=== PATIENT | female | born 1945 | race Caucasian/White ===

== ENCOUNTER 2020-08-21 10:30 | Outpatient (REF) | payer MEDICARE, SELFPAY ==
[2020-08-21 11:29] LABS: Creatinine Urine 150.53 mg/dL; Microalbum/Creatinine Ratio Ur 7.3 ug/mg cr
== END 2020-08-21 10:31 | disposition home or self-care (01) ==
LOC: HO.LNP 10:30
PROVIDERS: Visit Provider Family Medicine
DX: I10 Essential (primary) hypertension (principal); E11.9 Type 2 diabetes mellitus without complications
CPT/HCPCS: 82043

== ENCOUNTER 2020-12-15 10:00 | Outpatient (REF) | payer MEDICARE, OTHER, SELFPAY | END 2020-12-15 10:01 | disposition home or self-care (01) | LOC: HO.WFDLDS 10:00 | PROVIDERS: Visit Provider Family Medicine | DX: Z11.1 Encounter for screening for respiratory tuberculosis (principal) | CPT/HCPCS: 36415; 86481 ==

== ENCOUNTER 2020-12-22 09:14 | Outpatient (REF) | payer MEDICARE, OTHER, SELFPAY ==
[2020-12-24 19:37] LABS: TS Negative Control Passed; TS Panel A 0; TS Panel B 0; TS Positive Control Passed; TSpotTB Negative (SeeBelow)
== END 2020-12-22 09:15 | disposition home or self-care (01) ==
LOC: HO.WFDLDS 09:14
PROVIDERS: Visit Provider Family Medicine
DX: Z11.1 Encounter for screening for respiratory tuberculosis (principal)
CPT/HCPCS: 36415; 86481

== ENCOUNTER 2021-06-11 08:41 | Outpatient (REF) | payer MEDICARE, OTHER, SELFPAY ==
--- NOTE | ~2021-06-11 | MM_ITS ---
EXAMINATION: MM SCREENING DIGITAL BREAST TOMOSYNTHESIS, BILATERAL CLINICAL INFORMATION: Screening. Asymptomatic. The lifetime risk of breast cancer based on the Tyrer-Cuzick Model is 5%. COMPARISON: Mammography: 07/30/2017, 05/27/2015 TECHNIQUE: Digital breast tomosynthesis is performed in both the craniocaudal and mediolateral oblique views along with computer-aided detection (CAD). Synthesized 2D images are generated from the tomosynthesis. Additional bilateral CC and additional bilateral MLO views are provided. FINDINGS: There are scattered areas of fibroglandular density (ACR BI-RADS breast composition Category b). There are no significant masses, abnormal calcifications, or other abnormalities. Parenchymal pattern is similar to prior studies. No developing density. There are some additional benign coarse calcifications retroareolar right breast. Biopsy clip marker again noted anterior upper outer right breast. MM/MM tomosynthesis screening BI IMPRESSION: No mammographic evidence of malignancy. ASSESSMENT: BI-RADS 2: Benign RECOMMENDATION: Routine annual mammography screening. This patient's information was entered into a reminder system with a target due date for their next mammogram.
== END 2021-06-11 08:42 | disposition home or self-care (01) ==
LOC: HO.MAMMO 08:41
PROVIDERS: Visit Provider Family Medicine
DX: Z12.31 Encounter for screening mammogram for malignant neoplasm of breast (principal)
CPT/HCPCS: 77063; 77067

== ENCOUNTER 2021-08-13 11:04 | Outpatient (REF) | payer MEDICARE, OTHER, SELFPAY ==
[2021-08-13 14:10] LABS: Appearance Urine CLOUDY; Color Urine ORANGE; Glucose Urine UA NEG (NEG); Leukocyte Esterase Urine TRACE (NEG); Nitrite Urine NEG (NEG); Specific Gravity - Urine 1.025 (1.005-1.025); Urine Blood NEG (NEG); Urine Ketones 5 MG/DL (NEG); Urine Protein TRACE MG/DL (NEG-TRACE)
[2021-08-13 14:27] LABS: Amorphous Sediment Urine 1+ /LPF; RBC Urine 0 /HPF (0)
[2021-08-13 14:30] LABS: Alanine Aminotransferase 17 U/L (0-31); Albumin Level 3.8 g/dL (3.5-5.0); Alkaline Phosphatase 118 U/L (39-117); Anion Gap 11 (12-20); Aspartate Amino Transferase 22 U/L (5-31); Bilirubin Total 2.9 mg/dL (0.0-1.0); Blood Urea Nitrogen 14 mg/dL (9-16); Calcium 9.3 mg/dL (8.4-10.2); Carbon Dioxide 27 mmol/L (22-29); Chloride 107 mmol/L (96-108); Cholesterol 118 mg/dL; Estimated Glomerular Filt Rate > 60; Glucose Fasting 209 mg/dL (60-99); HDL Cholesterol 35 mg/dL; LDL Cholesterol Calculated 63 mg/dl; Potassium 4.4 mmol/L (3.3-5.1); Sodium 141 mmol/L (135-145); Total Protein 6.5 g/dL (6.5-8.0); Triglycerides 102 mg/dL
[2021-08-13 14:31] LABS: Microalbum/Creatinine Ratio Ur 17.3 ug/mg cr
[2021-08-13 14:52] LABS: TSH reflex Free T4 1.57 uIU/mL (0.32-4.0)
== END 2021-08-13 11:05 | disposition home or self-care (01) ==
LOC: HO.WFDLDS 11:04
PROVIDERS: Visit Provider Family Medicine
DX: Z00.00 Encounter for general adult medical examination without abnormal findings (principal); I10 Essential (primary) hypertension
CPT/HCPCS: 36415; 80053; 80061; 81001; 81003; 82043; 84443

== ENCOUNTER 2021-10-30 09:26 | Outpatient (REF) | payer MEDICARE, OTHER, SELFPAY ==
[2021-11-02 09:37] LABS: TS Negative Control Passed; TS Panel A 0; TS Panel B 0; TS Positive Control Passed; TSpotTB Negative (Negative)
== END 2021-10-30 09:27 | disposition home or self-care (01) ==
LOC: HO.WFDLDS 09:26
PROVIDERS: Visit Provider Family Medicine
DX: Z11.1 Encounter for screening for respiratory tuberculosis (principal)
CPT/HCPCS: 36415; 86481

== ENCOUNTER 2021-11-03 11:26 | Outpatient (REF) | payer MEDICARE, OTHER, SELFPAY ==
[2021-11-03 13:35] LABS: Blood Urea Nitrogen 14 mg/dL (9-16); Estimated Glomerular Filt Rate > 60
== END 2021-11-03 11:27 | disposition home or self-care (01) ==
LOC: HO.WFDLDS 11:26
PROVIDERS: Visit Provider Otolaryngology
DX: Z01.812 Encounter for preprocedural laboratory examination (principal); H93.11 Tinnitus, right ear
CPT/HCPCS: 36415; 82565; 84520

== ENCOUNTER 2022-01-15 08:49 | Outpatient (REF) | payer MEDICARE, OTHER, SELFPAY ==
[2022-01-18 06:47] LABS: SARS-COV-2 IgG Spike, Semi-Qnt 20.45 index (<1.00)
== END 2022-01-15 08:50 | disposition home or self-care (01) ==
LOC: HO.WFDLDS 08:49
PROVIDERS: Visit Provider Family Medicine
DX: Z20.822 Contact with and (suspected) exposure to COVID-19 (principal); E11.9 Type 2 diabetes mellitus without complications
CPT/HCPCS: 36415; 86769

== ENCOUNTER 2022-07-01 09:04 | Outpatient (REF) | payer MEDICARE, OTHER, SELFPAY ==
[2022-07-01 11:54] LABS: Estimated Average Glucose 137 mg/dL; Hemoglobin A1c % 6.4 %
[2022-07-01 12:26] LABS: Appearance Urine Clear; Color Urine Dark Yellow; Glucose Urine UA Negative (Negative); Leukocyte Esterase Urine Small (1+) (Negative); Nitrite Urine Negative (Negative); PH 5.5 (5.0-9.0); UMIC TRIGGER UA YES; Urine Blood Negative (Negative); Urine Ketones Trace mg/dL (Negative); Urine Protein Negative (Neg-Trace)
[2022-07-01 12:32] LABS: Anion Gap 16 (12-20); Blood Urea Nitrogen 16 mg/dL (9-16); Calcium 9.3 mg/dL (8.4-10.2); Carbon Dioxide 23 mmol/L (22-29); Chloride 108 mmol/L (96-108); Cholesterol 128 mg/dL; Estimated Glomerular Filt Rate > 60; Glucose Random 168 mg/dL (60-115); HDL Cholesterol 39 mg/dL; LDL Cholesterol Calculated 73 mg/dl; Sodium 142 mmol/L (135-145); Triglycerides 80 mg/dL
[2022-07-01 12:33] LABS: Hematocrit 33.3 % (37.0-47.0); Hemoglobin 10.5 g/dl (12.0-16.0); Mean Corpuscular Volume 107.8 fL (80.0-98.0); Mean Platelet Volume 12.2 fL (9.4-12.3); Platelet Count 327 X10*3/uL (160-400); Red Blood Count 3.09 X10*6/uL (4.20-5.50); Red Cell Distribution Width 17.2 % (11.0-16.0)
[2022-07-01 12:38] LABS: WBC ABN SCTR FOR CBC 1
[2022-07-01 12:39] LABS: Mean Corpuscular HGB Conc 31.5 g/dl (31.0-35.0)
[2022-07-01 13:03] LABS: Erythrocyte Sedimentation Rate 21 MM/HR (0-20)
[2022-07-01 13:13] LABS: Bacteria Urine Trace (None Seen); Hyaline Casts Urine 0-2 /LPF (0-2); WBC Urine 0-5 /HPF (0-5)
[2022-07-01 13:40] LABS: Band Neutrophils Percent 0 % (3-5); Basophils Percent Manual 1 % (0-2); Eosinophils Percent Manual 3 % (0-4); Lymphocytes Percent Manual 23 % (20-40); Monocytes Percent Manual 7 % (2-11); Neutrophils Percent Manual 66 % (45-73); RBC Morphology NOTED
[2022-07-01 13:41] LABS: Large Platelet PRESENT; Macrocytosis 2+ (15-30) /OIF; Platelet Estimate NORMAL (NORMAL); Platelet Morphology Comment NOTED
[2022-07-01 13:42] LABS: Acanthocytes 2+ (3-5) /OIF; Burr Cells 2+ (3-5) /OIF; Ovalocytes 1+ (5-14) /OIF; Polychromasia 1+ (0-2) /OIF; Schistocytes 2+ (3-5) /OIF
[2022-07-01 13:43] LABS: Basophils Abs Manual 0.1 X10*3/uL (0.0-0.2); Eosinophils Absolute Manual 0.3 X10*3/uL (0.0-0.4); Lymphocytes Absolute Manual 2.5 X10*3/uL (1.2-4.9); Monocytes Absolute Manual 0.8 X10*3/uL (0.1-1.2); Neutrophils Absolute Manual 7.2 X10*3/uL (2.0-8.3); White Blood Count 10.9 X10*3/uL (4.8-10.8)
[2022-07-03 14:36] LABS: CRP High Sensitivity 1.3 mg/L
== END 2022-07-01 09:05 | disposition home or self-care (01) ==
LOC: HO.WFDLDS 09:04
PROVIDERS: Family Medicine; Visit Provider Nurse Practitioner Family
DX: Z00.00 Encounter for general adult medical examination without abnormal findings (principal); M79.10 Myalgia, unspecified site
CPT/HCPCS: 36415; 80048; 80061; 81001; 81003; 83036; 85007; 85025; 85027; 85652; 86141

== ENCOUNTER 2022-07-12 09:26 | Outpatient (REF) | payer MEDICARE, OTHER, SELFPAY ==
[2022-07-12 11:57] LABS: Appearance Urine Cloudy; Color Urine Dark Yellow; Glucose Urine UA Negative (Negative); Leukocyte Esterase Urine Small (1+) (Negative); Nitrite Urine Negative (Negative); Specific Gravity - Urine 1.015 (1.005-1.025); UMIC TRIGGER UA YES; Urine Blood Negative (Negative); Urine Ketones Negative (Negative); Urine Protein Trace mg/dL (Neg-Trace)
[2022-07-12 12:17] LABS: Hematocrit 34.1 % (37.0-47.0); Mean Corpuscular Hemoglobin 34.7 pg (27.0-33.0); Mean Corpuscular Volume 107.6 fL (80.0-98.0); Mean Platelet Volume 12.4 fL (9.4-12.3); Platelet Count 340 X10*3/uL (160-400); Red Blood Count 3.17 X10*6/uL (4.20-5.50); WBC ABN SCTR FOR CBC 1
[2022-07-12 12:18] LABS: Mean Corpuscular HGB Conc 32.3 g/dl (31.0-35.0)
[2022-07-12 12:25] LABS: Bacteria Urine None Seen (None Seen); Hyaline Casts Urine 0-2 /LPF (0-2); RBC Urine 0-2 /HPF (0-2); WBC Urine 0-5 /HPF (0-5)
[2022-07-12 12:29] LABS: TSH reflex Free T4 2.05 uIU/mL (0.32-4.0)
[2022-07-12 12:37] LABS: Atypical Lymphs Percent Manual 1 % (0-6); Band Neutrophils Percent 2 % (3-5); Basophils Percent Manual 5 % (0-2); Lymphocytes Percent Manual 27 % (20-40); Metamyelocytes Percent 1 %; Monocytes Percent Manual 4 % (2-11); Myelocytes Percent 2 %; Neutrophils Percent Manual 58 % (45-73); Nucleated Red Blood Cells 1 /100WBC (0-0)
[2022-07-12 12:41] LABS: Folate 17.2 ng/mL (> or = 4.0); Vitamin B12 723 pg/mL (200-900)
[2022-07-12 12:48] LABS: Acanthocytes 1+ (0-2) /OIF; Burr Cells 2+ (3-5) /OIF; Macrocytosis 1+ (5-14) /OIF; RBC Morphology NOTED; Spherocytes 2+ (3-5) /OIF
[2022-07-12 12:49] LABS: Howell Jolly Bodies PRESENT
[2022-07-12 12:52] LABS: Large Platelet PRESENT; Platelet Estimate NORMAL (NORMAL); Platelet Morphology Comment NOTED; Schistocytes 2+ (3-5) /OIF
[2022-07-12 12:58] LABS: Atypical Lymph Absolute Manual 0.1 x10*3/uL; Basophils Abs Manual 0.5 X10*3/uL (0.0-0.2); Lymphocytes Absolute Manual 2.5 X10*3/uL (1.2-4.9); Metamyelocytes Absolute 0.1 X10*3/uL; Monocytes Absolute Manual 0.4 X10*3/uL (0.1-1.2); Myelocytes Absolute 0.2 X10*/uL; Neutrophils Absolute Manual 5.6 X10*3/uL (2.0-8.3); White Blood Count 9.4 X10*3/uL (4.8-10.8)
== END 2022-07-12 09:27 | disposition home or self-care (01) ==
LOC: HO.WFDLDS 09:26
PROVIDERS: Visit Provider Family Medicine
DX: Z00.00 Encounter for general adult medical examination without abnormal findings (principal); E53.8 Deficiency of other specified B group vitamins
CPT/HCPCS: 36415; 81001; 82607; 82746; 84443; 85007; 85025; 85027

== ENCOUNTER 2022-09-15 10:45 | Outpatient (REF) | payer MEDICARE, SELFPAY ==
[2022-09-15 14:38] LABS: Appearance Urine Turbid; Color Urine Dark Yellow; Glucose Urine UA Negative (Negative); Leukocyte Esterase Urine Moderate (2+) (Negative); Nitrite Urine Negative (Negative); PH 5.5 (5.0-9.0); Specific Gravity - Urine 1.025 (1.005-1.025); UMIC TRIGGER UA YES; Urine Blood Negative (Negative); Urine Ketones Trace mg/dL (Negative); Urine Protein 30 (1+) mg/dL (Neg-Trace)
[2022-09-15 14:48] LABS: Bacteria Urine None Seen (None Seen); Hyaline Casts Urine 0-2 /LPF (0-2); RBC Urine 0-2 /HPF (0-2)
[2022-09-15 14:52] LABS: Alanine Aminotransferase 16 U/L (0-31); Albumin Level 3.9 g/dL (3.5-5.0); Alkaline Phosphatase 101 U/L (39-117); Anion Gap 11 (12-20); Aspartate Amino Transferase 23 U/L (5-31); Blood Urea Nitrogen 14 mg/dL (9-16); Calcium 9.4 mg/dL (8.4-10.2); Carbon Dioxide 28 mmol/L (22-29); Chloride 106 mmol/L (96-108); Estimated Glomerular Filt Rate > 60; Glucose Random 246 mg/dL (60-115); Potassium 4.5 mmol/L (3.3-5.1); Sodium 140 mmol/L (135-145); Total Protein 6.4 g/dL (6.5-8.0)
[2022-09-15 14:52] LABS: Hematocrit 32.8 % (37.0-47.0); Hemoglobin 11.1 g/dl (12.0-16.0); Mean Corpuscular HGB Conc 33.8 g/dl (31.0-35.0); Mean Corpuscular Volume 109.3 fL (80.0-98.0); Mean Platelet Volume 12.8 fL (9.4-12.3); Platelet Count 427 X10*3/uL (160-400); Red Cell Distribution Width 16.2 % (11.0-16.0); WBC ABN SCTR FOR CBC 1
[2022-09-15 15:07] LABS: TSH reflex Free T4 1.89 uIU/mL (0.32-4.0)
[2022-09-15 15:21] LABS: Folate 13.3 ng/mL (> or = 4.0); Vitamin B12 445 pg/mL (200-900)
[2022-09-15 15:31] LABS: Band Neutrophils Percent 2 % (3-5); Basophils Percent Manual 1 % (0-2); Lymphocytes Percent Manual 17 % (20-40); Monocytes Percent Manual 8 % (2-11); Neutrophils Percent Manual 72 % (45-73)
[2022-09-15 15:33] LABS: RBC Morphology NOTED
[2022-09-15 15:34] LABS: Burr Cells 1+ (0-2) /OIF; Macrocytosis 1+ (5-14) /OIF; Ovalocytes 1+ (5-14) /OIF; Schistocytes 1+ (0-2) /OIF; Spherocytes 1+ (0-2) /OIF
[2022-09-15 15:35] LABS: Large Platelet PRESENT; Platelet Estimate NORMAL (NORMAL); Platelet Morphology Comment NORMAL
[2022-09-15 15:38] LABS: Toxic Vacuolation PRESENT
[2022-09-15 16:30] LABS: Basophils Abs Manual 0.1 X10*3/uL (0.0-0.2); Lymphocytes Absolute Manual 1.6 X10*3/uL (1.2-4.9); Monocytes Absolute Manual 0.7 X10*3/uL (0.1-1.2); Neutrophils Absolute Manual 6.9 X10*3/uL (2.0-8.3); White Blood Count 9.3 X10*3/uL (4.8-10.8)
== END 2022-09-15 10:46 | disposition home or self-care (01) ==
LOC: HO.WFDLDS 10:45
PROVIDERS: Visit Provider Family Medicine
DX: Z00.00 Encounter for general adult medical examination without abnormal findings (principal); R20.0 Anesthesia of skin; E53.8 Deficiency of other specified B group vitamins
CPT/HCPCS: 36415; 80053; 81001; 82607; 82746; 84443; 85007; 85027

== ENCOUNTER 2022-10-12 09:45 | Outpatient (REF) | payer MEDICARE, SELFPAY ==
--- NOTE | ~2022-10-12 | CT_ITS ---
EXAMINATION: CT CHEST WITH CONTRAST CLINICAL INFORMATION: Pulmonary nodule. COMPARISON: None TECHNIQUE: Multidetector volumetric CT imaging of the chest was obtained after the administration of 50 mL of Omnipaque 350 intravenous contrast without immediate adverse reactions. Axial MIP volume rendering provided. Sagittal and coronal reformatted images were obtained. This CT examination was performed using dose optimization techniques as appropriate, variously including the following: *Automated exposure control *Adjustment of mA and/or kV according to patient size (this includes techniques or standardized protocols for targeted exams where dose is matched to indication/reason for exam; i.e. extremities or head) *Use of iterative reconstruction technique DLP: 114 mGy-cm FINDINGS: COVER MAKER: Well-inflated lungs LUNGS: There is centrilobular emphysema without acute pneumonic process. There are multiple pulmonary nodules. 6 mm ill-defined nodule left upper lobe axial image 31/6 3 m nodule pleural-based left lower lobe axial image 59/6 reticular nodular changes right upper lobe adjacent to major fissure axial image 68/6, 3 mm nodule left lower lobe superior segment image 74/6, 1.8 cm nodule in lingula axial image 92/6 2 mm calcified nodule right middle lobe axial image 91/6 4 0 nodule right lower lobe subpleural-based axial image 101/6. MEDIASTINUM: The thyroid lobes are symmetric and normal. The central trachea and the bronchi widely patent. Heart size and the great vessels are normal caliber. There are small shotty precarinal 8 mm lymph nodes. Small subcarinal lymph nodes is visualized as well. Central trachea and bronchi appears widely patent. Moderate coronary artery calcifications are present. PLEURA: There is no pleural effusion. No pleural mass or thickening. AXILLA: No lymphadenopathy. UPPER ABDOMEN: Visualized liver, spleen, pancreas and bilateral adrenal glands unremarkable. There are surgical jewel left upper quadrant likely from previous intervention. The gallbladder has been surgically removed. OSSEOUS STRUCTURES: Degenerative disc changes with ventral spondylosis mid dorsal spine. No aggressive lytic or sclerotic process seen. CT/CT chest w IV con IMPRESSION: 1. Centrilobular emphysema with multiple pulmonary nodules. The largest nodule measures 1.8 cm in the lingula. 2. Small to moderate size lymph nodes seen in the mediastinum and bilateral hilar regions question metastatic 3. Moderate coronary artery calcifications. 4. Cholecystectomy changes. Fleischner guidelines were followed.
[2022-10-12] MEDS: iohexoL 350 MG/ML 100 ML INFUS..BTL IV (10:42)
== END 2022-10-12 09:46 | disposition home or self-care (01) ==
LOC: HO.CT 09:45
PROVIDERS: PCP Family Medicine; Visit Provider Family Medicine
DX: R91.1 Solitary pulmonary nodule (principal); R93.89 Abnormal findings on diagnostic imaging of other specified body structures
CPT/HCPCS: 71260; Q9967

== ENCOUNTER → 2022-11-12 09:12 | Outpatient (BNV) | payer MEDICARE, SELFPAY | PROVIDERS: PCP Family Medicine; Visit Provider Internal Medicine Medical Oncology | DX: C34.90 Malignant neoplasm of unspecified part of unspecified bronchus or lung (principal); D64.9 Anemia, unspecified | CPT/HCPCS: 99204; 99213; 99214; 99443 ==

== ENCOUNTER → 2022-11-26 10:19 | Outpatient (BNVA) | payer MEDICARE, SELFPAY | PROVIDERS: PCP Family Medicine; Visit Provider Surgery | DX: R91.1 Solitary pulmonary nodule (principal); F17.210 Nicotine dependence, cigarettes, uncomplicated | CPT/HCPCS: 99202 ==

== ENCOUNTER 2022-11-30 09:37 | Outpatient (REF) | payer MEDICARE, SELFPAY ==
--- NOTE | 2022-11-30 | PFT_ITS ---
INDICATION: Pulmonary nodule. SPIROMETRY: FEV1 to FVC of 68% with an FEV1 of 1.47 L, which is 81% predicted and FVC of 2.17 L, which is 88% predicted. No significant response to bronchodilator is noted. Maximum voluntary ventilation is 84% of predicted. LUNG VOLUMES: Total lung capacity 98% of predicted with a residual volume of 99% predicted. DIFFUSION CAPACITY: DLCO 45% of predicted. COMPARISONS: None. INTERPRETATION: This is an obstructive ventilatory defect consistent with mild COPD. No significant response to bronchodilators noted. No maximum voluntary ventilation. Lung volumes are within normal limits. The patient does, however, has a severe diffusion impairment likely secondary to her COPD and/or other parenchymal lung condition should be considered. Clinical correlation warranted. MD SARAH Mayen/MODMack / [id number]
== END 2022-11-30 09:38 | disposition home or self-care (01) ==
LOC: HO.RESP 09:37
PROVIDERS: PCP Family Medicine; Visit Provider Internal Medicine Medical Oncology
DX: R91.1 Solitary pulmonary nodule (principal)
CPT/HCPCS: 94060; 94727; 94729

== ENCOUNTER 2022-12-07 11:49 | Outpatient (REF) | payer MEDICARE, SELFPAY | END 2022-12-07 11:50 | disposition home or self-care (01) | LOC: HO.PET 11:49 | PROVIDERS: PCP Family Medicine; Visit Provider Internal Medicine Medical Oncology | DX: Z13.89 Encounter for screening for other disorder (principal) ==

== ENCOUNTER 2022-12-14 10:56 | Outpatient (REF) | payer MEDICARE, SELFPAY ==
--- NOTE | ~2022-12-14 | PE_ITS ---
EXAMINATION: Fluorine-18 FDG PET/CT Scan CLINICAL INDICATION: Initial treatment management. Lung nodule PROCEDURE: 71 minutes following the intravenous administration of 18.4 mCi of fluorine 18 FDG, images from the base of the skull to the mid thighs were obtained using a combined PET/CT scanner with CT scan based attenuation correction. No oral contrast was administered. No intravenous contrast was administered. Transverse, coronal, sagittal, and volume reconstruction projections were obtained. The patient's blood glucose as determined by a finger stick, was 154 mg/dl immediately prior to injection. Total CT exam dose-length product 497.11 mGy-cm * These CT images were obtained using dose optimization techniques as appropriate, variously including the following: Automated exposure control * Adjustment of mA and/or kV according to patient size (this includes techniques or standardized protocols for targeted exams where dose is matched to indication/reason for exam; i.e. extremities or head) * Use of iterative reconstruction technique COMPARISON: No previous PET/CT scan is available for comparison. CT scan of the chest dated 10/12/[address] scan of the abdomen and pelvis dated 12/08/2018 are available for comparison. FINDINGS: (Slice numbers described in this report are numbered superiorly to inferiorly with slice #1 in the head) NECK AND VISUALIZED HEAD: No foci of abnormal FDG activity are noted. The distribution of FDG activity is physiological. There is no cervical lymphadenopathy. THORAX: There is weak FDG activity associated with a solid nodule in the lingula that measures 2.1 x 1.4 cm in largest transverse dimensions and approximately 2.7 cm cephalocaudad, SUVmax 2.1, slice 85/267. Multiple additional small subcentimeter nodules are visualized, all much too small to be characterized on the FDG PET images. These include: A 0.7 cm posterior right upper lobe pulmonary nodule, slice 155/698; a 0.3 cm posterior pleural-based left upper lobe nodule slice 190/698; a calcified 0.3 cm in the right middle lobe near the minor interlobar fissure, slice 226/698; in the posterior subpleural right lower lobe 0.5 cm nodule, slice 246/698. There is also a groundglass opacity abutting the posterolateral pleura of the right upper lobe centered around slice 204/698 and abutting the lateral aspect of the right major interlobar fissure, with no associated abnormal FDG activity and corresponding to reticular nodular changes at this site on the diagnostic 10/12/2022 CT scan. All of these nodules appear unchanged from the diagnostic CT scan of the chest dated 10/12/2022. There is no pleural or pericardial fluid or pneumothorax. There is no mediastinal, supraclavicular, or axillary lymphadenopathy. ABDOMEN AND PELVIS: There are no foci of abnormal FDG activity in the abdomen or pelvis. Mild diffuse FDG activity throughout the gastrointestinal tract is present. There is diverticulosis without evidence of diverticulitis. The hollow viscera are otherwise unremarkable. The liver is unremarkable. The gallbladder and spleen have been resected and there are metallic surgical clips in the gallbladder bed and at multiple sites in the left upper quadrant. The kidneys are unremarkable. A subcentimeter hypodensity present in the lower pole the right kidney on the 12/08/[address] scan is not apparent on these nondiagnostic CT images. The kidneys are otherwise unremarkable. The adrenal glands are unremarkable. The tail and portions of the body of the pancreas have been resected and multiple metallic surgical clips are present in this region. There is no associated abnormal FDG activity in this region. There is a fluid density left adnexal cyst that measures 6.1 x 4.4 cm in largest transverse dimensions and 6.2 cm cephalocaudad. This is markedly FDG photopenic. This was not present on the 12/08/2018 CT scan of the abdomen and pelvis. There is a 2.4 x 2.1 cm hyperdense lesion in the right adnexa, and this shows no abnormal FDG activity and does not appear significantly changed from 12/08/2018. There the pelvic organs are otherwise unremarkable. Is no retroperitoneal, mesenteric, pelvic or inguinal lymphadenopathy. MUSCULOSKELETAL: There are no foci of abnormal FDG activity in the abdomen or pelvis. A mild thoracolumbar scoliosis is present with lumbar convexity to the left. There are degenerative changes in the spine and anterior wedging of the T12 vertebral body associated with adjacent degenerative disc disease and degenerative osteophytes is noted but there is no abnormal FDG activity at this site. VASCULAR: Diffuse vascular calcifications including dense coronary calcifications are noted. There are also diffuse dense calcifications of the aortic valve. PET/PET CT fusion skull to thigh IMPRESSION: 1. A solid nodule in the lingula shows only weak FDG activity, suggesting a benign etiology. However because approximately 10% of pulmonary malignancies demonstrate no abnormal FDG activity, if biopsy of this nodule is not obtained, followup with diagnostic chest CT scan in 6 months is recommended. 2. Several additional small subcentimeter pulmonary nodules are present, unchanged from 10/12/2022 and all too small to be characterized on the FDG PET images. Follow-up of these with diagnostic CT imaging also an approximately 6 months is recommended. 3. A 6.1 cm left adnexal cyst is present. This shows fluid density and is markedly FDG photopenic and probably benign. However, further characterization of this with pelvic ultrasonography is recommended. This was not present on the 12/08/2018 CT scan. 4. A hyperdense 2.4 cm right adnexal lesion shows no abnormal FDG activity and is not significantly changed from 12/08/2018. This is likely benign but could also be further characterized with pelvic ultrasound. 5. No additional abnormalities suspicious for metastatic or other malignant lesions are noted. 6. Postsurgical changes in the abdomen are noted. 7. Diffuse vascular calcifications including coronary are noted. There are also prominent calcifications of the aortic valve.
== END 2022-12-14 10:57 | disposition home or self-care (01) ==
LOC: HO.PET 10:56
PROVIDERS: PCP Family Medicine; Visit Provider Internal Medicine Medical Oncology
DX: Z13.89 Encounter for screening for other disorder (principal)

== ENCOUNTER 2022-12-17 12:14 | Outpatient (REF) | payer MEDICARE, SELFPAY ==
--- NOTE | ~2022-12-17 | US_ITS ---
EXAMINATION: US PELVIS CLINICAL INFORMATION: Follow up adnexal cysts seen on PET/CT. History of non-small cell lung cancer. COMPARISON: Outside PET/CT December [address] of the abdomen and pelvis November 2018. TECHNIQUE: Ultrasound of the pelvis is performed using both transabdominal and transvaginal transducers along with Doppler. Transvaginal imaging is performed due to inadequate visualization transabdominally. FINDINGS: The uterus is anteverted and measures 5.5 x 2.7 x 2.5 cm in dimension. No focal uterine lesion. Endometrial thickness is normal measuring 0.2 m. There are nabothian cysts in the cervix. The right ovary measures 3.1 x 2.3 x 1.9 cm. Minimally complex cyst in the right ovary measuring 2.4 x 1.9 x 2 cm. This has a slightly thickened wall and single septation. This likely corresponds to the high-attenuation right ovarian lesion seen on PET/CT scan and prior CT from 2016 and 2018. This is unchanged in size when compared to oldest exams going back to 2017. The left ovary is enlarged and measures 6.3 x 3.9 x 5.3 cm. There is a 6.2 x 4.1 x 4.9 cm minimally complex left ovarian cyst with some internal echoes. This is new or increased in size from previous exams from 2017 and 2019. There is no fluid in the pelvis. US/US pelvic and transvaginal IMPRESSION: Bilateral adnexal cysts. Minimally complex right ovarian cyst similar in size to previous CT scans from 2017 and 2019. Minimally complex 5 x 6 cm left adnexal cyst new or increased in size from previous exams. INTERNET MANAGER consultation recommended.
== END 2022-12-17 12:15 | disposition home or self-care (01) ==
LOC: HO.US 12:14
PROVIDERS: PCP Family Medicine; Visit Provider Internal Medicine Medical Oncology
DX: N94.9 Unspecified condition associated with female genital organs and menstrual cycle (principal); R91.1 Solitary pulmonary nodule; I25.10 Atherosclerotic heart disease of native coronary artery without angina pectoris; F17.210 Nicotine dependence, cigarettes, uncomplicated
CPT/HCPCS: 76830; 76856; 99212

== ENCOUNTER 2023-02-11 12:30 | Outpatient (REF) | payer MEDICARE, SELFPAY ==
--- NOTE | ~2023-02-11 | XR_ITS ---
EXAMINATION: XR CHEST CLINICAL INFORMATION: Solitary pulmonary nodule. Chest tube removed. COMPARISON: Previous chest x-ray from earlier the same day TECHNIQUE: 2 views of the chest were obtained. FINDINGS: The left chest tube is been removed. There may be a trace left apical pneumothorax measuring maximum of 4 mm at the left lung apex. This is exam earlier today. Postsurgical changes changes with surgical staple lines and bilobed density in the left upper lobe appear unchanged. The lungs are otherwise clear. No pleural effusion. Stable cardiac and mediastinal contours. Surgical clips below the left hemidiaphragm. Degenerative changes of the spine. XR/XR chest 2V IMPRESSION: Question trace left apical pneumothorax. This is similar to earlier exam. Stable postsurgical changes and bilobed density in the left upper lobe.
--- NOTE | ~2023-02-11 | XR_ITS ---
EXAMINATION: XR CHEST CLINICAL INFORMATION: Solitary pulmonary nodule COMPARISON: Previous chest CT September 2022 and PET/CT December 2022 TECHNIQUE: 2 views of the chest were obtained. FINDINGS: There are are new postsurgical changes to the left upper lobe with surgical staple lines. There is a bilobed nodule or mass in the left upper lobe appearing 2.5 x 7 cm in longitudinal and transverse dimension. Homogeneous this represents pulmonary nodule versus post operative change is uncertain. The lungs are otherwise clear. There is a left apical chest tube. There may be a trace left apical pneumothorax. This measures 5 mm at the left lung apex. No pleural effusion. The lungs are otherwise clear. The cardiac and mediastinal contours are stable. Surgical clips below the left mid diaphragm. Degenerative changes of the thoracic spine. XR/XR chest 2V IMPRESSION: New postsurgical changes to the left upper lobe. Bilobed density in the left upper lobe as described above. Left chest tube. Trace left apical pneumothorax.
== END 2023-02-11 12:31 | disposition home or self-care (01) ==
LOC: HO.XRAY 12:30
PROVIDERS: PCP Family Medicine; Visit Provider Surgery
DX: Z48.03 Encounter for change or removal of drains (principal); R91.1 Solitary pulmonary nodule; C34.12 Malignant neoplasm of upper lobe, left bronchus or lung
CPT/HCPCS: 71046

== ENCOUNTER → 2023-02-18 13:10 | Outpatient (BNVA) | payer MEDICARE, SELFPAY | PROVIDERS: PCP Family Medicine; Visit Provider Surgery | DX: C34.12 Malignant neoplasm of upper lobe, left bronchus or lung (principal) ==

== ENCOUNTER 2023-04-01 13:52 | Outpatient (AMB) | payer MEDICARE, SELFPAY ==
[2023-04-01 13:56] VITALS: BP 118/74; PULSE 76; RESP 13; TEMP 36.8; O2SAT 97; BMI 28.4
--- NOTE | 2023-04-01 13:56 | MHC.PC.OV ---
Vital Signs 04/01/23 13:56 Height 5 ft 2 in Weight 155 lb 2 oz BMI 28.4 BP 118/74 Blood Pressure Location Lt brachial Position Sitting Respiration 13 Pulse 76 Pulse Source Pulse Oximeter Temp 98.3 F Temp Source Temporal Artery Scan Pulse Oximetry (%) 97 Oxygen Delivery Method Room Air Intake Visit Reasons: head cold, congestion Intake Note: Patient states that she took 2 at home covid tests that came up negative. Patient states that the symptoms started yesterday and symptoms felt like a cold. Patient states she feel a little better today but still has congestion. 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 Accompanied by: Self / Same As Patient Allergies lorazepam [LORAZEPAM] Allergy (Unknown, Verified 04/01/23 14:05) WENT CRAZY Medication List - Last Reconciled 04/01/23 by Kenji Mcnally MD atorvastatin 80 mg PO DAILY azithromycin (Zithromax Z-Thomas) take 500 mg today (day 1), then 250 mg for 4 days (days 2-5) PO 5 days blood sugar diagnostic As directed blood-glucose meter As directed carvedilol 25 mg PO BID clopidogrel 75 mg PO DAILY diazepam 1 mg (1/2 x 2 mg) PO BEDTIME PRN 10 days fluticasone propionate 50 mcg/actuation (Flonase Allergy Relief) 1 spray intranasal Q12H 30 days insulin aspart U-100 (Novolog FlexPen U-100 Insulin aspart) 3 units subcut DAILY insulin detemir U-100 20 units subcut BEDTIME insulin lispro 100 units subcut DAILY isosorbide mononitrate ER 30 mg PO DAILY lancets (OneTouch Delica Plus Lancet) As directed lisinopril 20 mg PO DAILY mecobalamin (vitamin B12) 1,000 mcg sublingual DAILY 90 days pen needle, diabetic As directed verapamil ER 120 mg PO DAILY Tobacco use date assessed: 03/11/23 Fall risk assessment: No Falls in past year Last assessed Fall Risk: 04/01/23 Dental Screening Dental Screen Date: 04/01/23 Did you have a dental visit in the last 12 months?: No Did you have a dental problem in the last 6 months where you did not have access to dental care?: No Was dental information given to patient?: Patient has dentist HPI head cold, congestion HPI Details 78 y/o female presents with complaints of head cold and congestion. She reports she tested negative for covid. She states she thinks it is a sinus infection. [facility] Medical History Anemia Anxiety CAD (coronary artery disease) Diabetes type 2, controlled Dyslipidemia Essential hypertension Nicotine dependence, cigarettes, uncomplicated PAD (peripheral artery disease) Tubular adenoma of colon Surgical History History of angioplasty History of appendectomy History of carpal tunnel surgery of right wrist History of cholecystectomy History of colonoscopy History of heart artery stent History of lung surgery History of partial pancreatectomy History of splenectomy History of tonsillectomy History of varicose vein stripping Family History Daughter Lung cancer Father Bone cancer Mother Colon cancer Social History Household Members: None Housing: Condominium Alcohol intake: never Patient Tobacco Use Status: Former Tobacco user Years Smoked: 50 e-Cigarette/Vaping Use: Never Used Second Hand Smoke Exposure: No service: No Current occupational status: retired Current occupational exposures/hazards: No Cognitive needs: No Hearing needs: No Vision needs: No Questionnaire Thrive Questionnaire Date Thrive assessed: 08/31/22 SAMMY-7 AMB Questionnaire SAMMY-7 Date SAMMY - 7 assessed: 08/31/22 Source: Developed by Drs. Ari Serrano, Ban Erazo, Lee Lehman and colleagues, with an educational sonia from [employer]. Review of Systems Const Denies chills, Denies fatigue, Denies fever(s), Denies headache(s) and Denies weakness ENT Denies dizziness and Denies headache(s) Card Denies dyspnea Resp Denies cough, Denies dyspnea, Denies wheezing and Denies other (shortness of breath) Musc Denies numbness and Denies tingling Neuro Denies dizziness, Denies headache(s), Denies numbness, Denies tingling and Denies weakness Psych Denies anxiety and Denies depression Endo Denies fatigue Aller/Immun Denies wheezing Physical exam (Primary Care) Vital Signs: Last Vital Signs Temp 98.3 F 04/01/23 13:56 Pulse 76 04/01/23 13:56 Resp 13 04/01/23 13:56 BP 118/74 04/01/23 13:56 Pulse Ox 97 04/01/23 13:56 Oxygen Delivery Method Room Air 04/01/23 13:56 BMI result Body Mass Index 28.4 Tobacco/Smoking Status: Tobacco use Status Tobacco use date assessed 03/11/23 04/01/23 14:09 Patient Tobacco Use Status Former Tobacco user 04/01/23 14:09 e-Cigarette/Vaping Use Never Used 04/01/23 14:09 Thrive Assessment: Date of Thrive Assessment Date Thrive assessed 08/31/22 04/01/23 14:09 Const General: well developed; No acute distress Nutritional Appearance: well nourished Orientation/consciousness: patient oriented x3 HENMT Head: Yes normocephalic and Yes atraumatic Eyes General: appearance normal, both eyes and all related structures Pupils: Equal, round and reactive pupils present EOM: EOMs intact bilaterally Resp Other: Upper airway secretions and some coarse breath sounds Effort & Inspection: normal respiratory effort Neuro General: patient oriented x3 and gait normal Cranial nerves: Yes Equal, round and reactive pupils present Psych Affect: normal affect Assessment and Plan Assessment & Plan (1) Sinusitis: Code(s): J32.9 - Chronic sinusitis, unspecified Plan: Early bacterial sinus infection is suspected. Lung auscultation consistent with bronchitis Will start her on a Z-Thomas and give her a nasal steroid. She can also use nasal saline throughout her day but not within 30 minutes of the nasal steroid. Advised air conditioning She will call or return to the office if not improving or if worsens Medications: New azithromycin (Zithromax Z-Thomas) take 500 mg today (day 1), then 250 mg for 4 days (days 2-5) PO 6 tabs 0RF 5 days fluticasone propionate 50 mcg/actuation (Flonase Allergy Relief) administer into each nostril 1 spray intranasal Q12H 16 grams 2RF 30 days Coding Level of Care Code Est Pt Level 3 (84896) Diagnoses Sinusitis J32.9
== END 2023-04-01 15:05 | disposition home or self-care (01) ==
PROVIDERS: PCP Family Medicine; Visit Provider Family Medicine
DX: J32.9 Chronic sinusitis, unspecified (principal)
CPT/HCPCS: 99213

== ENCOUNTER 2023-04-19 16:38 | Outpatient (REF) | payer MEDICARE, SELFPAY ==
--- NOTE | ~2023-04-19 | MR_ITS ---
EXAMINATION: MRI PELVIS WITH AND WITHOUT CONTRAST CLINICAL INFORMATION: Reason for Exam Bilateral adnexal masses COMPARISON: PET/CT 12/14/2022 and pelvic ultrasound 12/17/2022 TECHNIQUE: Multiple routine MRI sequences through the pelvis were obtained before and after the uneventful administration of 7 mL of Gadavist gadolinium-based IV contrast. FINDINGS: UTERUS: Anteverted uterus is normal in size. Endometrium is uniform and measures 0.1 cm in thickness. Junctional zone is normal in signal and thickness. Few tiny intramural uterine myomas measuring up to 8 mm in the anterior body of uterus. There is some T1 intrinsically hyperintense signal within the endometrial canal, recommend correlation with symptoms of postmenopausal bleeding. CERVIX: Nabothian cysts in the cervix. VAGINA: Unremarkable. OVARIES: The right ovary is markable for a 2 cm intrinsically T1 hyperintense lesion with a T2 hypointense shading sign suggestive of an endometrioma.. The left ovary is remarkable for a 7.2 cm unilocular ovarian cyst demonstrating greater than 10% increase in diameter previously 6.1 cm on prior PET/CT. KIDNEYS AND VISUALIZED UPPER ABDOMEN: Two normally positioned kidneys are seen. No hydronephrosis. Gallbladder is not identified and may be surgically absent. Colonic diverticulosis without evidence of diverticulitis. BLADDER: Unremarkable. PELVIC FREE FLUID: No free fluid or ascites. LYMPH NODES: No pathologically enlarged lymph nodes. OSSEOUS STRUCTURES: Levoconvex curvature of the lumbar spine. MR/MR pelvis wo/w con IMPRESSION: * The left ovary is remarkable for a 7.2 cm unilocular ovarian cyst demonstrating greater than 10% increase in diameter, a probable enlarging low-grade cystic neoplasm. Recommend gynecologic consult with follow-up imaging if clinically warranted. * The right ovary is markable for a 2 cm intrinsically T1 hyperintense lesion with a T2 hypointense shading sign suggestive of an endometrioma, for which annual follow-up ultrasound is recommended. * There is some T1 intrinsically hyperintense signal within the endometrial canal, recommend correlation with symptoms of postmenopausal bleeding. Endometrium is otherwise uniformly thin measuring 0.1 cm in thickness.
== END 2023-04-19 16:39 | disposition home or self-care (01) ==
LOC: HO.MRI 16:38
PROVIDERS: PCP Family Medicine; Visit Provider Internal Medicine Medical Oncology
DX: N94.89 Other specified conditions associated with female genital organs and menstrual cycle (principal)
CPT/HCPCS: 72197; A9585

== ENCOUNTER 2023-06-13 08:23 | Outpatient (AMB) | payer MEDICARE, SELFPAY ==
--- NOTE | 2023-06-13 08:28 | MHC.PC.OV ---
Vital Signs 06/13/23 08:30 Height 5 ft 2 in Weight 153 lb 8 oz BMI 28.1 BP 126/66 Blood Pressure Location Lt brachial Position Sitting Respiration 14 Pulse 71 Pulse Source Pulse Oximeter Temp 98.7 F Temp Source Oral Pulse Oximetry (%) 96 Oxygen Delivery Method Room Air Intake Visit Reasons: f/u diabetes and chronic conditions Intake Note: Patient is here for a follow up appointment regarding diabetic care and chronic conditions. Patient has a concern for a growing ovary and would like to discuss options. Patient has a concern for stents in my leg. Gauger Chief Required: No Accompanied by: Self / Same As Patient Allergies lorazepam [LORAZEPAM] Allergy (Unknown, Verified 06/13/23 08:38) WENT CRAY Medication List - Last Reconciled 06/13/23 by Kenji Mcnally MD amoxicillin 500 mg PO Q12H 10 days atorvastatin 80 mg PO DAILY azithromycin (Zithromax Z-Thomas) take 500 mg today (day 1), then 250 mg for 4 days (days 2-5) PO 5 days blood sugar diagnostic As directed blood-glucose meter As directed carvedilol 25 mg PO BID clopidogrel 75 mg PO DAILY diazepam 1 mg (1/2 x 2 mg) PO BEDTIME PRN 10 days fluticasone propionate 50 mcg/actuation (Flonase Allergy Relief) 1 spray intranasal Q12H 30 days insulin aspart U-100 (Novolog FlexPen U-100 Insulin aspart) 3 units subcut DAILY insulin detemir U-100 20 units subcut BEDTIME insulin lispro 100 units subcut DAILY isosorbide mononitrate ER 30 mg PO DAILY lancets (OneTouch Delica Plus Lancet) As directed lisinopril 20 mg PO DAILY mecobalamin (vitamin B12) 1,000 mcg sublingual DAILY 90 days pen needle, diabetic As directed verapamil ER 120 mg PO DAILY Tobacco use date assessed: 03/11/23 Fall risk assessment: No Falls in past year Last assessed Fall Risk: 06/13/23 Dental Screening Dental Screen Date: 06/13/23 Did you have a dental visit in the last 12 months?: No Did you have a dental problem in the last 6 months where you did not have access to dental care?: No Was dental information given to patient?: Patient declined HPI f/u diabetes and chronic conditions HPI Details 78 y/o female presents to f/u diabetes and chronic conditions. Recent s/p lobectomy secondary to primary cancer of L upper lobe of lung. Blood pressure today 126/66. She is on carvedilol 25mg b.i.d. and lisinopril 20mg daily. A1c today 06/13/23 is 6.7%. Pt reports frequent anginal symptoms with exertion. [facility] Medical History Anemia Anxiety CAD (coronary artery disease) Diabetes type 2, controlled Dyslipidemia Essential hypertension Nicotine dependence, cigarettes, uncomplicated PAD (peripheral artery disease) Tubular adenoma of colon Surgical History History of angioplasty History of appendectomy History of carpal tunnel surgery of right wrist History of cholecystectomy History of colonoscopy History of heart artery stent History of lung surgery History of partial pancreatectomy History of splenectomy History of tonsillectomy History of varicose vein stripping Family History Daughter Lung cancer Father Bone cancer Mother Colon cancer Social History Household Members: None Housing: Condominium Alcohol intake: never Patient Tobacco Use Status: Former Tobacco user Years Smoked: 50 e-Cigarette/Vaping Use: Never Used Second Hand Smoke Exposure: No service: No Current occupational status: retired Current occupational exposures/hazards: No Cognitive needs: No Hearing needs: No Vision needs: No Questionnaire Thrive Questionnaire Date Thrive assessed: 08/31/22 SAMMY-7 AMB Questionnaire SAMMY-7 Date SAMMY - 7 assessed: 08/31/22 Source: Developed by Drs. Ari Serrano, Ban Erazo, Lee Lehman and colleagues, with an educational sonia from [employer]. Review of Systems Const Denies chills, Denies fatigue, Denies fever(s), Denies headache(s) and Denies weakness ENT Denies dizziness and Denies headache(s) Card Denies chest pain, Denies lightheadedness, Denies dyspnea and Denies other (Palpitations) Resp Denies cough, Denies dyspnea, Denies wheezing and Denies other ( shortness of breath) Musc Denies numbness and Denies tingling Neuro Denies dizziness, Denies headache(s), Denies numbness, Denies tingling, Denies paresthesias and Denies weakness Psych Denies anxiety and Denies depression Endo Denies fatigue Aller/Immun Denies wheezing Physical exam (Primary Care) Vital Signs: Last Vital Signs Temp 98.7 F 06/13/23 08:30 Pulse 71 06/13/23 08:30 Resp 14 06/13/23 08:30 BP 126/66 06/13/23 08:30 Pulse Ox 96 06/13/23 08:30 Oxygen Delivery Method Room Air 06/13/23 08:30 BMI result Body Mass Index 28.1 Tobacco/Smoking Status: Tobacco use Status Tobacco use date assessed 03/11/23 06/13/23 08:34 Patient Tobacco Use Status Former Tobacco user 06/13/23 08:34 e-Cigarette/Vaping Use Never Used 06/13/23 08:34 Thrive Assessment: Date of Thrive Assessment Date Thrive assessed 08/31/22 06/13/23 08:34 Const General: no acute distress and well developed Nutritional Appearance: well nourished Orientation/consciousness: patient oriented x3 [facility] Head: Yes normocephalic and Yes atraumatic Eyes General: appearance normal, both eyes and all related structures Pupils: Equal, round and reactive pupils present EOM: EOMs intact bilaterally Resp Effort & Inspection: normal respiratory effort Auscultation: clear to auscultation bilaterally Cardio Rate: regular rate Rhythm: regular rhythm Heart sounds: S1 normal heart sound present, S2 normal heart sound present, no gallops, no murmurs and no rubs Neuro General: patient oriented x3 and gait normal Cranial nerves: Yes Equal, round and reactive pupils present Psych Affect: normal affect Results AMB Hemoglobin A1c AMB Hemoglobin A1c 6.7 % Last Edit by Malena Humphries on 06/13/23 08:59 Assessment and Plan Assessment & Plan (1) S/P lobectomy of lung: Code(s): Z90.2 - Acquired absence of lung [part of] Plan: S/P?left?upper?lobe?wedge?resection?secondary?to?primary?lung?cancer (2) Diabetes type 2, controlled: Comment: (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) Code(s): E11.9 - Type 2 diabetes mellitus without complications Plan: A1c?6.7%.??Good?control.??Goal?is?less?than?7.0% Continue?current?regimen (3) Essential hypertension: Code(s): I10 - Essential (primary) hypertension Plan: Blood?pressure?is?controlled.??Goal?is?less?than?130/80?for?patient?with?coronary Artery?disease Continue?current?medication?regimen (4) CAD (coronary artery disease): Comment: (Hx MIs, Stents: SOUMYA to distal RCA, OM1, prox LAD) Code(s): I25.10 - Atherosclerotic heart disease of [place] coronary artery without angina pectoris Plan: Frequent?anginal?symptoms?with?exertion.??Symptoms?currently?of?a?with?rest.??Using?nitroglycerin?frequently. Asking?the?office?to?see?if?she?can?get?a?sooner?appointment?with?her?information clerk brokerage?at?[facility].??She?has?an?appointment?in?a?month. Advised?that?if?symptoms?do?not?nany?within?a?few?minutes?of?discontinuing?activity,?she?should?go?to?the?emergency?department. (5) Immunization counseling: Code(s): Z71.85 - Encounter for immunization safety counseling Plan: Patient?with?history?of?COPD,?emphysema?and?lung?cancer?with?left?upper?lobe?wedge?resection Advised?she?have?most?current?COVID?shot?and?get?RSV?vaccine?as?well.??She?is?already?gotten?her?flu?shot?this?year. (6) Adnexal mass: Code(s): N94.89 - Other specified conditions associated with female genital organs and menstrual cycle Plan: Cystic?mass Under?for?surveillance?with?Hematology-Oncology Follow-up?with??as?recommended Coding Level of Care Code Est Pt Level 4 (49548) Diagnoses S/P lobectomy of lung Z90.2 Diabetes type 2, controlled E11.9 Essential hypertension I10 CAD (coronary artery disease) I25.10 Immunization counseling Z71.85 Adnexal mass N94.89
[2023-06-13 08:30] VITALS: BP 126/66; PULSE 71; RESP 14; TEMP 37.1; O2SAT 96; BMI 28.1
== END 2023-06-13 09:26 | disposition home or self-care (01) ==
PROVIDERS: PCP Family Medicine; Visit Provider Family Medicine
DX: Z90.2 Acquired absence of lung [part of] (principal); E11.9 Type 2 diabetes mellitus without complications; I10 Essential (primary) hypertension; I25.10 Atherosclerotic heart disease of native coronary artery without angina pectoris; Z71.85 Encounter for immunization safety counseling; N94.89 Other specified conditions associated with female genital organs and menstrual cycle
CPT/HCPCS: 83036; 99214

== ENCOUNTER 2023-07-20 08:30 | Outpatient (AMB) | payer MEDICARE, SELFPAY ==
[2023-07-20 08:51] VITALS: BP 120/74; PULSE 67; O2SAT 99; BMI 26.6
--- NOTE | 2023-07-20 08:51 | A.OFFPC_ITS ---
Vital Signs 07/20/23 08:51 Height 5 ft 2 in Weight 145 lb 8 oz BMI 26.6 BP 120/74 Blood Pressure Location Lt brachial Position Sitting Pulse 67 Pulse Source Pulse Oximeter Pulse Oximetry (%) 99 Oxygen Delivery Method Room Air Intake Visit Reasons: f/u chronic conditions Intake Note: Patient is here to follow up on chronic condtions. Allergies lorazepam [LORAZEPAM] Allergy (Unknown, Verified 07/20/23 08:52) WENT CRAZY Medication List - Last Reconciled 07/20/23 by Kenji Mcnally MD amlodipine 2.5 mg PO DAILY 90 days amlodipine 2.5 mg PO DAILY amoxicillin 500 mg PO Q12H 10 days atorvastatin 80 mg PO DAILY azithromycin (Zithromax Z-Thomas) take 500 mg today (day 1), then 250 mg for 4 days (days 2-5) PO 5 days blood sugar diagnostic As directed blood-glucose meter As directed carvedilol 25 mg PO BID clopidogrel 75 mg PO DAILY diazepam 1 mg (1/2 x 2 mg) PO BEDTIME PRN 10 days ezetimibe 10 mg PO DAILY fluticasone propionate 50 mcg/actuation (Flonase Allergy Relief) 1 spray intranasal Q12H 30 days insulin aspart U-100 (Novolog FlexPen U-100 Insulin aspart) 3 units subcut DAILY insulin detemir U-100 20 units subcut BEDTIME insulin lispro 100 units subcut DAILY isosorbide mononitrate ER 30 mg PO DAILY lancets (OneTouch Delica Plus Lancet) As directed lisinopril 20 mg PO DAILY mecobalamin (vitamin B12) 1,000 mcg sublingual DAILY 90 days pen needle, diabetic As directed Tobacco use date assessed: 07/20/23 HPI f/u chronic conditions HPI Details 78 y/o female presents to f/u chronic co nditions. Pt had been having frequent anginal symptoms with exertion. Had seen Cardiology 07/13/23. They had added zetia 10 and started cardiac rehab. Continued DAPT as long as she can given diffuse vascular disease. Blood pressure today 120/74. She is on carvedilol 25mg b.i.d., amlodipine 2.5mg, lisinopril 20mg and verapamil 120mg daily. She continues to f/u with pulmonary for lung cancer - s/p lobectomy of lung. She reports zetia had been causing her discomfort. [facility], [facility] Medical History Anemia Anxiety CAD (coronary artery disease) Diabetes type 2, controlled Dyslipidemia Essential hypertension Nicotine dependence, cigarettes, uncomplicated PAD (peripheral artery disease) Tubular adenoma of colon Surgical History History of angioplasty History of appendectomy History of carpal tunnel surgery of right wrist History of cholecystectomy History of colonoscopy History of heart artery stent History of lung surgery History of partial pancreatectomy History of splenectomy History of tonsillectomy History of varicose vein stripping Family History Daughter Lung cancer Father Bone cancer Mother Colon cancer Social History Household Members: None Housing: Condominium Alcohol intake: never Patient Tobacco Use Status: Former Tobacco user Years Smoked: 50 e-Cigarette/Vaping Use: Never Used Second Hand Smoke Exposure: No service: No Current occupational status: retired Current occupational exposures/hazards: No Cognitive needs: No Hearing needs: No Vision needs: No Questionnaire PHQ-9 Over the last 2 weeks, how often have you been bothered by any of the following problems? 1. Little interest or pleasure in doing things: not at all 2. Feeling down, depressed, or hopeless: not at all 3. Trouble falling or staying asleep, or sleeping too much: not at all 4. Feeling tired or having little energy: not at all 5. Poor appetite or overeating: not at all 6. Feeling bad about yourself - or that you are a failure or have let yourself or your family down: not at all 7. Trouble concentrating on things, such as reading the newspaper or watching television: not at all 8. Moving or speaking so slowly that other people could have noticed. Or the opposite - being so fidgety or restless that you have been moving around a lot more than usual: not at all 9. Thoughts that you would be better off or of hurting yourself in some way: not at all Total score: 0 Source: Developed by Drs. Ari Serrano, Ban Erazo, Lee Lehman and colleagues, with an educational sonia from [employer]. Thrive Questionnaire Date Thrive assessed: 08/31/22 SAMMY-7 AMB Questionnaire SAMMY-7 Date SAMMY - 7 assessed: 07/20/23 Feeling nervous, anxious, or on edge: 0 = Not at all Not being able to stop or control worryin = Not at all Worrying too much about different things: 0 = Not at all Trouble relaxin = Not at all Being so restless that it is hard to sit still: 0 = Not at all Becoming easily annoyed or irritable: 0 = Not at all Feeling afraid as if something awful might happen: 0 = Not at all Total SAMMY-7 score (0-4 normal; 5-9 mild; 10-14 moderate; 15-21 severe): 0 Source: Developed by Drs. Ari Serrano, Ban Erazo, Lee Lehman and colleagues, with an educational sonia from [employer]. Review of Systems Const Denies chills, Denies fatigue, Denies fever(s), Denies headache(s) and Denies weakness ENT Denies dizziness and Denies headache(s) Card Denies chest pain, Denies lightheadedness, Denies dyspnea and Denies other (Palpitations) Resp Denies cough, Denies dyspnea, Denies wheezing and Denies other ( shortness of breath) Musc Denies numbness and Denies tingling Neuro Denies dizziness, Denies headache(s), Denies numbness, Denies tingling, Denies paresthesias and Denies weakness Psych Denies anxiety and Denies depression Endo Denies fatigue Aller/Immun Denies wheezing Physical exam (Primary Care) Vital Signs: Last Vital Signs Pulse 67 07/20/23 08:51 BP 120/74 07/20/23 08:51 Pulse Ox 99 07/20/23 08:51 Oxygen Delivery Method Room Air 07/20/23 08:51 BMI result Body Mass Index 26.6 Tobacco/Smoking Status: Tobacco use Status Tobacco use date assessed 07/20/23 07/20/23 08:54 Patient Tobacco Use Status Former Tobacco user 07/20/23 08:54 e-Cigarette/Vaping Use Never Used 07/20/23 08:54 PHQ-9: PHQ-9 Score PHQ-9: Total score 0 07/20/23 09:11 Thrive Assessment: Date of Thrive Assessment Date Thrive assessed 08/31/22 07/20/23 08:54 Const General: no acute distress and well developed Nutritional Appearance: well nourished Orientation/consciousness: patient oriented x3 [facility] Head: Yes normocephalic and Yes atraumatic Eyes General: appearance normal, both eyes and all related structures Pupils: Equal, round and reactive pupils present EOM: EOMs intact bilaterally Resp Effort & Inspection: normal respiratory effort Auscultation: clear to auscultation bilaterally Cardio Rate: regular rate Rhythm: regular rhythm Heart sounds: S1 normal heart sound present, S2 normal heart sound present, no gallops, no murmurs and no rubs Neuro General: patient oriented x3 and gait normal Cranial nerves: Yes Equal, round and reactive pupils present Psych Affect: normal affect Assessment and Plan Assessment & Plan (1) CAD (coronary artery disease): Comment: (Hx MIs, Stents: SOUMYA to distal RCA, OM1, prox LAD) Code(s): I25.10 - Atherosclerotic heart disease of [place] coronary artery without angina pectoris Plan: Recent?PCI?and?RCA?90%?blocked. Still?having?symptoms.??Medications?adjuste d?and?verapamil?has?been?discontinued.??Amlodipine?started. She?is?on?dual?antiplatelet?therapy?with?clopidogrel?and?aspirin Continues?atorvastatin?80?mg?daily?and?Zetia?was?added. Follow-up?with?Cardiology?as?recommended (2) Essential hypertension: Code(s): I10 - Essential (primary) hypertension Plan: Blood?pressure?is?controlled.??Goal?is?less?than?130/80 Continue?current?medications (3) S/P lobectomy of lung: Code(s): Z90.2 - Acquired absence of lung [part of] Plan: Effusion?seen?in?hospital?during?admission?for?anginal?symptoms?and?PCI Recent?lung?cancer?and?left?upper?lobectomy Fluid?negative?for?malignancy. Has?follow-up?with? in?December (4) Adnexal mass: Code(s): N94.89 - Other specified conditions associated with female genital organs and menstrual cycle Plan: Has?follow-up?with? 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 Has?a?daughter?who?is?a?good?family?support. She?declines?therapy Will?refilled?diazepam.??We?discussed ?that?if?she?continues?to?have?issues?with?high?anxiety,?she?should?let?me?know? and?we?will?discuss?a?better?medication?regimen.??Patient?understands. Will?ask?the?nurse?navigator?to?look?in?to?any?r esources?to?help?her?with?her?financial?obligations. Orders: Referrals Nurse Navigator Referral F41.9 - Anxiety disorder, unspecified Medications: New amlodipine 2.5 mg PO DAILY 90 tabs 2RF 90 days Refilled diazepam 1 mg (1/2 x 2 mg) PO BEDTIME PRN 5 tabs 0RF anxiety 10 days Coding Level of Care Code Est Pt Level 4 (11620) Diagnoses CAD (coronary artery disease) I25.10 Essential hypertension I10 S/P lobectomy of lung Z90.2 Adnexal mass N94.89 Diabetes type 2, controlled E11.9 Anxiety F41.9
== END 2023-07-20 09:40 | disposition home or self-care (01) ==
PROVIDERS: PCP Family Medicine; Visit Provider Family Medicine
DX: I25.10 Atherosclerotic heart disease of native coronary artery without angina pectoris (principal); I10 Essential (primary) hypertension; E11.9 Type 2 diabetes mellitus without complications; Z90.2 Acquired absence of lung [part of]; N94.89 Other specified conditions associated with female genital organs and menstrual cycle; F41.9 Anxiety disorder, unspecified
CPT/HCPCS: 99214

== ENCOUNTER 2023-08-11 09:45 | Outpatient (AMB) | payer MEDICARE, SELFPAY ==
--- NOTE | 2023-08-11 09:53 | MHC.PC.OV ---
Vital Signs 08/11/23 09:55 Height 5 ft 2 in Weight 142 lb BMI 26.0 BP 122/70 Blood Pressure Location Lt brachial Pulse 81 Pulse Source Pulse Oximeter Pulse Oximetry (%) 100 Oxygen Delivery Method Room Air Intake Visit Reasons: [facility] discharge Intake Note: Patient is here for follow up after [facility] discharge. Allergies lorazepam [LORAZEPAM] Allergy (Unknown, Verified 08/11/23 10:10) WENT CRAZY Tobacco use date assessed: 07/20/23 HPI [facility] discharge HPI Details 78 y/o female presents to f/u [facility] ED visit 08/02/23 for pleural effusion, CHF. Acute hypoxic respiratory failure likely due to bilateral pleural effusions. Cytology negative. Had been put on IV lasix 20mg b.i.d., thoracentesis with fluid analysis. She reports she is still on Lasix 20 mg b.i.d. She denies any symptoms today. She denies any LE swelling. [facility] Medical History Anemia Anxiety CAD (coronary artery disease) Diabetes type 2, controlled Dyslipidemia Essential hypertension Nicotine dependence, cigarettes, uncomplicated PAD (peripheral artery disease) Tubular adenoma of colon Surgical History History of angioplasty History of appendectomy History of carpal tunnel surgery of right wrist History of cholecystectomy History of colonoscopy History of heart artery stent History of lung surgery History of partial pancreatectomy History of splenectomy History of tonsillectomy History of varicose vein stripping Family History Daughter Lung cancer Father Bone cancer Mother Colon cancer Social History Household Members: None Housing: Condominium Alcohol intake: never Patient Tobacco Use Status: Former Tobacco user Years Smoked: 50 e-Cigarette/Vaping Use: Never Used Second Hand Smoke Exposure: No service: No Current occupational status: retired Current occupational exposures/hazards: No Cognitive needs: No Hearing needs: No Vision needs: No Questionnaire Thrive Questionnaire Date Thrive assessed: 08/31/22 SAMMY-7 AMB Questionnaire SAMMY-7 Date SAMMY - 7 assessed: 07/20/23 Source: Developed by Drs. Ari Serrano, Ban Erazo, Lee Lehman and colleagues, with an educational sonia from [employer]. Review of Systems Const Denies chills, Denies fatigue, Denies fever(s), Denies headache(s) and Denies weakness ENT Denies dizziness and Denies headache(s) Card Denies chest pain, Denies lightheadedness, Denies dyspnea and Denies other (Palpitations) Resp Denies cough, Denies dyspnea, Denies wheezing and Denies other ( shortness of breath) Musc Denies numbness and Denies tingling Neuro Denies dizziness, Denies headache(s), Denies numbness, Denies tingling, Denies paresthesias and Denies weakness Psych Denies anxiety and Denies depression Endo Denies fatigue Aller/Immun Denies wheezing Physical exam (Primary Care) Vital Signs: Last Vital Signs Pulse 81 08/11/23 09:55 BP 122/70 08/11/23 09:55 Pulse Ox 100 08/11/23 09:55 Oxygen Delivery Method Room Air 08/11/23 09:55 BMI result Body Mass Index 26.0 Tobacco/Smoking Status: Tobacco use Status Tobacco use date assessed 07/20/23 08/11/23 09:57 Patient Tobacco Use Status Former Tobacco user 08/11/23 09:57 e-Cigarette/Vaping Use Never Used 08/11/23 09:57 Thrive Assessment: Date of Thrive Assessment Date Thrive assessed 08/31/22 08/11/23 09:57 Const General: no acute distress and well developed Nutritional Appearance: well nourished Orientation/consciousness: [facility] Head: Yes normocephalic and Yes atraumatic Eyes General: appearance normal, both eyes and all related structures Pupils: Equal, round and reactive pupils present EOM: EOMs intact bilaterally Resp Effort & Inspection: normal respiratory effort Auscultation: clear to auscultation bilaterally Cardio Rate: regular rate Rhythm: regular rhythm Heart sounds: S1 normal heart sound present, S2 normal heart sound present, no gallops, Murmur heart sound present and no rubs Neuro General: patient oriented x3 and gait normal Cranial nerves: Yes Equal, round and reactive pupils present Psych Affect: normal affect Assessment and Plan Assessment & Plan (1) Shortness of breath: Code(s): R06.02 - Shortness of breath Plan: Recent?shortness?of?breath?secondary?to?congestive?heart?failure?as?well?as?pleural?effusion. Patient?was?diuresed She?also?had?an?ultrasound-guided?thoracentesis?which?to?out?750?mL. Today: (2) Pleural effusion: Code(s): J90 - Pleural effusion, not elsewhere classified Plan: As?above?s/p?thoracentesis She?has?a?history?of?effusions?and?also?history?of?lung?cancer?and?lobectomy Cytology Neg. (3) CHF (congestive heart failure): Code(s): I50.9 - Heart failure, unspecified Plan: Stable Cont Lasix Check BNP and CMP Continue?Lasix. Continue?compression?stockings?and?elevate?legs. Let?me?know?if?any?increased?shortness?of?breath?rapid?weight?gain?or?lower?extremity?edema. (4) Anxiety: Code(s): F41.9 - Anxiety disorder, unspecified Plan: Ongoing?anxiety?and?grief?secondary?to?the?loss?of?her??and?multiple?medical?conditions. We?discussed?therapy?and?pharmacotherapy?but?patient?declines?these?at?present. She?can?let?me?know?if?she?changes?her?mind. Orders: Orders Comprehensive Met. Panel Today I50.9 - Heart failure, unspecified B Type Natriuretic Peptide Today I50.9 - Heart failure, unspecified Medications: New compr.stocking,knee,long,large 20-30?mmHg,?As directed, 90 days 12 ea 2RF I50.9 - Heart failure, unspecified, I73.9 - Peripheral vascular disease, unspecified, R60.0 - Localized edema Coding Level of Care Code Est Pt Level 4 (51553) Diagnoses Shortness of breath R06.02 Pleural effusion J90 CHF (congestive heart failure) I50.9 Anxiety F41.9
[2023-08-11 09:55] VITALS: BP 122/70; PULSE 81; O2SAT 100; BMI 26.0
== END 2023-08-11 10:58 | disposition home or self-care (01) ==
PROVIDERS: PCP Family Medicine; Visit Provider Family Medicine
DX: R06.02 Shortness of breath (principal); J90 Pleural effusion, not elsewhere classified; I50.9 Heart failure, unspecified; F41.9 Anxiety disorder, unspecified
CPT/HCPCS: 99214

== ENCOUNTER 2023-08-11 10:58 | Outpatient (REF) | payer MEDICARE, SELFPAY ==
[2023-08-11 14:48] LABS: Alanine Aminotransferase 12 U/L (0-31); Albumin Level 3.8 g/dL (3.5-5.0); Alkaline Phosphatase 116 U/L (39-117); Anion Gap 14 (12-20); Aspartate Amino Transferase 37 U/L (5-31); Bilirubin Total 3.6 mg/dL (0.0-1.0); Blood Urea Nitrogen 16 mg/dL (9-16); Calcium 9.5 mg/dL (8.4-10.2); Carbon Dioxide 26 mmol/L (22-29); Chloride 103 mmol/L (96-108); Estimated Glomerular Filt Rate > 60; Glucose Random 136 mg/dL (60-115); Potassium 4.5 mmol/L (3.3-5.1); Sodium 138 mmol/L (135-145); Total Protein 7.3 g/dL (6.5-8.0)
[2023-08-11 15:24] LABS: B Type Natriuretic Peptide 135 pg/mL (<100)
== END 2023-08-11 10:59 | disposition home or self-care (01) ==
LOC: HO.WFDLDS 10:58
PROVIDERS: Visit Provider Family Medicine
DX: I50.9 Heart failure, unspecified (principal)
CPT/HCPCS: 36415; 80053; 83880

== ENCOUNTER 2023-08-16 09:36 | Outpatient (AMB) | payer MEDICARE, SELFPAY ==
--- NOTE | 2023-08-16 09:34 | MHC.PC.OV ---
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 Labs were drawn 08/11/23. Reviewed labs with pt. Mildly elevated AST of 37. BNP 135 pg/mL. [facility] Medical History Anemia Anxiety CAD (coronary artery disease) Diabetes type 2, controlled Dyslipidemia Essential hypertension Nicotine dependence, cigarettes, uncomplicated PAD (peripheral artery disease) Tubular adenoma of colon Surgical History History of angioplasty History of appendectomy History of carpal tunnel surgery of right wrist History of cholecystectomy History of colonoscopy History of heart artery stent History of lung surgery History of partial pancreatectomy History of splenectomy History of tonsillectomy History of varicose vein stripping Family History Daughter Lung cancer Father Bone cancer Mother Colon cancer Social History Household Members: None Housing: Condominium Alcohol intake: never Patient Tobacco Use Status: Former Tobacco user Years Smoked: 50 e-Cigarette/Vaping Use: Never Used Second Hand Smoke Exposure: No service: No Current occupational status: retired Current occupational exposures/hazards: No Cognitive needs: No Hearing needs: No Vision needs: No Questionnaire Thrive Questionnaire Date Thrive assessed: 08/31/22 SAMMY-7 AMB Questionnaire SAMMY-7 Date SAMMY - 7 assessed: 07/20/23 Source: Developed by Drs. Ari Serrano, Ban Erazo, Lee Lehman and colleagues, with an educational sonia from [employer]. Review of Systems Const Denies chills, Denies fatigue, Denies fever(s), Denies headache(s) and Denies weakness ENT Denies dizziness and Denies headache(s) Card Denies dyspnea Resp Denies cough, Denies dyspnea, Denies wheezing and Denies other (shortness of breath) Musc Denies numbness and Denies tingling Neuro Denies dizziness, Denies headache(s), Denies numbness, Denies tingling and Denies weakness Psych Denies anxiety and Denies depression Endo Denies fatigue Aller/Immun Denies wheezing Physical exam (Primary Care) Tobacco/Smoking Status: Tobacco use Status Tobacco use date assessed 07/20/23 08/16/23 09:37 Patient Tobacco Use Status Former Tobacco user 08/16/23 09:37 e-Cigarette/Vaping Use Never Used 08/16/23 09:37 Thrive Assessment: Date of Thrive Assessment Date Thrive assessed 08/31/22 08/16/23 09:37 Telehealth Telehealth Location of provider rendering services: practice address Location of patient: address on file Patient Identification confirmed using: Name, : Yes Telehealth method: voice only Patient verbally consented to treatment: Yes Patient verbally consented to billing insurance company: Yes Patient informed of any privacy concerns related to visit: Yes Minutes spent on Phone/Video with Pt.: 5 Assessment and Plan Assessment & Plan (1) CHF (congestive heart failure): Code(s): I50.9 - Heart failure, unspecified Plan: She?had?had?no?edema?or?congestion?at?recent?visit?last?week BNP?was?135 Currently?stable (2) Shortness of breath: Code(s): R06.02 - Shortness of breath Plan: Was?breathing?easy?at?last?visit Has?upcoming?appointment?with? (3) Elevated AST (SGOT): Code(s): R74.01 - Elevation of levels of liver transaminase levels Plan: Mild?AST?elevation. Hydrate?well?and?avoid?using?high?doses?of?Tylenol Does?not?drink We?can?follow-up?on?this?visit?subsequent?to?her?next?which?is?this?month. Coding Level of Care Code Tele Est Pt Level 2 (33812) Diagnoses CHF (congestive heart failure) I50.9 Shortness of breath R06.02 Elevated AST (SGOT) R74.01
== END 2023-08-16 11:41 | disposition home or self-care (01) ==
PROVIDERS: PCP Family Medicine; Visit Provider Family Medicine
DX: I50.9 Heart failure, unspecified (principal); R06.02 Shortness of breath; R74.01 Elevation of levels of liver transaminase levels
CPT/HCPCS: 99441

== ENCOUNTER 2023-09-02 08:27 | Outpatient (AMB) | payer MEDICARE, SELFPAY ==
[2023-09-02 09:53] VITALS: BP 116/58; PULSE 76; RESP 13; O2SAT 94; BMI 26.0
--- NOTE | 2023-09-02 09:53 | MHC.PC.OV ---
Vital Signs 09/02/23 09:53 Height 5 ft 2 in Weight 142 lb 2 oz BMI 26.0 BP 116/58 L Blood Pressure Location Lt brachial Position Sitting Respiration 13 Pulse 76 Pulse Source Pulse Oximeter Pulse Oximetry (%) 94 Oxygen Delivery Method Room Air Intake Visit Reasons: f/u shortness of breath/CHF Intake Note: Patient is here to follow up with CHF and shortness of breath. Patient reports she is feeling well and has no concerns at this time. 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 Had followed up with [facility] Thoracic surgery 08/18/23. They had planned to refer her to a new cardiology office preferably at [place]. They mention she needs a CT scan of chest in about 6 months along with a f/u at [facility]. [facility] Medical History Anemia Anxiety CAD (coronary artery disease) Diabetes type 2, controlled Dyslipidemia Essential hypertension Nicotine dependence, cigarettes, uncomplicated PAD (peripheral artery disease) Tubular adenoma of colon Surgical History History of angioplasty History of appendectomy History of carpal tunnel surgery of right wrist History of cholecystectomy History of colonoscopy History of heart artery stent History of lung surgery History of partial pancreatectomy History of splenectomy History of tonsillectomy History of varicose vein stripping Family History Daughter Lung cancer Father Bone cancer Mother Colon cancer Social History Household Members: None Housing: Condominium Alcohol intake: never Patient Tobacco Use Status: Former Tobacco user Years Smoked: 50 e-Cigarette/Vaping Use: Never Used Second Hand Smoke Exposure: No service: No Current occupational status: retired Current occupational exposures/hazards: No Cognitive needs: No Hearing needs: No Vision needs: No Questionnaire Thrive Questionnaire Date Thrive assessed: 08/31/22 SAMMY-7 AMB Questionnaire SAMMY-7 Date SAMMY - 7 assessed: 07/20/23 Source: Developed by Drs. Ari Serrano, Ban Erazo, Lee Lehman and colleagues, with an educational sonia from [employer]. Review of Systems Const Denies chills, Denies fatigue, Denies fever(s), Denies headache(s) and Denies weakness ENT Denies dizziness and Denies headache(s) Card Denies chest pain, Denies lightheadedness, Denies dyspnea and Denies other (Palpitations) Resp Denies cough, Denies dyspnea, Denies wheezing and Denies other ( shortness of breath) Musc Denies numbness and Denies tingling Neuro Denies dizziness, Denies headache(s), Denies numbness, Denies tingling, Denies paresthesias and Denies weakness Psych Denies anxiety and Denies depression Endo Denies fatigue Aller/Immun Denies wheezing Physical exam (Primary Care) Vital Signs: Last Vital Signs Pulse 76 09/02/23 09:53 Resp 13 09/02/23 09:53 BP 116/58 L 09/02/23 09:53 Pulse Ox 94 09/02/23 09:53 Oxygen Delivery Method Room Air 09/02/23 09:53 BMI result Body Mass Index 26.0 Tobacco/Smoking Status: Tobacco use Status Tobacco use date assessed 07/20/23 09/02/23 10:03 Patient Tobacco Use Status Former Tobacco user 09/02/23 10:03 e-Cigarette/Vaping Use Never Used 09/02/23 10:03 Thrive Assessment: Date of Thrive Assessment Date Thrive assessed 08/31/22 09/02/23 10:03 Const General: no acute distress and well developed Nutritional Appearance: well nourished Orientation/consciousness: [facility] Head: Yes normocephalic and Yes atraumatic Eyes General: appearance normal, both eyes and all related structures Pupils: Equal, round and reactive pupils present EOM: EOMs intact bilaterally Resp Effort & Inspection: normal respiratory effort Auscultation: clear to auscultation bilaterally Cardio Rate: regular rate Rhythm: regular rhythm Heart sounds: S1 normal heart sound present, S2 normal heart sound present, no gallops, no murmurs and no rubs Neuro General: patient oriented x3 and gait normal Cranial nerves: Yes Equal, round and reactive pupils present Psych Affect: normal affect Assessment and Plan Assessment & Plan (1) Primary cancer of left upper lobe of lung: Code(s): C34.12 - Malignant neoplasm of upper lobe, left bronchus or lung Plan: Recently?saw?surgeon Cytology?of?her?effusion?was?negative Stable (2) Shortness of breath: Code(s): R06.02 - Shortness of breath Plan: Improve Continue?Lasix (3) CHF (congestive heart failure): Code(s): I50.9 - Heart failure, unspecified Plan: Lungs?are?clear?and?she?has?no?shortness?of?breath No?lower?extremity?edema Stable Continue?Lasix Watch?for?S/S?of?CHF?including?shortness?of?breath/orthopnea,?lower?extremity?edema?or?rapid?weight?gain Call?or?return?to?office?if?you?notice?the Referred?to?cardiology (4) Pleural effusion: Code(s): J90 - Pleural effusion, not elsewhere classified Plan: Resolved Continue?diuretic Orders: Referrals Cardiology Referral I50.9 - Heart failure, unspecified Coding Level of Care Code Est Pt Level 4 (32740) Diagnoses Primary cancer of left upper lobe of lung C34.12 Shortness of breath R06.02 CHF (congestive heart failure) I50.9 Pleural effusion J90
== END 2023-09-02 10:56 | disposition home or self-care (01) ==
PROVIDERS: PCP Family Medicine; Visit Provider Family Medicine
DX: C34.12 Malignant neoplasm of upper lobe, left bronchus or lung (principal); R06.02 Shortness of breath; I50.9 Heart failure, unspecified; J90 Pleural effusion, not elsewhere classified
CPT/HCPCS: 99214

== ENCOUNTER 2023-09-21 10:03 | Outpatient (AMB) | payer MEDICARE, SELFPAY ==
--- NOTE | 2023-09-21 10:10 | MHC.OFFVIS ---
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 She was following Dr. Pimentel at [facility]. In June she got admitted with jaw pain and unstable angina and underwent right coronary artery PCI. She previously had PCI of distal right coronary artery as well as mid LAD. Circumflex artery is known to be BODY LINE FINISHER as documented below. In July 2023 she started noticing lower extremity edema and shortness of breath. Her breathing worsened after that and she had an outpatient chest x-ray performed which raise concern for congestive heart failure. She got admitted at [facility] after that and was discharged after diuresis and started on Lasix 20 mg twice a day. She is saying her breathing has improved since then. She is saying she does not know what happened and why her breathing got worse. She does not know whether she has any cardiomyopathy or any other issues were picked up during her admission at [facility]. She is complaining of cold hands and is asking whether anything can be done about that. She is saying that the hand changed color when she is in cold weather. I have explained to her that this could be related to Raynaud's. Cardiac catheterization from June 2023 reviewed. She had a mid RCA 90% stenosis which was treated with drug-eluting stent with 4 mm x 30 mm flaquita for anterior post dilated to 4.5 cm. She had patent distal RCA stents at that time. Mid left circumflex BODY LINE FINISHER with [id number] collaterals. Yhee-kn-jidvqlim diffuse ISR of OM1 stent. Mid LAD stent had mild diffuse ISR and 50% stenosis distal to the previous stent. LVEDP was 10-15 mm Hg. [facility] Medical History Anemia Anxiety CAD (coronary artery disease) Diabetes type 2, controlled Dyslipidemia Essential hypertension Nicotine dependence, cigarettes, uncomplicated PAD (peripheral artery disease) Tubular adenoma of colon Surgical History History of angioplasty History of appendectomy History of carpal tunnel surgery of right wrist History of cholecystectomy History of colonoscopy History of heart artery stent History of lung surgery History of partial pancreatectomy History of splenectomy History of tonsillectomy History of varicose vein stripping Family History Daughter Lung cancer Father Bone cancer Mother Colon cancer Social History Household Members: None [facility]: [facility] Alcohol intake: never Patient Tobacco Use Status: Former Tobacco user Years Smoked: 50 e-Cigarette/Vaping Use: Never Used Second Hand Smoke Exposure: No service: No Current occupational status: retired Current occupational exposures/hazards: No Cognitive needs: No Hearing needs: No Vision needs: No Review of Systems Const Reports chills, Reports fatigue, Reports fever(s), Reports frequent falls, Reports weakness, Reports weight gain and Reports weight loss ENT Reports dizziness Card Reports chest pain, Reports leg edema, Reports lightheadedness, Reports palpitations, Reports dyspnea, Reports dyspnea on exertion and Reports orthopnea Resp Reports cough, Reports dyspnea and Reports dyspnea on exertion GI Reports bloating and Reports change in bowel habits Musc Reports muscle weakness, Reports numbness and Reports tingling Neuro Reports dizziness, Reports frequent falls, Reports numbness, Reports tingling and Reports weakness Endo Reports fatigue and Reports palpitations Physical Exam Vital Signs: Last Vital Signs Pulse 64 09/21/23 10:11 BP 116/58 L 09/21/23 10:11 BMI result Body Mass Index 25.8 GENERAL APPEARANCE: in no acute distress, pleasant. NECK: no carotid bruit, no jugular venous distention. SKIN: no suspicious lesions, warm and dry. HEART: no murmurs, regular rate and rhythm. LUNGS: clear to auscultation bilaterally. ABDOMEN: soft, nontender. EXTREMITIES: no edema. PERIPHERAL PULSES: equal. NEUROLOGIC: No gross deficits, AAO X 3 Office Procedures EKG Details: Sinus rhythm 64 beats per minute, normal axis, normal EKG, QTC 435 milliseconds. [id number], Complete Assessment & Plan Assessment & Plan (1) CAD (coronary artery disease): Comment: (Hx MIs, Stents: SOUMYA to distal RCA, OM1, prox LAD) Code(s): I25.10 - Atherosclerotic heart disease of [place] coronary artery without angina pectoris (2) Essential hypertension: Code(s): I10 - Essential (primary) hypertension (3) CHF (congestive heart failure): Code(s): I50.9 - Heart failure, unspecified Plan [age] year female with known history of coronary disease with previous PCI, history of lung cancer status post resection by Dr. Guevara at [facility], hypertension, diabetes and hyperlipidemia who is presenting for 1st office visit. She was in [facility] in July 2023 with shortness of breath and lower extremity edema and was diagnosed with congestive heart failure. She was started on diuretics and since then has been doing well. Clinically she is euvolemic currently. Her anginal discomfort is jaw pain which she continues to get off and on. She is saying that she can go up and down stairs at times without any problem but sometimes she wakes up at night and while walking she notices jaw discomfort. She had jaw discomfort in June which led to diagnostic cardiac catheterization and she had RCA PCI performed at that time. She should be on aspirin and Plavix for at least 1 year. After 1 year Plavix becomes optional. We will get records from [facility] and [facility]. Thank you for allowing me to participate in the care of your patient. Please feel free to contact me if you have any questions. Coding Level of Care Code New Pt Level 4 (52636) Diagnoses CAD (coronary artery disease) I25.10 Essential hypertension I10 CHF (congestive heart failure) I50.9 CPT Codes EKG - CPT: 33769-[id number], Complete ([id number])
[2023-09-21 10:11] VITALS: BP 116/58; PULSE 64; BMI 25.8
== END 2023-09-21 10:57 | disposition home or self-care (01) ==
PROVIDERS: PCP Family Medicine; Visit Provider Internal Medicine Cardiovascular Disease
DX: I25.10 Atherosclerotic heart disease of native coronary artery without angina pectoris (principal); I10 Essential (primary) hypertension; I50.9 Heart failure, unspecified
CPT/HCPCS: 93010; 99204

== ENCOUNTER → 2023-09-21 10:03 | Outpatient (BNVA) | payer MEDICARE, SELFPAY | PROVIDERS: PCP Family Medicine; Visit Provider Internal Medicine Cardiovascular Disease | DX: I11.0 Hypertensive heart disease with heart failure (principal); I50.9 Heart failure, unspecified; I25.10 Atherosclerotic heart disease of native coronary artery without angina pectoris | CPT/HCPCS: 93005; 99202 ==

== ENCOUNTER 2023-10-12 10:26 | Outpatient (AMB) | payer MEDICARE, SELFPAY ==
[2023-10-12 10:42] VITALS: BP 110/68; PULSE 62; O2SAT 99; BMI 25.8
--- NOTE | 2023-10-12 10:42 | A.OFFPC_ITS ---
Vital Signs 10/12/23 10:42 Height 5 ft 2 in Weight 141 lb 2 oz BMI 25.8 BP 110/68 Blood Pressure Location Lt brachial Position Sitting Pulse 62 Pulse Source Pulse Oximeter Pulse Oximetry (%) 99 Oxygen Delivery Method Room Air Intake Visit Reasons: [facility] Intake Note: Patient is here for follow up on [facility] for shortness of breath. Allergies lorazepam [LORAZEPAM] Allergy (Unknown, Verified 10/12/23 10:47) WENT CRAZY Tobacco use date assessed: 10/12/23 Fall risk assessment: No Falls in past year Last assessed Fall Risk: 10/12/23 Dental Screening Dental Screen Date: 10/12/23 Did you have a dental visit in the last 12 months?: Yes Did you have a dental problem in the last 6 months where you did not have access to dental care?: No Was dental information given to patient?: Patient has dentist HPI [facility] /SOB HPI Details 78 y/o female [facility] for shortness of breath. Pt reports breathing today is improved. Pt denies any LE swelling. She denies any changes to her weight. She continues to take Lasix twice a day. [facility] Medical History Dyslipidemia PAD (peripheral artery disease) Nicotine dependence, cigarettes, uncomplicated Tubular adenoma of colon Anemia Anxiety CAD (coronary artery disease) Essential hypertension Diabetes type 2, controlled Surgical History History of lung surgery History of varicose vein stripping History of angioplasty History of heart artery stent History of carpal tunnel surgery of right wrist History of colonoscopy History of splenectomy History of partial pancreatectomy History of cholecystectomy History of appendectomy History of tonsillectomy Family History Daughter Lung cancer Father Bone cancer Mother Colon cancer Social History Household Members: None Housing: Condominium Alcohol intake: never Patient Tobacco Use Status: Former Tobacco user Years Smoked: 50 e-Cigarette/Vaping Use: Never Used Second Hand Smoke Exposure: No service: No Current occupational status: retired Current occupational exposures/hazards: No Cognitive needs: No Hearing needs: No Vision needs: No Questionnaire Thrive Questionnaire Date Thrive assessed: 08/31/22 SAMMY-7 AMB Questionnaire SAMMY-7 Date SAMMY - 7 assessed: 07/20/23 Source: Developed by Drs. Ari Serrano, Ban Erazo, Lee Lehman and colleagues, with an educational sonia from [employer]. Review of Systems Const Denies chills, Denies fatigue, Denies fever(s), Denies headache(s) and Denies weakness ENT Denies dizziness and Denies headache(s) Card Denies chest pain, Denies lightheadedness, Denies dyspnea and Denies other (Palpitations) Resp Denies cough, Denies dyspnea, Denies wheezing and Denies other ( shortness of breath) Musc Denies numbness and Denies tingling Neuro Denies dizziness, Denies headache(s), Denies numbness, Denies tingling, Denies paresthesias and Denies weakness Psych Denies anxiety and Denies depression Endo Denies fatigue Aller/Immun Denies wheezing Physical exam (Primary Care) Vital Signs: Last Vital Signs Pulse 62 10/12/23 10:42 BP 110/68 10/12/23 10:42 Pulse Ox 99 10/12/23 10:42 Oxygen Delivery Method Room Air 10/12/23 10:42 BMI result Body Mass Index 25.8 Tobacco/Smoking Status: Tobacco use Status Tobacco use date assessed 10/12/23 10/12/23 10:48 Patient Tobacco Use Status Former Tobacco user 10/12/23 10:46 e-Cigarette/Vaping Use Never Used 10/12/23 10:46 Thrive Assessment: Date of Thrive Assessment Date Thrive assessed 08/31/22 10/12/23 10:46 Const General: no acute distress and well developed Nutritional Appearance: well nourished Orientation/consciousness: patient oriented x3 HENMT Head: Yes normocephalic and Yes atraumatic Eyes General: appearance normal, both eyes and all related structures Pupils: Equal, round and reactive pupils present EOM: EOMs intact bilaterally Resp Effort & Inspection: normal respiratory effort Auscultation: clear to auscultation bilaterally Cardio Rate: regular rate Rhythm: regular rhythm Heart sounds: S1 normal heart sound present, S2 normal heart sound present, no gallops, no murmurs and no rubs Neuro General: patient oriented x3 and gait normal Cranial nerves: Yes Equal, round and reactive pupils present Psych Affect: normal affect Assessment and Plan Assessment & Plan (1) Shortness of breath: Code(s): R06.02 - Shortness of breath Plan: Patient?had?had?ED?visit?due?to?shortness?of?breath.??Workup?was?reassuring. No?evidence?of?ACS,?worsened?CHF?or?PE. Patient?presents?today?and?is?breathing?easily?with?clear?lung?sounds. Will?check lab?work?including?BNP No?changes?to?her?medication?regimen?today?but?I?will?call?her?if?her?lab?work?r equires?action She?has?upcoming?appointments?with?Cardiology?and?also?with?me (2) CHF (congestive heart failure): Code(s): I50.9 - Heart failure, unspecified Plan: Appears?stable Continue?current?medication?regimen?including?furosemide Follow-up?with?Cardiology?as?recommend Orders: Orders B Type Natriuretic Peptide Today I50.9 - Heart failure, unspecified D Dimer High Sensitivity Today R06.02 - Shortness of breath Comprehensive Met. Panel Today R06.02 - Shortness of breath Coding Level of Care Code Est Pt Level 3 (44435) Diagnoses Shortness of breath R06.02 CHF (congestive heart failure) I50.9
== END 2023-10-12 12:24 | disposition home or self-care (01) ==
PROVIDERS: PCP Family Medicine; Visit Provider Family Medicine
DX: R06.02 Shortness of breath (principal); I50.9 Heart failure, unspecified
CPT/HCPCS: 99213

== ENCOUNTER 2023-10-12 12:15 | Outpatient (REF) | payer MEDICARE, SELFPAY ==
[2023-10-12 14:43] LABS: D Dimer High Sensitivity < 150 NG/ML
[2023-10-12 14:48] LABS: B Type Natriuretic Peptide 173 pg/mL (<100)
[2023-10-12 14:54] LABS: Alanine Aminotransferase 13 U/L (0-31); Albumin Level 3.8 g/dL (3.5-5.0); Alkaline Phosphatase 123 U/L (39-117); Anion Gap 10 (12-20); Aspartate Amino Transferase 31 U/L (5-31); Bilirubin Total 3.2 mg/dL (0.0-1.0); Blood Urea Nitrogen 14 mg/dL (9-16); Calcium 9.1 mg/dL (8.4-10.2); Carbon Dioxide 26 mmol/L (22-29); Chloride 104 mmol/L (96-108); Estimated Glomerular Filt Rate > 60; Glucose Random 235 mg/dL (60-115); Potassium 4.3 mmol/L (3.3-5.1); Sodium 136 mmol/L (135-145); Total Protein 6.8 g/dL (6.5-8.0)
== END 2023-10-12 12:16 | disposition home or self-care (01) ==
LOC: HO.WFDLDS 12:15
PROVIDERS: Visit Provider Family Medicine
DX: I11.0 Hypertensive heart disease with heart failure (principal); I50.9 Heart failure, unspecified; R06.02 Shortness of breath
CPT/HCPCS: 36415; 80053; 83880; 85379

== ENCOUNTER 2023-10-19 13:10 | Outpatient (AMB) | payer MEDICARE, SELFPAY ==
[2023-10-19 13:36] VITALS: BP 90/62; PULSE 64; BMI 25.8
--- NOTE | 2023-10-19 13:36 | A.OFFVIS_ITS ---
Intake Vital Signs 10/19/23 13:36 Height 5 ft 2 in Weight 141 lb 1.533 oz BMI 25.8 BP 90/62 Blood Pressure Location Lt brachial Position Sitting Pulse 64 Pulse Source Pulse Oximeter Intake [place]asons[place] [facility] [place] Miller Apprentice Required: No Allergies lorazepam [LORAZEPAM] Allergy (Unknown, Verified 10/19/23 13:39) WENT CRAZY Medication List - Last Reconciled 10/19/23 by Suellen Alberts NP aspirin (Adult Aspirin Regimen) 81 mg PO DAILY atorvastatin 80 mg PO DAILY blood sugar diagnostic As directed blood-glucose meter As directed carvedilol 25 mg PO BID clopidogrel 75 mg PO DAILY compr.stocking,knee,long,large 20-30?mmHg,?As directed, 90 days ezetimibe 10 mg PO DAILY fluticasone propionate 50 mcg/actuation (Flonase Allergy Relief) 1 spray intranasal Q12H 30 days furosemide 20 mg PO BID 30 days insulin aspart U-100 (Novolog FlexPen U-100 Insulin aspart) 3 units subcut DAILY insulin detemir U-100 20 units subcut BEDTIME insulin lispro 100 units subcut DAILY isosorbide mononitrate ER 30 mg PO DAILY lancets (OneTouch Delica Plus Lancet) As directed lisinopril 20 mg PO DAILY mecobalamin (vitamin B12) 1,000 mcg sublingual DAILY 90 days pen needle, diabetic As directed ranolazine ER 500 mg PO BID 90 days HPI HPI Comments History of Present Illness Details 78-year-old female presents today for a follow-up after being sent to the emergency department from the ED to evaluate SOB. She states it is just a far walk and they were concerns for the shortness of breath. She denies chest pain, dizziness, or palpitations. Blood pressures on the lower side today which she says is normal. She montiors her weight at home and says it has been stable at 140 lbs. COUNTS INCLUDE 234 BEDS AT THE [facility] Medical History Dyslipidemia PAD (peripheral artery disease) Nicotine dependence, cigarettes, uncomplicated Tubular adenoma of colon Anemia Anxiety CAD (coronary artery disease) Essential hypertension Diabetes type 2, controlled Surgical History History of lung surgery History of varicose vein stripping History of angioplasty History of heart artery stent History of carpal tunnel surgery of right wrist History of colonoscopy History of splenectomy History of partial pancreatectomy History of cholecystectomy History of appendectomy History of tonsillectomy Family History Daughter Lung cancer Father Bone cancer Mother Colon cancer Social History Household Members: None Housing: Condominium Alcohol intake: never Patient Tobacco Use Status: Former Tobacco user Years Smoked: 50 e-Cigarette/Vaping Use: Never Used Second Hand Smoke Exposure: No service: No Current occupational status: retired Current occupational exposures/hazards: No Cognitive needs: No Hearing needs: No Vision needs: No Review of Systems Const Denies chills, Denies fatigue, Denies fever(s), Denies frequent falls, Denies weakness, Denies weight gain and Denies weight loss ENT Denies dizziness Card Denies chest pain, Denies chest pain at rest, Denies chest pain with activity, Denies rapid heart rate, Denies pedal edema, Denies edema, Denies leg edema, Denies lightheadedness, Denies palpitations, Denies dyspnea, Denies dyspnea on exertion and Denies orthopnea Resp Denies cough, Denies dyspnea and Denies dyspnea on exertion GI Denies hematochezia and Denies change in stool character Musc Denies abnormal gait, Reports limited range of motion, Reports muscle cramps, Denies muscle weakness, Denies numbness, Denies radiating pain into limb, Denies stiffness and Denies tingling Neuro Denies abnormal gait, Denies dizziness, Denies frequent falls, Denies numbness, Denies tingling and Denies weakness Endo Denies fatigue and Denies palpitations Physical Exam Vital Signs: Last Vital Signs Pulse 64 10/19/23 13:36 BP 90/62 10/19/23 13:36 BMI result Body Mass Index 25.8 Const General: healthy appearing and no acute distress Orientation/consciousness: patient oriented x3 HEENT Head: Yes normal to inspection Eyes General: appearance normal, both eyes and all related structures Neck Neck: Yes normal visual inspection Chest Chest palpation & inspection: normal inspection of the chest Resp Effort & Inspection: normal respiratory effort Auscultation: clear to auscultation bilaterally Cardio Jugular venous distension: no JVD Palpation: normal PMI Rate: regular rate Rhythm: regular rhythm Heart sounds: S1 normal heart sound present, S2 normal heart sound present, no click, no gallops, no murmurs and no rubs GI Inspection: Yes normal to inspection Palpation (GI): Soft to palpation Skin General skin exam: no rashes or lesions noted Neuro General: patient oriented x3 Extrem General: Yes normal to inspection Psych Appearance: grossly normal Assessment & Plan Assessment & Plan (1) CHF (congestive heart failure): Code(s): I50.9 - Heart failure, unspecified (2) Essential hypertension: Code(s): I10 - Essential (primary) hypertension Plan She does not appear to be fluid overloaded today. Last echo I can see from her prior video tape duplicator was in 2018 - will repeat to assess heart function. Monitor weight at home daily. Call her tuesday to check on how her blood pressures have been since she is on the lower side today. Continue to avoid salt. W= Orders: Orders B Type Natriuretic Peptide 10/19/23 I50.9 - Heart failure, unspecified Basic Metabolic Panel 10/19/23 I50.9 - Heart failure, unspecified CA echo transthoracic complete 10/19/23 I50.9 - Heart failure, unspecified Coding Level of Care Code Est Pt Level 3 (39752) Diagnoses CHF (congestive heart failure) I50.9 Essential hypertension I10
== END 2023-10-19 14:36 | disposition home or self-care (01) ==
PROVIDERS: PCP Family Medicine; Visit Provider Nurse Practitioner
DX: I50.9 Heart failure, unspecified (principal); I10 Essential (primary) hypertension
CPT/HCPCS: 99213

== ENCOUNTER 2023-10-19 13:10 | Outpatient (REF) | payer MEDICARE, SELFPAY ==
[2023-10-19 16:03] LABS: Anion Gap 16 (12-20); Blood Urea Nitrogen 26 mg/dL (9-16); Calcium 9.2 mg/dL (8.4-10.2); Carbon Dioxide 24 mmol/L (22-29); Chloride 103 mmol/L (96-108); Estimated Glomerular Filt Rate 53; Glucose Random 207 mg/dL (60-115); Potassium 4.4 mmol/L (3.3-5.1); Sodium 139 mmol/L (135-145)
[2023-10-19 16:07] LABS: B Type Natriuretic Peptide 162 pg/mL (<100)
== END 2023-10-19 13:11 | disposition home or self-care (01) ==
LOC: HO.LAB 13:10
PROVIDERS: PCP Family Medicine; Visit Provider Nurse Practitioner
DX: Z09 Encounter for follow-up examination after completed treatment for conditions other than malignant neoplasm (principal); I11.0 Hypertensive heart disease with heart failure; I50.9 Heart failure, unspecified; I25.10 Atherosclerotic heart disease of native coronary artery without angina pectoris; Z95.5 Presence of coronary angioplasty implant and graft
CPT/HCPCS: 36415; 80048; 83880; 99212

== ENCOUNTER 2023-11-07 08:14 | Outpatient (REF) | payer MEDICARE, SELFPAY ==
--- NOTE | ~2023-11-07 | US_ITS ---
EXAMINATION: US PELVIS CLINICAL INFORMATION: Intra-abdominal and pelvic swelling. COMPARISON: Ultrasound pelvis 12/17/2022. TECHNIQUE: Ultrasound of the pelvis is performed using both transabdominal and transvaginal transducers along with Doppler. Transvaginal imaging is performed due to inadequate visualization transabdominally. FINDINGS: Uterus: The uterus is anteverted and measures 6.0 x 2.5 x 4.0 cm The double wall endometrial thickness is 3.0 mm. There is trace fluid within the endometrial canal. The uterus is smooth in contour and has normal myometrial echogenicity. There is a hypoechoic lesion in the body of uterus measuring 0.7 x 1.0 x 0.7 cm suggestive of fibroid. Adnexa: Both ovaries are visualized. There is normal color flow to the adnexa. There is no ovarian torsion. There is no pelvic ascites or fluid collection. Right ovary measures 1.8 x 2.3 x 2.1 cm and volume 4.5 mL. There is anechoic cyst with internal echoes measuring 1.6 x 1.9 x 1.5 cm. Left ovary measures 7.9 x 6.0 x 6.7 cm and volume 137.0 mL. There is anechoic cyst with internal echoes measuring 7.2 x 4.7 x 6.4 cm. The left ovarian cyst has slightly increased in size previously it measured 6.3 x 3.9 x 5.3 cm on ultrasound pelvis 12/17/2022. US/US pelvic and transvaginal IMPRESSION: 1. Small uterine fibroid. Not seen previously. 2. Bilateral ovarian cysts with internal echoes. The left ovarian cyst has slightly increased in size. 3. There is no free fluid in the cul-de-sac.
--- NOTE | ~2023-11-07 | US_ITS ---
EXAMINATION: US ABDOMEN COMPLETE CLINICAL INFORMATION: Pelvic mass. COMPARISON: CT abdomen and pelvis 12/08/2018. TECHNIQUE: Real-time imaging of the abdominal viscera. FINDINGS: PANCREAS: History of distal pancreatectomy. The remaining pancreatic head is unremarkable in sonographic appearance. ABDOMINAL AORTA: The proximal, mid, and distal segments are normal in caliber. INFERIOR VENA CAVA: Visualized portions are normal. LIVER: The liver is normal in size. The liver contour is normal. Parenchymal echogenicity is normal. No focal hepatic lesion. There is no intrahepatic biliary duct dilatation seen. GALLBLADDER: Surgically absent. COMMON BILE DUCT: Normal in caliber measuring 0.6 cm in diameter. RIGHT KIDNEY: Normal. No hydronephrosis. No renal calculi or focal parenchymal lesions. The kidney measures 11.4 cm in maximum dimension. LEFT KIDNEY: Normal. No hydronephrosis. No renal calculi or focal parenchymal lesions. The kidney measures 9.6 cm in maximum dimension. SPLEEN: Surgically absent. FREE FLUID: None. US/US abdomen complete IMPRESSION: Status post distal pancreatectomy, splenectomy, cholecystectomy. Otherwise unremarkable abdominal ultrasound.
== END 2023-11-07 08:15 | disposition home or self-care (01) ==
LOC: HO.US 08:14
PROVIDERS: PCP Family Medicine; Visit Provider Obstetrics & Gynecology Gynecologic Oncology
DX: R19.00 Intra-abdominal and pelvic swelling, mass and lump, unspecified site (principal); Z90.410 Acquired total absence of pancreas; Z90.81 Acquired absence of spleen; Z90.49 Acquired absence of other specified parts of digestive tract
CPT/HCPCS: 76700; 76830; 76856

== ENCOUNTER 2023-11-16 08:23 | Outpatient (AMB) | payer MEDICARE, SELFPAY ==
--- NOTE | 2023-09-02 16:52 | MHC.PC.OV ---
Intake Visit Reasons: f/u chronic conditions Intake Note: Updating patient's medication list to include her Lasix. Patient reports she takes 20mg BID- in the am and at 3pm. Allergies lorazepam [LORAZEPAM] Allergy (Unknown, Verified 09/02/23 10:03) WENT CRAZY Tobacco use date assessed: 07/20/23 REPLACED BY [facility] Medical History Anemia Anxiety CAD (coronary artery disease) Diabetes type 2, controlled Dyslipidemia Essential hypertension Nicotine dependence, cigarettes, uncomplicated PAD (peripheral artery disease) Tubular adenoma of colon Surgical History History of angioplasty History of appendectomy History of carpal tunnel surgery of right wrist History of cholecystectomy History of colonoscopy History of heart artery stent History of lung surgery History of partial pancreatectomy History of splenectomy History of tonsillectomy History of varicose vein stripping Family History Daughter Lung cancer Father Bone cancer Mother Colon cancer Social History Household Members: None Housing: Condominium Alcohol intake: never Patient Tobacco Use Status: Former Tobacco user Years Smoked: 50 e-Cigarette/Vaping Use: Never Used Second Hand Smoke Exposure: No service: No Current occupational status: retired Current occupational exposures/hazards: No Cognitive needs: No Hearing needs: No Vision needs: No Questionnaire Thrive Questionnaire Date Thrive assessed: 08/31/22 SAMMY-7 AMB Questionnaire SAMMY-7 Date SAMMY - 7 assessed: 07/20/23 Source: Developed by Drs. Ari Serrano, Ban Erazo, Lee Lehman and colleagues, with an educational sonia from [employer]. Physical exam (Primary Care) Tobacco/Smoking Status: Tobacco use Status Tobacco use date assessed 07/20/23 07/20/23 08:54 Patient Tobacco Use Status Former Tobacco user 07/20/23 08:54 e-Cigarette/Vaping Use Never Used 07/20/23 08:54 Thrive Assessment: Date of Thrive Assessment Date Thrive assessed 08/31/22 07/20/23 08:54 Coding
[2023-11-16 08:53] VITALS: BP 102/60; PULSE 70; RESP 13; TEMP 36.3; O2SAT 99; BMI 25.1
--- NOTE | 2023-11-16 08:53 | A.OFFPC_ITS ---
Vital Signs 11/16/23 08:53 Height 5 ft 2 in Weight 137 lb BMI 25.1 BP 102/60 Blood Pressure Location Rt brachial Position Sitting Respiration 13 Pulse 70 Pulse Source Pulse Oximeter Temp 97.3 F Temp Source Temporal Artery Scan Pulse Oximetry (%) 99 Oxygen Delivery Method Room Air Intake Visit Reasons: f/u chronic conditions Bill Adjuster Required: No Accompanied by: Self / Same As Patient Allergies lorazepam [LORAZEPAM] Allergy (Unknown, Verified 11/16/23 08:58) WENT CRAZY Tobacco use date assessed: 10/12/23 Fall risk assessment: No Falls in past year Last assessed Fall Risk: 11/16/23 Dental Screening Dental Screen Date: 11/16/23 Did you have a dental visit in the last 12 months?: Yes Did you have a dental problem in the last 6 months where you did not have access to dental care?: No Was dental information given to patient?: Patient has dentist HPI f/u chronic conditions HPI Details 78 y/o female presents to f/u chronic co nditions. Most recent labs drawn 10/19/23. Reviewed labs with pt. BNP level 162 pg/mL. A1c today 11/16/23 is 8.4. She notes she has recorded blood sugars of up to 300s. Pt reports palpitations and tachycardia up to 115p which she checks at home. She also reports jaw pain. [facility] Medical History Tachycardia Dyslipidemia PAD (peripheral artery disease) Nicotine dependence, cigarettes, uncomplicated Tubular adenoma of colon Anemia Anxiety CAD (coronary artery disease) Essential hypertension Diabetes type 2, controlled Surgical History History of lung surgery History of varicose vein stripping History of angioplasty History of heart artery stent History of carpal tunnel surgery of right wrist History of colonoscopy History of splenectomy History of partial pancreatectomy History of cholecystectomy History of appendectomy History of tonsillectomy Family History Daughter Lung cancer Father Bone cancer Mother Colon cancer Social History Household Members: None Housing: Condominium Alcohol intake: never Patient Tobacco Use Status: Former Tobacco user Years Smoked: 50 e-Cigarette/Vaping Use: Never Used Second Hand Smoke Exposure: No service: No Current occupational status: retired Current occupational exposures/hazards: No Cognitive needs: No Hearing needs: No Vision needs: No Questionnaire Thrive Questionnaire Date Thrive assessed: 08/31/22 SAMMY-7 AMB Questionnaire SAMMY-7 Date SAMMY - 7 assessed: 07/20/23 Source: Developed by Drs. Ari Serrano, Ban Erazo, Lee Lehman and colleagues, with an educational sonia from [employer]. Review of Systems Const Denies chills, Denies fatigue, Denies fever(s), Denies headache(s) and Denies weakness ENT Denies dizziness and Denies headache(s) Card Denies chest pain, Denies lightheadedness, Denies dyspnea and Denies other (Palpitations) Resp Denies cough, Denies dyspnea, Denies wheezing and Denies other ( shortness of breath) Musc Denies numbness and Denies tingling Neuro Denies dizziness, Denies headache(s), Denies numbness, Denies tingling, Denies paresthesias and Denies weakness Psych Denies anxiety and Denies depression Endo Denies fatigue Aller/Immun Denies wheezing Physical exam (Primary Care) Vital Signs: Last Vital Signs Temp 97.3 F 11/16/23 08:53 Pulse 70 11/16/23 08:53 Resp 13 11/16/23 08:53 BP 102/60 11/16/23 08:53 Pulse Ox 99 11/16/23 08:53 Oxygen Delivery Method Room Air 11/16/23 08:53 BMI result Body Mass Index 25.1 Tobacco/Smoking Status: Tobacco use Status Tobacco use date assessed 10/12/23 11/16/23 09:01 Patient Tobacco Use Status Former Tobacco user 11/16/23 09:01 e-Cigarette/Vaping Use Never Used 11/16/23 09:01 Thrive Assessment: Date of Thrive Assessment Date Thrive assessed 08/31/22 11/16/23 09:01 Const General: no acute distress and well developed Nutritional Appearance: well nourished Orientation/consciousness: patient oriented x3 HENMT Head: Yes normocephalic and Yes atraumatic Eyes General: appearance normal, both eyes and all related structures Pupils: Equal, round and reactive pupils present EOM: EOMs intact bilaterally Resp Effort & Inspection: normal respiratory effort Auscultation: clear to auscultation bilaterally Cardio Rate: regular rate Rhythm: regular rhythm Heart sounds: S1 normal heart sound present, S2 normal heart sound present, no gallops, no murmurs and no rubs Neuro General: patient oriented x3 and gait normal Cranial nerves: Yes Equal, round and reactive pupils present Psych Affect: normal affect Results AMB Hemoglobin A1c AMB Hemoglobin A1c 8.4 % Last Edit by Nathalia Hook MA on 11/16/23 09:41 Assessment and Plan Assessment & Plan (1) Diabetes type 2, controlled: Comment: (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 She?is?on?Levemir?22?units?q.h.s. She?takes?this?pro?for?mealtimes?and?usually?between?7?and?12?units?before?eac h?meal. She?notes?that?blood?sugars?are?fluctuating?significantly Continue?Levemir?22?units?at?night?but?will?add?6?units?q.a.m.?and?this?can?be?a djusted. Continue?lispro?sliding?scale Follow-up?in?a?month She?should?follow-up?with?endocrinology?at?[facility]?as?recommended (2) Essential hypertension: Code(s): I10 - Essential (primary) hypertension Plan: Blood?pressure?is?fairly?well?controlled?though?a?little?low?still.??Goal?is?les s?than?130/90. Recently?had?carvedilol?decreased. Continue?current?medication?regimen. Follow-up?with?Cardiology?as?recommended (3) CAD (coronary artery disease): Comment: (Hx MIs, Stents: SOUMYA to distal RCA, OM1, prox LAD) Code(s): I25.10 - Atherosclerotic heart disease of [place] coronary artery without angina pectoris Plan: EKG?today: ?No?sinus?rhythm,?normal?axis,?normal?intervals,?no?hypertrophy,?no?ST-T-wave?ch anges (4) Palpitations: Code(s): R00.2 - Palpitations Plan: Increased?palpitations EKG?as?above Has?Holter?monitor?ordered?and?awaiting?test Advised?her?that?if ?palpitations?are?severe?or?she?is?having?chest?or?jaw?pain?lasting?more?than?a? few?minutes?with?resting,?she?should?be?checked?out?at?an?ED Follow-up?with?Cardiology?as?recommended (5) CHF (congestive heart failure): Code(s): I50.9 - Heart failure, unspecified Plan: Lungs?are?clear,?no?increased?weight,?no?orthopnea?or?or?shortness?of?breath BNP?is?stable?and?not?significantly?elevated Continue?diuretics?and?follow-up?with?Cardiology?as?recommended Has?upcoming?echocardiogram Orders: Orders AMB Hemoglobin A1c Today E11.9 - Type 2 diabetes mellitus without complications Medications: Changed From insulin detemir U-100 20 units subcut BEDTIME To insulin detemir U-100 6?units?a.m.?and?22?units?p.m. subcutaneously bedtime; 30 days 15 mL 3RF Coding Level of Care Code Est Pt Level 4 (86851) Diagnoses Diabetes type 2, controlled E11.9 Essential hypertension I10 CAD (coronary artery disease) I25.10 Palpitations R00.2 CHF (congestive heart failure) I50.9
== END 2023-11-16 10:08 | disposition home or self-care (01) ==
PROVIDERS: PCP Family Medicine; Visit Provider Family Medicine
DX: E11.9 Type 2 diabetes mellitus without complications (principal); I11.0 Hypertensive heart disease with heart failure; I50.9 Heart failure, unspecified; I25.10 Atherosclerotic heart disease of native coronary artery without angina pectoris; R00.2 Palpitations
CPT/HCPCS: 83036; 99214

== ENCOUNTER → 2023-11-18 09:40 | Outpatient (REF) | payer MEDICARE, SELFPAY ==
--- NOTE | 2023-11-18 09:42 | HM_ITS ---
Conclusion: 1. Patient was monitored for total period of 6 days and 21 hours 2. Baseline was normal sinus rhythm with average heart of 82 beats per minute 3. Occasional PACs noted with 41 short episodes of SVT, longest lasting 16 beats and the fastest at 136 beats per minute 4. No significant pauses 5. No patient reported events MTDD
--- NOTE | 2023-11-18 09:42 | CA_ITS ---
Transthoracic Echocardiogram Patient (Last, First, Middle): Bhupendra Morgan, Gender: Female Date of : 1945 Age: 78 Procedure Date: 11/18/2023 Procedure Type: Transthoracic Echocardiogram Location: OP Height: 157.48 cm Weight: 62.14 kg BSA: 1.63 m2 Heart Rate: 68 bpm BP: 104 / 60 mmHg Ultrasound Specialist: SB Referring MD: Suellen Alberts NP Symptoms: I50.9 - Heart failure, unspecified Study Quality: Adequate ECG Rhythm: Sinus Conclusions: - Normal left ventricular size and systolic function. The visually estimated ejection fraction is between 60-65%. There is no evidence of regional wall motion abnormalities. Abnormal diastolic function is noted. Spectral Doppler is indicative of a pseudonormal filling pattern. Elevated filling pressures. There is mild septal asymmetric hypertrophy. - Normal right ventricular cavity size and systolic function. - The right atrium is mildly dilated. - The left atrium is mildly dilated. - There is mild dilatation of the ascending aorta measuring 4.10 cm. Findings Left Ventricle Normal left ventricular size and systolic function. The visually estimated ejection fraction is between 60-65%. There is no evidence of regional wall motion abnormalities. Abnormal diastolic function is noted. Spectral Doppler is indicative of a pseudonormal filling pattern. Elevated filling pressures. There is mild septal asymmetric hypertrophy. Right Ventricle Normal right ventricular cavity size and systolic function. Atria The left atrium is mildly dilated. The right atrium is mildly dilated. Aortic Valve Normal aortic valve structure and function. There is no aortic valve stenosis. There is no aortic valve regurgitation. Mitral Valve The mitral valve appears normal. There is mild mitral annular calcification. There is trace mitral valve regurgitation. There is no mitral valve stenosis. Pulmonic Valve Normal pulmonic valve structure and function. There is trace pulmonic valve regurgitation. Tricuspid Valve Normal tricuspid valve structure and function. There is trace tricuspid valve regurgitation. Normal right atrial pressure. Mild pulmonary hypertension is present. Great Vessels There is mild dilatation of the ascending aorta measuring 4.10 cm. Venous The inferior vena cava is normal in size and collapses greater than 50% with inspiration. Pericardium/Pleural There is no evidence of pericardial effusion. Measurements 2D Linear Measurements IVSd: 1.23 0.6-0.9/0.6-1.0 cm LVIDd: 4.29 3.9-5.3/4.2-5.9 cm LVIDd Index: 2.63 2.4-3.2/2.2-3.1 cm/m2 LVIDs: 2.69 2.0-3.6 cm LVPWd: 0.82 0.7-1.1 cm LA Diam: 5.00 2.7-3.8/3.0-4.0 cm LAIDs Index: 3.07 1.5-2.3 cm/m2 LV Mass: 183.42 67-162/88-224 g LV Mass Index: 112.53 43-95/49-115 g/m2 LVOT Diam: 2.10 3.0+(-)1.3 cm 2D Systolic Function EF 4C: 70.60 >55% EF 2C: 75.90 >55% EF BiP: 73.10 >55% Mitral Valve MV Pk E: 1.13 MV PK A: 0.90 MV Decel Time: 132.00 E/A: 1.30 E'Lateral: 7.04 E'Medial: 3.68 E/E' Med: 30.70 E/E' Lat: 16.10 PHT: 39.00 MVA PHT: 5.64 Decel [place]: 8.58 Aortic Valve AoV Pk Otto: 1.48 AoV Pk Grad: 9.00 ASAEL: 2.60 LVOT LVOT Pk Otto: 1.13 LVOT Mn Otto: 0.75 LVOT VTI: 0.26 LVOT Pk Grad: 5.00 LVOT Mn Grad: 3.00 LVOT Diam: 2.10 LVOT Area: 3.46 Diastolic Function MV Pk E: 1.13 MV Pk A: 0.90 E/A: 1.30 E'Medial: 3.68 E/E' Med: 30.70 E' Laterial: 7.04 E/E' Lat: 16.10 Right Ventricle TAPSE (mm): 23.60 TVS' Otto: 15.10 Tricuspid Valve TR Pk Otto: 3.04 TR Pk Grad: 37.00 RA Press: 3.00 RVSP: 40.00 Great Vessels Aorta Sinus of Valsalva: 3.20 2.0-3.5 cm Ao Asc: 4.10 2.1-3.4 cm Pulmonary Veins Pulm Vein S/D 0.60 Pulmonary Valve PV Pk Otto: 1.15 Peak PV Grad: 5.00 Updated in Other Vendor System with Status of Final Calixto Holman MD electronically signed on 11/21/2023 4:50:23 PM with status of Final
== END ==
LOC: HO.CARD 09:40
PROVIDERS: PCP Family Medicine; Visit Provider Nurse Practitioner
DX: R00.0 Tachycardia, unspecified (principal); I50.9 Heart failure, unspecified
CPT/HCPCS: 93242; 93306

== ENCOUNTER → 2023-11-18 09:42 | Outpatient (BNV) | payer MEDICARE, SELFPAY | PROVIDERS: PCP Family Medicine; Visit Provider Internal Medicine Cardiovascular Disease | DX: I49.1 Atrial premature depolarization (principal); I47.10 Supraventricular tachycardia, unspecified | CPT/HCPCS: 93244; 93306 ==

== ENCOUNTER 2023-12-14 15:07 | Outpatient (REF) | payer MEDICARE, SELFPAY ==
[2023-12-14 17:40] LABS: INTERNATIONAL NORM RATIO 1.1 (0.9-1.1); Prothrombin Time 13.2 SEC (11.1-13.3)
[2023-12-14 17:58] LABS: Hematocrit 32.5 % (37.0-47.0); Hemoglobin 10.5 g/dl (12.0-16.0); Mean Corpuscular HGB Conc 32.3 g/dl (31.0-35.0); Mean Corpuscular Hemoglobin 36.8 pg (27.0-33.0); Mean Platelet Volume 12.2 fL (9.4-12.3); NRBC Pct Auto 0.4 /100WBC (0.0-0.2); Platelet Count 375 X10*3/uL (160-400); Red Blood Count 2.85 X10*6/uL (4.20-5.50)
[2023-12-14 18:05] LABS: Anion Gap 15 (12-20); Blood Urea Nitrogen 24 mg/dL (9-16); Calcium 9.7 mg/dL (8.4-10.2); Carbon Dioxide 26 mmol/L (22-29); Chloride 106 mmol/L (96-108); Estimated Glomerular Filt Rate 53; Glucose Random 191 mg/dL (60-115); Potassium 4.1 mmol/L (3.3-5.1); Sodium 143 mmol/L (135-145)
[2023-12-14 18:11] LABS: B Type Natriuretic Peptide 149 pg/mL (<100)
[2023-12-14 18:20] LABS: WBC ABN SCTR FOR CBC 1
[2023-12-14 18:22] LABS: White Blood Count 13.4 X10*3/uL (4.8-10.8)
== END 2023-12-14 15:08 | disposition home or self-care (01) ==
LOC: HO.LAB 15:07
PROVIDERS: PCP Family Medicine; Visit Provider Internal Medicine Cardiovascular Disease
DX: I25.118 Atherosclerotic heart disease of native coronary artery with other forms of angina pectoris (principal); R68.84 Jaw pain; R00.2 Palpitations; I10 Essential (primary) hypertension; Z79.4 Long term (current) use of insulin; Z79.899 Other long term (current) drug therapy
CPT/HCPCS: 36415; 80048; 83880; 85027; 85610; 93005; 99212

== ENCOUNTER 2023-12-14 15:07 | Outpatient (AMB) | payer MEDICARE, SELFPAY ==
[2023-12-14 15:09] VITALS: BP 110/42; PULSE 84; BMI 25.2
--- NOTE | 2023-12-14 15:09 | A.OFFVIS_ITS ---
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 Accompanied by: Other Relationship Allergies lorazepam [LORAZEPAM] Allergy (Unknown, Verified 11/16/23 08:58) WENT CRAZY Medication List - Last Reconciled 12/14/23 by Calixto Holman MD amiodarone 400 mg PO BID 10 days amiodarone 200 mg PO DAILY aspirin (Adult Aspirin Regimen) 81 mg PO DAILY atorvastatin 80 mg PO DAILY blood sugar diagnostic As directed blood-glucose meter As directed carvedilol 6.25 mg PO BID 30 days clopidogrel 75 mg PO DAILY compr.stocking,knee,long,large 20-30?mmHg,?As directed, 90 days ezetimibe 10 mg PO DAILY fluticasone propionate 50 mcg/actuation (Flonase Allergy Relief) 1 spray intranasal Q12H 30 days furosemide 20 mg PO BID 30 days insulin aspart U-100 (Novolog FlexPen U-100 Insulin aspart) 3 units subcut DAILY insulin detemir U-100 6?units?a.m.?and?22?units?p.m. subcutaneously bedtime; 30 days insulin lispro 100 units subcut DAILY isosorbide mononitrate ER 30 mg PO DAILY lancets (OneTouch Delica Plus Lancet) As directed lisinopril 20 mg PO DAILY mecobalamin (vitamin B12) 1,000 mcg sublingual DAILY 90 days pen needle, diabetic As directed ranolazine ER 500 mg PO BID 90 days HPI HPI Comments History of Present Illness Details Pleasant 78 year female who is here for 1st office visit. She was following Dr. Pimentel at [facility]. In June she got admitted with jaw pain and unstable angina and underwent right coronary artery PCI. She previously had PCI of distal right coronary artery as well as mid LAD. 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 In July 2023 she started noticing lower extremity edema and shortness of breath. Her breathing worsened after that and she had an outpatient chest x-ray performed which raise concern for congestive heart failure. She got admitted at [facility] after that and was discharged after diuresis and started on Lasix 20 mg twice a day. She is saying her breathing has improved since then. She is saying she does not know what happened and why her breathing got worse. She does not know whether she has any cardiomyopathy or any other issues were picked up during her admission at [facility]. She is complaining of cold hands and is asking whether anything can be done about that. She is saying that the hand changed color when she is in cold weather. I have explained to her that this could be related to Raynaud's. Cardiac catheterization from June 2023 reviewed. She had a mid RCA 90% stenosis which was treated with drug-eluting stent with 4 mm x 30 mm flaquita for anterior post dilated to 4.5 cm. She had patent distal RCA stents at that time. Mid left circumflex DISTRICT OPERATIONS MANAGER with [id number] collaterals. [id number] diffuse ISR of OM1 stent. Mid LAD stent had mild diffuse ISR and 50% stenosis distal to the previous stent. LVEDP was 10-15 mm Hg. 12/14/23: She returns for follow-up. She had palpitations as well as jaw pain with exertion. She underwent Holter monitor which showed multiple runs of supraventricular tachycardia. She is saying that the jaw discomfort happens after exercise and when she goes uphill. Jaw discomfort is not always associated with palpitations and happens with activity regardless. She also has some dyspnea with activity. Clinically she is not in heart failure right now. She was complaining of palpitations and amiodarone was added yesterday by our nurse practitioner and she was advised to cut down on carvedilol because her blood pressure is low. [facility] Medical History Tachycardia Dyslipidemia PAD (peripheral artery disease) Nicotine dependence, cigarettes, uncomplicated Tubular adenoma of colon Anemia Anxiety CAD (coronary artery disease) Essential hypertension Diabetes type 2, controlled Surgical History History of lung surgery History of varicose vein stripping History of angioplasty History of heart artery stent History of carpal tunnel surgery of right wrist History of colonoscopy History of splenectomy History of partial pancreatectomy History of cholecystectomy History of appendectomy History of tonsillectomy Family History Daughter Lung cancer Father Bone cancer Mother Colon cancer Social History Household Members: None Housing: Condominium Alcohol intake: never Patient Tobacco Use Status: Former Tobacco user Years Smoked: 50 e-Cigarette/Vaping Use: Never Used Second Hand Smoke Exposure: No service: No Current occupational status: retired Current occupational exposures/hazards: No Cognitive needs: No Hearing needs: No Vision needs: No Review of Systems Const Denies chills, Denies fatigue, Denies fever(s), Denies frequent falls, Denies weakness, Denies weight gain and Denies weight loss ENT Denies dizziness Card Denies chest pain, Denies leg edema, Denies lightheadedness, Denies palpitations, Denies dyspnea and Denies dyspnea on exertion Resp Denies cough, Denies dyspnea and Denies dyspnea on exertion GI Denies hematochezia Musc Denies abnormal gait, Denies muscle weakness, Denies numbness, Denies radiating pain into limb and Denies tingling Neuro Denies abnormal gait, Denies dizziness, Denies frequent falls, Denies numbness, Denies tingling and Denies weakness Endo Denies fatigue and Denies palpitations Physical Exam Vital Signs: Last Vital Signs Pulse 84 12/14/23 15:09 BP 110/42 L 12/14/23 15:09 BMI result Body Mass Index 25.2 GENERAL APPEARANCE: in no acute distress, pleasant. NECK: no carotid bruit, no jugular venous distention. SKIN: no suspicious lesions, warm and dry. HEART: no murmurs, regular rate and rhythm. LUNGS: clear to auscultation bilaterally. ABDOMEN: soft, nontender. EXTREMITIES: no edema. PERIPHERAL PULSES: equal. NEUROLOGIC: No gross deficits, AAO X 3 Office Procedures EKG Details: Sinus rhythm 84 beats per minute, normal axis, nonspecific ST-T changes, QTC 451 milliseconds. [id number], Complete Assessment & Plan Assessment & Plan (1) Palpitations: Code(s): R00.2 - Palpitations (2) Exertional angina: Code(s): I20.8 - Other forms of angina pectoris (3) Essential hypertension: Code(s): I10 - Essential (primary) hypertension Plan 78-year-old female with known history of coronary disease with RCA PCI in June 2023. She had 60-70% lad stenosis at that time. She has been experiencing jaw discomfort which is exertional and this was her anginal equivalent. We also noticed SVT on her Holter monitor and we thought that maybe palpitations and jaw discomfort are happening due to SVT but she has isolated jaw discomfort with activity without any palpitations. In any case amiodarone 40 mg load should be continued. Stop the Ranexa as able be interaction with amiodarone and it appears it is not working for an any way. Decreasing carvedilol to 6.25 mg twice a day because her blood pressure is low. After discussion we are going to arrange a diagnostic cardiac catheterization for her. Will do this next week. Thank you for allowing me to participate in the care of your patient. Please feel free to contact me if you have any questions. Orders: Orders Cardiac Cath LT Diagnostic Today I25.10 - Atherosclerotic heart disease of [place] coronary artery without angina pectoris Basic Metabolic Panel Today I25.10 - Atherosclerotic heart disease of [place] coronary artery without angina pectoris Prothrombin Time INR Today I25.10 - Atherosclerotic heart disease of [place] coronary artery without angina pectoris Complete Blood Count no Diff Today I25.10 - Atherosclerotic heart disease of [place] coronary artery without angina pectoris B Type Natriuretic Peptide Today I25.10 - Atherosclerotic heart disease of [place] coronary artery without angina pectoris Medications: Discontinued ranolazine ER Discontinued Reason: None 500 mg PO BID 90 days 180 tabs 3RF Coding Level of Care Code Est Pt Level 5 (00405) Diagnoses Palpitations R00.2 Exertional angina I20.8 Essential hypertension I10 CPT Codes EKG - CPT: 46619-[id number], Complete ([id number])
== END 2023-12-14 15:48 | disposition home or self-care (01) ==
PROVIDERS: PCP Family Medicine; Visit Provider Internal Medicine Cardiovascular Disease
DX: R00.2 Palpitations (principal); I20.89 Other forms of angina pectoris; I10 Essential (primary) hypertension; Z95.5 Presence of coronary angioplasty implant and graft
CPT/HCPCS: 93010; 99215

== ENCOUNTER 2023-12-16 09:46 | Outpatient (REF) | payer MEDICARE, SELFPAY ==
[2023-12-16 11:36] LABS: Appearance Urine Clear; Color Urine Dark Yellow; Glucose Urine UA Negative (Negative); Leukocyte Esterase Urine Moderate (2+) (Negative); Nitrite Urine Negative (Negative); PH 5.5 (5.0-9.0); Specific Gravity - Urine 1.015 (1.005-1.025); UMIC TRIGGER UA YES; Urine Blood Negative (Negative); Urine Ketones Negative (Negative); Urine Protein Negative (Neg-Trace)
[2023-12-16 12:02] LABS: Bacteria Urine Trace (None Seen); Hyaline Casts Urine 0-2 /LPF (0-2); RBC Urine 0-2 /HPF (0-2); WBC Urine 0-5 /HPF (0-5)
== END 2023-12-16 09:47 | disposition home or self-care (01) ==
LOC: HO.LNP 09:46
PROVIDERS: Visit Provider Nurse Practitioner Family
DX: D72.829 Elevated white blood cell count, unspecified (principal)
CPT/HCPCS: 81001

== ENCOUNTER → 2023-12-22 23:59 | Outpatient (BNV) | payer MEDICARE, SELFPAY | PROVIDERS: PCP Family Medicine; Visit Provider Internal Medicine Cardiovascular Disease | DX: I20.89 Other forms of angina pectoris (principal) | CPT/HCPCS: 93458; 99152 ==

== ENCOUNTER 2023-12-26 10:23 | Outpatient (AMB) | payer MEDICARE, SELFPAY ==
[2023-12-26 10:32] VITALS: BP 112/74; PULSE 64; TEMP 36.7; O2SAT 96; BMI 26.0
--- NOTE | 2023-12-26 10:32 | MHC.PC.OV ---
Vital Signs 12/26/23 10:32 Height 5 ft 2 in Weight 142 lb BMI 26.0 BP 112/74 Blood Pressure Location Lt brachial Position Sitting Pulse 64 Pulse Source Pulse Oximeter Temp 98.0 F Temp Source Oral Pulse Oximetry (%) 96 Oxygen Delivery Method Room Air Oxygen Flow Rate 98.0 Intake Visit Reasons: Sinus infection Intake Note: Patient is here with concern of sinus infection, with left facial pressure, and trouble breathing. Allergies lorazepam [LORAZEPAM] Allergy (Unknown, Verified 12/26/23 10:37) WENT CRAZY Tobacco use date assessed: 12/26/23 Fall risk assessment: No Falls in past year Last assessed Fall Risk: 12/26/23 Dental Screening Dental Screen Date: 11/16/23 HPI Sinus infection HPI Details 78 y/o female presents today to f/u diabetes and complaints of a sinus infection. Had increased her levemir - b.i.d. 6 units in a.m. and continued 22 units p.m. Also has a lispro sliding scale. Pt reports nasal congestion, pressure and pain. [facility] Medical History Tachycardia Dyslipidemia PAD (peripheral artery disease) Nicotine dependence, cigarettes, uncomplicated Tubular adenoma of colon Anemia Anxiety CAD (coronary artery disease) Essential hypertension Diabetes type 2, controlled Surgical History History of lung surgery History of varicose vein stripping History of angioplasty History of heart artery stent History of carpal tunnel surgery of right wrist History of colonoscopy History of splenectomy History of partial pancreatectomy History of cholecystectomy History of appendectomy History of tonsillectomy Family History Daughter Lung cancer Father Bone cancer Mother Colon cancer Social History Household Members: None Housing: Condominium Alcohol intake: never Patient Tobacco Use Status: Former Tobacco user Years Smoked: 50 e-Cigarette/Vaping Use: Never Used Second Hand Smoke Exposure: No service: No Current occupational status: retired Current occupational exposures/hazards: No Cognitive needs: No Hearing needs: No Vision needs: No Questionnaire Thrive Questionnaire Date Thrive assessed: 08/31/22 SAMMY-7 AMB Questionnaire SAMMY-7 Date SAMMY - 7 assessed: 07/20/23 Source: Developed by Drs. Ari Serrano, Ban Erazo, Lee Lehman and colleagues, with an educational sonia from [employer]. Review of Systems Const Denies chills, Denies fatigue, Denies fever(s), Denies headache(s) and Denies weakness ENT Denies dizziness, Denies headache(s) and Reports nasal congestion Card Denies dyspnea Resp Denies cough, Denies dyspnea, Denies wheezing and Denies other (shortness of breath) Musc Denies numbness and Denies tingling Neuro Denies dizziness, Denies headache(s), Denies numbness, Denies tingling and Denies weakness Psych Denies anxiety and Denies depression Endo Denies fatigue Aller/Immun Denies wheezing Physical exam (Primary Care) Vital Signs: Last Vital Signs Temp 98.0 F 12/26/23 10:32 Pulse 64 12/26/23 10:32 BP 112/74 12/26/23 10:32 Pulse Ox 96 12/26/23 10:32 Oxygen Delivery Method Room Air 12/26/23 10:32 Oxygen Flow Rate 98.0 12/26/23 10:32 BMI result Body Mass Index 26.0 Tobacco/Smoking Status: Tobacco use Status Tobacco use date assessed 12/26/23 12/26/23 10:38 Patient Tobacco Use Status Former Tobacco user 12/26/23 10:38 e-Cigarette/Vaping Use Never Used 12/26/23 10:38 Thrive Assessment: Date of Thrive Assessment Date Thrive assessed 08/31/22 12/26/23 10:38 Const General: well developed; No acute distress Nutritional Appearance: well nourished Orientation/consciousness: patient [facility]: Yes normocephalic and Yes atraumatic Eyes General: appearance normal, both eyes and all related structures Pupils: Equal, round and reactive pupils present EOM: EOMs intact bilaterally Resp Other: Upper airway secretions Effort & Inspection: normal respiratory effort Auscultation: clear to auscultation bilaterally Cardio Rate: regular rate Rhythm: regular rhythm Heart sounds: S1 normal heart sound present, S2 normal heart sound present, no gallops, no murmurs and no rubs Neuro General: patient oriented x3 and gait normal Cranial nerves: Yes Equal, round and reactive pupils present Psych Affect: normal affect Assessment and Plan Assessment & Plan (1) Sinusitis: Code(s): J32.9 - Chronic sinusitis, unspecified Plan: Sinusitis?with?left?sinus?infection?and?purulent?material?in?left?nasal?vault Will?give?her?a?script?for?Augmentin Warm?compresses?on?face Should?improve. 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 Continued 22?units?at?night. Overall?increase?of?6?units?of?Levemir?per?day (3) Essential hypertension: Code(s): I10 - Essential (primary) hypertension Plan: Blood?pressure?is?controlled Continue?current?medication?regimen (4) CAD (coronary artery disease): Comment: (Hx MIs, Stents: SOUMYA to distal RCA, OM1, prox LAD) Code(s): I25.10 - Atherosclerotic heart disease of [place] coronary artery without angina pectoris Orders: Orders SARS-CoV2/FLU/RSV Today Z20.822 - Contact with and (suspected) exposure to COVID-19 Medications: New amoxicillin-pot clavulanate 500-125 mg (Augmentin) 1 tab PO Q12H 10 days 20 tabs 0RF Patient Instructions: Cardiac?catheterization?scheduled?for?01/04 Follow-up?with?Cardiology?as?recommended Coding Level of Care Code Est Pt Level 3 (82066) Diagnoses Sinusitis J32.9 Diabetes type 2, controlled E11.9 Essential hypertension I10 CAD (coronary artery disease) I25.10
== END 2023-12-26 11:20 | disposition home or self-care (01) ==
PROVIDERS: PCP Family Medicine; Visit Provider Family Medicine
DX: J32.9 Chronic sinusitis, unspecified (principal); E11.9 Type 2 diabetes mellitus without complications; I10 Essential (primary) hypertension; I25.10 Atherosclerotic heart disease of native coronary artery without angina pectoris
CPT/HCPCS: 99213

== ENCOUNTER 2023-12-26 10:57 | Outpatient (REF) | payer MEDICARE, SELFPAY ==
[2023-12-26 15:27] LABS: Influenza A PCR NEGATIVE (Negative); Influenza B PCR NEGATIVE (Negative); Resp Syncy Virus RNA Qual PCR NEGATIVE (Negative); SARS COV2 PCR INHOUSE NEGATIVE (Negative)
== END 2023-12-26 10:58 | disposition home or self-care (01) ==
LOC: HO.LAB 10:57
PROVIDERS: Visit Provider Family Medicine
DX: Z20.822 Contact with and (suspected) exposure to COVID-19 (principal)
CPT/HCPCS: 0241U

== ENCOUNTER 2024-01-02 14:06 | Emergency (ER) | payer MEDICARE, SELFPAY ==
--- NOTE | ~2024-01-02 | XR_ITS ---
EXAMINATION: XR CHEST CLINICAL INFORMATION: Shortness of breath. COMPARISON: 02/11/2023 TECHNIQUE: 2 views of the chest were obtained. FINDINGS: Low lung volumes. Patchy multifocal airspace disease. Postsurgical changes with surgical staple lines in the left upper lung. Small left pleural effusion. Cardiac silhouette is unchanged. Multiple surgical clips project over the left upper quadrant. XR/XR chest 2V IMPRESSION: New patchy multifocal airspace disease with small left pleural effusion. Consider infection versus disease progression.
--- NOTE | 2024-01-02 14:10 | ECG_ITS ---
Test Reason : SOB Blood Pressure : / mmHG Vent. Rate : 076 BPM Atrial Rate : 076 BPM P-R Int : 150 ms QRS Dur : 082 ms QT Int : 406 ms P-R-T Axes : 034 -28 084 degrees QTc Int : 456 ms Normal sinus rhythm Nonspecific ST and T wave abnormality Abnormal ECG When compared with ECG of 10-JUN-2018 14:08, T wave inversion no longer evident in Inferior leads T wave inversion now evident in Lateral leads Referred By: Linesy Whittington Electronically Signed By:LOAN FRASER MD
[2024-01-02 14:39] VITALS: BP 105/40; PULSE 85; RESP 20; TEMP 36.6; O2SAT 94; BMI 26.7
--- NOTE | 2024-01-02 14:41 | ED.SOB ---
HPI - SOB/Dyspnea General Chief Complaint: Arrhythmia/Palpitations Stated Complaint: sob, heart palpitations Time Seen by Provider: 01/02/24 15:09 Source: patient Mode of arrival: ambulatory History of Present Illness HPI Narrative: 78-year-old female with history of coronary artery disease status post multiple PCI, recent cardiac catheterization on December 21 that revealed stable known vessel disease,HFpEF > 70% per echocardiogram 2022, SVT on amiodarone, prior tobacco abuse, emphysema, primary lung cancer now status post left lobectomy, persisting pleural effusion, diabetes, hypertension, hyperlipidemia, peripheral arterial disease presents with ongoing shortness of breath for weeks. Patient complains of ongoing dyspnea with exertion, with a productive cough. At times, she can feel her heart racing. Patient has been seen by both her siebel solution architect and ground control approach technician within the past few weeks. She had a recent CT scan of the chest on December 27, she has yet to receive the results. Within this timeframe, the patient has been treated for sinusitis, she is currently on amoxicillin. Patient denies chest pain, fever, change in the quality of her cough. Related Data Home Medications ?Medication ?Instructions ?Recorded ?Confirmed atorvastatin 80 mg tablet 80 mg PO DAILY 08/21/20 12/14/23 blood sugar diagnostic #10 ea 08/21/20 07/20/23 blood-glucose meter #1 ea 08/21/20 07/20/23 insulin lispro 100 unit/mL 100 unit subcut DAILY 08/21/20 12/14/23 subcutaneous pen lisinopril 20 mg tablet 20 mg PO DAILY 08/21/20 12/14/23 pen needle, diabetic 31 gauge x #50 ea 08/21/20 07/20/2311/25 insulin aspart U-100 100 unit/mL 3 unit subcut DAILY 11/19/22 12/14/23 (3 mL) subcutaneous pen (Novolog FlexPen U-100 Insulin aspart) lancets 30 gauge (Gregoria Mcmullen #100 ea 11/19/22 07/20/23 Plus Lancet) Previous Rx's ?Medication ?Instructions ?Recorded mecobalamin (vitamin B12) 1,000 1,000 mcg sublingual DAILY 90 days 07/02/22 mcg disintegrating #90 tabs tablet,sublingual fluticasone propionate 50 1 spray intranasal Q12H 30 days 04/01/23 mcg/actuation nasal #16 grams spray,suspension (Flonase Allergy Relief) compr.stocking,knee,long,large #12 ea 08/11/23 aspirin 81 mg tablet,delayed 81 mg PO DAILY #90 tabs 09/21/23 release (Adult Aspirin Regimen) ezetimibe 10 mg tablet 10 mg PO DAILY #90 tabs 09/26/23 insulin detemir U-100 100 unit/mL See Rx Instructions subcut BEDTIME 11/16/23 (3 mL) subcutaneous pen 30 days #15 mL furosemide 20 mg tablet 20 mg PO BID 30 days #60 tabs 11/22/23 amiodarone 200 mg tablet 200 mg PO DAILY #30 tabs 12/13/23 carvedilol 6.25 mg tablet 6.25 mg PO BID 30 days #60 tabs 12/13/23 clopidogrel 75 mg tablet 75 mg PO DAILY #90 tabs 12/13/23 amoxicillin 500 mg-potassium 1 tab PO Q12H 10 days #20 tabs 12/26/23 clavulanate 125 mg tablet (Augmentin) isosorbide mononitrate 30 mg 30 mg PO DAILY #90 tabs 12/27/23 tablet,extended release 24 hr doxycycline hyclate 100 mg capsule 100 mg PO BID #14 caps 01/02/24 Allergies Allergy/AdvReac Type Severity Reaction Status Date / Time lorazepam [LORAZEPAM] Allergy Unknown WENT Verified 01/02/24 14:46 MARK Review of Systems Review of Systems: Yes all other systems are reviewed and are negative PMFSH Past Medical History Medical History Tachycardia Dyslipidemia PAD (peripheral artery disease) Nicotine dependence, cigarettes, uncomplicated Tubular adenoma of colon Anemia Anxiety CAD (coronary artery disease) Essential hypertension Diabetes type 2, controlled Surgical History History of lung surgery History of varicose vein stripping History of angioplasty History of heart artery stent History of carpal tunnel surgery of right wrist History of colonoscopy History of splenectomy History of partial pancreatectomy History of cholecystectomy History of appendectomy History of tonsillectomy Family History Family History Daughter Lung cancer Father Bone cancer Mother Colon cancer Social History Social History Household Members: None Housing: Condominium Alcohol intake: never Patient Tobacco Use Status: Former Tobacco user Years Smoked: 50 e-Cigarette/Vaping Use: Never Used Second Hand Smoke Exposure: No Advance Directives: Yes Advance Directives on File: Yes Advance Directives Date on File: 01/18/23 Do you have a plan to hurt others: No Plan service: No Current occupational status: retired Current occupational exposures/hazards: No Cognitive needs: No Hearing needs: No Vision needs: No Physical Exam Vital Signs: Vital Signs: Last Vital Signs Temp 98.2 F 01/02/24 17:39 Pulse 85 01/02/24 17:39 Resp 18 01/02/24 17:39 BP 108/57 L 01/02/24 17:39 Pulse Ox 96 01/02/24 17:39 O2 Del Method Room Air 01/02/24 17:39 BMI result Body Mass Index 26.7 Const: Other: Alert, well in appearance Orientation/consciousness: patient oriented x3 Eyes: Pupils: Equal, round and reactive pupils present Resp: Other: Nonlabored respirations, speaking in complete sentences, no wheezing, no crackles, patient is somewhat diminished right posterior base Cardio: Other: Normal peripheral perfusion, no peripheral edema Skin: General skin exam: no rashes or lesions noted Neuro: General: patient oriented x3, gait normal, no focal motor deficits and CN's II-XI intact bilaterally Cranial nerves: Yes Equal, round and reactive pupils present Extrem: Other: Strength 5/5 bilateral lower and upper extremities Course Course Course Narrative: This is a rapid medical exam. Defer additional HPI, ROS, PE to primary provider. 78-year-old female with history of coronary artery disease with stents, congestive heart failure, lung cancer, diabetic, high blood pressure presents the ER with 2 weeks of shortness a breath and heart palpitations. Will obtain labs, EKG, chest x-ray, viral testing VSS Medications Administered Discontinued Medications Generic Name Dose Route Start Last Admin Trade Name Freq PRN Reason Stop Dose Admin Doxycycline Monohydrate 100 mg 01/02/24 17:05 01/02/24 17:35 Doxycycline Monohydrate 100 Mg Capsule PO 01/02/24 17:06 100 mg ONCE ONE Administration Medical Decision Making Medical Decision Making MDM Narrative: 78-year-old female with history of coronary artery disease status post multiple PCI, recent cardiac catheterization on December 21 that revealed stable known vessel disease,HFpEF > 70% per echocardiogram 2022, SVT on amiodarone, prior tobacco abuse, emphysema, primary lung cancer now status post left lobectomy, persisting pleural effusion, diabetes, hypertension, hyperlipidemia, peripheral arterial disease presents with ongoing shortness of breath for weeks. Patient complains of ongoing dyspnea with exertion, with a productive cough. At times, she can feel her heart racing. Patient has been seen by both her siebel solution architect and ground control approach technician within the past few weeks. She had a recent CT scan of the chest on December 27, she has yet to receive the results. Within this timeframe, the patient has been treated for sinusitis, she is currently on amoxicillin. Patient denies chest pain, fever, change in the quality of her cough. Problem: Coronary artery disease, diabetes, emphysema, lung cancer, heart failure History: Per patient I have considered the following differential diagnoses: COPD exacerbation, pneumonia, heart failure exacerbation, ACS, PE Plan: Patient has had ongoing symptoms for several weeks, she has been seen and had extensive assessment by her siebel solution architect and ground control approach technician. Considered new heart failure exacerbation, however I performed bedside limited echo and thoracic scan, her contractility is grossly normal, she has respiratory variant of the IVC, I see occasional B-lines. To note she is not overly hypertensive, she has not hypoxic and she is not volume overloaded on exam. Screening labs including cardiac enzymes and BNP, EKG and chest x-ray on process. Thought about COPD exacerbation, however I do not hear any wheezing. Patient could have a pneumonia, she does have a productive cough and seems somewhat diminished on my exam at the right base, I will review the chest x-ray. Thought about PE, however I was able to view the CT scan of her chest, she does not have a PE, she has a known small effusion, no additional acute process was found. Thought about ACS, however the patient has had ongoing symptoms for weeks, and she had a recent cardiac catheterization that revealed no change in her known vessel disease. I have independently reviewed the following tests: Labs: No cyanosis, not anemic, trop negative, BNP not elevated, her electrolytes are baseline no new change EKG: Normal sinus rhythm, rate of 76, no ischemic changes no ectopy, QT 456 Chest x-ray:[facility] Ordering Physician: Linsey Lala NP Date of Service: 01/02/24 Procedure(s): XR chest 2V Accession Number(s): [id number] cc: Kenji Mcnally MD; Linsey Lala NP~ EXAMINATION: XR CHEST CLINICAL INFORMATION: Shortness of breath. COMPARISON: 02/11/2023 TECHNIQUE: 2 views of the chest were obtained. FINDINGS: Low lung volumes. Patchy multifocal airspace disease. Postsurgical changes with surgical staple lines in the left upper lung. Small left pleural effusion. Cardiac silhouette is unchanged. Multiple surgical clips project over the left upper quadrant. XR/XR chest 2V IMPRESSION: New patchy multifocal airspace disease with small left pleural effusion. Consider infection versus disease progression. Patient has a persistent pleural effusion, it has been noted on several studies since September of this year. Per the chest x-ray today, infection can not be excluded, she does have a productive cough, she is currently on amoxicillin, she requires broader coverage for atypicals, we will cover with doxycycline. It is ideal she has a follow-up with her ground control approach technician this week, and sees her siebel solution architect next week. Patient is in agreement with the plan, she does not want to be admitted to the hospital, clinically there is no emergent cause for her to be admitted. Differential Diagnosis COPD exacerbation, pneumonia, heart failure exacerbation, ACS, PE Lab Data 01/02/24 15:55 01/02/24 15:55 Labs: Lab Results 01/02/24 01/02/24 Range/Units 15:05 15:55 WBC 16.4 H (4.8-10.8) X10*3/uL RBC 2.55 L (4.20-5.50) X10*6/uL Hgb 9.6 L (12.0-16.0) g/dl Hct 30.0 L (37.0-47.0) % MCV 117.6 H (80.0-98.0) fL MCH 37.6 H (27.0-33.0) pg MCHC 32.0 (31.0-35.0) g/dl RDW 16.5 H (11.0-16.0) % Plt Count 335 (160-400) X10*3/uL MPV 12.1 (9.4-12.3) fL Immature Gran % (Auto) Cancelled Neut % (Auto) Cancelled Lymph % (Auto) Cancelled Hettinger % (Auto) Cancelled Eos % (Auto) Cancelled Baso % (Auto) Cancelled Lymph # (Auto) Cancelled [place] # (Auto) Cancelled Eos # (Auto) Cancelled Baso # (Auto) Cancelled Abs Immat Gran (auto) Cancelled Absolute Neuts (auto) Cancelled Absolute Nucleated RBC 0.050 H (0.0-0.012) X10*3/uL Nucleated RBC % (auto) 0.3 H (0.0-0.2) /100WBC Neutrophils % (Manual) 73 (45-73) % Lymphocytes % (Manual) 17 L (20-40) % Atypical Lymphs % (Man) 1 (0-6) % Monocytes % (Manual) 5 (2-11) % Eosinophils % (Manual) 3 (0-4) % Basophils % (Manual) 1 (0-2) % Abs Neuts (Manual) Not Reportable Lymphocytes # (Manual) 2.8 (1.2-4.9) X10*3/uL Atyp Lymphs # (Manual) 0.2 x10*3/uL Monocytes # (Manual) 0.8 (0.1-1.2) X10*3/uL Eosinophils # (Manual) 0.5 H (0.0-0.4) X10*3/uL Basophils # (Manual) 0.2 (0.0-0.2) X10*3/uL Platelet Estimate NORMAL (NORMAL) Plt Morphology Comment NORMAL RBC Morphology NOTED Macrocytosis 1+ (5-14) /OIF Tear Drop Cells 1+ (0-2) /OIF Ovalocytes 1+ (5-14) /OIF Schistocytes 1+ (0-2) /OIF PT 14.3 H (11.1-13.3) SEC INR 1.2 H (0.9-1.1) Sodium 141 (135-145) mmol/L Potassium 4.7 (3.3-5.1) mmol/L Chloride 109 H (96-108) mmol/L Carbon Dioxide 21 L (22-29) mmol/L Anion Gap 16 (12-20) BUN 22 H (9-16) mg/dL Creatinine 0.95 (0.5-1.4) mg/dL Estim Creat Clear Calc 42.5 Estimated GFR 57 Random Glucose 147 H (60-115) mg/dL Calcium 9.2 (8.4-10.2) mg/dL Magnesium 2.7 H (1.6-2.6) mg/dL Total Bilirubin 2.7 H (0.0-1.0) mg/dL Direct Bilirubin 0.7 H (0.0-0.5) mg/dL AST 33 H (5-31) U/L ALT 14 (0-31) U/L Alkaline Phosphatase 148 H (39-117) U/L Troponin I High Sens < 2.7 (<3.5-17.0) ng/L B-Natriuretic Peptide 216 H (<100) pg/mL Total Protein 7.2 (6.5-8.0) g/dL Albumin 4.1 (3.5-5.0) g/dL Influenza Type A (PCR) NEGATIVE (Negative) Influenza Type B (PCR) NEGATIVE (Negative) RSV RNA Qual (PCR) NEGATIVE (Negative) SARS-CoV-2 RNA (RT-PCR) NEGATIVE (Negative) Procedures Procedure Narrative Procedure Narrative: Limited echo Grossly normal contractility, IVC with Respiratory variant, no pericardial effusion noted Limited thoracic ultrasound Occasional B line noted, otherwise normal exam Discharge Plan Discharge Clinical Impression: Pleural effusion Pneumonia Qualifiers: Pneumonia type: due to unspecified organism Laterality: left Lung location: unspecified part of lung Qualified Code(s): J18.9 - Pneumonia, unspecified organism Patient Disposition: Home, Self-Care Additional Instructions: Your found to have a small fluid collection in the left lobe of the lung, this could be an early pneumonia. The remainder of your lab studies were at your baseline. See home care instructions. You need to follow-up with your specialists as directed. Keep taking your prescribed amoxicillin, I have also added on doxycycline, take this as directed. You had your 1st dose here in the emergency department, you do not require any additional medication overnight. Prescriptions: New doxycycline hyclate 100 mg capsule 100 mg PO BID Qty: 14 0RF No Action mecobalamin (vitamin B12) 1,000 mcg tablet,disintegrating 1,000 mcg sublingual DAILY 90 Days Qty: 90 2RF Rx Instructions: place tablet under tongue and allow to dissolve for at least30 secs before swallowing aspirin [Adult Aspirin Regimen] 81 mg tablet,delayed release (DR/EC) 81 mg PO DAILY Qty: 90 0RF ezetimibe 10 mg tablet 10 mg PO DAILY Qty: 90 3RF furosemide 20 mg tablet 20 mg PO BID 30 Days Qty: 60 5RF carvedilol 6.25 mg tablet 6.25 mg PO BID 30 Days Qty: 60 2RF Rx Instructions: NEW DOSE must administer with a meal/food amiodarone 200 mg tablet 200 mg PO DAILY Qty: 30 2RF clopidogrel 75 mg tablet 75 mg PO DAILY Qty: 90 3RF isosorbide mononitrate 30 mg tablet extended release 24 hr 30 mg PO DAILY Qty: 90 3RF insulin lispro 100 unit/mL insulin pen 100 unit subcut DAILY atorvastatin 80 mg tablet 80 mg PO DAILY lisinopril 20 mg tablet 20 mg PO DAILY (DME) Accu-Chek Renita Plus test strp Strip See Rx Instructions Not Applicable .MEDSUPPLY Qty: 10 Rx Instructions: As directed (DME) pen needle, diabetic 31 gauge x 3/16 needle See Rx Instructions subcut QID Qty: 50 Rx Instructions: As directed (DME) blood-glucose meter Misc See Rx Instructions .ROUTE .MEDSUPPLY Qty: 1 Rx Instructions: As directed insulin aspart U-100 [Novolog FlexPen U-100 Insulin] 100 unit/mL (3 mL) insulin pen 3 unit subcut DAILY (DME) lancets [OneTouch Delica Plus Lancet] 30 gauge misc See Rx Instructions .ROUTE .MEDSUPPLY Qty: 100 Rx Instructions: As directed fluticasone propionate [Flonase Allergy Relief] 50 mcg/actuation spray,suspension 1 spray intranasal Q12H 30 Days Qty: 16 2RF Rx Instructions: administer into each nostril insulin detemir U-100 100 unit/mL (3 mL) insulin pen See Rx Instructions subcut BEDTIME 30 Days Qty: 15 3RF Rx Instructions: 6?units?a.m.?and?22?units?p.m. subcutaneously bedtime; amoxicillin-pot clavulanate [Augmentin] 500-125 mg tablet 1 tab PO Q12H 10 Days Qty: 20 0RF (DME) compr.stocking,knee,long,large Misc See Rx Instructions .Route Qty: 12 2RF Rx Instructions: 20-30?mmHg,?As directed, 90 days Interventions: ED Discharge Assessment Last Done: 01/02/24 17:39 Print Language: Portuguese
[2024-01-02 16:03] LABS: Hemoglobin 9.6 g/dl (12.0-16.0); Mean Corpuscular Hemoglobin 37.6 pg (27.0-33.0); Mean Platelet Volume 12.1 fL (9.4-12.3); NRBC Pct Auto 0.3 /100WBC (0.0-0.2); Platelet Count 335 X10*3/uL (160-400); Red Blood Count 2.55 X10*6/uL (4.20-5.50); Red Cell Distribution Width 16.5 % (11.0-16.0)
[2024-01-02 16:07] LABS: Mean Corpuscular Volume 117.6 fL (80.0-98.0); WBC ABN SCTR FOR CBC 1
[2024-01-02 16:07] LABS: Troponin-I High Sensitivity < 2.7 ng/L (<3.5-17.0)
[2024-01-02 16:12] LABS: INTERNATIONAL NORM RATIO 1.2 (0.9-1.1); Prothrombin Time 14.3 SEC (11.1-13.3)
[2024-01-02 16:26] LABS: Atypical Lymphs Percent Manual 1 % (0-6); Basophils Percent Manual 1 % (0-2); Eosinophils Percent Manual 3 % (0-4); Lymphocytes Percent Manual 17 % (20-40); Monocytes Percent Manual 5 % (2-11); Neutrophils Percent Manual 73 % (45-73)
[2024-01-02 16:31] LABS: Alanine Aminotransferase 14 U/L (0-31); Albumin Level 4.1 g/dL (3.5-5.0); Alkaline Phosphatase 148 U/L (39-117); Anion Gap 16 (12-20); Aspartate Amino Transferase 33 U/L (5-31); Bilirubin Direct 0.7 mg/dL (0.0-0.5); Bilirubin Total 2.7 mg/dL (0.0-1.0); Blood Urea Nitrogen 22 mg/dL (9-16); Calcium 9.2 mg/dL (8.4-10.2); Carbon Dioxide 21 mmol/L (22-29); Chloride 109 mmol/L (96-108); Creatinine Clr Calc Pharmacy 42.5; Estimated Glomerular Filt Rate 57; Glucose Random 147 mg/dL (60-115); Magnesium 2.7 mg/dL (1.6-2.6); Potassium 4.7 mmol/L (3.3-5.1); Sodium 141 mmol/L (135-145); Total Protein 7.2 g/dL (6.5-8.0)
[2024-01-02 16:32] LABS: B Type Natriuretic Peptide 216 pg/mL (<100)
[2024-01-02 16:34] LABS: Ovalocytes 1+ (5-14) /OIF; Tear Drop Cells 1+ (0-2) /OIF
[2024-01-02 16:36] LABS: Schistocytes 1+ (0-2) /OIF
[2024-01-02 16:37] LABS: Macrocytosis 1+ (5-14) /OIF; Platelet Estimate NORMAL (NORMAL); Platelet Morphology Comment NORMAL
[2024-01-02 16:38] LABS: Influenza A PCR NEGATIVE (Negative); Influenza B PCR NEGATIVE (Negative); Resp Syncy Virus RNA Qual PCR NEGATIVE (Negative); SARS COV2 PCR INHOUSE NEGATIVE (Negative)
[2024-01-02 16:38] LABS: Atypical Lymph Absolute Manual 0.2 x10*3/uL; Basophils Abs Manual 0.2 X10*3/uL (0.0-0.2); Eosinophils Absolute Manual 0.5 X10*3/uL (0.0-0.4); Lymphocytes Absolute Manual 2.8 X10*3/uL (1.2-4.9); Monocytes Absolute Manual 0.8 X10*3/uL (0.1-1.2); RBC Morphology NOTED; White Blood Count 16.4 X10*3/uL (4.8-10.8)
[2024-01-02] MEDS: Doxycycline Monohydrate 100 MG CAPSULE PO (17:35)
[2024-01-02 17:39] VITALS: BP 108/57; PULSE 85; RESP 18; TEMP 36.8; O2SAT 96
== END 2024-01-02 18:05 | disposition home or self-care (01) ==
PROVIDERS: Nurse Practitioner Family; Emergency Provider Emergency Medicine; PCP Family Medicine
DX: J18.9 Pneumonia, unspecified organism (principal); J90 Pleural effusion, not elsewhere classified; J32.9 Chronic sinusitis, unspecified; J43.9 Emphysema, unspecified; I25.10 Atherosclerotic heart disease of native coronary artery without angina pectoris; I11.0 Hypertensive heart disease with heart failure; I50.30 Unspecified diastolic (congestive) heart failure; I47.10 Supraventricular tachycardia, unspecified; E11.9 Type 2 diabetes mellitus without complications; Z85.118 Personal history of other malignant neoplasm of bronchus and lung; Z79.899 Other long term (current) drug therapy; Z95.5 Presence of coronary angioplasty implant and graft; Z90.2 Acquired absence of lung [part of]
CPT/HCPCS: 0241U; 71046; 80048; 80076; 83735; 83880; 84484; 85007; 85027; 85610; 93005; 99283

== ENCOUNTER → 2024-01-02 14:10 | Outpatient (BNV) | payer MEDICARE, SELFPAY | PROVIDERS: Emergency Provider Emergency Medicine; PCP Family Medicine; Visit Provider Internal Medicine Cardiovascular Disease | DX: R94.31 Abnormal electrocardiogram [ECG] [EKG] (principal) | CPT/HCPCS: 93010 ==

== ENCOUNTER 2024-01-16 14:23 | Outpatient (AMB) | payer MEDICARE, SELFPAY ==
--- NOTE | 2024-01-16 14:24 | A.OFFPC_ITS ---
Vital Signs 01/16/24 14:27 Height 4 ft 11.5 in Weight 145 lb 8 oz BMI 28.9 BP 100/55 L Blood Pressure Location Lt brachial Position Sitting Pulse 72 Pulse Source Pulse Oximeter Pulse Oximetry (%) 97 Oxygen Delivery Method Room Air Intake Visit Reasons: Shortness of breath Intake Note: Patient is here with sortness of breath, still, and left jaw pain. Allergies lorazepam [LORAZEPAM] Allergy (Unknown, Verified 01/16/24 14:36) WENT CRAZY Tobacco use date assessed: 01/16/24 Fall risk assessment: No Falls in past year Last assessed Fall Risk: 01/16/24 Dental Screening Dental Screen Date: 11/16/23 HPI Shortness of breath HPI Details 78 y/o female presents to f/u shortness of breath. Had went to the emergency department for dyspnea 01/02/24. Was found to have a small fluid collection on L lobe of lung - possible early pneumonia. Recommended she keep taking amoxicillin and they had also added doxycycline. Pt has ongoing complaints of L jaw pain. She reports ongoing shortness of breath and states she feels unwell in general. She notes last appt. with pulmonology Dr. Thao was about a year ago. Blood pressure today 100/55. HPI Comments History of Present Illness Details Documentation assistance for Kenji Mcnally MD, was provided by Adis Degroot, [employer] Machine Operator Helper on 01/16/2024 3:18 PM OMAR. I, Dr. Mcnally, have read, observed, and verified documentation. [facility] Medical History Tachycardia Dyslipidemia PAD (peripheral artery disease) Nicotine dependence, cigarettes, uncomplicated Tubular adenoma of colon Anemia Anxiety CAD (coronary artery disease) Essential hypertension Diabetes type 2, controlled Surgical History History of lung surgery History of varicose vein stripping History of angioplasty History of heart artery stent History of carpal tunnel surgery of right wrist History of colonoscopy History of splenectomy History of partial pancreatectomy History of cholecystectomy History of appendectomy History of tonsillectomy Family History Daughter Lung cancer Father Bone cancer Mother Colon cancer Social History Household Members: None Housing: Condominium Alcohol intake: never Patient Tobacco Use Status: Former Tobacco user Years Smoked: 50 e-Cigarette/Vaping Use: Never Used Second Hand Smoke Exposure: No Advance Directives Date on File: 01/18/23 service: No Current occupational status: retired Current occupational exposures/hazards: No Cognitive needs: No Hearing needs: No Vision needs: No Questionnaire Thrive Questionnaire Date Thrive assessed: 08/31/22 SAMMY-7 AMB Questionnaire SAMMY-7 Date SAMMY - 7 assessed: 07/20/23 Source: Developed by Drs. Ari Serrano, Ban Erazo, Lee Lehman and colleagues, with an educational sonia from [employer]. Review of Systems Const Denies chills, Denies fatigue, Denies fever(s), Denies headache(s) and Denies weakness ENT Denies dizziness and Denies headache(s) Card Denies dyspnea Resp Denies cough, Denies dyspnea, Denies wheezing and Denies other (shortness of breath) Musc Denies numbness and Denies tingling Neuro Denies dizziness, Denies headache(s), Denies numbness, Denies tingling and Denies weakness Psych Denies anxiety and Denies depression Endo Denies fatigue Aller/Immun Denies wheezing Physical exam (Primary Care) Vital Signs: Last Vital Signs Pulse 72 01/16/24 14:27 BP 100/55 L 01/16/24 14:27 Pulse Ox 97 01/16/24 14:27 Oxygen Delivery Method Room Air 01/16/24 14:27 BMI result Body Mass Index 28.9 Tobacco/Smoking Status: Tobacco use Status Tobacco use date assessed 01/16/24 01/16/24 14:36 Patient Tobacco Use Status Former Tobacco user 01/16/24 14:26 e-Cigarette/Vaping Use Never Used 01/16/24 14:26 Thrive Assessment: Date of Thrive Assessment Date Thrive assessed 08/31/22 01/16/24 14:26 Const General: well developed; No acute distress Nutritional Appearance: well nourished Orientation/consciousness: patient oriented x3 HENMT Head: Yes normocephalic and Yes atraumatic Eyes General: appearance normal, both eyes and all related structures Pupils: Equal, round and reactive pupils present EOM: EOMs intact bilaterally Resp Other: Increased mucuous secretions Effort & Inspection: normal respiratory effort Cardio Rate: regular rate Rhythm: regular rhythm Heart sounds: S1 normal heart sound present, S2 normal heart sound present, no gallops, no murmurs and no rubs Neuro General: patient oriented x3 and gait normal Cranial nerves: Yes Equal, round and reactive pupils present Psych Affect: normal affect Assessment and Plan Assessment & Plan (1) Shortness of breath: Code(s): R06.02 - Shortness of breath Plan: Ongoing ?shortness?of?breath?and?jaw?pain?in?patient?with?coronary?artery?disease, as?well?as history?of?lung?CA?and?lobectomy?with?effusion.??Also?likely?recent?pneumonia. Rechecking?chest?x-ray Giving?her?a?continued?course?of?antibiotic She?is?on?furosemide?and?will?continue?this. She?has?seen?Cardiology?and?recent?cardiac?catheterization?did?not?show?any?new? anatomic?deficits. She?has?another?appointment?with?cardiology?next?week Has?not?seen?pulmonology?in?quite?some?time?though?she?has?seen?her?cardiothorac ic?surgeon,? Will?refer?her?back?to?pulmonology?as?well. (2) Pleural effusion: Code(s): J90 - Pleural effusion, not elsewhere classified Plan: As?above,?she?is?on?furosemide Continue?the Follow-up?with?Cardiology?and?I?am?referring?her?to?pulmonology.??Follow-up?with ??as?well (3) Jaw pain: Code(s): R68.84 - Jaw pain Plan: As?above (4) Essential hypertension: Code(s): I10 - Essential (primary) hypertension Plan: Blood?pressure?is?again?a?little?low.??Decreasing?lisinopril?from?20?mg?daily?to ?10?mg?daily Will?follow-up?in?2?weeks Orders: Orders XR chest 2V Today R06.02 - Shortness of breath B Type Natriuretic Peptide Today I50.9 - Heart failure, unspecified Complete Blood Count Auto Diff Today R06.02 - Shortness of breath, Z00.00 - Encounter for general adult medical examination without abnormal findings Comprehensive [place]. Panel Fast Today R06.02 - Shortness of breath, Z00.00 - Encounter for general adult medical examination without abnormal findings Referrals Pulmonology Referral C34.12 - Malignant neoplasm of upper lobe, left bronchus or lung, R06.02 - Shortness of breath, Z90.2 - Acquired absence of lung [part of] Medications: New azithromycin (Zithromax Z-Thomas) take 500 mg today (day 1), then 250 mg for 4 days (days 2-5) PO 5 days 6 tabs 0RF Changed From lisinopril 20 mg PO DAILY To lisinopril 10 mg PO DAILY 90 days 90 tabs 2RF Coding Level of Care Code Est Pt Level 3 (42829) Diagnoses Shortness of breath R06.02 Pleural effusion J90 Jaw pain R68.84 Essential hypertension I10
[2024-01-16 14:27] VITALS: BP 100/55; PULSE 72; O2SAT 97; BMI 28.9
== END 2024-01-16 15:28 | disposition home or self-care (01) ==
PROVIDERS: PCP Family Medicine; Visit Provider Family Medicine
DX: R06.02 Shortness of breath (principal); J90 Pleural effusion, not elsewhere classified; R68.84 Jaw pain; I10 Essential (primary) hypertension
CPT/HCPCS: 99213

== ENCOUNTER 2024-01-17 09:41 | Outpatient (REF) | payer MEDICARE, SELFPAY ==
[2024-01-17 11:52] LABS: MANUAL DIFF FLAG NO
[2024-01-17 12:04] LABS: Basophils Absolute Auto 0.2 X10*3/uL (0.0-0.2); Basophils Percent Auto 1.5 % (0-2); Eosinophils Absolute Auto 0.3 X10*3/uL (0.0-0.4); Eosinophils Percent Auto 3.4 % (0-4); Hematocrit 28.4 % (37.0-47.0); Hemoglobin 10.1 g/dl (12.0-16.0); Imm Gran Abs Auto 0.04 X10*3/uL (0.00-0.03); Imm Gran Pct Auto 0.4 % (0.0-0.4); Lymphocytes Absolute Auto 1.2 X10*3/uL (1.2-4.9); Lymphocytes Percent Auto 12.4 % (20-40); Mean Corpuscular HGB Conc 35.6 g/dl (31.0-35.0); Mean Corpuscular Hemoglobin 42.6 pg (27.0-33.0); Mean Platelet Volume 12.3 fL (9.4-12.3); Monocytes Absolute Auto 0.8 X10*3/uL (0.1-1.2); Monocytes Percent Auto 8.3 % (2-11); Neutrophils Absolute Auto 7.2 x10*3/uL (2.0-8.3); Platelet Count 321 X10*3/uL (160-400); Red Blood Count 2.37 X10*6/uL (4.20-5.50); Red Cell Distribution Width 15.9 % (11.0-16.0); White Blood Count 9.8 X10*3/uL (4.8-10.8)
[2024-01-17 12:22] LABS: Mean Corpuscular Volume 119.8 fL (80.0-98.0)
[2024-01-17 12:31] LABS: B Type Natriuretic Peptide 217 pg/mL (<100)
[2024-01-17 12:47] LABS: Alanine Aminotransferase 17 U/L (0-31); Albumin Level 3.8 g/dL (3.5-5.0); Alkaline Phosphatase 138 U/L (39-117); Anion Gap 15 (12-20); Aspartate Amino Transferase 19 U/L (5-31); Bilirubin Total 2.9 mg/dL (0.0-1.0); Blood Urea Nitrogen 19 mg/dL (9-16); Calcium 9.5 mg/dL (8.4-10.2); Carbon Dioxide 24 mmol/L (22-29); Chloride 105 mmol/L (96-108); Estimated Glomerular Filt Rate 58; Glucose Fasting 161 mg/dL (60-99); Potassium 3.7 mmol/L (3.3-5.1); Sodium 140 mmol/L (135-145); Total Protein 6.8 g/dL (6.5-8.0)
== END 2024-01-17 09:42 | disposition home or self-care (01) ==
LOC: HO.WFDLDS 09:41
PROVIDERS: Visit Provider Family Medicine
DX: Z00.00 Encounter for general adult medical examination without abnormal findings (principal); I50.9 Heart failure, unspecified; R06.02 Shortness of breath
CPT/HCPCS: 36415; 80053; 83880; 85025

== ENCOUNTER 2024-01-19 15:55 | Outpatient (AMB) | payer MEDICARE, SELFPAY ==
--- NOTE | 2024-01-19 15:44 | A.OFFPC_ITS ---
Intake Visit Reasons: F/U labs Intake Note: Patient is scheduled to follow up on her labs today. Allergies lorazepam [LORAZEPAM] Allergy (Unknown, Verified 01/19/24 15:51) WENT CRAZY Medication List - Last Reconciled 01/19/24 by Kenji Mcnally MD amiodarone 200 mg PO DAILY amoxicillin-pot clavulanate 500-125 mg (Augmentin) 1 tab PO Q12H 10 days aspirin (Adult Aspirin Regimen) 81 mg PO DAILY atorvastatin 80 mg PO DAILY azithromycin (Zithromax Z-Thomas) take 500 mg today (day 1), then 250 mg for 4 days (days 2-5) PO 5 days blood sugar diagnostic As directed blood-glucose meter As directed carvedilol 6.25 mg PO BID 30 days clopidogrel 75 mg PO DAILY compr.stocking,knee,long,large 20-30?mmHg,?As directed, 90 days doxycycline hyclate 100 mg PO BID ezetimibe 10 mg PO DAILY fluticasone propionate 50 mcg/actuation (Flonase Allergy Relief) 1 spray intranasal Q12H 30 days furosemide 20 mg PO BID 30 days insulin aspart U-100 (Novolog FlexPen U-100 Insulin aspart) 3 units subcut DAILY insulin detemir U-100 6?units?a.m.?and?22?units?p.m. subcutaneously bedtime; 30 days insulin lispro 100 units subcut DAILY isosorbide mononitrate ER 30 mg PO DAILY lancets (OneTouch Delica Plus Lancet) As directed lisinopril 10 mg PO DAILY 90 days mecobalamin (vitamin B12) 1,000 mcg sublingual DAILY 90 days pen needle, diabetic As directed Tobacco use date assessed: 01/16/24 Dental Screening Dental Screen Date: 11/16/23 HPI F/U labs HPI Details Telemedicine?encounter?to?follow-up?on?lab?work. Patient?has?a?macrocytic?anemia Smear?showed: Red cell agglutination is present; admixed echinocytes, acanthocytes and red cell fragments are also seen. 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 Also?has?mildly?elevated?bilirubin. BNP is?elevated?above?her?baseline?though?only?modestly. Had?ordered?a?chest?x- ray?but?she?has?not?gotten?this?done?yet. She?is?on?furosemide?20?mg?b.i.d. She?still?getting?chest?and?jaw?pain. Has?been?seen?by?Cardiology?regarding?this.??She?has?an?upcoming?appointment?nex t?Tuesday. [facility] Medical History Tachycardia Dyslipidemia PAD (peripheral artery disease) Nicotine dependence, cigarettes, uncomplicated Tubular adenoma of colon Anemia Anxiety CAD (coronary artery disease) Essential hypertension Diabetes type 2, controlled Surgical History History of lung surgery History of varicose vein stripping History of angioplasty History of heart artery stent History of carpal tunnel surgery of right wrist History of colonoscopy History of splenectomy History of partial pancreatectomy History of cholecystectomy History of appendectomy History of tonsillectomy Family History Daughter Lung cancer Father Bone cancer Mother Colon cancer Social History Household Members: None Housing: Condominium Alcohol intake: never Patient Tobacco Use Status: Former Tobacco user Years Smoked: 50 e-Cigarette/Vaping Use: Never Used Second Hand Smoke Exposure: No Advance Directives Date on File: 01/18/23 service: No Current occupational status: retired Current occupational exposures/hazards: No Cognitive needs: No Hearing needs: No Vision needs: No Questionnaire Thrive Questionnaire Date Thrive assessed: 08/31/22 SAMMY-7 AMB Questionnaire SAMMY-7 Date SAMMY - 7 assessed: 07/20/23 Source: Developed by Drs. Ari Serrano, Ban Erazo, Lee Lehman and colleagues, with an educational sonia from [employer]. Review of Systems Const Denies chills, Denies fatigue, Denies fever(s), Denies headache(s) and Denies weakness ENT Denies dizziness and Denies headache(s) Card Details: Chest/jaw?pain Reports chest pain, Denies lightheadedness, Denies dyspnea and Denies other (Palpitations) Resp Denies cough, Denies dyspnea, Denies wheezing and Denies other ( shortness of breath) Musc Denies numbness and Denies tingling Neuro Denies dizziness, Denies headache(s), Denies numbness, Denies tingling, Denies paresthesias and Denies weakness Psych Denies anxiety and Denies depression Endo Denies fatigue Dov/Lymph Details: Lower?extremity?edema?on?left?foot?and?ankle Aller/Immun Denies wheezing Physical exam (Primary Care) Tobacco/Smoking Status: Tobacco use Status Tobacco use date assessed 01/16/24 01/19/24 15:48 Patient Tobacco Use Status Former Tobacco user 01/19/24 15:48 e-Cigarette/Vaping Use Never Used 01/19/24 15:48 Thrive Assessment: Date of Thrive Assessment Date Thrive assessed 08/31/22 01/19/24 15:48 Telehealth Telehealth Telehealth Platform: Telephone Location of provider rendering services: practice address Location of patient: address on file Patient Identification confirmed using: Name, : Yes Telehealth method: voice only Patient verbally consented to treatment: Yes Patient verbally consented to billing insurance company: Yes Patient informed of any privacy concerns related to visit: Yes Minutes spent on Phone/Video with Pt.: 12 Assessment and Plan Assessment & Plan (1) Abnormal blood smear: Code(s): R79.9 - Abnormal finding of blood chemistry, unspecified Plan: Smear?suggests?cold?agglutinin?disease Referred?to?Hematology-Oncology (2) Anemia: Code(s): D64.9 - Anemia, unspecified Plan: Mild?macrocytic?anemia?which?is?fairly?stable. Smear?suggests?cold?agglutinin?disease.??Mildly?elevated?bilirubin. As?above,?referred?to?Hematology-Oncology Keep?limbs?warm Rechecking?CBC. Will?also?check?B12?level?and?thyroid (3) Jaw pain: Code(s): R68.84 - Jaw pain Plan: Ongoing?jaw?pain.??She?has?had?workup?by?Cardiology?and?has?upcoming?appointment ?next?Tuesday Follow-up?with?Cardiology?as?recommended (4) CHF (congestive heart failure): Code(s): I50.9 - Heart failure, unspecified Plan: BNP?is?a?little?higher She?is?on?furosemide?20?mg?b.i.d. Had?ordered?chest?x-ray?but?she?has?not?gotten?this?done?yet?and?will?do?so. Continue?Lasix Follow-up?with?Cardiology Orders: Orders Complete Blood Count Auto Diff Today D64.9 - Anemia, unspecified, Z00.00 - Encounter for general adult medical examination without abnormal findings Free T4 (Free Thyroxine) Today D64.9 - Anemia, unspecified, E03.9 - Hypothyroidism, unspecified Triiodothyronine T3 Total Today D64.9 - Anemia, unspecified, E03.9 - Hypothyroidism, unspecified Thyroid Stimulating Hormone Today D64.9 - Anemia, unspecified, E03.9 - Hypothyroidism, unspecified B Type Natriuretic Peptide Today D64.9 - Anemia, unspecified, I50.9 - Heart failure, unspecified Vitamin B12 and Folate Today D64.9 - Anemia, unspecified, E53.8 - Deficiency of other specified B group vitamins Referrals Hematology & Oncology Referral D64.9 - Anemia, unspecified, R79.9 - Abnormal finding of blood chemistry, unspecified Coding Level of Care Code Tele Est Pt Level 2 (51941) Diagnoses Abnormal blood smear R79.9 Anemia D64.9 Jaw pain R68.84 CHF (congestive heart failure) I50.9
== END 2024-01-20 08:30 | disposition home or self-care (01) ==
LOC: HO.HMGFM 15:55
PROVIDERS: PCP Family Medicine; Visit Provider Family Medicine
DX: R79.9 Abnormal finding of blood chemistry, unspecified (principal); D64.9 Anemia, unspecified; R68.84 Jaw pain; I50.9 Heart failure, unspecified
CPT/HCPCS: 99442

== ENCOUNTER 2024-01-20 09:33 | Outpatient (REF) | payer MEDICARE, SELFPAY ==
--- NOTE | ~2024-01-20 | XR_ITS ---
EXAMINATION: XR CHEST CLINICAL INFORMATION: Shortness of breath. COMPARISON: Chest radiograph 01/02/2024. TECHNIQUE: 2 views of the chest were obtained. FINDINGS: Again noted postsurgical changes in the left lung with surgical sutures. Stable cardiomegaly. Similar diffuse interstitial coarsening with faint bilateral hazy opacities. Unchanged small left pleural effusion. No pneumothorax. Thoracic spondylosis. No acute osseous findings. Redemonstration of multiple surgical clips in the upper abdomen. XR/XR chest 2V IMPRESSION: 1. No significant change when compared to 01/02/2024. 2. Similar diffuse interstitial coarsening, faint bilateral hazy opacities, small left-sided pleural effusion and post surgical changes in the left lung.
[2024-01-20 10:01] LABS: MANUAL DIFF FLAG NO
[2024-01-20 10:43] LABS: Basophils Absolute Auto 0.1 X10*3/uL (0.0-0.2); Basophils Percent Auto 1.5 % (0-2); Eosinophils Absolute Auto 0.2 X10*3/uL (0.0-0.4); Eosinophils Percent Auto 2.6 % (0-4); Imm Gran Abs Auto 0.03 X10*3/uL (0.00-0.03); Imm Gran Pct Auto 0.4 % (0.0-0.4); Lymphocytes Percent Auto 12.7 % (20-40); Mean Corpuscular HGB Conc 35.7 g/dl (31.0-35.0); Mean Corpuscular Hemoglobin 42.6 pg (27.0-33.0); Monocytes Absolute Auto 0.5 X10*3/uL (0.1-1.2); Monocytes Percent Auto 6.7 % (2-11); Neutrophils Absolute Auto 6.1 x10*3/uL (2.0-8.3); Neutrophils Percent Auto 76.1 % (45-73); Platelet Count 335 X10*3/uL (160-400); Red Blood Count 2.35 X10*6/uL (4.20-5.50)
[2024-01-20 10:47] LABS: Mean Corpuscular Volume 119.1 fL (80.0-98.0)
[2024-01-20 11:20] LABS: B Type Natriuretic Peptide 274 pg/mL (<100)
[2024-01-20 11:35] LABS: Free T4 (Free Thyroxine) 1.14 ng/dL (0.71-1.85); Thyroid Stimulating Hormone 2.37 uIU/mL (0.32-4.0)
[2024-01-20 11:49] LABS: Folate 12.8 ng/mL (> or = 4.0); Vitamin B12 1257 pg/mL (200-900)
[2024-01-21 16:38] LABS: Triiodothyronine T3 Total 66 ng/dL (76-181)
== END 2024-01-20 09:34 | disposition home or self-care (01) ==
LOC: HO.LAB 09:33
PROVIDERS: PCP Family Medicine; Visit Provider Family Medicine
DX: Z00.00 Encounter for general adult medical examination without abnormal findings (principal); E03.9 Hypothyroidism, unspecified; D64.9 Anemia, unspecified; I50.9 Heart failure, unspecified; E53.8 Deficiency of other specified B group vitamins; R06.02 Shortness of breath
CPT/HCPCS: 36415; 71046; 82607; 82746; 83880; 84439; 84443; 84480; 85025

== ENCOUNTER 2024-01-25 13:12 | Outpatient (AMB) | payer MEDICARE, SELFPAY ==
[2024-01-25 13:29] VITALS: BP 110/58; PULSE 78; O2SAT 96; BMI 28.9
--- NOTE | 2024-01-25 13:29 | MHC.OFFVIS ---
Vital Signs 01/25/24 13:29 Height 4 ft 11 in Weight 143 lb 4.807 oz BMI 28.9 BP 110/58 L Blood Pressure Location Lt brachial Position Sitting Pulse 78 Pulse Source Pulse Oximeter Pulse Oximetry (%) 96 Oxygen Delivery Method Room Air Intake Visit Reasons: 2 wk f/up cath KM rs HPI Comments Details: 79-year-old female presents today for a follow-up after cardiac cathetization. She reports she is still getting short of breath, jaw pain intermittently, cough, and feels very tired. She denies chest pain, dizziness, fever, chills, or tenderness at right femoral artery access site. Blood pressures has improved. SVT has improved since the start of amiodarone.. She monitors her weight at home and says it has been stable at 140 lbs. She is going to be seeing pulmonary 01/31/2024. She does not eat with salt. [facility] Medical History (Updated 01/26/24 @ 08:31 by Suellen Alberts NP) SVT (supraventricular tachycardia) Tachycardia Dyslipidemia PAD (peripheral artery disease) Nicotine dependence, cigarettes, uncomplicated Tubular adenoma of colon Anemia Anxiety CAD (coronary artery disease) Essential hypertension Diabetes type 2, controlled Surgical History (Updated 01/26/24 @ 08:41 by Suellen Alberts NP) S/P cardiac catheterization History of lung surgery History of varicose vein stripping History of angioplasty History of heart artery stent History of carpal tunnel surgery of right wrist History of colonoscopy History of splenectomy History of partial pancreatectomy History of cholecystectomy History of appendectomy History of tonsillectomy Family History Daughter Lung cancer Father Bone cancer Mother Colon cancer Social History Household Members: None Housing: Condominium Alcohol intake: never Patient Tobacco Use Status: Former Tobacco user Years Smoked: 50 e-Cigarette/Vaping Use: Never Used Second Hand Smoke Exposure: No Advance Directives Date on File: 01/18/23 service: No Current occupational status: retired Current occupational exposures/hazards: No Cognitive needs: No Hearing needs: No Vision needs: No Review of Systems Const Denies weakness ENT Denies dizziness Card Denies chest pain, Denies chest pain with activity, Denies syncope, Denies rapid heart rate, Denies pedal edema, Denies edema, Denies leg edema, Denies lightheadedness, Denies palpitations, Denies dyspnea, Denies dyspnea on exertion and Denies orthopnea Resp Denies cough, Denies dyspnea and Denies dyspnea on exertion GI Denies hematochezia and Denies change in stool character Musc Denies abnormal gait, Denies muscle cramps, Denies muscle weakness, Denies numbness, Denies radiating pain into limb and Denies tingling Neuro Denies abnormal gait, Denies dizziness, Denies syncope, Denies numbness, Denies tingling and Denies weakness Endo Denies palpitations Physical Exam Vital Signs: Last Vital Signs Pulse 78 01/25/24 13:29 BP 110/58 L 01/25/24 13:29 Pulse Ox 96 01/25/24 13:29 Oxygen Delivery Method Room Air 01/25/24 13:29 BMI result Body Mass Index 28.9 Assessment & Plan Assessment & Plan (1) SVT (supraventricular tachycardia): Code(s): I47.10 - Supraventricular tachycardia, unspecified Category: Medical (2) S/P cardiac catheterization: Comment: 12/22/[address] Holman Cardiac Arteries and Lesion Findings LMCA: Normal. LAD: Patent LAD stent. 40% mid LAD stenosis. Similar to before. LCx: Patent stent in the circumflex with mild ISR. OM2 has proximal 50 to 60% stenosis. Small diameter vessel. RCA: Patent proximal and distal right coronary artery stents.There is a previous stent on Dist RCA Distal subsection. There is a previous stent on Mid RCA Proximal subsection. Code(s): Z98.890 - Other specified postprocedural states Category: Surgical (3) Shortness of breath: Code(s): R06.02 - Shortness of breath Category: Medical (4) CAD (coronary artery disease): Comment: (Hx MIs, Stents: SOUMYA to distal RCA, OM1, prox LAD) Code(s): I25.10 - Atherosclerotic heart disease of tribal coronary artery without angina pectoris Category: Medical Plan S/P cardiac catherization which showed patent stents and no significant progression of CAD to explain symptoms. Continue aspirin 81mg and clopidogrel 75mg.BNP was elevated on 01/20/2024 will have her increase lasix for 2 days and repeat labs. SVT with amiodarone therapy. Noticeably decrease in episode. She is seeing pulmonary for further evaluation for her shortness of breath. Orders: Orders Basic Metabolic Panel 1 Week R06.02 - Shortness of breath B Type Natriuretic Peptide 1 Week R06.02 - Shortness of breath Coding Level of Care Code Est Pt Level 4 (88902) Diagnoses SVT (supraventricular tachycardia) I47.10 S/P cardiac catheterization Z98.890 Shortness of breath R06.02 CAD (coronary artery disease) I25.10
== END 2024-01-25 14:21 | disposition home or self-care (01) ==
PROVIDERS: PCP Family Medicine; Visit Provider Nurse Practitioner
DX: I47.10 Supraventricular tachycardia, unspecified (principal); Z98.890 Other specified postprocedural states; R06.02 Shortness of breath; I25.10 Atherosclerotic heart disease of native coronary artery without angina pectoris
CPT/HCPCS: 99214

== ENCOUNTER → 2024-01-25 13:12 | Outpatient (BNVA) | payer MEDICARE, SELFPAY | PROVIDERS: PCP Family Medicine; Visit Provider Nurse Practitioner | DX: I25.10 Atherosclerotic heart disease of native coronary artery without angina pectoris (principal); I47.10 Supraventricular tachycardia, unspecified; R06.02 Shortness of breath; Z98.890 Other specified postprocedural states | CPT/HCPCS: 99212 ==

== ENCOUNTER 2024-01-31 09:12 | Outpatient (AMB) | payer MEDICARE, SELFPAY ==
--- NOTE | 2024-01-31 09:15 | A.OFFPC_ITS ---
Vital Signs 01/31/24 09:17 Height 4 ft 11 in Weight 144 lb 6 oz BMI 29.2 BP 130/62 Blood Pressure Location Lt brachial Position Sitting Pulse 81 Pulse Source Pulse Oximeter Pulse Oximetry (%) 100 Oxygen Delivery Method Room Air Intake Visit Reasons: f/u labs Intake Note: Patient is here to follow up on labs, and she states she is not feeling any better, and she feels as if she can't breathe, feels as if she's filling up with fluid. Allergies No Known Allergies Allergy (Verified 01/31/24 09:19) Tobacco use date assessed: 01/31/24 Fall risk assessment: No Falls in past year Last assessed Fall Risk: 01/31/24 Dental Screening Dental Screen Date: 11/16/23 HPI f/u labs HPI Details 79 y/o female presents to f/u labs. Labs were drawn 01/20/24. Reviewed labs with pt. Ongoing moderate anemia. Pt reports ongoing issues with breathing. [facility] Medical History (Updated 01/26/24 @ 08:31 by Suellen Alberts NP) SVT (supraventricular tachycardia) Tachycardia Dyslipidemia PAD (peripheral artery disease) Nicotine dependence, cigarettes, uncomplicated Tubular adenoma of colon Anemia Anxiety CAD (coronary artery disease) Essential hypertension Diabetes type 2, controlled Surgical History (Updated 01/26/24 @ 08:41 by Suellen Alberts NP) S/P cardiac catheterization History of lung surgery History of varicose vein stripping History of angioplasty History of heart artery stent History of carpal tunnel surgery of right wrist History of colonoscopy History of splenectomy History of partial pancreatectomy History of cholecystectomy History of appendectomy History of tonsillectomy Family History Daughter Lung cancer Father Bone cancer Mother Colon cancer Social History Household Members: None Housing: Condominium Alcohol intake: never Patient Tobacco Use Status: Former Tobacco user Years Smoked: 50 e-Cigarette/Vaping Use: Never Used Second Hand Smoke Exposure: No Advance Directives Date on File: 01/18/23 service: No Current occupational status: retired Current occupational exposures/hazards: No Cognitive needs: No Hearing needs: No Vision needs: No Questionnaire Thrive Questionnaire Date Thrive assessed: 08/31/22 SAMMY-7 AMB Questionnaire SAMMY-7 Date SAMMY - 7 assessed: 07/20/23 Source: Developed by Drs. Ari Serrano, Ban Erazo, Lee Lehman and colleagues, with an educational sonia from [employer]. Review of Systems Const Denies chills, Denies fatigue, Denies fever(s), Denies headache(s) and Denies weakness ENT Denies dizziness and Denies headache(s) Card Denies dyspnea Resp Denies cough, Denies dyspnea, Denies wheezing and Denies other (shortness of breath) Musc Denies numbness and Denies tingling Neuro Denies dizziness, Denies headache(s), Denies numbness, Denies tingling and Denies weakness Psych Denies anxiety and Denies depression Endo Denies fatigue Aller/Immun Denies wheezing Physical exam (Primary Care) Vital Signs: Last Vital Signs Pulse 81 01/31/24 09:17 BP 130/62 01/31/24 09:17 Pulse Ox 100 01/31/24 09:17 Oxygen Delivery Method Room Air 01/31/24 09:17 BMI result Body Mass Index 29.2 Tobacco/Smoking Status: Tobacco use Status Tobacco use date assessed 01/31/24 01/31/24 09:24 Patient Tobacco Use Status Former Tobacco user 01/31/24 09:17 e-Cigarette/Vaping Use Never Used 01/31/24 09:17 Thrive Assessment: Date of Thrive Assessment Date Thrive assessed 08/31/22 01/31/24 09:17 Const General: well developed; No acute distress Nutritional Appearance: well nourished Orientation/consciousness: patient oriented x3 [facility] Head: Yes normocephalic and Yes atraumatic Eyes General: appearance normal, both eyes and all related structures Pupils: Equal, round and reactive pupils present EOM: EOMs intact bilaterally Resp Other: Significant crackles, wheezing and groans on L lung Effort & Inspection: normal respiratory effort Neuro General: patient oriented x3 and gait normal Cranial nerves: Yes Equal, round and reactive pupils present Psych Affect: normal affect Assessment and Plan Assessment & Plan (1) Shortness of breath: Code(s): R06.02 - Shortness of breath Plan: 79-year-old?female?with?a?history?of?smoking?an d?lung?cancer?who?has?had?worsening?shortness?of?breath. Chest?x-rays?are?showing?patchy?exudates?and?opacities Exam?significant?for?crackles?wheezing?and?groans?in?a?left?lung Pneumonia?verses?neoplasm?and?significant?concern?for?return?of?her?lung?cancer Patient?says?she?saw??[facility]?recently?and?had?a?biopsy?but?at?this?point?I?do ?not?have?that?information-requesting?notes?and?pathology?report. Her?BNP?is?not?significantly?higher?than?her?baseline She?is?on?furosemide Will?give?her?a?script?for?cephalexin?times?10?days She?has?an?appointment?with?pulmonology?today. She?has?an?appointment?with?Hematology-Oncology?on?the?28th Close?follow-up: Will?follow-up?in?about?10?days. (2) Anemia: Code(s): D64.9 - Anemia, unspecified Plan: Persistent?anemia?with?increased?bilirubin?and?cold?agglutinins She?has?an?appointment?with?Hematology-Oncology?next?week?to?follow-up?lung?can cer?as?well?as?anemia Medications: New cephalexin 500 mg PO Q12H 10 days 20 caps 0RF Refilled compr.stocking,knee,long,large 20-30?mmHg,?As directed, 90 days 12 ea 2RF I50.9 - Heart failure, unspecified, I73.9 - Peripheral vascular disease, unspecified, R60.0 - Localized edema Coding Level of Care Code Est Pt Level 3 (63621) Diagnoses Shortness of breath R06.02 Anemia D64.9
[2024-01-31 09:17] VITALS: BP 130/62; PULSE 81; O2SAT 100; BMI 29.2
== END 2024-01-31 10:09 | disposition home or self-care (01) ==
PROVIDERS: PCP Family Medicine; Visit Provider Family Medicine
DX: R06.02 Shortness of breath (principal); D64.9 Anemia, unspecified
CPT/HCPCS: 99214

== ENCOUNTER 2024-01-31 10:13 | Outpatient (AMB) | payer MEDICARE, SELFPAY ==
[2024-01-31 10:18] VITALS: BP 102/56; PULSE 69; O2SAT 91; BMI 29.1
--- NOTE | 2024-01-31 10:18 | MHC.OFFVIS ---
Vital Signs 01/31/24 10:18 Height 4 ft 11 in Weight 144 lb 4 oz BMI 29.1 BP 102/56 L Blood Pressure Location Lt brachial Position Sitting Pulse 69 Pulse Source Pulse Oximeter Pulse Oximetry (%) 91 L Oxygen Delivery Method Room Air Intake Visit Reasons: Shortness of breath/Pleural Effusion Allergies No Known Allergies Allergy (Verified 01/31/24 10:21) HPI HPI Shortness of breath/Pleural Effusion: Details: Bhupendra is a pleasant 79 year old female, former smoker with 50 pack year history, with underlying COPD, h/o NSCLC s/p ANTWAN wedge resection 01/2023, multiple coronary stents, HFpEF > 70% per echocardiogram 2022, SVT on amiodarone, persisting pleural effusion, diabetes, hypertension, hyperlipidemia and peripheral arterial disease. She was referred by PCP for pulmonary evaluation for worsening dyspnea since December. She was evaluated by PCP on 12/25 treated for sinusitis with augmentin then had worsening respiratory symptoms. She then went to [facility] on [place] diagnosed with pneumonia and treated with doxycyline. Since she reports minimal improvement in symptoms and saw PCP this morning who started patient on keflex x 10 days. She continues to report significant dyspnea on exertion, fatigue, chest congestion and nonproductive cough. She denies fevers or chills. She is also being closely followed for moderate anemia , 01/20/24 RBC 2.35, H&H 07/09. She has an upcoming appt with hematology next week. She also had a biopsy with Dr Willis last week for increasing medistinal lymphnodes and is awaiting pathology, concern for return of lung CA. She reports daughter,never smoker, with lung cancer. She denies any occupational exposures. [facility] Medical History (Updated 01/31/24 @ 13:08 by Erum Marie NP) SVT (supraventricular tachycardia) Tachycardia Dyslipidemia PAD (peripheral artery disease) Nicotine dependence, cigarettes, uncomplicated Tubular adenoma of colon Anemia Anxiety CAD (coronary artery disease) Essential hypertension Diabetes type 2, controlled Surgical History (Updated 01/26/24 @ 08:41 by Suellen Alberts NP) S/P cardiac catheterization History of lung surgery History of varicose vein stripping History of angioplasty History of heart artery stent History of carpal tunnel surgery of right wrist History of colonoscopy History of splenectomy History of partial pancreatectomy History of cholecystectomy History of appendectomy History of tonsillectomy Family History Daughter Lung cancer Father Bone cancer Mother Colon cancer Social History Household Members: None Housing: Condominium Alcohol intake: never Patient Tobacco Use Status: Former Tobacco user Years Smoked: 50 e-Cigarette/Vaping Use: Never Used Second Hand Smoke Exposure: No Advance Directives Date on File: 01/18/23 service: No Current occupational status: retired Current occupational exposures/hazards: No Cognitive needs: No Hearing needs: No Vision needs: No Review of Systems Const Denies chills, Denies excessive sweating, Denies fever(s), Denies headache(s) and Denies night sweats Eyes Denies dry eyes, Denies irritation and Denies itchy eyes ENT Reports Normal hearing present, Denies headache(s), Denies nasal congestion, Denies nasal discharge, Denies post nasal drip and Denies sore throat Card Denies chest pain, Denies chest pain at rest, Denies chest pain with activity, Denies claudication, Reports dyspnea on exertion and Denies paroxysmal nocturnal dyspnea Resp Reports chest congestion, Reports cough (difficulty expectorating), Denies hemoptysis, Denies excessive phlegm production, Denies pain on inspiration, Denies pain with cough, Reports dyspnea on exertion and Denies stridor Musc Denies myalgias Neuro Reports Normal hearing present and Denies headache(s) Endo Denies excessive sweating Dov/Lymph Denies lymphadenopathy Aller/Immun Denies itchy eyes and Denies seasonal rhinorrhea Physical Exam Vital Signs: Last Vital Signs Pulse 69 01/31/24 10:18 BP 102/56 L 01/31/24 10:18 Pulse Ox 91 L 01/31/24 10:18 Oxygen Delivery Method Room Air 01/31/24 10:18 BMI result Body Mass Index 29.1 Const General: cooperative, healthy appearing, comfortable, no acute distress, well developed and alert Orientation/consciousness: patient oriented x3 Limitations: no limitations HEENT Head: Yes normal to inspection, Yes normocephalic and Yes atraumatic Ears: hearing grossly normal bilaterally and external ears normal Eyes General: appearance normal, both eyes and all related structures Eyelids: Yes eyelids normal Sclerae: sclerae normal EOM: EOMs intact bilaterally Neck Neck: Yes normal visual inspection and Yes no lymphadenopathy Lymphatic: no lymphadenopathy noted Chest Chest palpation & inspection: normal inspection of the chest Resp Effort & Inspection: normal respiratory effort, able to speak in complete sentences, no audible wheezes, Actively coughing Quality: actively coughing (nonproductive), no stridor, not tachypneic, no tripod positioning and no use of accessory muscles Auscultation: crackles (cleared after forceful coughing), wheezes and diminished lung sounds Cardio Jugular venous distension: no JVD Rate: regular rate Skin Other: warm, dry General skin exam: no rashes or lesions noted Neuro General: patient oriented x3 Cranial nerves: Yes Normal hearing present Cognition (Neuro): normal cognition Gait exam (Neuro): Normal gait present Extrem General: Yes normal to inspection, Yes capillary refill normal, Yes no clubbing, cyanosis or edema and Yes no pedal edema Psych Appearance: grossly normal and well kempt Speech and movement: Normal speech and movement present and Clear speech present Affect: normal affect Attitude: cooperative Thought process: Normal thought process present Thought content: Normal thought content present Insight: Good insight present (Psych) Judgement: Good judgement present (Psych) Results Reviewed Results Reviewed: [address] [address] Cardiology Report Signed Patient: Bhupendra Morgan MR#: [id number] : 1945 Acct:[id number] Age/Sex: 78 / F ADM Date: 11/18/23 Loc: [facility] Attending Dr: Suellen Alberts [employer] Ordering Physician: Suellen Alberts NP Date of Service: 11/18/23 Procedure(s): CA echo transthoracic complete Accession Number(s): cc: Suellen Alberts NP~ Transthoracic Echocardiogram Patient (Last, First, Middle): Bhupendra Morgan, Gender: Female Date of : 1945 Age: 78 Procedure Date: 11/18/2023 Procedure Type: Transthoracic Echocardiogram Location: OP Height: 157.48 cm Weight: 62.14 kg BSA: 1.63 m2 Heart Rate: 68 bpm BP: 104 / 60 mmHg Manager Of Project Management: SB Referring MD: Suellen Alberts NP Symptoms: I50.9 - Heart failure, unspecified Study Quality: Adequate ECG Rhythm: Sinus Conclusions: - Normal left ventricular size and systolic function. The visually estimated ejection fraction is between 60-65%. There is no evidence of regional wall motion abnormalities. Abnormal diastolic function is noted. Spectral Doppler is indicative of a pseudonormal filling pattern. Elevated filling pressures. There is mild septal asymmetric hypertrophy. - Normal right ventricular cavity size and systolic function. - The right atrium is mildly dilated. - The left atrium is mildly dilated. - There is mild dilatation of the ascending aorta measuring 4.10 cm. Findings Left Ventricle Normal left ventricular size and systolic function. The visually estimated ejection fraction is between 60-65%. There is no evidence of regional wall motion abnormalities. Abnormal diastolic function is noted. Spectral Doppler is indicative of a pseudonormal filling pattern. Elevated filling pressures. There is mild septal asymmetric hypertrophy. Right Ventricle Normal right ventricular cavity size and systolic function. Atria The left atrium is mildly dilated. The right atrium is mildly dilated. Aortic Valve Normal aortic valve structure and function. There is no aortic valve stenosis. There is no aortic valve regurgitation. Mitral Valve The mitral valve appears normal. There is mild mitral annular calcification. There is trace mitral valve regurgitation. There is no mitral valve stenosis. Pulmonic Valve Normal pulmonic valve structure and function. There is trace pulmonic valve regurgitation. Tricuspid Valve Normal tricuspid valve structure and function. There is trace tricuspid valve regurgitation. Normal right atrial pressure. Mild pulmonary hypertension is present. Great Vessels There is mild dilatation of the ascending aorta measuring 4.10 cm. Venous The inferior vena cava is normal in size and collapses greater than 50% with inspiration. Pericardium/Pleural There is no evidence of pericardial effusion. Measurements 2D Linear Measurements IVSd: 1.23 0.6-0.9/0.6-1.0 cm LVIDd: 4.29 3.9-5.3/4.2-5.9 cm LVIDd Index: 2.63 2.4-3.2/2.2-3.1 cm/m2 LVIDs: 2.69 2.0-3.6 cm LVPWd: 0.82 0.7-1.1 cm LA Diam: 5.00 2.7-3.8/3.0-4.0 cm LAIDs Index: 3.07 1.5-2.3 cm/m2 LV Mass: 183.42 67-162/88-224 g LV Mass Index: 112.53 43-95/49-115 g/m2 LVOT Diam: 2.10 3.0+(-)1.3 cm 2D Systolic Function EF 4C: 70.60 >55% EF 2C: 75.90 >55% EF BiP: 73.10 >55% Mitral Valve MV Pk E: 1.13 MV PK A: 0.90 MV Decel Time: 132.00 E/A: 1.30 E'Lateral: 7.04 E'Medial: 3.68 E/E' Med: 30.70 E/E' Lat: 16.10 PHT: 39.00 MVA PHT: 5.64 Decel Edmunds: 8.58 Aortic Valve AoV Pk Otto: 1.48 AoV Pk Grad: 9.00 ASAEL: 2.60 LVOT LVOT Pk Otto: 1.13 LVOT Mn Otto: 0.75 LVOT VTI: 0.26 LVOT Pk Grad: 5.00 LVOT Mn Grad: 3.00 LVOT Diam: 2.10 LVOT Area: 3.46 Diastolic Function MV Pk E: 1.13 MV Pk A: 0.90 E/A: 1.30 E'Medial: 3.68 E/E' Med: 30.70 E' Laterial: 7.04 E/E' Lat: 16.10 Right Ventricle TAPSE (mm): 23.60 TVS' Otto: 15.10 Tricuspid Valve TR Pk Otto: 3.04 TR Pk Grad: 37.00 RA Press: 3.00 RVSP: 40.00 Great Vessels Aorta Sinus of Valsalva: 3.20 2.0-3.5 cm Ao Asc: 4.10 2.1-3.4 cm Pulmonary Veins Pulm Vein S/D 0.60 Pulmonary Valve PV Pk Otto: 1.15 Peak PV Grad: 5.00 Updated in Other Vendor System with Status of Final Calixto Holman MD electronically signed on 11/21/2023 4:50:23 PM with status of Final Dictated By: Calixto Holman MD Signed By: <Electronically signed by Calixto Holman MD in OV> PFT : 11/2022 This is an obstructive ventilatory defect consistent with mild COPD. No significant response to bronchodilators noted. No maximum voluntary ventilation. Lung volumes are within normal limits. The patient does, however, has a severe diffusion impairment likely secondary to her COPD and/or other parenchymal lung condition should be considered. Clinical correlation warranted. Assessment & Plan Assessment & Plan (1) COPD (chronic obstructive pulmonary disease): Code(s): J44.9 - Chronic obstructive pulmonary disease, unspecified Category: Medical (2) Personal history of tobacco use: Code(s): Z87.891 - Personal history of nicotine dependence Category: Social Hx (3) Primary cancer of left upper lobe of lung: Comment: s/p left upper lobe resection 02/01 Code(s): C34.12 - Malignant neoplasm of upper lobe, left bronchus or lung Category: Medical (4) SVT (supraventricular tachycardia): Code(s): I47.10 - Supraventricular tachycardia, unspecified Category: Medical Plan Bhupendra's symptoms are likely multifactorial with pulmonary, cardiac and anemia contribution. Prior PFT revealed moderate COPD, will trial Incruse. She is currently being treated for bronchitic symptoms from PCP, rx sent this morning for persistent chest congestion, nonproductive cough and dyspnea. She is also being followed for anemia, with follow up scheduled with hematology next week. She has a follow scheduled with Dr. Willis next week to review pathology results from recent lung biopsy, concerning for return of lung cancer. Attempted 6MWT but patient had to stop after 300 yards due to fatigue/weakness. HR maintained in the 70s and O2 lowest 90% on room air. No need for supplemental oxygen at this time. Patient also follows with cardiology, echo revealed diastolic dysfunction and RVSP 40, however right heart cath revealed normal pressures. Will have close follow up with patient to review response to inhaler as well as thoracic and hematology input. All questions were answered and patient is in agreement of plan. Medications: New umeclidinium 62.5 mcg/actuation (Incruse Ellipta) 1 inh inhalation DAILY 30 ea 6RF Coding Level of Care Code New Pt Level 5 (12309) Diagnoses COPD (chronic obstructive pulmonary disease) J44.9 Personal history of tobacco use Z87.891 Primary cancer of left upper lobe of lung C34.12 SVT (supraventricular tachycardia) I47.10
== END 2024-01-31 11:20 | disposition home or self-care (01) ==
PROVIDERS: PCP Family Medicine; Referring Provider Family Medicine; Visit Provider Nurse Practitioner Family
DX: J44.9 Chronic obstructive pulmonary disease, unspecified (principal); Z87.891 Personal history of nicotine dependence; C34.12 Malignant neoplasm of upper lobe, left bronchus or lung; I47.10 Supraventricular tachycardia, unspecified
CPT/HCPCS: 99204

== ENCOUNTER → 2024-01-31 10:13 | Outpatient (BNVA) | payer MEDICARE, SELFPAY | PROVIDERS: PCP Family Medicine; Referring Provider Family Medicine; Visit Provider Nurse Practitioner Family | DX: J44.9 Chronic obstructive pulmonary disease, unspecified (principal); C34.12 Malignant neoplasm of upper lobe, left bronchus or lung; I47.10 Supraventricular tachycardia, unspecified; Z87.891 Personal history of nicotine dependence | CPT/HCPCS: 36415; 80053; 81001; 83880; 84439; 84443; 84480; 85025; 99202 ==

== ENCOUNTER 2024-01-31 11:24 | Outpatient (REF) | payer MEDICARE, SELFPAY ==
[2024-01-31 14:22] LABS: MANUAL DIFF FLAG NO
[2024-01-31 14:43] LABS: Basophils Absolute Auto 0.1 X10*3/uL (0.0-0.2); Basophils Percent Auto 1.1 % (0-2); Eosinophils Absolute Auto 0.3 X10*3/uL (0.0-0.4); Eosinophils Percent Auto 2.5 % (0-4); Hematocrit 30.3 % (37.0-47.0); Hemoglobin 10.1 g/dl (12.0-16.0); Imm Gran Abs Auto 0.08 X10*3/uL (0.00-0.03); Imm Gran Pct Auto 0.7 % (0.0-0.4); Lymphocytes Absolute Auto 1.8 X10*3/uL (1.2-4.9); Lymphocytes Percent Auto 15.6 % (20-40); Mean Corpuscular HGB Conc 33.3 g/dl (31.0-35.0); Mean Corpuscular Hemoglobin 39.3 pg (27.0-33.0); Mean Platelet Volume 12.5 fL (9.4-12.3); Monocytes Percent Auto 9.1 % (2-11); NRBC Pct Auto 0.3 /100WBC (0.0-0.2); Neutrophils Absolute Auto 8.1 x10*3/uL (2.0-8.3); Platelet Count 303 X10*3/uL (160-400); Red Blood Count 2.57 X10*6/uL (4.20-5.50); Red Cell Distribution Width 15.4 % (11.0-16.0); White Blood Count 11.4 X10*3/uL (4.8-10.8)
[2024-01-31 14:44] LABS: Mean Corpuscular Volume 117.9 fL (80.0-98.0)
[2024-01-31 14:50] LABS: Appearance Urine Clear; Color Urine Yellow; Glucose Urine UA Negative (Negative); Leukocyte Esterase Urine Moderate (2+) (Negative); Nitrite Urine Negative (Negative); PH 6.5 (5.0-9.0); UMIC TRIGGER UA YES; Urine Blood Negative (Negative); Urine Ketones Negative (Negative); Urine Protein Negative (Neg-Trace)
[2024-01-31 14:58] LABS: Bacteria Urine Trace (None Seen); Hyaline Casts Urine 0-2 /LPF (0-2); RBC Urine 0-2 /HPF (0-2); Squamous Epithelial Cell Urine 0-2 /HPF (0-2); WBC Urine 21-50 /HPF (0-5)
[2024-01-31 15:05] LABS: B Type Natriuretic Peptide 238 pg/mL (<100)
[2024-01-31 15:31] LABS: Alanine Aminotransferase 14 U/L (0-31); Albumin Level 3.7 g/dL (3.5-5.0); Alkaline Phosphatase 134 U/L (39-117); Anion Gap 16 (12-20); Aspartate Amino Transferase 21 U/L (5-31); Bilirubin Total 3.1 mg/dL (0.0-1.0); Blood Urea Nitrogen 20 mg/dL (9-16); Calcium 9.2 mg/dL (8.4-10.2); Carbon Dioxide 23 mmol/L (22-29); Chloride 107 mmol/L (96-108); Estimated Glomerular Filt Rate > 60; Glucose Fasting 93 mg/dL (60-99); Glucose Random 94 mg/dL (60-115); Potassium 3.9 mmol/L (3.3-5.1); Sodium 142 mmol/L (135-145); Total Protein 6.4 g/dL (6.5-8.0)
[2024-01-31 15:34] LABS: Free T4 (Free Thyroxine) 1.19 ng/dL (0.71-1.85); Thyroid Stimulating Hormone 1.48 uIU/mL (0.32-4.0)
[2024-02-01 07:39] LABS: Triiodothyronine T3 Total 56 ng/dL (76-181)
== END 2024-01-31 11:25 | disposition home or self-care (01) ==
LOC: HO.WFDLDS 11:24
PROVIDERS: Internal Medicine Medical Oncology; Nurse Practitioner Family; Visit Provider Family Medicine
DX: Z13.89 Encounter for screening for other disorder (principal)
CPT/HCPCS: 36415; 80053; 81001; 83880; 84439; 84443; 84480; 85025

== ENCOUNTER → 2024-02-03 15:34 | Outpatient (AMB) | payer MEDICARE, SELFPAY ==
--- NOTE | 2024-02-03 15:30 | A.OFFPC_ITS ---
Intake Visit Reasons: Test Results Intake Note: Patient is scheduled to have labs reviewed today. Allergies No Known Allergies Allergy (Verified 02/03/24 15:32) Tobacco use date assessed: 02/03/24 Dental Screening Dental Screen Date: 11/16/23 HPI Test Results HPI Details 79 y/o female presents to f/u shortness of breath via telemedicine. Had seen pulmonology 01/31/24. Trialing Incruse and they plan to have a close f/u with pt to review response to inhaler. She reports ongoing shortness of breath. Abnormal thyroid blood test and pt reports she has not had a medication for her thyroid before. [facility] Medical History SVT (supraventricular tachycardia) Tachycardia Dyslipidemia PAD (peripheral artery disease) Nicotine dependence, cigarettes, uncomplicated Tubular adenoma of colon Anemia Anxiety CAD (coronary artery disease) Essential hypertension Diabetes type 2, controlled Surgical History S/P cardiac catheterization History of lung surgery History of varicose vein stripping History of angioplasty History of heart artery stent History of carpal tunnel surgery of right wrist History of colonoscopy History of splenectomy History of partial pancreatectomy History of cholecystectomy History of appendectomy History of tonsillectomy Family History Daughter Lung cancer Father Bone cancer Mother Colon cancer Social History Household Members: None Housing: Condominium Alcohol intake: never Patient Tobacco Use Status: Former Tobacco user Years Smoked: 50 e-Cigarette/Vaping Use: Never Used Second Hand Smoke Exposure: No Advance Directives Date on File: 01/18/23 service: No Current occupational status: retired Current occupational exposures/hazards: No Cognitive needs: No Hearing needs: No Vision needs: No Questionnaire Thrive Questionnaire Date Thrive assessed: 08/31/22 SAMMY-7 AMB Questionnaire SAMMY-7 Date SAMMY - 7 assessed: 07/20/23 Source: Developed by Drs. Ari Serrano, Ban Erazo, Lee Lehman and colleagues, with an educational sonia from [employer]. Review of Systems Const Denies chills, Reports fatigue, Denies fever(s), Denies headache(s) and Denies weakness ENT Denies dizziness and Denies headache(s) Card Denies dyspnea Resp Denies cough, Denies dyspnea, Denies wheezing and Denies other (shortness of breath) Musc Denies numbness and Denies tingling Neuro Denies dizziness, Denies headache(s), Denies numbness, Denies tingling and Denies weakness Psych Denies anxiety and Denies depression Endo Reports fatigue Aller/Immun Denies wheezing Physical exam (Primary Care) Tobacco/Smoking Status: Tobacco use Status Tobacco use date assessed 02/03/24 02/03/24 15:33 Patient Tobacco Use Status Former Tobacco user 02/03/24 15:33 e-Cigarette/Vaping Use Never Used 02/03/24 15:33 Thrive Assessment: Date of Thrive Assessment Date Thrive assessed 08/31/22 02/03/24 15:33 Telehealth Telehealth Telehealth Platform: Telephone Location of provider rendering services: practice address Location of patient: address on file Patient Identification confirmed using: Name, : Yes Telehealth method: voice only Patient verbally consented to treatment: Yes Patient verbally consented to billing insurance company: Yes Patient informed of any privacy concerns related to visit: Yes Minutes spent on Phone/Video with Pt.: 8 Assessment and Plan Assessment & Plan (1) COPD (chronic obstructive pulmonary disease): Code(s): J44.9 - Chronic obstructive pulmonary disease, unspecified Plan: Ongoing?COPD. Recently?started?new?meclizine?with?pulmonology Patient?says?she?is?slowly?getting?better?but?still?has?some?difficulty?with?katie ling?her?lungs?and?gets?fatigued?with?walking?more?than?short?distance Patient?has?an?appointment?with?me?Ami??and?we?can?follow- up?to?see?how?she?has?doing?with?the?new?medication I?have?requested?Dr. Willis's m ost?recent?note?and?we?can?review?this?if?I?have?it (2) Abnormal thyroid blood test: Code(s): R79.89 - Other specified abnormal findings of blood chemistry Plan: Fatigue?and?abnormal?thyroid?hormone?results. Will?give?her?a?small?dose?of?levothyroxine She?can?follow-up?with?me?on?this?in? about?8?weeks.??She?will?get?her?labs?redrawn?a?few?days?prior?to?that?visit (3) Fatigue: Code(s): R53.83 - Other fatigue Plan: Likely?multifactorial Has?appointment?with?Hematology-Oncology?for?mild?stable?anemia Has?COPD?and?pulmonology?is?working?on?this Abnormal?thyroid?hormone?levels?may?represent?a symptomatic?hypothyroidism?and?starting?thyroid?hormone?medication?today. Also?concern?for?return?of?lung?cancer.??Requesting??Ismael's note?and?we?can?follow-up?on?this?also. Orders: Orders Free T4 (Free Thyroxine) Today E03.9 - Hypothyroidism, unspecified Triiodothyronine T3 Total Today E03.9 - Hypothyroidism, unspecified Thyroid Stimulating Hormone Today E03.9 - Hypothyroidism, unspecified Comprehensive Met. Panel Today R79.89 - Other specified abnormal findings of blood chemistry Medications: New levothyroxine 25 mcg PO DAILY 30 days 30 tabs 3RF Discontinued umeclidinium 62.5 mcg/actuation (Incruse Ellipta) Discontinued Reason: Insurance Denied 1 inh inhalation DAILY 30 ea 6RF Coding Level of Care Code Tele Est Pt Level 2 (77526) Diagnoses COPD (chronic obstructive pulmonary disease) J44.9 Abnormal thyroid blood test R79.89 Fatigue R53.83
== END ==
LOC: HO.HMGFM 15:34
PROVIDERS: PCP Family Medicine; Visit Provider Family Medicine
DX: J44.9 Chronic obstructive pulmonary disease, unspecified (principal); R79.89 Other specified abnormal findings of blood chemistry; R53.83 Other fatigue
CPT/HCPCS: 99441

== ENCOUNTER 2024-02-10 09:33 | Outpatient (AMB) | payer MEDICARE, SELFPAY ==
--- NOTE | 2024-02-10 09:22 | A.OFFPC_ITS ---
Intake Visit Reasons: Biopsy results Intake Note: Patient is calling to go over biopsy results today. Allergies No Known Allergies Allergy (Verified 02/10/24 09:24) Tobacco use date assessed: 02/10/24 Fall risk assessment: No Falls in past year Last assessed Fall Risk: 02/10/24 Dental Screening Dental Screen Date: 11/16/23 HPI Biopsy results HPI Details Recent?PET?scan?showed?FDG?uptake?in?mediastinal?and?subcarin al?nodes?as?well?as?at suture?line?of?her?lingulectomy. Biopsy?pathology?positive?for?adenocarcinoma?of?lung. Metastatic?lung?CA?to?thoracic?lymph?nodes Patient?saw?Hematology-Oncology?yesterday?a nd?advising?chemotherapy?and?radiation. [facility] Medical History SVT (supraventricular tachycardia) Tachycardia Dyslipidemia PAD (peripheral artery disease) Nicotine dependence, cigarettes, uncomplicated Tubular adenoma of colon Anemia Anxiety CAD (coronary artery disease) Essential hypertension Diabetes type 2, controlled Surgical History S/P cardiac catheterization History of lung surgery History of varicose vein stripping History of angioplasty History of heart artery stent History of carpal tunnel surgery of right wrist History of colonoscopy History of splenectomy History of partial pancreatectomy History of cholecystectomy History of appendectomy History of tonsillectomy Family History Daughter Lung cancer Father Bone cancer Mother Colon cancer Social History Household Members: None Housing: Condominium Alcohol intake: never Patient Tobacco Use Status: Former Tobacco user Years Smoked: 50 e-Cigarette/Vaping Use: Never Used Second Hand Smoke Exposure: No Advance Directives Date on File: 01/18/23 service: No Current occupational status: retired Current occupational exposures/hazards: No Cognitive needs: No Hearing needs: No Vision needs: No Questionnaire Thrive Questionnaire Date Thrive assessed: 08/31/22 SAMMY-7 AMB Questionnaire SAMMY-7 Date SAMMY - 7 assessed: 07/20/23 Source: Developed by Drs. Ari L. ZachBan sykes, Lee Lehmna and colleagues, with an educational sonia from [employer]. Review of Systems Const Denies chills, Denies fatigue, Denies fever(s), Denies headache(s) and Denies weakness ENT Denies dizziness and Denies headache(s) Card Denies dyspnea Resp Denies cough, Denies dyspnea, Denies wheezing and Denies other (shortness of breath) Musc Denies numbness and Denies tingling Neuro Denies dizziness, Denies headache(s), Denies numbness, Denies tingling and Denies weakness Psych Denies anxiety and Denies depression Endo Denies fatigue Aller/Immun Denies wheezing Physical exam (Primary Care) Tobacco/Smoking Status: Tobacco use Status Tobacco use date assessed 02/10/24 02/10/24 09:25 Patient Tobacco Use Status Former Tobacco user 02/10/24 09:25 e-Cigarette/Vaping Use Never Used 02/10/24 09:25 Thrive Assessment: Date of Thrive Assessment Date Thrive assessed 08/31/22 02/10/24 09:25 Telehealth Telehealth Minutes spent on Phone/Video with Pt.: 10 Assessment and Plan Assessment & Plan (1) 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 Biopsy?pathology?positive?for?adenocarcinoma?of?lung. Metastatic?lung?CA?to?thoracic?lymph?nodes Patient?saw?Hematology- Oncology?yesterday?and?advising?chemotherapy?and?radiation. 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
== END 2024-02-10 17:16 | disposition home or self-care (01) ==
LOC: HO.HMGFM 09:33
PROVIDERS: PCP Family Medicine; Visit Provider Family Medicine
DX: C34.90 Malignant neoplasm of unspecified part of unspecified bronchus or lung (principal); C77.1 Secondary and unspecified malignant neoplasm of intrathoracic lymph nodes
CPT/HCPCS: 99441

== ENCOUNTER 2024-02-15 09:26 | Outpatient (AMB) | payer MEDICARE, SELFPAY ==
[2024-02-15 09:53] VITALS: BP 98/58; PULSE 95; O2SAT 96; BMI 29.4
--- NOTE | 2024-02-15 09:53 | MHC.PC.OV ---
Vital Signs 02/15/24 09:53 Height 5 ft 2 in Weight 161 lb BMI 29.4 BP 98/58 L Blood Pressure Location Lt brachial Position Sitting Pulse 95 Pulse Source Pulse Oximeter Pulse Oximetry (%) 96 Oxygen Delivery Method Room Air Intake Visit Reasons: f/u shortness of breath/abnormal lung sounds Allergies No Known Allergies Allergy (Verified 02/10/24 09:24) Tobacco use date assessed: 02/10/24 Dental Screening Dental Screen Date: 11/16/23 HPI f/u shortness of breath/abnormal lung sounds HPI Details 79 y/o female presents to f/u shortness of breath/abnormal lung sounds. Scheduled to undergo chemotherapy/radiation therapy. She reports increased shortness of breath. She reports worsened anxiety/possible depression. [facility] Medical History SVT (supraventricular tachycardia) Tachycardia Dyslipidemia PAD (peripheral artery disease) Nicotine dependence, cigarettes, uncomplicated Tubular adenoma of colon Anemia Anxiety CAD (coronary artery disease) Essential hypertension Diabetes type 2, controlled Surgical History S/P cardiac catheterization History of lung surgery History of varicose vein stripping History of angioplasty History of heart artery stent History of carpal tunnel surgery of right wrist History of colonoscopy History of splenectomy History of partial pancreatectomy History of cholecystectomy History of appendectomy History of tonsillectomy Family History Daughter Lung cancer Father Bone cancer Mother Colon cancer Social History Household Members: None Housing: Condominium Alcohol intake: never Patient Tobacco Use Status: Former Tobacco user Years Smoked: 50 e-Cigarette/Vaping Use: Never Used Second Hand Smoke Exposure: No Advance Directives Date on File: 01/18/23 service: No Current occupational status: retired Current occupational exposures/hazards: No Cognitive needs: No Hearing needs: No Vision needs: No Questionnaire Thrive Questionnaire Date Thrive assessed: 08/31/22 SAMMY-7 AMB Questionnaire SAMMY-7 Date SAMMY - 7 assessed: 07/20/23 Source: Developed by Drs. Ari Serrano, Ban Erazo, Lee Lehman and colleagues, with an educational sonia from [employer]. Review of Systems Const Denies chills, Denies fatigue, Denies fever(s), Denies headache(s) and Denies weakness ENT Denies dizziness and Denies headache(s) Card Denies chest pain, Denies lightheadedness, Denies dyspnea and Denies other (Palpitations) Resp Denies cough, Denies dyspnea, Denies wheezing and Denies other ( shortness of breath) Musc Denies numbness and Denies tingling Neuro Denies dizziness, Denies headache(s), Denies numbness, Denies tingling, Denies paresthesias and Denies weakness Psych Reports anxiety and Reports depression Endo Denies fatigue Aller/Immun Denies wheezing Physical exam (Primary Care) Vital Signs: Last Vital Signs Pulse 95 02/15/24 09:53 BP 98/58 L 02/15/24 09:53 Pulse Ox 96 02/15/24 09:53 Oxygen Delivery Method Room Air 02/15/24 09:53 BMI result Body Mass Index 29.4 Tobacco/Smoking Status: Tobacco use Status Tobacco use date assessed 02/10/24 02/15/24 09:56 Patient Tobacco Use Status Former Tobacco user 02/15/24 09:56 e-Cigarette/Vaping Use Never Used 02/15/24 09:56 Thrive Assessment: Date of Thrive Assessment Date Thrive assessed 08/31/22 02/15/24 09:56 Const General: no acute distress and well developed Nutritional Appearance: well nourished Orientation/consciousness: patient oriented x3 HENMT Head: Yes normocephalic and Yes atraumatic Eyes General: appearance normal, both eyes and all related structures Pupils: Equal, round and reactive pupils present EOM: EOMs intact bilaterally Resp Effort & Inspection: normal respiratory effort Auscultation: clear to auscultation bilaterally Cardio Rate: regular rate Rhythm: regular rhythm Heart sounds: S1 normal heart sound present, S2 normal heart sound present, no gallops, no murmurs and no rubs Neuro General: patient oriented x3 and gait normal Cranial nerves: Yes Equal, round and reactive pupils present Psych Affect: normal affect Assessment and Plan Assessment & Plan (1) 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 Follow-up?with?Hematology-Oncology?and?Radiation?oncologist?as?recommended Increased?shortness?of?breath?and?I?am?filling?out?a?handicap?placard?for?patient (2) Anxiety: Code(s): F41.9 - Anxiety disorder, unspecified Plan: Worsened?anxiety?and?possible?depression. Will?trial?citalopram. Will?check?an?EKG?at?next?office?visit?on?February? (3) Essential hypertension: Code(s): I10 - Essential (primary) hypertension Plan: Blood?pressures?have?been?running?a?little?low. Will?decrease?lisinopril?from?10?mg?daily?to?5?mg?daily She?has?an?appointment?for?diabetes?follow-up?on?? 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
== END 2024-02-15 16:16 | disposition home or self-care (01) ==
LOC: HO.HMGFM 09:26
PROVIDERS: PCP Family Medicine; Visit Provider Family Medicine
DX: C34.90 Malignant neoplasm of unspecified part of unspecified bronchus or lung (principal); C77.1 Secondary and unspecified malignant neoplasm of intrathoracic lymph nodes; F41.9 Anxiety disorder, unspecified; I10 Essential (primary) hypertension
CPT/HCPCS: 99214

== ENCOUNTER 2024-02-28 09:29 | Outpatient (AMB) | payer MEDICARE, SELFPAY ==
--- NOTE | 2024-02-28 09:39 | MHC.PC.OV ---
Vital Signs 02/28/24 09:43 Height 5 ft 2 in Weight 140 lb BMI 25.6 BP 100/52 L Blood Pressure Location Lt brachial Position Sitting Pulse 55 Pulse Source Pulse Oximeter Pulse Oximetry (%) 93 Oxygen Delivery Method Room Air Intake Visit Reasons: f/u diabetes, chronic conditions Intake Note: Patient is here to follow up on diabetes today. Allergies No Known Allergies Allergy (Verified 02/28/24 09:45) Medication List - Last Reconciled 02/28/24 by Kenji Mcnally MD amiodarone 200 mg PO DAILY aspirin (Adult Aspirin Regimen) 81 mg PO DAILY atorvastatin 80 mg PO DAILY blood sugar diagnostic As directed blood-glucose meter As directed carvedilol 6.25 mg PO BID 30 days cephalexin 500 mg PO Q12H 10 days citalopram 10 mg PO DAILY 90 days clopidogrel 75 mg PO DAILY compr.stocking,knee,long,large 20-30?mmHg,?As directed, 90 days ezetimibe 10 mg PO DAILY fluticasone propionate 50 mcg/actuation (Flonase Allergy Relief) 1 spray intranasal Q12H 30 days folic acid 1 mg PO DAILY furosemide 20 mg PO BID 30 days insulin aspart U-100 (Novolog FlexPen U-100 Insulin aspart) 3 units subcut DAILY insulin detemir U-100 6?units?a.m.?and?22?units?p.m. subcutaneously bedtime; 30 days insulin lispro 100 units subcut DAILY isosorbide mononitrate ER 30 mg PO DAILY lancets (OneTouch Delica Plus Lancet) As directed levothyroxine 25 mcg PO DAILY 30 days lisinopril 5 mg (1/2 x 10 mg) PO DAILY 90 days mecobalamin (vitamin B12) 1,000 mcg sublingual DAILY 90 days pen needle, diabetic As directed tiotropium bromide 1.25 mcg/actuation (Spiriva Respimat) 2 puffs inhalation DAILY Tobacco use date assessed: 02/28/24 Fall risk assessment: No Falls in past year Dental Screening Dental Screen Date: 11/16/23 HPI f/u diabetes, chronic conditions HPI Details 79 y/o female presents to f/u diabetes, chronic conditions. Recently seen Heme-Onc for f/u adnexal mass. She will be seeing radiation oncology tomorrow. Blood pressure today 100/52, 55p. A1c today 02/28/24 is 6.6%. Pt reports some dysuria. Had started her on a low dose of citalopram and pt states she has not taken this yet. [facility] Medical History SVT (supraventricular tachycardia) Tachycardia Dyslipidemia PAD (peripheral artery disease) Nicotine dependence, cigarettes, uncomplicated Tubular adenoma of colon Anemia Anxiety CAD (coronary artery disease) Essential hypertension Diabetes type 2, controlled Surgical History S/P cardiac catheterization History of lung surgery History of varicose vein stripping History of angioplasty History of heart artery stent History of carpal tunnel surgery of right wrist History of colonoscopy History of splenectomy History of partial pancreatectomy History of cholecystectomy History of appendectomy History of tonsillectomy Family History Daughter Lung cancer Father Bone cancer Mother Colon cancer Social History Household Members: None Housing: Condominium Alcohol intake: never Patient Tobacco Use Status: Former Tobacco user Years Smoked: 50 e-Cigarette/Vaping Use: Never Used Second Hand Smoke Exposure: No Advance Directives Date on File: 01/18/23 service: No Current occupational status: retired Current occupational exposures/hazards: No Cognitive needs: No Hearing needs: No Vision needs: No Questionnaire Thrive Questionnaire Date Thrive assessed: 08/31/22 SAMMY-7 AMB Questionnaire SAMMY-7 Date SAMMY - 7 assessed: 07/20/23 Source: Developed by Drs. Ari Serrano, Ban Erazo, Lee Lehman and colleagues, with an educational sonia from [employer]. Review of Systems Const Denies chills, Denies fatigue, Denies fever(s), Denies headache(s) and Denies weakness ENT Denies dizziness and Denies headache(s) Card Denies chest pain, Denies lightheadedness, Denies dyspnea and Denies other (Palpitations) Resp Denies cough, Denies dyspnea, Denies wheezing and Denies other ( shortness of breath) Musc Denies numbness and Denies tingling Neuro Denies dizziness, Denies headache(s), Denies numbness, Denies tingling, Denies paresthesias and Denies weakness Psych Denies anxiety and Denies depression Endo Denies fatigue Aller/Immun Denies wheezing Physical exam (Primary Care) Vital Signs: Last Vital Signs Pulse 55 02/28/24 09:43 BP 100/52 L 02/28/24 09:43 Pulse Ox 93 02/28/24 09:43 Oxygen Delivery Method Room Air 02/28/24 09:43 BMI result Body Mass Index 25.6 Tobacco/Smoking Status: Tobacco use Status Tobacco use date assessed 02/28/24 02/28/24 09:51 Patient Tobacco Use Status Former Tobacco user 02/28/24 09:40 e-Cigarette/Vaping Use Never Used 02/28/24 09:40 Thrive Assessment: Date of Thrive Assessment Date Thrive assessed 08/31/22 02/28/24 09:40 Const General: no acute distress and well developed Nutritional Appearance: well nourished Orientation/consciousness: patient oriented x3 HENMT Head: Yes normocephalic and Yes atraumatic Eyes General: appearance normal, both eyes and all related structures Pupils: Equal, round and reactive pupils present EOM: EOMs intact bilaterally Resp Effort & Inspection: normal respiratory effort Auscultation: clear to auscultation bilaterally Cardio Rate: regular rate Rhythm: regular rhythm Heart sounds: S1 normal heart sound present, S2 normal heart sound present, no gallops, no murmurs and no rubs Neuro General: patient oriented x3 and gait normal Cranial nerves: Yes Equal, round and reactive pupils present Psych Affect: normal affect Assessment and Plan Assessment & Plan (1) 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 Plan?is?for?radiation? 5 days a week for a total of 64-68 Gy and?then?3?cycles?of?chemotherapy?after?radiation?therapy. Follow-up?with?Hematology-Oncology?as?recommended?and?patient?will?see?radiation?therapy?tomorrow (2) Essential hypertension: Code(s): I10 - Essential (primary) hypertension Plan: Blood?pressure?had?been?low?with?systolic?blood?pressures?in?the?90s Decreased?her?lisinopril?to?5?mg?daily?and?systolic?blood?pressures?in?the?low?100s;?improve She?will?let?me?know?if?it?is?getting?low?again?and?we?would?adjust?further (3) Anxiety: Code(s): F41.9 - Anxiety disorder, unspecified Plan: Had?prescribed?citalopram?but?patient?has?not?started?this?yet She?will?begin?this?and?we?will?follow-up?in?a?month Also?on?amiodarone which?could?affect?cardiac?intervals?so?will?check?an?EKG (4) Dysuria: Code(s): R30.0 - Dysuria Plan: Will?give?her?a?script?for?Bactrim?DS?x3?days Sending?urine?for?culture?and?sensitivities Orders: Orders Complete Blood Count Auto Diff Today R53.83 - Other fatigue, Z00.00 - Encounter for general adult medical examination without abnormal findings Basic Metabolic Panel Today R53.83 - Other fatigue, Z00.00 - Encounter for general adult medical examination without abnormal findings TSH reflex Free T4 Today R53.83 - Other fatigue, Z00.00 - Encounter for general adult medical examination without abnormal findings AMB Hemoglobin A1c Today Z13.9 - Encounter for screening, unspecified UA and rflx microscopic Today R30.0 - Dysuria, Z00.00 - Encounter for general adult medical examination without abnormal findings Urine Culture Today R30.0 - Dysuria Medications: New sulfamethoxazole-trimethoprim 800-160 mg (Bactrim DS) 1 tab PO Q12H 3 days 6 tabs 0RF R30.0 - Dysuria Discontinued cephalexin Discontinued Reason: Patient Completed Course 500 mg PO Q12H 10 days 20 caps 0RF Coding Level of Care Code Est Pt Level 4 (97213) Diagnoses 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
[2024-02-28 09:43] VITALS: BP 100/52; PULSE 55; O2SAT 93; BMI 25.6
== END 2024-02-28 10:56 | disposition home or self-care (01) ==
PROVIDERS: PCP Family Medicine; Visit Provider Family Medicine
DX: C34.90 Malignant neoplasm of unspecified part of unspecified bronchus or lung (principal); C77.1 Secondary and unspecified malignant neoplasm of intrathoracic lymph nodes; E11.9 Type 2 diabetes mellitus without complications; I10 Essential (primary) hypertension; F41.9 Anxiety disorder, unspecified; R30.0 Dysuria
CPT/HCPCS: 83036; 99214

== ENCOUNTER 2024-02-28 10:40 | Outpatient (REF) | payer MEDICARE, SELFPAY ==
[2024-02-28 14:31] LABS: MANUAL DIFF FLAG NO
[2024-02-28 14:34] LABS: Appearance Urine Clear; Color Urine Dark Yellow; Glucose Urine UA Negative (Negative); Leukocyte Esterase Urine Moderate (2+) (Negative); Nitrite Urine Negative (Negative); PH 5.5 (5.0-9.0); UMIC TRIGGER UA YES; Urine Blood Negative (Negative); Urine Ketones Negative (Negative); Urine Protein Negative (Neg-Trace)
[2024-02-28 14:40] LABS: Basophils Absolute Auto 0.1 X10*3/uL (0.0-0.2); Eosinophils Absolute Auto 0.3 X10*3/uL (0.0-0.4); Eosinophils Percent Auto 2.3 % (0-4); Hematocrit 28.2 % (37.0-47.0); Hemoglobin 10.4 g/dl (12.0-16.0); Imm Gran Abs Auto 0.06 X10*3/uL (0.00-0.03); Imm Gran Pct Auto 0.5 % (0.0-0.4); Lymphocytes Absolute Auto 1.6 X10*3/uL (1.2-4.9); Lymphocytes Percent Auto 13.5 % (20-40); Mean Corpuscular HGB Conc 36.9 g/dl (31.0-35.0); Mean Corpuscular Hemoglobin 42.6 pg (27.0-33.0); Mean Platelet Volume 11.7 fL (9.4-12.3); Monocytes Absolute Auto 1.4 X10*3/uL (0.1-1.2); Monocytes Percent Auto 11.3 % (2-11); Neutrophils Absolute Auto 8.5 x10*3/uL (2.0-8.3); Neutrophils Percent Auto 71.4 % (45-73); Platelet Count 319 X10*3/uL (160-400); Red Blood Count 2.44 X10*6/uL (4.20-5.50); Red Cell Distribution Width 14.5 % (11.0-16.0); White Blood Count 11.9 X10*3/uL (4.8-10.8)
[2024-02-28 14:43] LABS: B Type Natriuretic Peptide 159 pg/mL (<100)
[2024-02-28 14:47] LABS: Mean Corpuscular Volume 115.6 fL (80.0-98.0)
[2024-02-28 14:48] LABS: Bacteria Urine 2+ (None Seen); Hyaline Casts Urine 0-2 /LPF (0-2); RBC Urine 0-2 /HPF (0-2); Squamous Epithelial Cell Urine 0-2 /HPF (0-2); WBC Urine 21-50 /HPF (0-5)
[2024-02-28 15:06] LABS: Alanine Aminotransferase 11 U/L (0-31); Albumin Level 3.6 g/dL (3.5-5.0); Alkaline Phosphatase 144 U/L (39-117); Anion Gap 10 (12-20); Aspartate Amino Transferase 18 U/L (5-31); Bilirubin Total 2.2 mg/dL (0.0-1.0); Blood Urea Nitrogen 20 mg/dL (9-16); Calcium 9.1 mg/dL (8.4-10.2); Carbon Dioxide 28 mmol/L (22-29); Chloride 108 mmol/L (96-108); Estimated Glomerular Filt Rate > 60; Glucose Random 72 mg/dL (60-115); Potassium 3.8 mmol/L (3.3-5.1); Sodium 142 mmol/L (135-145); Total Protein 6.5 g/dL (6.5-8.0)
[2024-02-28 15:08] LABS: Thyroid Stimulating Hormone 1.53 uIU/mL (0.32-4.0)
[2024-02-28 15:17] LABS: Free T4 (Free Thyroxine) 1.18 ng/dL (0.71-1.85); TSH reflex Free T4 1.54 uIU/mL (0.32-4.0)
[2024-02-29 04:35] LABS: HBS Num1 0.86 mIU/mL (0-7.99); HBc Num1 0.07 S/CO (0.00-0.79); HBsAGNum1 0.25 S/CO (0.00-0.99); Hepatitis B Core Antibody Nonreactive (Nonreactive); Hepatitis B Surface Antigen Negative (Negative); ~Hepatitis B Surface Antibody NONREACTIVE (Nonreactive)
[2024-02-29 08:18] LABS: Triiodothyronine T3 Total 51 ng/dL (76-181)
== END 2024-02-28 10:41 | disposition home or self-care (01) ==
LOC: HO.WFDLDS 10:40
PROVIDERS: Internal Medicine Medical Oncology; Nurse Practitioner; Nurse Practitioner Family; Visit Provider Family Medicine
DX: Z00.00 Encounter for general adult medical examination without abnormal findings (principal); C34.90 Malignant neoplasm of unspecified part of unspecified bronchus or lung; C77.1 Secondary and unspecified malignant neoplasm of intrathoracic lymph nodes; R06.02 Shortness of breath; E03.9 Hypothyroidism, unspecified; R53.83 Other fatigue; R30.0 Dysuria; R79.89 Other specified abnormal findings of blood chemistry
CPT/HCPCS: 36415; 80053; 81001; 83880; 84439; 84443; 84480; 85025; 86704; 86706; 87086; 87088; 87186; 87340

== ENCOUNTER 2024-03-05 09:35 | Outpatient (REF) | payer MEDICARE, SELFPAY ==
--- NOTE | ~2024-03-05 | XR_ITS ---
EXAMINATION: XR CHEST CLINICAL INFORMATION: Cough and sputum pneumonia COMPARISON: Chest radiograph from 01/20/2024 TECHNIQUE: 2 views of the chest were obtained. FINDINGS: Redemonstrated diffuse interstitial lung markings. Blunting of left costophrenic recess may reflect small pleural effusion versus scarring. Surgical material in the left mid and upper lung field. No pneumothorax. Trachea is midline. Cardiac mediastinal silhouette is stable. Aorta demonstrates atherosclerotic calcifications. Dextrocurvature of the midthoracic spine with multilevel degenerative changes. Soft tissues are unremarkable. Multiple surgical clips in the left upper abdomen. XR/XR chest 2V IMPRESSION: 1. Redemonstrated diffuse interstitial lung markings. 2. Blunting of left costophrenic recess may reflect small pleural effusion versus scarring. 3. Surgical material in the left mid and upper lung field.
[2024-03-05 11:34] LABS: B Type Natriuretic Peptide 147 pg/mL (<100)
[2024-03-05 11:46] LABS: Anion Gap 15 (12-20); Blood Urea Nitrogen 16 mg/dL (9-16); Calcium 8.8 mg/dL (8.4-10.2); Carbon Dioxide 26 mmol/L (22-29); Chloride 102 mmol/L (96-108); Estimated Glomerular Filt Rate 52; Glucose Random 163 mg/dL (60-115); Sodium 139 mmol/L (135-145)
[2024-03-05 11:58] LABS: HBS Num1 0.53 mIU/mL (0-7.99); HBc Num1 0.09 S/CO (0.00-0.79); HBsAGNum1 0.25 S/CO (0.00-0.99); HIV AB/AG Nonreactive (Nonreactive); HIV Num 1 0.05 S/CO (0.00-0.99); Hepatitis B Core Antibody Nonreactive (Nonreactive); Hepatitis B Surface Antigen Negative (Negative); ~HepC Num1 0.07 S/CO (0.00-0.79); ~Hepatitis B Surface Antibody NONREACTIVE (Nonreactive)
[2024-03-05 12:13] LABS: Hepatitis C Ab Exposure Source NonReactive (Nonreactive)
== END 2024-03-05 09:36 | disposition home or self-care (01) ==
LOC: HO.XRAY 09:35
PROVIDERS: Nurse Practitioner; PCP Family Medicine; Visit Provider Internal Medicine Medical Oncology
DX: D64.9 Anemia, unspecified (principal); I50.9 Heart failure, unspecified; J18.9 Pneumonia, unspecified organism; R06.02 Shortness of breath
CPT/HCPCS: 36415; 71046; 80048; 83880; 86803

== ENCOUNTER 2024-03-15 12:08 | Inpatient (IN) | payer MEDICARE, SELFPAY ==
[2024-03-15] VITALS (8 sets, daily range): BP systolic 103–126; BP diastolic 42–54; PULSE 72–87; RESP 16–24; TEMP 36.8–37.1; O2SAT 85–97; BMI 28.4; BMI 28.2
--- NOTE | ~2024-03-15 | CT_ITS ---
EXAMINATION: CT ANGIOGRAM OF THE CHEST WITH AND WITHOUT CONTRAST (CT PULMONARY ANGIOGRAM FOR PE) CLINICAL INFORMATION: Reason for Exam hypoxia, cancer positive ddimer COMPARISON: None available. TECHNIQUE: Prior to contrast administration, noncontrast localization images were obtained. Subsequently, multidetector volumetric imaging was performed from the thoracic inlet to below the diaphragms following the administration of 65 mL Omnipaque 350 intravenous contrast. No contrast reaction reported Sagittal, coronal, and MIP oblique sagittal reformatted images were obtained on the CT workstation, uploaded to PACS, and reviewed. This CT examination was performed using dose optimization techniques as appropriate, variously including the following: *Automated exposure control *Adjustment of mA and/or kV according to patient size (this includes techniques or standardized protocols for targeted exams where dose is matched to indication/reason for exam; i.e. extremities or head) *Use of iterative reconstruction technique Total exam dose-length product 242 mGy-cm FINDINGS: QUALITY OF STUDY/CONTRAST BOLUS: Satisfactory. PULMONARY ARTERIES: There is prominence of the main pulmonary artery with the pulmonary trunk measured 4.4 cm. There is no evidence of pulmonary embolism. THORACIC AORTA: There is no aneurysmal dilatation but ectasia. Ascending aorta measured 4.1 cm. LUNG: There is complete consolidation of the left upper lobe encasing pulmonary arteries and pulmonary veins with air bubbles in the center of the consolidation. The left lower lobe revealed peribronchial thickening and there are increased septal thickening. There is left lower lobe mass most likely round atelectasis adjacent to the moderate sized pleural effusion. On the right there is moderate size pleural effusion, there is nodularity adjacent to the pleural effusion at the right lung base measured 0.8 cm another nodule seen in the right lower lobe, measured 0.8 cm. Team at the appearance micronodules are age since there is subpleural right upper lobe. PLEURA: As reported there is moderate pleural effusion bilaterally MEDIASTINUM: The mass in the left upper lobe is inseparable from the mediastinum and encasing pulmonary arteries and pulmonary veins. There is right hilar lymphadenopathy there is mediastinal lymphadenopathy with pretracheal and precarinal conglomerate measured 3.4 x 3.2 cm. No evidence of septal bowing or right heart strain. CORONARY ARTERY CALCIFICATION: None visualized on this study. CHEST WALL/AXILLA: No axillary or internal mammary lymphadenopathy. OSSEOUS STRUCTURES: There are multilevel degenerative changes in in thoracic spine. No obvious lytic or blastic lesions seen. UPPER ABDOMEN: No blood is surgically absent. No reflux of contrast into the hepatic veins to suggest elevated right heart pressures. CT/CT angio chest PE protocol IMPRESSION: 1. No evidence of pulmonary embolism. Most likely pulmonary artery hypertension 2. Left upper lobe consolidation with air bubbles in the center of the consolidation. 3. Bilateral pleural effusion and right lung nodules. 4. Mediastinal and right hilar lymphadenopathy. VTE: negative.
--- NOTE | ~2024-03-15 | XR_ITS ---
EXAMINATION: XR CHEST CLINICAL INFORMATION: Pneumonia COMPARISON: CT scan from 03/15/2024 TECHNIQUE: Frontal view of the chest was obtained. FINDINGS: There is no significant interval change in appearance of ill-defined opacity in the left upper lobe associated with mild mediastinal shift and there is patchy airspace disease in the right lower lobe there postsurgical changes in the left upper lobe with surgical cysts sutures. There is blunting of right costophrenic angle and left costophrenic angle due to small pleural effusion. XR/XR chest 1V IMPRESSION: No interval change
--- NOTE | ~2024-03-15 | XR_ITS ---
EXAMINATION: XR CHEST CLINICAL INFORMATION: Shortness of breath and leg swelling COMPARISON: 03/05/2024. TECHNIQUE: Frontal view of the chest was obtained. FINDINGS: There is new consolidation of the left upper lobe and pleural effusion of the left lung with blunting of costophrenic angle. Increased interstitial markings through the right lung. XR/XR chest 1V IMPRESSION: Pneumonia in the left lung and pleural effusion
--- NOTE | ~2024-03-15 | XR_ITS ---
EXAMINATION: XR LUMBOSACRAL SPINE CLINICAL INFORMATION: Low back pain COMPARISON: Selected images of the CT scan obtained as a part of PET/CT examination of 12/14/2022. TECHNIQUE: Three views of the lumbosacral spine. FINDINGS: Diffuse osteopenia. There are 5 lumbar-type nonrib-bearing vertebrae. There is mild reverse S-shaped scoliosis of the lumbar spine, stable finding. Vertebral body heights are maintained. Stable mild grade 1 anterolisthesis of L4 over L5. Moderate to severe narrowing of the L5-S1 disc space is noted with vacuum disc phenomenon. There is moderate to severe narrowing of the intervertebral disc space at T12-L1 is a stable finding. Moderate to severe facet arthropathy is noted in the lower lumbar spine. Diffuse aortic calcifications. Multiple surgical clips in the bilateral upper abdomen. Moderate degenerative changes are also noted in the visualized lower thoracic spine. Moderate to large stool burden in the visualized colon. Contrast opacified urinary bladder is noted. Patient did receive intravenous contrast for the CT angiography of the chest performed earlier on the same day. Sclerosis along the bilateral sacroiliac joints is a stable finding. Somewhat curvilinear hyperdensity noted along the right-sided pelvic inlet is nonspecific and could be artifactual related to summation of the overlying soft tissue or may represent portion of the opacified urinary bladder. XR/XR lumbar spine 2-3V IMPRESSION: Diffuse osteopenia. No evidence of acute compression fracture or suspicious osseous lesion. Lumbar spondylosis. Spondylosis in the visualized lower thoracic spine. Somewhat unusual finding along the right pelvic inlet as described above. Recommend short-term interval follow-up pelvic x-ray within 2-3 days following clearing of the excreted contrast in the urinary bladder.
--- NOTE | ~2024-03-15 | CT_ITS ---
EXAMINATION: CT CHEST WITHOUT CONTRAST CLINICAL INFORMATION: Hypoxia COMPARISON: CTA chest 03/15/2024 and chest x-ray 03/21/2024. TECHNIQUE: Multidetector volumetric CT imaging of the chest was done. Axial MIP volume rendering provided. Sagittal and coronal reformatted images were obtained. This CT examination was performed using dose optimization techniques as appropriate, variously including the following: *Automated exposure control *Adjustment of mA and/or kV according to patient size (this includes techniques or standardized protocols for targeted exams where dose is matched to indication/reason for exam; i.e. extremities or head) *Use of iterative reconstruction technique DLP: 230 mGy-cm FINDINGS: LUNGS: Progressive consolidation of the left upper lobe. The previously seen small areas of aerated lung are now completely consolidated. No aerated tissue is visible in the left upper lobe. The left upper lobe bronchus is occluded at its first bifurcation after the left main bronchus bifurcation. There is worsening consolidation around the left hilum and superior segment of the left lobe with narrowing of the adjacent airways. Increasing small right pleural effusion and stable small left pleural effusion. Advanced emphysema. Chronic scarring or bronchiolitis in the posterior aspect of the right upper lobe. MEDIASTINUM: The ascending aorta is aneurysmal measuring 4.3 cm. Mediastinal and hilar adenopathy is not well assessed without intravenous contrast but appear stable compared to recent prior. CORONARY ARTERY CALCIFICATION: Present. AXILLA: No adenopathy. UPPER ABDOMEN: Left adrenal nodularity appears similar. OSSEOUS STRUCTURES: No suspicious osseous lesions. CT/CT chest wo IV con IMPRESSION: Progressive, now complete, consolidation of the left upper lobe with no remaining aerated left upper lung tissue visible. This is mildly worsened compared to 03/15/2024. Rapidly progressing malignancy versus superimposed infection cannot be differentiated on this imaging test. Progressive multifocal consolidation around the left hilum and in the left lung with narrowing of the involved airways. This is significantly worsened when compared to 03/15/2024. Rapidly progressing malignancy versus superimposed infection cannot be differentiated on this imaging test. Stable small left pleural effusion. Increasing small right pleural effusion.
--- NOTE | 2024-03-15 12:14 | ECG_ITS ---
Test Reason : SOB Blood Pressure : / mmHG Vent. Rate : 075 BPM Atrial Rate : 075 BPM P-R Int : 138 ms QRS Dur : 092 ms QT Int : 444 ms P-R-T Axes : 107 -40 -17 degrees QTc Int : 495 ms Artifact in tracing Normal sinus rhythm Left axis deviation Nonspecific ST and T wave abnormality Abnormal ECG When compared with ECG of 02-JAN-2024 14:31, T wave inversion now evident in Inferior leads Referred By: Chinedu Cagle Electronically Signed By:KERVIN CHAPARRO
--- NOTE | 2024-03-15 12:15 | ED_ITS ---
HPI - General Adult General Chief complaint: Dyspnea Stated complaint: SOB, back pain Time Seen by Provider: 03/15/24 12:22 Source: patient Mode of arrival: ambulatory Limitations: no limitations History of Present Illness ED Provider: Dr. Hickey HPI narrative: Patient notice increased leg swelling and increased shortness of breath over the past few days. She denies fever, she has a known history of lung cancer but is not on chemotherapy yet. She is followed by Dr. Berger Onset (ago): day(s) Severity: moderate Related Data Home Medications ?Medication ?Instructions ?Recorded ?Confirmed atorvastatin 80 mg tablet 80 mg PO DAILY 08/21/20 02/28/24 blood sugar diagnostic #10 ea 08/21/20 02/28/24 blood-glucose meter #1 ea 08/21/20 02/28/24 insulin lispro 100 unit/mL 100 unit subcut DAILY 08/21/20 02/28/24 subcutaneous pen pen needle, diabetic 31 gauge x #50 ea 08/21/20 02/28/2411/25 insulin aspart U-100 100 unit/mL 3 unit subcut DAILY 11/19/22 02/28/24 (3 mL) subcutaneous pen (Novolog FlexPen U-100 Insulin aspart) lancets 30 gauge (OneTouch Delica #100 ea 11/19/22 02/28/24 Plus Lancet) Previous Rx's ?Medication ?Instructions ?Recorded mecobalamin (vitamin B12) 1,000 1,000 mcg sublingual DAILY 90 days 07/02/22 mcg disintegrating #90 tabs tablet,sublingual fluticasone propionate 50 1 spray intranasal Q12H 30 days 04/01/23 mcg/actuation nasal #16 grams spray,suspension (Flonase Allergy Relief) aspirin 81 mg tablet,delayed 81 mg PO DAILY #90 tabs 09/21/23 release (Adult Aspirin Regimen) ezetimibe 10 mg tablet 10 mg PO DAILY #90 tabs 09/26/23 insulin detemir U-100 100 unit/mL See Rx Instructions subcut BEDTIME 11/16/23 (3 mL) subcutaneous pen 30 days #15 mL clopidogrel 75 mg tablet 75 mg PO DAILY #90 tabs 12/13/23 isosorbide mononitrate 30 mg 30 mg PO DAILY #90 tabs 12/27/23 tablet,extended release 24 hr compr.stocking,knee,long,large #12 ea 01/31/24 tiotropium bromide 1.25 2 puff inhalation DAILY #4 grams 02/01/24 mcg/actuation mist for inhalation (Spiriva Respimat) levothyroxine 25 mcg tablet 25 mcg PO DAILY 30 days #30 tabs 02/03/24 citalopram 10 mg tablet 10 mg PO DAILY 90 days #90 tabs 02/15/24 lisinopril 10 mg tablet 5 mg (1/2 x 10 mg) PO DAILY 90 02/15/24 days #45 tabs folic acid 1 mg tablet 1 mg PO DAILY #90 tabs 02/21/24 sulfamethoxazole 800 1 tab PO Q12H 3 days #6 tabs 02/28/24 mg-trimethoprim 160 mg tablet (Bactrim DS) amiodarone 200 mg tablet 200 mg PO DAILY #30 tabs 03/08/24 carvedilol 6.25 mg tablet 6.25 mg PO BID 30 days #60 tabs 03/08/24 furosemide 20 mg tablet 20 mg PO BID 30 days #60 tabs 03/08/24 hydrocodone-homatropine 5 mg-1.5 5 ml PO Q6H #250 mL 03/08/24 mg/5 mL (5 mL) oral syrup (Hycodan) ondansetron 8 mg disintegrating 8 mg PO Q8H #50 tabs 03/08/24 tablet tramadol 50 mg tablet 50 mg PO Q8H PRN Breakthrough 03/08/24 Pain, Moderate #50 tabs codeine 7.5 mg-guaifenesin 225 5 ml PO Q6H PRN Cough #200 mL 03/09/24 mg/5 mL oral liquid dextromethorphan-guaifenesin 5 10 ml PO Q4-8H PRN Congestion #300 03/09/24 mg-100 mg/5 mL oral liquid mL (Robitussin Cough-Chest Congestion DM) codeine 10 mg-guaifenesin 100 mg/5 10 ml PO Q4-6H PRN Cough #300 mL 03/13/24 mL oral liquid (Guaifenesin AC) Allergies Allergy/AdvReac Type Severity Reaction Status Date / Time No Known Allergies Allergy Verified 03/15/24 12:17 Review of Systems 2 Review of Systems: Yes all other systems are reviewed and are negative Neurologic: Denies Sensory deficit (Neuro) [facility] Past Medical History Medical History SVT (supraventricular tachycardia) Tachycardia Dyslipidemia PAD (peripheral artery disease) Nicotine dependence, cigarettes, uncomplicated Tubular adenoma of colon Anemia Anxiety CAD (coronary artery disease) Essential hypertension Diabetes type 2, controlled Surgical History S/P cardiac catheterization History of lung surgery History of varicose vein stripping History of angioplasty History of heart artery stent History of carpal tunnel surgery of right wrist History of colonoscopy History of splenectomy History of partial pancreatectomy History of cholecystectomy History of appendectomy History of tonsillectomy Family History Family History Daughter Lung cancer Father Bone cancer Mother Colon cancer Social History Social History Household Members: None [facility] Are you a primary career manager to a significant other at home: No Alcohol intake: never Patient Tobacco Use Status: Former Tobacco user Tobacco use type: Cigarette Years Smoked: 50 Smoked in Last 30 Days: No e-Cigarette/Vaping Use: Never Used Second Hand Smoke Exposure: No Use of substances other than those prescribed or required for medical reasons: No Advance Directives: Yes Advance Directives on File: Yes Advance Directives Date on File: 01/18/23 service: No Current occupational status: retired Current occupational exposures/hazards: No Cognitive needs: No Hearing needs: No Vision needs: No Physical Exam ED Vital Signs: Vital Signs - 24 hr 03/15/24 12:11 03/15/24 12:43 03/15/24 15:28 Temperature 98.7 F 98.3 F Pulse Rate 87 72 75 Respiratory Rate 24 H 18 20 Blood Pressure 126/50 L 115/54 L Pulse Oximetry 85 L 95 Oxygen Delivery Method Room Air Room Air Oxygen Flow Rate 2 BMI result Body Mass Index 28.4 Const Other: Patient very short of breath Nutritional Appearance: average body habitus Orientation/consciousness: oriented to person and patient oriented x3 Limitations: no limitations HENMT Head: Yes normal to inspection Ears: external ears normal General nose exam: Normal external nose present Mouth: Normal oral and palatal mucosa present and oropharynx normal Throat: Yes posterior oropharynx normal Eyes General: appearance normal, both eyes and all related structures Neck Neck: Yes normal visual inspection Chest Chest palpation & inspection: normal inspection of the chest Resp Other: slight wheeze but essentially clear Cardio Jugular venous distension: no JVD Rate: regular rate Rhythm: regular rhythm Heart sounds: S1 normal heart sound present and S2 normal heart sound present GI Inspection: Yes normal to inspection Palpation (GI): Soft to palpation, nontender and No hepatosplenomegaly present Auscultation: normal bowel sounds General: Yes no CVA tenderness Back/Spine/Pelvis Back: no CVA tenderness Skin General skin exam: no rashes or lesions noted Neuro General: oriented to person and patient oriented x3 Cranial nerves: Yes CN's II-XII intact bilaterally Motor exam (neuro): 5/5 motor strength present throughout Sensory Exam: No Sensory deficit (Neuro) Extrem Other: 2+ edema bilaterally Psych Appearance: grossly normal Course Course Course Narrative: RME: done by DAVID Cagle: 79-year-old female presents to ED for low back pain, shortness of breath and bilateral lower extremity swelling pitting edema. Patient has history of CHF. O2 saturation room air 85%. Lower extremity positive for swelling pitting edema. Lungs negative for crackles or rales. Patient placed on 2 L oxygen brought to room 14 EKG labs x-ray ordered. Reevaluation(s) Reevaluation #1: patient with severe hypoxia and xray and CT which shows left upper lobe infiltrate and pleural effusion waiting on CTA reading to make sure there is no PE Time: 16:13 Reevaluation #2: I spent 40 minutes of critical care, with interventions, assessments, speaking to patient, consultants, and family. Time: 16:13 Medications Administered Generic Name Dose Route Start Last Admin Trade Name Freq PRN Reason Stop Dose Admin Azithromycin 500 mg/ Sodium 250 mls @ 125 mls/hr 03/15/24 15:00 03/15/24 15:39 Chloride IV 03/15/24 16:59 125 mls/hr ONCE ONE Administration Discontinued Medications Generic Name Dose Route Start Last Admin Trade Name Freq PRN Reason Stop Dose Admin Albuterol/Ipratropium 3 ml 03/15/24 12:29 03/15/24 12:42 Albuterol/Iprat 2.5/0.5mg 3 Ml Ampul.Neb INHALE 03/15/24 12:30 3 ml ONCE ONE Administration Ceftriaxone Sodium 1 gm/ 50 mls @ 100 mls/hr 03/15/24 15:00 03/15/24 15:58 Sodium Chloride IV 03/15/24 15:29 100 mls/hr ONCE ONE Administration Medical Decision Making Differential Diagnosis Differential Diagnoses: The differential diagnosis associated with the presentation includes (Pneumonia, RSV, Covid, Infleunza, PE, CHF) Admission/Observation Consideration of admission/observation: Escalation of care including admission/observation considered (upon arrival patient considered for admission) Consult Healthcare Provider Management of the patient was discussed with: Hospitalist Lab Data 03/15/24 13:14 03/15/24 13:14 Labs: Lab Results 03/15/24 03/15/24 Range/Units 13:14 15:12 WBC 11.5 H (4.8-10.8) X10*3/uL RBC 2.71 L (4.20-5.50) X10*6/uL Hgb 10.1 L (12.0-16.0) g/dl Hct 29.6 L (37.0-47.0) % MCV 109.2 H (80.0-98.0) fL MCH 37.3 H (27.0-33.0) pg MCHC 34.1 (31.0-35.0) g/dl RDW 15.2 (11.0-16.0) % Plt Count 372 (160-400) X10*3/uL MPV 11.4 (9.4-12.3) fL Immature Gran % (Auto) 0.5 H (0.0-0.4) % Neut % (Auto) 79.6 H (45-73) % Lymph % (Auto) 9.1 L (20-40) % [place] % (Auto) 9.1 (2-11) % Eos % (Auto) 0.7 (0-4) % Baso % (Auto) 1.0 (0-2) % Lymph # (Auto) 1.0 L (1.2-4.9) X10*3/uL [place] # (Auto) 1.0 (0.1-1.2) X10*3/uL Eos # (Auto) 0.1 (0.0-0.4) X10*3/uL Baso # (Auto) 0.1 (0.0-0.2) X10*3/uL Abs Immat Gran (auto) 0.06 H (0.00-0.03) X10*3/uL Absolute Neuts (auto) 9.1 H (2.0-8.3) x10*3/uL Absolute Nucleated RBC 0.000 (0.0-0.012) X10*3/uL Nucleated RBC % (auto) 0.0 (0.0-0.2) /100WBC PT 14.6 H (11.1-13.3) SEC INR 1.2 H (0.9-1.1) APTT 26.8 (26.0-36.8) SEC D-Dimer High Sensitivty 256 NG/ML Sodium 137 (135-145) mmol/L Potassium 3.8 (3.3-5.1) mmol/L Chloride 101 (96-108) mmol/L Carbon Dioxide 25 (22-29) mmol/L Anion Gap 15 (12-20) BUN 18 H (9-16) mg/dL Creatinine 0.86 (0.5-1.4) mg/dL Estim Creat Clear Calc 45.6 Estimated GFR > 60 Random Glucose 139 H (60-115) mg/dL Calcium 8.9 (8.4-10.2) mg/dL Total Bilirubin 2.1 H (0.0-1.0) mg/dL AST 19 (5-31) U/L ALT 12 (0-31) U/L Alkaline Phosphatase 141 H (39-117) U/L Troponin I High Sens 3.9 (<3.5-17.0) ng/L B-Natriuretic Peptide 386 H (<100) pg/mL Total Protein 6.3 L (6.5-8.0) g/dL Albumin 3.4 L (3.5-5.0) g/dL Influenza Type A (PCR) NEGATIVE (Negative) Influenza Type B (PCR) NEGATIVE (Negative) RSV RNA Qual (PCR) NEGATIVE (Negative) SARS-CoV-2 RNA (RT-PCR) NEGATIVE (Negative) Independent Interpretation I performed an independent interpretation of an: EKG (sinus 75, no st or twave changes), Plain X-Ray (left upper lobe infiltrate, pleural effusion) and CT Scan (ANTWAN infiltrate and effusion) Independent Historian Clinical information obtained from an independent historian. History obtained from or confirmed by: Friend External Record Review External record reviewed: Outpatient record, Prior outpatient labs and Prior outpatient radiology Chronic Conditions Patient?s care impacted by: Cancer Discharge Plan Discharge Clinical Impression: Pneumonia, Pleural effusion Patient Disposition: Admitted As Inpatient Print Language: Guamanian
[2024-03-15] MEDS: Albuterol/Iprat 2.5/0.5MG 3 ML AMPUL.NEB INHALE ×2 (12:42→20:40)
[2024-03-15 13:19] LABS: MANUAL DIFF FLAG NO
[2024-03-15 13:27] LABS: INTERNATIONAL NORM RATIO 1.2 (0.9-1.1); Prothrombin Time 14.6 SEC (11.1-13.3)
[2024-03-15 13:28] LABS: D Dimer High Sensitivity 256 NG/ML
[2024-03-15 13:29] LABS: Partial Thromboplastin Time 26.8 SEC (26.0-36.8)
[2024-03-15 13:41] LABS: Basophils Absolute Auto 0.1 X10*3/uL (0.0-0.2); Eosinophils Absolute Auto 0.1 X10*3/uL (0.0-0.4); Eosinophils Percent Auto 0.7 % (0-4); Hematocrit 29.6 % (37.0-47.0); Hemoglobin 10.1 g/dl (12.0-16.0); Imm Gran Abs Auto 0.06 X10*3/uL (0.00-0.03); Imm Gran Pct Auto 0.5 % (0.0-0.4); Lymphocytes Percent Auto 9.1 % (20-40); Mean Corpuscular HGB Conc 34.1 g/dl (31.0-35.0); Mean Corpuscular Hemoglobin 37.3 pg (27.0-33.0); Mean Corpuscular Volume 109.2 fL (80.0-98.0); Mean Platelet Volume 11.4 fL (9.4-12.3); Monocytes Percent Auto 9.1 % (2-11); Neutrophils Absolute Auto 9.1 x10*3/uL (2.0-8.3); Neutrophils Percent Auto 79.6 % (45-73); Platelet Count 372 X10*3/uL (160-400); Red Blood Count 2.71 X10*6/uL (4.20-5.50); Red Cell Distribution Width 15.2 % (11.0-16.0); White Blood Count 11.5 X10*3/uL (4.8-10.8)
[2024-03-15 13:45] LABS: B Type Natriuretic Peptide 386 pg/mL (<100)
[2024-03-15 13:46] LABS: Troponin-I High Sensitivity 3.9 ng/L (<3.5-17.0)
[2024-03-15 14:01] LABS: Alanine Aminotransferase 12 U/L (0-31); Albumin Level 3.4 g/dL (3.5-5.0); Alkaline Phosphatase 141 U/L (39-117); Anion Gap 15 (12-20); Aspartate Amino Transferase 19 U/L (5-31); Bilirubin Total 2.1 mg/dL (0.0-1.0); Blood Urea Nitrogen 18 mg/dL (9-16); Calcium 8.9 mg/dL (8.4-10.2); Carbon Dioxide 25 mmol/L (22-29); Chloride 101 mmol/L (96-108); Creatinine Clr Calc Pharmacy 45.6; Estimated Glomerular Filt Rate > 60; Glucose Random 139 mg/dL (60-115); Potassium 3.8 mmol/L (3.3-5.1); Sodium 137 mmol/L (135-145); Total Protein 6.3 g/dL (6.5-8.0)
--- NOTE | 2024-03-15 15:32 | MHC.EDTECH ---
THIS PCT ASSUMED CARE OF PATIENT AT 1500 ,PATIENT WAS ASSISTED TO BEDSIDE COMMODE ,VOID AND WAS ASSISTED BACK TO BED ,PATIENT IS A&O ,PATIEN T FRIEND AT BEDSIDE .CALL [facility]INA WITHIN PATIENT REACH .
[2024-03-15] MEDS: Azithromycin 500 MG in 0.9 % Sodium Chloride 250 ML 125 MG IV (15:39)
[2024-03-15 15:57] LABS: Influenza A PCR NEGATIVE (Negative); Influenza B PCR NEGATIVE (Negative); Resp Syncy Virus RNA Qual PCR NEGATIVE (Negative); SARS COV2 PCR INHOUSE NEGATIVE (Negative)
[2024-03-15] MEDS: cefTRIAXone sodium 1 GM in 0.9 % Sodium Chloride 50 ML IV (15:58)
--- NOTE | 2024-03-15 16:32 | P.HPHOSP_ITS ---
History of Present Illness Date of Service: 03/15/24 Attending physician on admission: Miles Burton Chief Complaint: SOB Pt is a 79-year-old female with a PMH significant for metastatic?[id number] left lung cancer s/p resection and segmentectomy who follows with Dr. Berger, CAD s/p stenting, SVT, HFpEF, insulin-dependent type 2 diabetes, HTN, HLD, and hypothyroidism who presents to the ED with?shortness of breath and EVERETT x1 week and lower leg edema x3 days. Has been experiencing cough mostly productive of clear sputum. No fever or chills. Denies chest pain or pressure. No palpitations. Patient also has been experiencing lower back pain x1 week, which is a new symptom for her. No history of recent falls or known trauma to the area. Patient [place]01/[address] [facility] [place] with 750 cc drained. PET scan on 02/06/2024 revealed activity in supraclavicular and multiple mediastinal lymph nodes suspicious for recurrent/residual neoplasm with metastatic disease. In the ED pt was tachypneic up to 24 hypoxic as low as 85% on RA and was soft BP as low as 115/54. Labs were significant for leukocytosis of 11.5, stable macrocytic anemia 10.1/29.6 with MCV 109.2, bilirubin 2.1, alk-phos 141, and BNP 386. Mildly elevated D-dimer of 256. No significant electrolyte abnormalities. Tested negative for flu, RSV, and COVID. CXR showed pneumonia in left lung and pleural effusion. CTA of chest found no evidence of pulmonary embolism, but showed likely pulmonary artery hypertension. Did show left upper lobe consolidation with air bubbles in the center of the consolidation, and bilateral pleural effusion and right lung nodules. Also showed mediastinal and right hilar lymphadenopathy. EKG demonstrated normal sinus rhythm showing pulmonary disease pattern without evidence of significant ST elevations or depressions. Pt was treated with DuoNebs, azithromycin, and ceftriaxone. Pt will be admitted to the hospital for treatment and further evaluation of acute hypoxic respiratory failure in the setting of left upper lobe pneumonia. Review of Systems 2 Review of Systems: SOB, EVERETT Cough productive of clear sputum Bilateral lower leg edema, especially in feet Lower back pain Denies chest pain/pressure, palpitations No fever, chills, nausea, vomiting, abdominal pain PMFSH Medical History SVT (supraventricular tachycardia) Tachycardia Dyslipidemia PAD (peripheral artery disease) Nicotine dependence, cigarettes, uncomplicated Tubular adenoma of colon Anemia Anxiety CAD (coronary artery disease) Essential hypertension Diabetes type 2, controlled Family History Daughter Lung cancer Father Bone cancer Mother Colon cancer Surgical History S/P cardiac catheterization History of lung surgery History of varicose vein stripping History of angioplasty History of heart artery stent History of carpal tunnel surgery of right wrist History of colonoscopy History of splenectomy History of partial pancreatectomy History of cholecystectomy History of appendectomy History of tonsillectomy Social History Household Members: None [facility] Are you a primary hospice care consultant to a significant other at home: No Alcohol intake: never Patient Tobacco Use Status: Former Tobacco user Tobacco use type: Cigarette Years Smoked: 50 Smoked in Last 30 Days: No e-Cigarette/Vaping Use: Never Used Second Hand Smoke Exposure: No Use of substances other than those prescribed or required for medical reasons: No Advance Directives: Yes Advance Directives on File: Yes Advance Directives Date on File: 01/18/23 service: No Current occupational status: retired Current occupational exposures/hazards: No Cognitive needs: No Hearing needs: No Vision needs: No Meds Allergies Allergy/AdvReac Type Severity Reaction Status Date / Time No Known Allergies Allergy Verified 03/15/24 12:17 Active Medications: Current Medications Azithromycin 500 mg/ Sodium (Chloride) 250 mls @ 125 mls/hr IV ONCE ONE Stop: 03/15/24 16:59 Last Admin: 03/15/24 15:39 Dose: 125 mls/hr Home Medications ?Medication ?Instructions ?Recorded ?Confirmed ?Last Taken ?Type atorvastatin 80 mg tablet 80 mg PO BEDTIME 08/21/20 03/15/24 03/14/24 History blood sugar diagnostic #10 ea 08/21/20 02/28/24 Unknown History blood-glucose meter #1 ea 08/21/20 02/28/24 Unknown History pen needle, diabetic 31 gauge x #50 ea 08/21/20 02/28/24 Unknown History 11/25 insulin aspart U-100 100 unit/mL 0 sliding scale dose subcut QIDACHS 11/19/22 03/15/24 03/15/24 History (3 mL) subcutaneous pen (Novolog FlexPen U-100 Insulin aspart) lancets 30 gauge (MaríaTouch Dhavalica #100 ea 11/19/22 02/28/24 Unknown History Plus Lancet) ezetimibe 10 mg tablet 10 mg PO BEDTIME 03/15/24 03/15/24 03/14/24 History fluticasone propionate 50 1 spray intranasal Q12H PRN 03/15/24 03/15/24 03/15/24 History mcg/actuation nasal Congestion spray,suspension (Flonase Allergy Relief) furosemide 20 mg tablet 20 mg PO BID@0900,1700 03/15/24 03/15/24 03/15/24 History insulin detemir U-100 100 unit/mL 16 unit subcut BEDTIME 03/15/24 03/15/24 03/15/24 History (3 mL) subcutaneous pen lisinopril 20 mg tablet 10 mg PO DAILY 03/15/24 03/15/24 03/15/24 History ondansetron 8 mg disintegrating 8 mg PO Q8H PRN Nausea And Vomiting 03/15/24 03/15/24 03/15/24 History tablet Physical Exam 2 Vital Signs and Narrative: Vital Signs: Last Vital Signs Temp 98.3 F 03/15/24 15:28 Pulse 75 03/15/24 15:28 Resp 20 03/15/24 15:28 BP 115/54 L 03/15/24 15:28 Pulse Ox 95 03/15/24 15:28 O2 Del Method Room Air 03/15/24 15:28 O2 Flow Rate 2 03/15/24 15:28 BMI result Body Mass Index 28.4 Constitutional: Alert, in no acute distress. Mental Status: Oriented to person, place and time. Eyes: Pupils are equal, round, and reactive to light. Ear, Nose, and Throat: Oropharynx clear, mucous membranes moist. Ears and nose without deformities. Trachea midline. Respiratory: Diffuse expiratory wheezing bilaterally. Cardiovascular: S1, S2 regular. No murmurs, rubs, or gallops. Gastrointestinal: Abdomen soft, non-tender, non-distended. Normal bowel sounds. Back: Lumbar spinous process and paraspinal muscle tenderness. Neurologic: Cranial nerves II-XII are grossly intact bilaterally. No focal neurological deficits. Moves all extremities spontaneously. Skin: Warm, dry. Extremities: 2+ bilateral pitting edema in lower legs, especially in ankles and feet. Psychiatric: Normal mood and affect. Results Labs 03/15/24 13:14 03/15/24 13:14 Labs: Laboratory Results - last 24 hr 03/15/24 03/15/24 13:14 15:12 MCV 109.2 H MCH 37.3 H MCHC 34.1 RDW 15.2 Plt Count 372 MPV 11.4 Immature Gran % (Auto) 0.5 H Neut % (Auto) 79.6 H Lymph % (Auto) 9.1 L [place] % (Auto) 9.1 Eos % (Auto) 0.7 Baso % (Auto) 1.0 Lymph # (Auto) 1.0 L [place] # (Auto) 1.0 Eos # (Auto) 0.1 Baso # (Auto) 0.1 Abs Immat Gran (auto) 0.06 H Absolute Neuts (auto) 9.1 H Absolute Nucleated RBC 0.000 Nucleated RBC % (auto) 0.0 PT 14.6 H INR 1.2 H APTT 26.8 D-Dimer High Sensitivty 256 Anion Gap 15 Estim Creat Clear Calc 45.6 Estimated GFR > 60 Random Glucose 139 H Calcium 8.9 Total Bilirubin 2.1 H AST 19 ALT 12 Alkaline Phosphatase 141 H Troponin I High Sens 3.9 B-Natriuretic Peptide 386 H Total Protein 6.3 L Albumin 3.4 L Influenza Type A (PCR) NEGATIVE Influenza Type B (PCR) NEGATIVE RSV RNA Qual (PCR) NEGATIVE SARS-CoV-2 RNA (RT-PCR) NEGATIVE Imaging Radiologist's Impressions: Impressions Chest X-Ray 03/15/24 13:45 IMPRESSION: Pneumonia in the left lung and pleural effusion Chest CTA 03/15/24 14:54 IMPRESSION: 1. No evidence of pulmonary embolism. Most likely pulmonary artery hypertension 2. Left upper lobe consolidation with air bubbles in the center of the consolidation. 3. Bilateral pleural effusion and right lung nodules. 4. Mediastinal and right hilar lymphadenopathy. VTE: negative. Assessment and Plan (1) Pleural effusion: Status: Acute (2) Pneumonia: Status: Acute (3) Hypoxia: Status: Acute Plan Pt is a 79-year-old female with a PMH significant for metastatic?[id number] left lung cancer s/p resection and segmentectomy who follows with Dr. Berger, [place] s/p stenting, SVT, HFpEF, insulin-dependent type 2 diabetes, HTN, HLD, and hypothyroidism who presents to the ED with?shortness of breath and EVERETT x1 week and lower leg edema x3 days. Acute hypoxic respiratory failure in the setting of pneumonia Patient with SOB, EVERETT, productive cough x1 week; desatting to 85% on RA, not on home O2 Imaging showing new left upper lobe consolidation Patient does not meet sepsis criteria: Tachypnea, but no fever, tachycardia, or leukocytosis Will treat with ceftriaxone and azithromycin, started 03/15/2024 Titrate supplemental O2 >92, wean as tolerated kevin Hinds Pulmonology consult given pt's significant pulmonary hx and pleural effusion Monitor respiratory status Follow up blood cultures Pleural Effusion CTA showing bilateral pleural effusions, left greater than right Transudative vs exudative IR guided thoracentesis of left lung Pleural effusion labs: Culture +GS; cell count w/diff; total protein; LDH; and pH Patient being covered with diuretics and antibiotics Follow labs Acute HFpEF exacerbation Pt with SOB, EVERETT, pleural effusions, elevated BNP, bilateral pitting edema Will treat with Lasix 20 mg IV b.i.d. Follow lytes, BMP, I/O Hx of [id number] lung cancer PET scan on 02/05 suspicious for recurrent/residual neoplasm with metastatic disease Oncology consult, follows with Dr. Berger CAD/HLD Continue statin, acetamide Hold aspirin, Plavix due for likely thoracentesis tomorrow Resume as warranted Insulin-dependent type 2 diabetes Sliding-scale insulin, Lantus Diabetic diet Hypothyroidism Continue levothyroxine HLD BP soft, hold lisinopril Resume as warranted Full Code Attending:?Dr. Burton DVT Prophylaxis: Pneumatic compression due to upcoming thoracentesis Pt will require a hospitalization of at least two nights for treatment of?acute hypoxic respiratory failure in the setting of pneumonia and acute CHF exacerbation. Patient will require hospitalization for administration of IV antibiotics, IV diuretics, supplemental oxygen, and specialist consultation with pulmonology and for an IR guided thoracentesis. Quality Stroke Does the patient have a stroke diagnosis?: No VTE Prior VTE?: No VTE Risk Level:: Medical - moderate - high VTE Device Contraindication: N/A - Device Ordered VTE Drug Contraindication: Treatment Not Indicated
--- NOTE | 2024-03-15 17:07 | PHA.MEDREC ---
Pharmacy Consult ? Medication Reconciliation Pharmacy has completed the medication reconciliation. Patient reported medications. reports she only takes a 1/2 pill of lisinopril. Report Novolog is based off her BG and used Levemir 16 units at bedtime. Pattie Ozuna, PharmD
--- NOTE | 2024-03-15 18:17 | MHC.EDTECH ---
PATIENT BELONINGS LIST DONE ,BLOOD SUGAR CHECK ,VITALS TAKEN RN JACQUELINE IS AWARE OF PATIENT LOW BP .
[2024-03-15 18:22] LABS: Glucose, Whole Blood 129 mg/dL (60-115)
[2024-03-15] MEDS: Furosemide 20 MG/2 ML VIAL IVPUSH (19:32)
[2024-03-15] MEDS: Atorvastatin Calcium 80 MG TABLET PO (22:11)
[2024-03-15] MEDS: carvediloL 6.25 MG TABLET PO (22:11)
[2024-03-15] MEDS: Ezetimibe 10 MG TABLET PO (22:11)
[2024-03-15] MEDS: Insulin Glargine,Hum.rec.anlog 100 UNIT/ML 10 ML VIAL 11 UNIT SUBCUT (22:23)
[2024-03-15] MEDS: Insulin Lispro 100 UNIT/ML 3 ML VIAL SUBCUT (22:23)
[2024-03-15 22:24] LABS: Glucose, Whole Blood 293 mg/dL (60-115)
[2024-03-15] MEDS: 0.9 % Sodium Chloride Flush 3 ML SYRINGE IVFLUSH (22:25)
[2024-03-16] VITALS (13 sets, daily range): BP systolic 105–138; BP diastolic 53–65; PULSE 70–92; RESP 16–20; TEMP 36.2–37.4; O2SAT 88–100
[2024-03-16] MEDS: Levothyroxine Sodium 25 MCG TABLET PO (06:01)
[2024-03-16] MEDS: guaiFEN/Codeine SF 200/20/10ML 10 ML LIQUID PO (06:04)
[2024-03-16 07:06] LABS: Anion Gap 13 (12-20); Blood Urea Nitrogen 20 mg/dL (9-16); Calcium 8.5 mg/dL (8.4-10.2); Carbon Dioxide 28 mmol/L (22-29); Chloride 102 mmol/L (96-108); Creatinine Clr Calc Pharmacy 34.6; Estimated Glomerular Filt Rate 47; Glucose Random 174 mg/dL (60-115); Magnesium 2.2 mg/dL (1.6-2.6); Potassium 3.9 mmol/L (3.3-5.1); Sodium 139 mmol/L (135-145)
[2024-03-16 07:20] LABS: Glucose, Whole Blood 183 mg/dL (60-115)
[2024-03-16] MEDS: Albuterol/Iprat 2.5/0.5MG 3 ML AMPUL.NEB INHALE ×4 (07:38→19:04)
[2024-03-16 07:45] LABS: Hematocrit 32.3 % (37.0-47.0); Hemoglobin 10.2 g/dl (12.0-16.0); Mean Corpuscular HGB Conc 31.6 g/dl (31.0-35.0); Mean Corpuscular Hemoglobin 34.7 pg (27.0-33.0); Mean Corpuscular Volume 109.9 fL (80.0-98.0); Mean Platelet Volume 11.9 fL (9.4-12.3); NRBC Pct Auto 0.1 /100WBC (0.0-0.2); Platelet Count 350 X10*3/uL (160-400); Red Blood Count 2.94 X10*6/uL (4.20-5.50); Red Cell Distribution Width 15.3 % (11.0-16.0); White Blood Count 14.4 X10*3/uL (4.8-10.8)
[2024-03-16] MEDS: Insulin Lispro 100 UNIT/ML 3 ML VIAL SUBCUT ×4 (07:56→21:28)
[2024-03-16] MEDS: Furosemide 20 MG/2 ML VIAL IVPUSH (07:57)
[2024-03-16] MEDS: Isosorbide Mononitrate 30 MG TAB.ER.24H PO (07:57)
[2024-03-16] MEDS: Folic Acid 1 MG TABLET PO (07:57)
[2024-03-16] MEDS: Amiodarone HCL 200 MG TABLET PO (07:57)
[2024-03-16] MEDS: carvediloL 6.25 MG TABLET PO ×2 (07:58→21:25)
[2024-03-16] MEDS: 0.9 % Sodium Chloride Flush 3 ML SYRINGE IVFLUSH ×2 (07:58→21:38)
--- NOTE | 2024-03-16 09:09 | MHC.CM.PN ---
IMM03/16/24 Female 79 DX PNA She lives by herself. She is independent with all functional mobility. She has received home services in the past from [facility] caregivers. If Home services are ordered, preference is [facility] She is independent with all functional mobility. HCP is on file. Her dtr/HCP Stella, lives close by. A referral has been sent to the preferred VNA. [facility], w/or/wo vna, [facility]. Patients dtr will provide transportation home.
--- NOTE | 2024-03-16 09:19 | HO.PM.IMPN ---
Subjective Subjective Date of Service: 03/16/24 Interval History: still sob, but improved Physical Exam Vital Signs: Vital Signs: Last Vital Signs Temp 98.5 F 03/16/24 06:57 Pulse 83 03/16/24 07:39 Resp 19 03/16/24 07:39 BP 120/57 L 03/16/24 07:57 Pulse Ox 91 L 03/16/24 06:57 O2 Del Method Nasal Cannula 03/16/24 06:57 O2 Flow Rate 3 03/16/24 06:57 BMI result Body Mass Index 28.2 General: AO X 3, no acute distress Resp: left lung base dull, bilateral rhonchi, no accessory muscles used CVS: S1,S2,RRR GI: soft, non tender, non distended Neuro: motor grossly intact, alert Psych: appropriate affect, appropriate insight Objective Data Active Medications Acetaminophen (Acetaminophen 325 Mg Tablet) 650 mg PO Q6H PRN PRN Reason: Pain, Mild (Pain Scale 1-3), fever or headache Albuterol/Ipratropium (Albuterol/Iprat 2.5/0.5mg 3 Ml Ampul.Neb) 3 ml INHALE RQ4H WHILE AWAKE [facility] Last Admin: 03/16/24 07:38 Dose: 3 ml Documented By: NILESH Amiodarone HCl (Amiodarone Hcl 200 Mg Tablet) 200 mg PO DAILY [facility] Last Admin: 03/16/24 07:57 Dose: 200 mg Documented By: AUDI Atorvastatin Calcium (Atorvastatin Calcium 80 Mg Tablet) 80 mg PO BEDTIME [facility] Last Admin: 03/15/24 22:11 Dose: 80 mg Documented By: JOSE Calcium Carbonate (Calcium Carbonate 750 Mg Tab.Chew) 750 mg PO Q4H PRN PRN Reason: Heartburn Carvedilol (Carvedilol 6.25 Mg Tablet) 6.25 mg PO BID [facility]; Protocol Last Admin: 03/16/24 07:58 Dose: 6.25 mg Documented By: AUDI Ezetimibe (Ezetimibe 10 Mg Tablet) 10 mg PO BEDTIME [facility] Last Admin: 03/15/24 22:11 Dose: 10 mg Documented By: JOSE Fluticasone Propionate (Fluticasone Propionate Nasal 16 Gm [place]) 1 spray NOSTRIL-B Q12H PRN PRN Reason: Congestion Folic Acid (Folic Acid 1 Mg Tablet) 1 mg PO DAILY [facility] Last Admin: 03/16/24 07:57 Dose: 1 mg Documented By: AUDI Glucose (Glucose Gel 15 Gm Gel..Gram.) 15 gm PO Q15M PRN; Protocol PRN Reason: per Hypoglycemia Standing Ord. Guaifenesin/Codeine Phosphate (Guaifen/Codeine Sf 200/20/10ml 10 Ml Liquid) 10 ml PO Q4H PRN PRN Reason: Cough Last Admin: 03/16/24 06:04 Dose: 10 ml Documented By: JOSE Azithromycin 500 mg/ Sodium (Chloride) 250 mls @ 125 mls/hr IV Q24H [facility] Ceftriaxone Sodium 1 gm/ (Sodium Chloride) 50 mls @ 100 mls/hr IV Q24H [facility] Dextrose (D10) 250 mls @ 750 mls/hr IV Q15M PRN; Protocol PRN Reason: per Hypoglycemia Standing Ord. Insulin Glargine (Insulin Glargine,Hum.Rec.Anlog 100 Unit/Ml 10 Ml Vial) 11 unit SUBCUT BEDTIME [facility] Last Admin: 03/15/24 22:23 Dose: 11 unit Documented By: JOSE Insulin Human Lispro (Insulin Lispro 100 Unit/Ml 3 Ml Vial) 0 unit SUBCUT QIDACHS [facility]; Protocol Last Admin: 03/16/24 07:56 Dose: 2 unit Documented By: AUDI Isosorbide Mononitrate (Isosorbide Mononitrate 30 Mg Tab.Er.24h) 30 mg PO DAILY [facility]; Protocol Last Admin: 03/16/24 07:57 Dose: 30 mg Documented By: AUDI Levothyroxine Sodium (Levothyroxine Sodium 25 Mcg Tablet) 25 mcg PO DAILY@0600 [facility] Last Admin: 03/16/24 06:01 Dose: 25 mcg Documented By: JOSE Magnesium Hydroxide (Milk Of Magnesia 30 Ml Oral.Susp) 30 ml PO DAILY PRN PRN Reason: Constipation Melatonin (Melatonin 3 Mg Tablet) 6 mg PO BEDTIME PRN PRN Reason: Insomnia Ondansetron HCl (Ondansetron Hcl 4 Mg/2 Ml Vial) 4 mg IVPUSH Q8H PRN PRN Reason: Nausea and Vomiting Sodium Chloride (0.9 % Sodium Chloride Flush 3 Ml Syringe) 3 ml IVFLUSH QSHIFT [facility] Last Admin: 03/16/24 07:58 Dose: 3 ml Documented By: AUDI Tramadol HCl (Tramadol Hcl 50 Mg Tablet) 50 mg PO Q8H PRN PRN Reason: Breakthrough Pain, Moderate Labs 03/16/24 05:38 03/16/24 05:38 Labs: Laboratory Results - last 24 hr 03/15/24 03/15/24 03/15/24 13:14 15:12 18:14 MCV 109.2 H MCH 37.3 H MCHC 34.1 RDW 15.2 Plt Count 372 MPV 11.4 Immature Gran % (Auto) 0.5 H Neut % (Auto) 79.6 H Lymph % (Auto) 9.1 L [place] % (Auto) 9.1 Eos % (Auto) 0.7 Baso % (Auto) 1.0 Lymph # (Auto) 1.0 L [place] # (Auto) 1.0 Eos # (Auto) 0.1 Baso # (Auto) 0.1 Abs Immat Gran (auto) 0.06 H Absolute Neuts (auto) 9.1 H Absolute Nucleated RBC 0.000 Nucleated RBC % (auto) 0.0 PT 14.6 H INR 1.2 H APTT 26.8 D-Dimer High Sensitivty 256 Anion Gap 15 Estim Creat Clear Calc 45.6 Estimated GFR > 60 POC Glucose 129 H Random Glucose 139 H Calcium 8.9 Magnesium Total Bilirubin 2.1 H AST 19 ALT 12 Alkaline Phosphatase 141 H Troponin I High Sens 3.9 B-Natriuretic Peptide 386 H Total Protein 6.3 L Albumin 3.4 L Influenza Type A (PCR) NEGATIVE Influenza Type B (PCR) NEGATIVE RSV RNA Qual (PCR) NEGATIVE SARS-CoV-2 RNA (RT-PCR) NEGATIVE 03/15/24 03/16/24 03/16/24 22:17 05:38 07:00 MCV 109.9 H MCH 34.7 H MCHC 31.6 RDW 15.3 Plt Count 350 MPV 11.9 Immature Gran % (Auto) Neut % (Auto) Lymph % (Auto) [place] % (Auto) Eos % (Auto) Baso % (Auto) Lymph # (Auto) [place] # (Auto) Eos # (Auto) Baso # (Auto) Abs Immat Gran (auto) Absolute Neuts (auto) Absolute Nucleated RBC 0.020 H Nucleated RBC % (auto) 0.1 PT INR APTT D-Dimer High Sensitivty Anion Gap 13 Estim Creat Clear Calc 34.6 Estimated GFR 47 POC Glucose 293 H 183 H Random Glucose 174 H Calcium 8.5 Magnesium 2.2 Total Bilirubin AST ALT Alkaline Phosphatase Troponin I High Sens B-Natriuretic Peptide Total Protein Albumin Influenza Type A (PCR) Influenza Type B (PCR) RSV RNA Qual (PCR) SARS-CoV-2 RNA (RT-PCR) Assessment and Plan (1) Hypoxia: Status: Acute Plan 79F PMH metastic adenocarcinoma of left lung, CAD, SVT< hfpef, dm, htn, hld, hypothyroid presented with sob Acute hypoxic respiratory failure secondary to postobstructive pneumonia due to metastatic adenocarcinoma of left lung further complicated by acute on chronic diastolic CHF Continue ceftriaxone azithromycin, follow-up cultures IV Lasix [id number] left pleural effusion Plan for thoracentesis, diagnostic and therapeutic Coronary disease Restart dual antiplatelet after thoracentesis, continue statin Diabetes Insulin sliding scale Hypothyroid Levothyroxine Hypertension Holding lisinopril for low normal blood pressure SVT On amiodarone and Coreg DVT prophylaxis with Lovenox Full code reason for continued hospitalization: Hypoxic Quality Stroke Does the patient have a stroke diagnosis?: No VTE Prior VTE?: No VTE Risk Level:: Medical - moderate - high VTE Device Contraindication: N/A - Device Ordered VTE Drug Contraindication: Treatment Not Indicated
[2024-03-16 11:43] LABS: Glucose, Whole Blood 213 mg/dL (60-115)
--- NOTE | 2024-03-16 12:41 | P.CONPL_ITS ---
History of Present Illness History of Present Illness Consult date: 03/16/24 Chief complaint: Pneumonia, Hypoxia Narrative: 79-year-old former 50+ pack-year smoker with underlying COPD, adenocarcinoma of left lung status post left upper lobe which in 01/29/2023 with metastatic recurrence in January of 2024 on bronchoscopic biopsies now under oncology care with plans for systemic therapy admitted 03/15/2024 with dyspnea for approximately 1 week. On ER evaluation patient noted to be hypoxic requiring supplemental oxygen. She was started on empiric antibiotics. Her CT chest demonstrated left upper lobe consolidative process with possible early cavitation. She was [facility] to [facility]. Review of Systems 2 Constitutional: Constitutional: Denies daytime sleepiness, Denies excessive sweating, Denies fatigue, Denies fever(s), Denies lethargy, Denies malaise, Denies night sweats, Denies snoring and Denies weight loss Eyes: Eyes: Denies blurry vision and Denies itchy eyes ENT: Denies nasal congestion, Denies post nasal drip, Denies sinus pain, Denies sinus pressure and Denies other ( Thrush) Cardiovascular: Cardiovascular: Denies chest pain, Denies pedal edema, Reports leg edema, Reports dyspnea, Reports dyspnea on exertion, Denies orthopnea and Denies paroxysmal nocturnal dyspnea Respiratory: Respiratory: Denies cough, Denies hemoptysis, Denies excessive phlegm production, Reports dyspnea, Reports dyspnea on exertion, Denies snoring and Denies wheezing Gastrointestinal: Gastrointestinal: Denies abdominal pain and Denies heartburn Musculoskeletal: Musculoskeletal: Denies myalgias, Denies arthralgias and Denies joint swelling Integumentary/Breasts: Skin/Breast: Denies rash Neurologic: Denies memory loss and Denies seizure-like activity Psychiatric: Psychiatric: Denies abnormal sleep pattern, Denies anxiety and Denies memory loss Endocrine: Endocrine: Denies excessive sweating, Denies fatigue and Denies heat intolerance Hematologic/Lymphatic: Hematologic/Lymphatic: Denies easy bruising Allergic/Immunologic: Allergic/Immunologic: Denies itchy eyes, Denies seasonal rhinorrhea and Denies wheezing PMFSH Past Medical History Medical History SVT (supraventricular tachycardia) Tachycardia Dyslipidemia PAD (peripheral artery disease) Nicotine dependence, cigarettes, uncomplicated Tubular adenoma of colon Anemia Anxiety CAD (coronary artery disease) Essential hypertension Diabetes type 2, controlled Family History Family History Daughter Lung cancer Father Bone cancer Mother Colon cancer Surgical History Surgical History S/P cardiac catheterization History of lung surgery History of varicose vein stripping History of angioplasty History of heart artery stent History of carpal tunnel surgery of right wrist History of colonoscopy History of splenectomy History of partial pancreatectomy History of cholecystectomy History of appendectomy History of tonsillectomy Social History Social History Household Members: None Housing: House Are you a primary acute care physician to a significant other at home: No Alcohol intake: never Patient Tobacco Use Status: Former Tobacco user Tobacco use type: Cigarette Years Smoked: 50 Smoked in Last 30 Days: No e-Cigarette/Vaping Use: Never Used Second Hand Smoke Exposure: No Use of substances other than those prescribed or required for medical reasons: No Currently Displaying Signs/Symptoms of Drug Intoxication Withdrawal: No Have you been hit, kicked, punched, or otherwise hurt by someone within the past year? If so, by whom?: No Do you feel safe in your current relationship?: No Current Relationship Is there a partner from a previous relationship who is making you feel unsafe now?: No Are you made to feel afraid or neglected: No Advance Directives: Yes Advance Directives on File: Yes Advance Directives Date on File: 01/18/23 Do you have a plan to hurt others: No Plan Recently lost weight without trying: No Eating poorly because of decreased appetite: No Nutrition Risks: No Nutritional Risk Patient : No : No Poor oral hygiene: No service: No Current occupational status: retired Current occupational exposures/hazards: No Cognitive needs: No Hearing needs: No Vision needs: No Meds Allergies Allergy/AdvReac Type Severity Reaction Status Date / Time No Known Allergies Allergy Verified 03/15/24 12:17 Active Medications: Current Medications Acetaminophen (Acetaminophen 325 Mg Tablet) 650 mg PO Q6H PRN PRN Reason: Pain, Mild (Pain Scale 1-3), fever or headache Albuterol/Ipratropium (Albuterol/Iprat 2.5/0.5mg 3 Ml Ampul.Neb) 3 ml INHALE RQ4H WHILE AWAKE [facility] Last Admin: 03/16/24 11:20 Dose: 3 ml Amiodarone HCl (Amiodarone Hcl 200 Mg Tablet) 200 mg PO DAILY [facility] Last Admin: 03/16/24 07:57 Dose: 200 mg Aspirin (Aspirin Enteric Coated 81 Mg Tablet.Dr) 81 mg PO DAILY [facility] Atorvastatin Calcium (Atorvastatin Calcium 80 Mg Tablet) 80 mg PO BEDTIME [facility] Last Admin: 03/15/24 22:11 Dose: 80 mg Calcium Carbonate (Calcium Carbonate 750 Mg Tab.Chew) 750 mg PO Q4H PRN PRN Reason: Heartburn Carvedilol (Carvedilol 6.25 Mg Tablet) 6.25 mg PO BID [facility]; Protocol Last Admin: 03/16/24 07:58 Dose: 6.25 mg Clopidogrel Bisulfate (Clopidogrel Bisulfate 75 Mg Tablet) 75 mg PO DAILY [facility] Ezetimibe (Ezetimibe 10 Mg Tablet) 10 mg PO BEDTIME [facility] Last Admin: 03/15/24 22:11 Dose: 10 mg Enoxaparin Sodium (Enoxaparin Sodium 40 Mg/0.4 Ml Syringe) 40 mg SUBCUT Q24H [facility] Fluticasone Propionate (Fluticasone Propionate Nasal 16 Gm [place]) 1 spray NOSTRIL-B Q12H PRN PRN Reason: Congestion Folic Acid (Folic Acid 1 Mg Tablet) 1 mg PO DAILY [facility] Last Admin: 03/16/24 07:57 Dose: 1 mg Furosemide (Furosemide 20 Mg Tablet) 20 mg PO BID@0900,1800 [facility]; Protocol Glucose (Glucose Gel 15 Gm Gel..Gram.) 15 gm PO Q15M PRN; Protocol PRN Reason: per Hypoglycemia Standing Ord. Guaifenesin/Codeine Phosphate (Guaifen/Codeine Sf 200/20/10ml 10 Ml Liquid) 10 ml PO Q4H PRN PRN Reason: Cough Last Admin: 03/16/24 06:04 Dose: 10 ml Azithromycin 500 mg/ Sodium (Chloride) 250 mls @ 125 mls/hr IV Q24H [facility] Ceftriaxone Sodium 1 gm/ (Sodium Chloride) 50 mls @ 100 mls/hr IV Q24H [facility] Dextrose (D10) 250 mls @ 750 mls/hr IV Q15M PRN; Protocol PRN Reason: per Hypoglycemia Standing Ord. Insulin Glargine (Insulin Glargine,Hum.Rec.Anlog 100 Unit/Ml 10 Ml Vial) 11 unit SUBCUT BEDTIME [facility] Last Admin: 03/15/24 22:23 Dose: 11 unit Insulin Human Lispro (Insulin Lispro 100 Unit/Ml 3 Ml Vial) 0 unit SUBCUT QIDACHS [facility]; Protocol Last Admin: 03/16/24 11:51 Dose: 4 unit Isosorbide Mononitrate (Isosorbide Mononitrate 30 Mg Tab.Er.24h) 30 mg PO DAILY [facility]; Protocol Last Admin: 03/16/24 07:57 Dose: 30 mg Levothyroxine Sodium (Levothyroxine Sodium 25 Mcg Tablet) 25 mcg PO DAILY@0600 [facility] Last Admin: 03/16/24 06:01 Dose: 25 mcg Magnesium Hydroxide (Milk Of Magnesia 30 Ml Oral.Susp) 30 ml PO DAILY PRN PRN Reason: Constipation Melatonin (Melatonin 3 Mg Tablet) 6 mg PO BEDTIME PRN PRN Reason: Insomnia Ondansetron HCl (Ondansetron Hcl 4 Mg/2 Ml Vial) 4 mg IVPUSH Q8H PRN PRN Reason: Nausea and Vomiting Sodium Chloride (0.9 % Sodium Chloride Flush 3 Ml Syringe) 3 ml IVFLUSH QSHIFT [facility] Last Admin: 03/16/24 07:58 Dose: 3 ml Tramadol HCl (Tramadol Hcl 50 Mg Tablet) 50 mg PO Q8H PRN PRN Reason: Breakthrough Pain, Moderate Home Medications ?Medication ?Instructions ?Recorded ?Confirmed ?Last Taken ?Type atorvastatin 80 mg tablet 80 mg PO BEDTIME 08/21/20 03/15/24 03/14/24 History blood sugar diagnostic #10 ea 08/21/20 02/28/24 Unknown History blood-glucose meter #1 ea 08/21/20 02/28/24 Unknown History pen needle, diabetic 31 gauge x #50 ea 08/21/20 02/28/24 Unknown History 11/25 insulin aspart U-100 100 unit/mL 0 sliding scale dose subcut QIDACHS 11/19/22 03/15/24 03/15/24 History (3 mL) subcutaneous pen (Novolog FlexPen U-100 Insulin aspart) lancets 30 gauge (OneTouch [place] #100 ea 11/19/22 02/28/24 Unknown History Plus Lancet) ezetimibe 10 mg tablet 10 mg PO BEDTIME 03/15/24 03/15/24 03/14/24 History fluticasone propionate 50 1 spray intranasal Q12H PRN 03/15/24 03/15/24 03/15/24 History mcg/actuation nasal Congestion spray,suspension (Flonase Allergy Relief) furosemide 20 mg tablet 20 mg PO BID@0900,1700 03/15/24 03/15/24 03/15/24 History insulin detemir U-100 100 unit/mL 16 unit subcut BEDTIME 03/15/24 03/15/24 03/15/24 History (3 mL) subcutaneous pen lisinopril 20 mg tablet 10 mg PO DAILY 03/15/24 03/15/24 03/15/24 History ondansetron 8 mg disintegrating 8 mg PO Q8H PRN Nausea And Vomiting 03/15/24 03/15/24 03/15/24 History tablet Physical Exam 2 Vital Signs: Vital Signs: Last Vital Signs Temp 97.2 F 03/16/24 11:37 Pulse 70 03/16/24 11:37 Resp 18 03/16/24 11:37 BP 119/58 L 03/16/24 11:37 Pulse Ox 100 03/16/24 11:37 O2 Del Method Nasal Cannula 03/16/24 11:37 O2 Flow Rate 3 03/16/24 11:37 BMI result Body Mass Index 28.2 Const: General: no acute distress and alert Nutritional Appearance: not obese Orientation/consciousness: Other orientation findings ( oriented) HEENT: Head: Yes atraumatic Eyes: General: appearance normal, both eyes and all related structures S clerae: sclerae normal EOM: EOMs intact bilaterally Neck: Neck: Yes supple Lymphatic: no lymphadenopathy noted Resp: Effort & Inspection: normal respiratory effort and no use of accessory muscles Auscultation: clear to auscultation bilaterally Cardio: Rate: regular rate Rhythm: regular rhythm Heart sounds: no gallops, no murmurs and no rubs Skin: General skin exam: other ( warm) Extrem: General: No clubbing, No cyanosis and Yes edema (Trace bilateral) Results Laboratory Findings 03/16/24 05:38 03/16/24 05:38 ABG, PT/INR, D-dimer: PT/INR, D-dimer PT 14.6 SEC (11.1-13.3) H 03/15/24 13:14 INR 1.2 (0.9-1.1) H 03/15/24 13:14 Abnormal lab findings: Abnormal Labs 03/15/24 03/15/24 03/15/24 13:14 18:14 22:17 WBC 11.5 H RBC 2.71 L Hgb 10.1 L Hct 29.6 L MCV 109.2 H MCH 37.3 H Immature Gran % (Auto) 0.5 H Neut % (Auto) 79.6 H Lymph % (Auto) 9.1 L Lymph # (Auto) 1.0 L Abs Immat Gran (auto) 0.06 H Absolute Neuts (auto) 9.1 H Absolute Nucleated RBC PT 14.6 H INR 1.2 H BUN 18 H POC Glucose 129 H 293 H Random Glucose 139 H Total Bilirubin 2.1 H Alkaline Phosphatase 141 H B-Natriuretic Peptide 386 H Total Protein 6.3 L Albumin 3.4 L 03/16/24 03/16/24 03/16/24 05:38 07:00 11:35 WBC 14.4 H RBC 2.94 L Hgb 10.2 L Hct 32.3 L MCV 109.9 H MCH 34.7 H Immature Gran % (Auto) Neut % (Auto) Lymph % (Auto) Lymph # (Auto) Abs Immat Gran (auto) Absolute Neuts (auto) Absolute Nucleated RBC 0.020 H PT INR BUN 20 H POC Glucose 183 H 213 H Random Glucose 174 H Total Bilirubin Alkaline Phosphatase B-Natriuretic Peptide Total Protein Albumin Assessment and Plan (1) 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 Also, noted to have small bilateral pleural effusions. Recommendations: At this time would advise against thoracentesis as her bilateral pleural effusions are small to moderate and likely secondary to underlying congestive heart failure. Agree with current antibiotic regimen for empiric coverage of community-acquired pneumonia. Consider judicious increase in diuresis. Procedures Date of Service Date of Service: 03/16/24
--- NOTE | 2024-03-16 13:47 | P.CNHO_ITS ---
Subjective - Subjective Chief complaint: Consult for: Hgw-[id number]-[id number] lung carcinoma. Pneumonia. Patient: known to practice within the last 3 years Consult date: 03/16/24 Requesting Physician: Micheal. Primary Care Provider: Kenji Mcnally MD Family Provider: Kenji Mcnally MD Medical Summary: DIAGNOSIS: [id number] lung carcinoma. HPI - Consult Narrative Narrative: Bhupendra Morgan is a 79 year old lady, who presents to the ED with?shortness of breath and EVERETT x1 week and lower leg edema x3 days. Has been experiencing cough mostly productive of clear sputum. No fever or chills. Denies chest pain or pressure. No palpitations. She also has been experiencing lower back pain x1 week, which is a new symptom for her. No history of recent falls or known trauma to the area. Patient states on 08/01/2023 at [facility] had thoracentesis with 750 cc drained. PET scan on 02/06/2024 revealed activity in supraclavicular and multiple mediastinal lymph nodes suspicious for recurrent/residual neoplasm with metastatic disease. In the ED pt was tachypneic up to 24 hypoxic as low as 85% on RA and was soft BP as low as 115/54. Labs were significant for leukocytosis of 11.5, stable macrocytic anemia 10.1/29.6 with MCV 109.2, bilirubin 2.1, alk-phos 141, and BNP 386. Mildly elevated D-dimer of 256. No significant electrolyte abnormalities. Tested negative for flu, RSV, and COVID. CXR showed pneumonia in left lung and pleural effusion. CTA of chest found no evidence of pulmonary embolism, but showed likely pulmonary artery hypertension. Did show left upper lobe consolidation with air bubbles in the center of the consolidation, and bilateral pleural effusion and right lung nodules. Also showed mediastinal and right hilar lymphadenopathy. EKG demonstrated normal sinus rhythm showing pulmonary disease pattern without evidence of significant ST elevations or depressions. Pt was treated with DuoNebs, azithromycin, and ceftriaxone. Pt will be admitted to the hospital for treatment and further evaluation of acute hypoxic respiratory failure in the setting of left upper lobe pneumonia. PAST MEDICAL HISTORY: Ssignificant for: Metastatic?wpg-ewoss-ugae left lung cancer s/p resection and segmentectomy. CAD s/p stenting. SVT, HFpEF, Insulin-dependent type 2 diabetes, HTN, HLD, and Hypothyroidism. Surgical History: S/P cardiac catheterization History of lung surgery History of varicose vein stripping History of angioplasty History of heart artery stent History of carpal tunnel surgery of right wrist History of colonoscopy History of splenectomy History of partial pancreatectomy History of cholecystectomy History of appendectomy History of tonsillectomy Family History: Daughter Lung cancer Father Bone cancer Mother Colon cancer Social History: Household Members: None [facility] Are you a primary home care nurse to a significant other at home: No Alcohol intake: never Patient Tobacco Use Status: Former Tobacco user Tobacco use type: Cigarette Years Smoked: 50. ROS: She has a hard time walking due to shortness of breath. No fever chills or night sweats. No headache no dizziness. She denies chest pain. She occasionally feels pain in her right upper quadrant area. Denies nausea vomiting nor diarrhea. Bowels are working without any gross blood in it. She had a colonoscopy several years ago by Dr. Acevedo. Appetite is good. She has gained some weight. No dysuria or hematuria. Denies any pelvic pain no discharge. She has aches and pains in her joints. Her legs are weak. She has reactive depression. She is rather sad on account of the demise of her . No skin rashes nor pruritus. Review of Systems - Constitutional Reports no additional constitutional complaints - Eyes Reports no additional eye complaints - ENT Reports no additional ear, nose, mouth, and throat complaints - Cardiovascular Reports no additional cardiovascular complaints - Respiratory Reports no additional respiratory complaints - Gastrointestinal Reports no additional gastrointestinal complaints - Genitourinary Reports no additional female genitourinary complaints - Musculoskeletal Reports no additional musculoskeletal complaints - Integumentary/Breasts Skin/Breast: Reports no additional skin complaints - Neurologic Denies memory loss, Denies seizure-like activity, Denies sensory deficit - Psychiatric Reports no additional psychiatric complaints - Endocrine Reports no additional endocrine complaints - Hematologic/Lymphatic Reports no additional hematologic/lymphatic complaints - Allergic/Immunologic Reports no additional allergic/immunologic complaints Oncology Screenings - ECOG Performance Status ECOG Performance Status: 2 [facility] Medical History: Medical History (Last Reviewed 03/15/24 @ 18:20 by DAVID Fallon) Anemia Anxiety CAD (coronary artery disease) Diabetes type 2, controlled Dyslipidemia Essential hypertension Nicotine dependence, cigarettes, uncomplicated PAD (peripheral artery disease) SVT (supraventricular tachycardia) Tachycardia Tubular adenoma of colon Functional capacity: uses cane/walker Patient : No Family History: Family History (Last Reviewed 03/15/24 @ 18:20 by DAVID Fallon) Daughter Lung cancer Father Bone cancer Mother Colon cancer Surgical History: Surgical History (Last Reviewed 03/15/24 @ 18:20 by DAVID Fallon) History of angioplasty History of appendectomy History of carpal tunnel surgery of right wrist History of cholecystectomy History of colonoscopy History of heart artery stent History of lung surgery History of partial pancreatectomy History of splenectomy History of tonsillectomy History of varicose vein stripping S/P cardiac catheterization Social History: Social History (Last Reviewed 03/15/24 @ 18:20 by DAVID Fallon) Living Situation History: Household Members: None Housing: House Are you a primary home care nurse to a significant other at home: No Alcohol History Details: 1. How often do you have a drink containing alcohol?: a. Never 3. How often do you have six or more drinks on one occasion?: a. Never AUDIT-C Alcohol total score: 0 Last drink: Unknown Currently Displaying Signs/Symptoms of Alcohol Withdrawal: No Tobacco History: Patient Tobacco Use Status: Former Tobacco user Tobacco use type: Cigarette Years Smoked: 50 Smoked in Last 30 Days: No e-Cigarette/Vaping Use: Never Used Second Hand Smoke Exposure: No Substance Use History: Use of substances other than those prescribed or required for medical reasons : No Currently Displaying Signs/Symptoms of Drug Intoxication Withdrawal: No Domestic Abuse History: Have you been hit, kicked, punched, or otherwise hurt by someone within the past year? If so, by whom?: No Do you feel safe in your current relationship?: No Current Relationship Is there a partner from a previous relationship who is making you feel unsafe now?: No Are you made to feel afraid or neglected: No Advance Directives: Advance Directives: Yes Advance Directives on File: Yes Advance Directives Date on File: 01/18/23 Homicidal Assessment: Do you have a plan to hurt others: No Plan Nutrition Assessment: Recently lost weight without trying: No Eating poorly because of decreased appetite: No Nutrition Risks: No Nutritional Risk Patient : No : No Poor oral hygiene: No Occupation Assessmet: service: No Current occupational status: retired Current occupational exposures/hazards: No Home Medications and Allergies Current Medications: Current Medications Acetaminophen (Acetaminophen 325 Mg Tablet) 650 mg PO Q6H PRN PRN Reason: Pain, Mild (Pain Scale 1-3), fever or headache Albuterol/Ipratropium (Albuterol/Iprat 2.5/0.5mg 3 Ml Ampul.Neb) 3 ml INHALE RQ4H WHILE AWAKE [facility] Last Admin: 03/16/24 11:20 Dose: 3 ml Amiodarone HCl (Amiodarone Hcl 200 Mg Tablet) 200 mg PO DAILY [facility] Last Admin: 03/16/24 07:57 Dose: 200 mg Aspirin (Aspirin Enteric Coated 81 Mg Tablet.Dr) 81 mg PO DAILY [facility] Atorvastatin Calcium (Atorvastatin Calcium 80 Mg Tablet) 80 mg PO BEDTIME [facility] Last Admin: 03/15/24 22:11 Dose: 80 mg Calcium Carbonate (Calcium Carbonate 750 Mg Tab.Chew) 750 mg PO Q4H PRN PRN Reason: Heartburn Carvedilol (Carvedilol 6.25 Mg Tablet) 6.25 mg PO BID [facility]; Protocol Last Admin: 03/16/24 07:58 Dose: 6.25 mg Clopidogrel Bisulfate (Clopidogrel Bisulfate 75 Mg Tablet) 75 mg PO DAILY [facility] Ezetimibe (Ezetimibe 10 Mg Tablet) 10 mg PO BEDTIME [facility] Last Admin: 03/15/24 22:11 Dose: 10 mg Enoxaparin Sodium (Enoxaparin Sodium 40 Mg/0.4 Ml Syringe) 40 mg SUBCUT Q24H [facility] Fluticasone Propionate (Fluticasone Propionate Nasal 16 Gm [place]) 1 spray NOSTRIL-B Q12H PRN PRN Reason: Congestion Folic Acid (Folic Acid 1 Mg Tablet) 1 mg PO DAILY [facility] Last Admin: 03/16/24 07:57 Dose: 1 mg Furosemide (Furosemide 20 Mg Tablet) 20 mg PO BID@0900,1800 [facility]; Protocol Glucose (Glucose Gel 15 Gm Gel..Gram.) 15 gm PO Q15M PRN; Protocol PRN Reason: per Hypoglycemia Standing Ord. Guaifenesin/Codeine Phosphate (Guaifen/Codeine Sf 200/20/10ml 10 Ml Liquid) 10 ml PO Q4H PRN PRN Reason: Cough Last Admin: 03/16/24 06:04 Dose: 10 ml Azithromycin 500 mg/ Sodium (Chloride) 250 mls @ 125 mls/hr IV Q24H [facility] Ceftriaxone Sodium 1 gm/ (Sodium Chloride) 50 mls @ 100 mls/hr IV Q24H [facility] Dextrose (D10) 250 mls @ 750 mls/hr IV Q15M PRN; Protocol PRN Reason: per Hypoglycemia Standing Ord. Insulin Glargine (Insulin Glargine,Hum.Rec.Anlog 100 Unit/Ml 10 Ml Vial) 11 unit SUBCUT BEDTIME [facility] Last Admin: 03/15/24 22:23 Dose: 11 unit Insulin Human Lispro (Insulin Lispro 100 Unit/Ml 3 Ml Vial) 0 unit SUBCUT QIDACHS [facility]; Protocol Last Admin: 03/16/24 11:51 Dose: 4 unit Isosorbide Mononitrate (Isosorbide Mononitrate 30 Mg Tab.Er.24h) 30 mg PO DAILY [facility]; Protocol Last Admin: 03/16/24 07:57 Dose: 30 mg Levothyroxine Sodium (Levothyroxine Sodium 25 Mcg Tablet) 25 mcg PO DAILY@0600 [facility] Last Admin: 03/16/24 06:01 Dose: 25 mcg Magnesium Hydroxide (Milk Of Magnesia 30 Ml Oral.Susp) 30 ml PO DAILY PRN PRN Reason: Constipation Melatonin (Melatonin 3 Mg Tablet) 6 mg PO BEDTIME PRN PRN Reason: Insomnia Ondansetron HCl (Ondansetron Hcl 4 Mg/2 Ml Vial) 4 mg IVPUSH Q8H PRN PRN Reason: Nausea and Vomiting Sodium Chloride (0.9 % Sodium Chloride Flush 3 Ml Syringe) 3 ml IVFLUSH QSHIFT [facility] Last Admin: 03/16/24 07:58 Dose: 3 ml Tramadol HCl (Tramadol Hcl 50 Mg Tablet) 50 mg PO Q8H PRN PRN Reason: Breakthrough Pain, Moderate Home Medications ?Medication ?Instructions ?Recorded ?Confirmed ?Type atorvastatin 80 mg tablet 80 mg PO BEDTIME 08/21/20 03/15/24 History blood sugar diagnostic #10 ea 08/21/20 02/28/24 History blood-glucose meter #1 ea 08/21/20 02/28/24 History pen needle, diabetic 31 gauge x #50 ea 08/21/20 02/28/24 History 3/16 insulin aspart U-100 100 unit/mL 0 sliding scale dose subcut QIDACHS 11/19/22 03/15/24 History (3 mL) subcutaneous pen (Novolog FlexPen U-100 Insulin aspart) lancets 30 gauge (OneTouch Delica #100 ea 11/19/22 02/28/24 History Plus Lancet) ezetimibe 10 mg tablet 10 mg PO BEDTIME 03/15/24 03/15/24 History fluticasone propionate 50 1 spray intranasal Q12H PRN 03/15/24 03/15/24 History mcg/actuation nasal Congestion spray,suspension (Flonase Allergy Relief) furosemide 20 mg tablet 20 mg PO BID@0900,1700 03/15/24 03/15/24 History insulin detemir U-100 100 unit/mL 16 unit subcut BEDTIME 03/15/24 03/15/24 History (3 mL) subcutaneous pen lisinopril 20 mg tablet 10 mg PO DAILY 03/15/24 03/15/24 History ondansetron 8 mg disintegrating 8 mg PO Q8H PRN Nausea And Vomiting 03/15/24 03/15/24 History tablet Allergies Allergy/AdvReac Type Severity Reaction Status Date / Time No Known Allergies Allergy Verified 03/15/24 12:17 Physical Exam Vital signs: Vital Signs Temp 97.2 F 03/16/24 11:37 Pulse 70 03/16/24 11:37 Resp 18 03/16/24 11:37 BP 119/58 L 03/16/24 11:37 Pulse Ox 100 03/16/24 11:37 O2 Del Method Nasal Cannula 03/16/24 11:37 O2 Flow Rate 3 03/16/24 11:37 Intake & Output 03/15/24 03/16/24 03/16/24 18:59 06:59 18:59 Intake Total 300 / 900 600 / 900 Balance 300 / 900 600 / 900 Intake: Intake, Oral Amount 600 / 600 Intake, IV Amount 300 / 300 Azithromycin 500 mg In 0.9 % 250 / 250 Sodium Chloride 250 ml @ 125 mls/hr IV ONCE ONE Rx#: [id number] cefTRIAXone sodium 1 gm In 0.9 50 / 50 % Sodium Chloride 50 ml @ 100 mls/hr IV ONCE ONE Rx#: [id number] Other: Dinner % Eaten 50% Eating (Feeding) Ability Independent Number of Unmeasured Voids 2 Urine Bathroom Urine Color Yellow Last Bowel Movement 03/15/24 Stool Bathroom Stool Color Yellow Weight 65.998 kg 65.5 kg [place] Weight in Grams 74572 Weight 65.5 kg Hem/Onc Consult Result - Labs CBC & Chem 7: 03/16/24 05:38 03/16/24 05:38 Labs: Short CBC 03/16/24 Range/Units 05:38 WBC 14.4 H (4.8-10.8) X10*3/uL Hgb 10.2 L (12.0-16.0) g/dl Hct 32.3 L (37.0-47.0) % Plt Count 350 (160-400) X10*3/uL BMP 03/15/24 03/16/24 13:14 05:38 Sodium 137 139 Potassium 3.8 3.9 Chloride 101 102 Carbon Dioxide 25 28 BUN 18 H 20 H Creatinine 0.86 1.13 Calcium 8.9 8.5 Liver Function 03/15/24 Range/Units 13:14 Total Bilirubin 2.1 H (0.0-1.0) mg/dL AST 19 (5-31) U/L ALT 12 (0-31) U/L Alkaline Phosphatase 141 H (39-117) U/L Albumin 3.4 L (3.5-5.0) g/dL Assessment and Plan Patient Active problem list reviewed?: Yes (1) 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 Status: Acute Assessment and plan: This is a pleasant 77-year-old lady with a history of 56 [address] of smoking. CT scan of the chest was ordered which was done on 10/12 and revealed: 1. Centrilobular emphysema with multiple pulmonary nodules. The largest nodule measures 1.8 cm in the lingula. 2. Small to moderate size lymph nodes seen in the mediastinum and bilateral hilar regions question metastatic 3. Moderate coronary artery calcifications. 4. Cholecystectomy changes. Concern is underlying lung cancer, given the history of smoking. LDH is 528, makes me wonder if she has small cell of the lung. I proceeded with further staging workup. l checked a PET scan. She had a PET scan on 12/14: 1. A solid nodule in the lingula shows only weak FDG activity, suggesting a benign etiology. However because approximately 10% of pulmonary malignancies demonstrate no abnormal FDG activity, if biopsy of this nodule is not obtained, followup with diagnostic chest CT scan in 6 months is recommended. 2. Several additional small subcentimeter pulmonary nodules are present, unchanged from 10/12/2022 and all too small to be characterized on the FDG PET images. Follow-up of these with diagnostic CT imaging also an approximately 6 months is recommended. 3. A 6.1 cm left adnexal cyst is present. This shows fluid density and is markedly FDG photopenic and probably benign. However, further characterization of this with pelvic ultrasonography is recommended. This was not present on the 12/08/2018 CT scan. 4. A hyperdense 2.4 cm right adnexal lesion shows no abnormal FDG activity and is not significantly changed from 12/08/2018. This is likely benign but could also be further characterized with pelvic ultrasound. 5. No additional abnormalities suspicious for metastatic or other malignant lesions are noted. 6. Postsurgical changes in the abdomen are noted. 7. Diffuse vascular calcifications including coronary are noted. There are also prominent calcifications of the aortic valve. She was given 3 options by : 1. Continued observation which I do not necessarily recommend versus 2. Navigational bronchoscopy with biopsy versus 3. Davinci left upper lobe wedge possible segmentectomy/lobectomy. We discussed the risks and benefits each of these options in some detail. She discussed this with her family and friends, and decided to proceed with left Upper lobe wedge resection. She had a PET scan done on 12/14/2022 which showed: Minimal PET uptake in the nodule itself SUV of 2.1 but no increased uptake elsewhere in the chest or outside of the chest. She had pulmonary function testing done on 11/30/2022 which shows an FEV1 of 91% of predicted and a DLCO VA of 55% of predicted. Of note she does have a history of multiple coronary stents and will be seen by Dr. Tinoco from Cardiology on 01/25, for preop clearance. She underwent surgery on 02/[address] Guevara at [facility]. She had resection and segmentectomy via the DA Mary Carmen approach. Pathology: Left upper lobe of the lung: Size: 1.4 x 0.9 x 0.6 cm. Invasive adenocarcinoma. Micropapillary and solid type. JANEY: Present. Visceral pleural invasion: Present. Lymphovascular invasion: Present. Biomarker studies: PDL-1: Positive 60%. ROS: Negative. EGFR: Negative. ALK: negative. KRAS: Positive: c34G>T(p.G12C) Recent CT scan had revealed: Pulmonary nodule and New mediastinal adenopathy. She had EBUS done on 01/[address] Willis. Left upper lobe bronchial washings: No malignant cells identified. Lymph node: Right paratracheal: Metastatic adenocarcinoma. Lymph node: subcarinal: Metastatic adenocarcinoma. Lymph node: left paratracheal: Metastatic adenocarcinoma. Similar to left upper lobe pulmonary adenocarcinoma. Positive for TTF 1. Molecular testing pending on the right paratracheal lymph node. PET scan from 02/06/2024 revealed increased uptake in all of these same lymph nodes as well as left hilar and infrahilar oral, cervical and supraclavicular lymph. There is no distended uptake. She now has stage IV disease. I recommended treatment with pembrolizumab as immunotherapy. She was actually scheduled for it today.. Unfortunately she was admitted with hypoxia, a combination of left upper lobe pneumonia and CHF exacerbation. Also, noted to have small bilateral pleural effusions. Treated with empiric antibiotics and diuretic. PLAN: Patient is currently being treated for pneumonia and COPD exacerbation. Will be re-evaluated on Tuesday to see if she needs further thoracentesis. Would hold antiplatelet therapy for that. She was due for her pembrolizumab today but will reschedule it to next week. Thank you for the consult, Will follow, CC: Dr. Mora. - Time Spent With Patient Time Spent with Patient (in minutes): 30
[2024-03-16] MEDS: Azithromycin 500 MG in 0.9 % Sodium Chloride 250 ML 125 MG IV (14:42)
[2024-03-16 16:23] LABS: Glucose, Whole Blood 220 mg/dL (60-115)
--- NOTE | 2024-03-16 16:26 | PC.NURSE ---
Approximately 1600- patient with c/o soreness and burning at IV site with azithromycin infusing. Infusion paused and site assessed. Pain and discomfort with flush. Swelling and mild erythema present. Skin cool to touch. IV removed. Patient tolerated well. Device intact. Ultrasound guided IV placement requested by this RN. Dr. Marco Burton made aware patient is currently without IV access and of plan for new placement.
--- NOTE | 2024-03-16 18:01 | PC.NURSE ---
Unable to obtain IV access via ultrasound. Nursing supervisor fertilizer processing notified. Dr. Burton aware. Patient remains without IV access at this time.
[2024-03-16] MEDS: Furosemide 20 MG TABLET PO (18:18)
[2024-03-16] MEDS: Enoxaparin Sodium 40 MG/0.4 ML SYRINGE SUBCUT (18:18)
--- NOTE | 2024-03-16 18:48 | PC.NURSE ---
IV access obtained by nursing building insulation supervisor. 22 gauge to left wrist. Dr. Burton notified.
[2024-03-16] MEDS: cefTRIAXone sodium 1 GM in 0.9 % Sodium Chloride 50 ML IV (19:05)
[2024-03-16 20:52] LABS: Glucose, Whole Blood 173 mg/dL (60-115)
[2024-03-16] MEDS: Ezetimibe 10 MG TABLET PO (21:25)
[2024-03-16] MEDS: Atorvastatin Calcium 80 MG TABLET PO (21:25)
[2024-03-16] MEDS: Insulin Glargine,Hum.rec.anlog 100 UNIT/ML 10 ML VIAL 11 UNIT SUBCUT (21:29)
[2024-03-16] MEDS: Morphine Sulfate 2 MG/ML CARTRIDGE IVPUSH (22:03)
[2024-03-17] VITALS (15 sets, daily range): BP systolic 110–147; BP diastolic 53–65; PULSE 71–85; RESP 14–20; TEMP 36.3–36.9; O2SAT 90–94
[2024-03-17] MEDS: Morphine Sulfate 2 MG/ML CARTRIDGE IVPUSH ×2 (02:58→21:03)
--- NOTE | 2024-03-17 03:30 | PC.NURSE ---
Assumed care of patient at 19:00. Pt seen on s3, here this admission with?shortness of breath and EVERETT for one week, BLE edema x3 days. Pt is A&Ox4. Evening VSS. Patient on 3L nc on assuming care with spo2 96% in the evening. Pt denied sob. Breathing observed even and unlabored without distress or EVERETT when group underwriter assisted patient with ambulating to BR to void. Patient c/o 10/10 pain in her back in the evening. Pain regimen and prn medications reviewed with patient; order for prn tramadol discussed with patient though pt stated, I took it last week at home from my oncologist. It doesn't work . Pt requested something else. Covering Dr. Sierra notified with MD order placed for IVP morphine q4h. Given with +effect. 02:00 hour patient was assisted to the bathroom with standby assistance again to void as requested when she was notably sob on exertion which did not resolve when returned to bed and allowed a few minutes to recover; Spo2 was 91-92% on 3L nc, mild tachypnea/sob at rest. Of note, imaging done earlier this admission showed bilateral pleural effusion and right lung nodules; heme-onc was consulted and patient tentatively planned for thoracentesis on Tuesday. Dr. Sierra notified of dyspnea; MD Wilson at 02:54 to group underwriter to give prn morphine for dyspnea. Given with +effect. Spo2 improved to 93% and patient without sob at rest, RR 18, verbalized improvement. Bed alarm on, safety measures in place.
[2024-03-17] MEDS: Levothyroxine Sodium 25 MCG TABLET PO (05:57)
[2024-03-17] MEDS: Albuterol/Iprat 2.5/0.5MG 3 ML AMPUL.NEB INHALE ×4 (07:36→18:49)
[2024-03-17 07:59] LABS: Glucose, Whole Blood 120 mg/dL (60-115)
[2024-03-17 08:13] LABS: Blood Urea Nitrogen 16 mg/dL (9-16); Calcium 8.9 mg/dL (8.4-10.2); Estimated Glomerular Filt Rate > 60; Glucose Fasting 102 mg/dL (60-99); Glucose Random 101 mg/dL (60-115); Magnesium 2.3 mg/dL (1.6-2.6)
[2024-03-17 08:23] LABS: Hematocrit 33.4 % (37.0-47.0); Hemoglobin 10.7 g/dl (12.0-16.0); Mean Corpuscular Hemoglobin 35.2 pg (27.0-33.0); Mean Corpuscular Volume 109.9 fL (80.0-98.0); Mean Platelet Volume 11.6 fL (9.4-12.3); Platelet Count 367 X10*3/uL (160-400); Red Blood Count 3.04 X10*6/uL (4.20-5.50); Red Cell Distribution Width 15.2 % (11.0-16.0); White Blood Count 15.4 X10*3/uL (4.8-10.8)
[2024-03-17] MEDS: Aspirin Enteric Coated 81 MG TABLET.DR PO (08:26)
[2024-03-17] MEDS: Isosorbide Mononitrate 30 MG TAB.ER.24H PO (08:26)
[2024-03-17] MEDS: Clopidogrel Bisulfate 75 MG TABLET PO (08:26)
[2024-03-17] MEDS: carvediloL 6.25 MG TABLET PO ×2 (08:26→21:00)
[2024-03-17] MEDS: Folic Acid 1 MG TABLET PO (08:26)
[2024-03-17] MEDS: Amiodarone HCL 200 MG TABLET PO (08:26)
[2024-03-17 08:27] LABS: Anion Gap 14 (12-20); Carbon Dioxide 30 mmol/L (22-29); Chloride 101 mmol/L (96-108); Potassium 5.3 mmol/L (3.3-5.1); Sodium 140 mmol/L (135-145)
[2024-03-17] MEDS: 0.9 % Sodium Chloride Flush 3 ML SYRINGE IVFLUSH ×3 (08:27→21:04)
[2024-03-17] MEDS: Furosemide 20 MG TABLET PO ×2 (08:27→18:09)
--- NOTE | 2024-03-17 09:33 | P.PNIM_ITS ---
Subjective Subjective Date of Service: 03/17/24 Interval History: sob Physical Exam 2 Vital Signs: Vital Signs: Last Vital Signs Temp 98.5 F 03/17/24 07:42 Pulse 76 03/17/24 07:42 Resp 17 03/17/24 07:42 BP 147/65 H 03/17/24 07:42 Pulse Ox 94 03/17/24 07:42 O2 Del Method Nasal Cannula 03/17/24 07:42 O2 Flow Rate 2.0 03/17/24 07:42 BMI result Body Mass Index 28.2 Const: General: no acute distress and alert Nutritional Appearance: not obese Orientation/consciousness: Other orientation findings ( oriented) HEENT: Head: Yes atraumatic Eyes: General: appearance normal, both eyes and all related structures S clerae: sclerae normal EOM: EOMs intact bilaterally Neck: Neck: Yes supple Lymphatic: no lymphadenopathy noted Resp: Effort & Inspection: normal respiratory effort and no use of accessory muscles Auscultation: clear to auscultation bilaterally Cardio: Rate: regular rate Rhythm: regular rhythm Heart sounds: no gallops, no murmurs and no rubs Skin: General skin exam: other ( warm) Extrem: General: No clubbing, No cyanosis and Yes edema (Trace bilateral) Objective Data Active Medications Acetaminophen (Acetaminophen 325 Mg Tablet) 650 mg PO Q6H PRN PRN Reason: Pain, Mild (Pain Scale 1-3), fever or headache Albuterol/Ipratropium (Albuterol/Iprat 2.5/0.5mg 3 Ml Ampul.Neb) 3 ml INHALE RQ4H WHILE AWAKE [facility] Last Admin: 03/17/24 07:36 Dose: 3 ml Documented By: OSVALDO Amiodarone HCl (Amiodarone Hcl 200 Mg Tablet) 200 mg PO DAILY [facility] Last Admin: 03/17/24 08:26 Dose: 200 mg Documented By: ROBERTO Aspirin (Aspirin Enteric Coated 81 Mg Tablet.) 81 mg PO DAILY [facility] Last Admin: 03/17/24 08:26 Dose: 81 mg Documented By: ROBERTO Atorvastatin Calcium (Atorvastatin Calcium 80 Mg Tablet) 80 mg PO BEDTIME [facility] Last Admin: 03/16/24 21:25 Dose: 80 mg Documented By: TOMÁS Azithromycin (Azithromycin 500 Mg Tablet) 500 mg PO Q24H [facility] Calcium Carbonate (Calcium Carbonate 750 Mg Tab.Chew) 750 mg PO Q4H PRN PRN Reason: Heartburn Carvedilol (Carvedilol 6.25 Mg Tablet) 6.25 mg PO BID [facility]; Protocol Last Admin: 03/17/24 08:26 Dose: 6.25 mg Documented By: ROBERTO Clopidogrel Bisulfate (Clopidogrel Bisulfate 75 Mg Tablet) 75 mg PO DAILY [facility] Last Admin: 03/17/24 08:26 Dose: 75 mg Documented By: ROBERTO Ezetimibe (Ezetimibe 10 Mg Tablet) 10 mg PO BEDTIME [facility] Last Admin: 03/16/24 21:25 Dose: 10 mg Documented By: TOMÁS Enoxaparin Sodium (Enoxaparin Sodium 40 Mg/0.4 Ml Syringe) 40 mg SUBCUT Q24H [facility] Last Admin: 03/16/24 18:18 Dose: 40 mg Documented By: ROBERTO Fluticasone Propionate (Fluticasone Propionate Nasal 16 Gm [place]) 1 spray NOSTRIL-B Q12H PRN PRN Reason: Congestion Folic Acid (Folic Acid 1 Mg Tablet) 1 mg PO DAILY [facility] Last Admin: 03/17/24 08:26 Dose: 1 mg Documented By: ROBERTO Furosemide (Furosemide 20 Mg Tablet) 20 mg PO BID@0900,1800 [facility]; Protocol Last Admin: 03/17/24 08:27 Dose: 20 mg Documented By: ROBERTO Glucose (Glucose Gel 15 Gm Gel..Gram.) 15 gm PO Q15M PRN; Protocol PRN Reason: per Hypoglycemia Standing Ord. Guaifenesin/Codeine Phosphate (Guaifen/Codeine Sf 200/20/10ml 10 Ml Liquid) 10 ml PO Q4H PRN PRN Reason: Cough Last Admin: 03/16/24 06:04 Dose: 10 ml Documented By: JOSE Dextrose (D10) 250 mls @ 750 mls/hr IV Q15M PRN; Protocol PRN Reason: per Hypoglycemia Standing Ord. Ceftriaxone Sodium 1 gm/ (Sodium Chloride) 50 mls @ 100 mls/hr IV Q24H [facility] Last Infusion: 03/16/24 19:46 Dose: Infused Documented By: TOMÁS Insulin Glargine (Insulin Glargine,Hum.Rec.Anlog 100 Unit/Ml 10 Ml Vial) 11 unit SUBCUT BEDTIME [facility] Last Admin: 03/16/24 21:29 Dose: 11 unit Documented By: TOMÁS Insulin Human Lispro (Insulin Lispro 100 Unit/Ml 3 Ml Vial) 0 unit SUBCUT QIDACHS [facility]; Protocol Last Admin: 03/17/24 08:25 Dose: Not Given Documented By: ROBERTO Non-Admin Reason: No Insulin Coverage Isosorbide Mononitrate (Isosorbide Mononitrate 30 Mg Tab.Er.24h) 30 mg PO DAILY [facility]; Protocol Last Admin: 03/17/24 08:26 Dose: 30 mg Documented By: ROBERTO Levothyroxine Sodium (Levothyroxine Sodium 25 Mcg Tablet) 25 mcg PO DAILY@0600 [facility] Last Admin: 03/17/24 05:57 Dose: 25 mcg Documented By: TOMÁS Magnesium Hydroxide (Milk Of Magnesia 30 Ml Oral.Susp) 30 ml PO DAILY PRN PRN Reason: Constipation Melatonin (Melatonin 3 Mg Tablet) 6 mg PO BEDTIME PRN PRN Reason: Insomnia Morphine Sulfate (Morphine Sulfate 2 Mg/Ml Cartridge) 2 mg IVPUSH Q4H PRN; Protocol PRN Reason: pain or sob Ondansetron HCl (Ondansetron Hcl 4 Mg/2 Ml Vial) 4 mg IVPUSH Q8H PRN PRN Reason: Nausea and Vomiting Sodium Chloride (0.9 % Sodium Chloride Flush 3 Ml Syringe) 3 ml IVFLUSH QSHIFT [facility] Last Admin: 03/17/24 08:27 Dose: 3 ml Documented By: ROBERTO Tramadol HCl (Tramadol Hcl 50 Mg Tablet) 50 mg PO Q8H PRN PRN Reason: Breakthrough Pain, Moderate Labs 03/17/24 06:24 03/17/24 06:24 Labs: Laboratory Results - last 24 hr 03/16/24 03/16/24 03/16/24 11:35 16:11 20:48 MCV MCH MCHC RDW Plt Count MPV Absolute Nucleated RBC Nucleated RBC % (auto) Anion Gap Estim Creat Clear Calc Estimated GFR POC Glucose 213 H 220 H 173 H Random Glucose Fasting Glucose Calcium Magnesium 03/17/24 03/17/24 06:24 07:46 MCV 109.9 H MCH 35.2 H MCHC 32.0 RDW 15.2 Plt Count 367 MPV 11.6 Absolute Nucleated RBC 0.000 Nucleated RBC % (auto) 0.0 Anion Gap 14 Estim Creat Clear Calc 45.0 Estimated GFR > 60 POC Glucose 120 H Random Glucose 101 Fasting Glucose 102 H Calcium 8.9 Magnesium 2.3 Microbiology Microbiology Results: Microbiology 03/15/24 15:12 Blood Culture - Preliminary Blood - Venous No growth after 24 hours. 03/15/24 15:12 Blood Culture - Preliminary Blood - Venous No growth after 24 hours. Assessment and Plan (1) Hypoxia: Status: Acute Plan 79F PMH metastic adenocarcinoma of left lung, CAD, SVT< hfpef, dm, htn, hld, hypothyroid presented with sob Acute hypoxic respiratory failure secondary to postobstructive pneumonia due to metastatic adenocarcinoma of left lung further complicated by acute on chronic diastolic CHF Continue ceftriaxone azithromycin, follow-up cultures - ngtd back on po lasix [id number] left pleural effusion d/w pulm and IR, not significant enough to warrant thoracentesis Coronary disease dual antiplatelet after thoracentesis, continue statin Diabetes Insulin sliding scale Hypothyroid Levothyroxine Hypertension Holding lisinopril for low normal blood pressure, monitor for now SVT On amiodarone and Coreg DVT prophylaxis with Lovenox Full code reason for continued hospitalization: Hypoxic Quality Stroke Does the patient have a stroke diagnosis?: No VTE Prior VTE?: No VTE Risk Level:: Medical - moderate - high VTE Device Contraindication: N/A - Device Ordered VTE Drug Contraindication: Treatment Not Indicated
--- NOTE | 2024-03-17 11:09 | P.PNPL_ITS ---
Subjective Subjective Date of Service: 03/17/24 Interval history: Overall slowly improving, but with difficulty in mobilizing secretions. Objective Data Labs 03/17/24 06:24 03/17/24 06:24 Labs: Laboratory Results - last 24 hr 03/16/24 03/16/24 03/16/24 11:35 16:11 20:48 WBC RBC Hgb Hct MCV MCH MCHC RDW Plt Count MPV Absolute Nucleated RBC Nucleated RBC % (auto) Sodium Potassium Chloride Carbon Dioxide Anion Gap BUN Creatinine Estim Creat Clear Calc Estimated GFR POC Glucose 213 H 220 H 173 H Random Glucose Fasting Glucose Calcium Magnesium 03/17/24 03/17/24 06:24 07:46 WBC 15.4 H RBC 3.04 L Hgb 10.7 L Hct 33.4 L MCV 109.9 H MCH 35.2 H MCHC 32.0 RDW 15.2 Plt Count 367 MPV 11.6 Absolute Nucleated RBC 0.000 Nucleated RBC % (auto) 0.0 Sodium 140 Potassium 5.3 H D Chloride 101 Carbon Dioxide 30 H Anion Gap 14 BUN 16 Creatinine 0.87 Estim Creat Clear Calc 45.0 Estimated GFR > 60 POC Glucose 120 H Random Glucose 101 Fasting Glucose 102 H Calcium 8.9 Magnesium 2.3 Microbiology Microbiology Results: Microbiology 03/15/24 15:12 Blood - Venous Blood Culture - Preliminary No growth after 24 hours. 03/15/24 15:12 Blood - Venous Blood Culture - Preliminary No growth after 24 hours. Physical Exam 2 Vital Signs: Vital Signs: Last Vital Signs Temp 98.5 F 03/17/24 07:42 Pulse 76 03/17/24 07:42 Resp 17 03/17/24 07:42 BP 147/65 H 03/17/24 07:42 Pulse Ox 94 03/17/24 07:42 O2 Del Method Nasal Cannula 03/17/24 07:42 O2 Flow Rate 2.0 03/17/24 07:42 BMI result Body Mass Index 28.2 Const: General: no acute distress, alert and awake Eyes: Sclerae: sclerae normal EOM: EOMs intact bilaterally Neck: Neck: Yes no lymphadenopathy, Yes trachea midline and Yes supple Resp: Effort & Inspection: normal respiratory effort and no respiratory distress Auscultation: rales (Left upper lung field) Cardio: Rate: regular rate Rhythm: regular rhythm Heart sounds: no gallops, no murmurs and no rubs GI: Palpation (GI): Soft to palpation and Other GI palpation findings present ( Nontender) Auscultation: normal bowel sounds Extrem: General: Yes no pedal edema, No clubbing and No cyanosis Procedures Date of Service Date of Service: 03/17/24 Assessment and Plan Assessment and plan (1) Pneumonia: Status: Acute (2) Hypoxia: Status: Acute (3) 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 Recommendations: Continue empiric antibiotics. Will request cough assist/chest CPT to the left upper lobe. Time Spent With Patient Time: Total time managing care of this patient today ____ minutes. Progress Note: Quality Stroke Does the patient have a stroke diagnosis?: No
[2024-03-17 11:33] LABS: Glucose, Whole Blood 271 mg/dL (60-115)
[2024-03-17] MEDS: Insulin Lispro 100 UNIT/ML 3 ML VIAL SUBCUT ×3 (11:58→21:04)
[2024-03-17] MEDS: Azithromycin 500 MG TABLET PO (13:29)
[2024-03-17 16:33] LABS: Glucose, Whole Blood 284 mg/dL (60-115)
[2024-03-17] MEDS: Enoxaparin Sodium 40 MG/0.4 ML SYRINGE SUBCUT (18:09)
[2024-03-17] MEDS: cefTRIAXone sodium 1 GM in 0.9 % Sodium Chloride 50 ML IV (18:09)
[2024-03-17 20:21] LABS: Glucose, Whole Blood 214 mg/dL (60-115)
[2024-03-17] MEDS: Ezetimibe 10 MG TABLET PO (21:03)
[2024-03-17] MEDS: Atorvastatin Calcium 80 MG TABLET PO (21:03)
[2024-03-17] MEDS: Insulin Glargine,Hum.rec.anlog 100 UNIT/ML 10 ML VIAL 11 UNIT SUBCUT (21:04)
[2024-03-18] VITALS (12 sets, daily range): BP systolic 121–129; BP diastolic 58–62; PULSE 70–83; RESP 14–24; TEMP 36.7–37.4; O2SAT 90–98
[2024-03-18] MEDS: Levothyroxine Sodium 25 MCG TABLET PO (05:41)
[2024-03-18] MEDS: Morphine Sulfate 2 MG/ML CARTRIDGE IVPUSH ×2 (05:58→20:12)
[2024-03-18 07:04] LABS: Anion Gap 14 (12-20); Blood Urea Nitrogen 15 mg/dL (9-16); Calcium 9.1 mg/dL (8.4-10.2); Carbon Dioxide 28 mmol/L (22-29); Chloride 102 mmol/L (96-108); Creatinine Clr Calc Pharmacy 47.2; Estimated Glomerular Filt Rate > 60; Glucose Random 134 mg/dL (60-115); Potassium 4.3 mmol/L (3.3-5.1); Sodium 140 mmol/L (135-145)
[2024-03-18 07:27] LABS: Glucose, Whole Blood 147 mg/dL (60-115)
[2024-03-18] MEDS: Folic Acid 1 MG TABLET PO (07:54)
[2024-03-18] MEDS: 0.9 % Sodium Chloride Flush 3 ML SYRINGE IVFLUSH ×3 (07:54→20:23)
[2024-03-18] MEDS: Furosemide 20 MG TABLET PO ×2 (07:55→16:59)
[2024-03-18] MEDS: carvediloL 6.25 MG TABLET PO ×2 (07:55→20:11)
[2024-03-18] MEDS: Isosorbide Mononitrate 30 MG TAB.ER.24H PO (07:55)
[2024-03-18] MEDS: Amiodarone HCL 200 MG TABLET PO (07:55)
[2024-03-18] MEDS: Aspirin Enteric Coated 81 MG TABLET.DR PO (07:55)
[2024-03-18] MEDS: Clopidogrel Bisulfate 75 MG TABLET PO (07:55)
[2024-03-18] MEDS: Albuterol/Iprat 2.5/0.5MG 3 ML AMPUL.NEB INHALE ×4 (08:07→19:16)
--- NOTE | 2024-03-18 08:37 | P.PNIM_ITS ---
Subjective Subjective Date of Service: 03/18/24 Interval History: sob Physical Exam 2 Vital Signs: Vital Signs: Last Vital Signs Temp 98.7 F 03/18/24 07:13 Pulse 76 03/18/24 08:08 Resp 14 03/18/24 08:08 BP 129/62 03/18/24 07:13 Pulse Ox 92 03/18/24 08:08 O2 Del Method Nasal Cannula 03/18/24 07:13 O2 Flow Rate 2 03/18/24 07:13 BMI result Body Mass Index 28.2 Const: General: no acute distress, alert and awake Eyes: Sclerae: sclerae normal EOM: EOMs intact bilaterally Neck: Neck: Yes no lymphadenopathy, Yes trachea midline and Yes supple Resp: Effort & Inspection: normal respiratory effort and no respiratory distress Auscultation: rales (Left upper lung field) Cardio: Rate: regular rate Rhythm: regular rhythm Heart sounds: no gallops, no murmurs and no rubs GI: Palpation (GI): Soft to palpation and Other GI palpation findings present ( Nontender) Auscultation: normal bowel sounds Extrem: General: Yes no pedal edema, No clubbing and No cyanosis Objective Data Active Medications Acetaminophen (Acetaminophen 325 Mg Tablet) 650 mg PO Q6H PRN PRN Reason: Pain, Mild (Pain Scale 1-3), fever or headache Albuterol/Ipratropium (Albuterol/Iprat 2.5/0.5mg 3 Ml Ampul.Neb) 3 ml INHALE RQ4H WHILE AWAKE [facility] Last Admin: 03/18/24 08:07 Dose: 3 ml Documented By: OSVALDO Amiodarone HCl (Amiodarone Hcl 200 Mg Tablet) 200 mg PO DAILY [facility] Last Admin: 03/18/24 07:55 Dose: 200 mg Documented By: ROBERTO Aspirin (Aspirin Enteric Coated 81 Mg Tablet.) 81 mg PO DAILY [facility] Last Admin: 03/18/24 07:55 Dose: 81 mg Documented By: ROBERTO Atorvastatin Calcium (Atorvastatin Calcium 80 Mg Tablet) 80 mg PO BEDTIME [facility] Last Admin: 03/17/24 21:03 Dose: 80 mg Documented By: TOMÁS Azithromycin (Azithromycin 500 Mg Tablet) 500 mg PO Q24H [facility] Last Admin: 03/17/24 13:29 Dose: 500 mg Documented By: ROBERTO Calcium Carbonate (Calcium Carbonate 750 Mg Tab.Chew) 750 mg PO Q4H PRN PRN Reason: Heartburn Carvedilol (Carvedilol 6.25 Mg Tablet) 6.25 mg PO BID [facility]; Protocol Last Admin: 03/18/24 07:55 Dose: 6.25 mg Documented By: ROBERTO Clopidogrel Bisulfate (Clopidogrel Bisulfate 75 Mg Tablet) 75 mg PO DAILY [facility] Last Admin: 03/18/24 07:55 Dose: 75 mg Documented By: ROBERTO Ezetimibe (Ezetimibe 10 Mg Tablet) 10 mg PO BEDTIME [facility] Last Admin: 03/17/24 21:03 Dose: 10 mg Documented By: TOMÁS Enoxaparin Sodium (Enoxaparin Sodium 40 Mg/0.4 Ml Syringe) 40 mg SUBCUT Q24H [facility] Last Admin: 03/17/24 18:09 Dose: 40 mg Documented By: ROBERTO Fluticasone Propionate (Fluticasone Propionate Nasal 16 Gm [place]) 1 spray NOSTRIL-B Q12H PRN PRN Reason: Congestion Folic Acid (Folic Acid 1 Mg Tablet) 1 mg PO DAILY [facility] Last Admin: 03/18/24 07:54 Dose: 1 mg Documented By: ROBERTO Furosemide (Furosemide 20 Mg Tablet) 20 mg PO BID@0900,1800 [facility]; Protocol Last Admin: 03/18/24 07:55 Dose: 20 mg Documented By: ROBERTO Glucose (Glucose Gel 15 Gm Gel..Gram.) 15 gm PO Q15M PRN; Protocol PRN Reason: per Hypoglycemia Standing Ord. Guaifenesin/Codeine Phosphate (Guaifen/Codeine Sf 200/20/10ml 10 Ml Liquid) 10 ml PO Q4H PRN PRN Reason: Cough Last Admin: 03/16/24 06:04 Dose: 10 ml Documented By: JOSE Dextrose (D10) 250 mls @ 750 mls/hr IV Q15M PRN; Protocol PRN Reason: per Hypoglycemia Standing Ord. Ceftriaxone Sodium 1 gm/ (Sodium Chloride) 50 mls @ 100 mls/hr IV Q24H [facility] Last Infusion: 03/17/24 18:54 Dose: Infused Documented By: ROBERTO Insulin Glargine (Insulin Glargine,Hum.Rec.Anlog 100 Unit/Ml 10 Ml Vial) 11 unit SUBCUT BEDTIME [facility] Last Admin: 03/17/24 21:04 Dose: 11 unit Documented By: TOMÁS Insulin Human Lispro (Insulin Lispro 100 Unit/Ml 3 Ml Vial) 0 unit SUBCUT QIDACHS [facility]; Protocol Last Admin: 03/18/24 07:34 Dose: Not Given Documented By: ROBERTO Non-Admin Reason: No Insulin Coverage Isosorbide Mononitrate (Isosorbide Mononitrate 30 Mg Tab.Er.24h) 30 mg PO DAILY [facility]; Protocol Last Admin: 03/18/24 07:55 Dose: 30 mg Documented By: ROBERTO Levothyroxine Sodium (Levothyroxine Sodium 25 Mcg Tablet) 25 mcg PO DAILY@0600 [facility] Last Admin: 03/18/24 05:41 Dose: 25 mcg Documented By: TOMÁS Magnesium Hydroxide (Milk Of Magnesia 30 Ml Oral.Susp) 30 ml PO DAILY PRN PRN Reason: Constipation Melatonin (Melatonin 3 Mg Tablet) 6 mg PO BEDTIME PRN PRN Reason: Insomnia Morphine Sulfate (Morphine Sulfate 2 Mg/Ml Cartridge) 2 mg IVPUSH Q4H PRN; Protocol PRN Reason: pain or sob Last Admin: 03/18/24 05:58 Dose: 2 mg Documented By: TOMÁS Ondansetron HCl (Ondansetron Hcl 4 Mg/2 Ml Vial) 4 mg IVPUSH Q8H PRN PRN Reason: Nausea and Vomiting Sodium Chloride (0.9 % Sodium Chloride Flush 3 Ml Syringe) 3 ml IVFLUSH QSHIFT [facility] Last Admin: 03/18/24 07:54 Dose: 3 ml Documented By: ROBERTO Tramadol HCl (Tramadol Hcl 50 Mg Tablet) 50 mg PO Q8H PRN PRN Reason: Breakthrough Pain, Moderate Labs 03/17/24 06:24 03/18/24 05:58 Labs: Laboratory Results - last 24 hr 03/17/24 03/17/24 03/17/24 11:15 16:23 20:16 Hold Purple Top Anion Gap Estim Creat Clear Calc Estimated GFR POC Glucose 271 H 284 H 214 H Random Glucose Calcium 03/18/24 03/18/24 05:58 07:17 Hold Purple Top SEE NOTE Anion Gap 14 Estim Creat Clear Calc 47.2 Estimated GFR > 60 POC Glucose 147 H Random Glucose 134 H Calcium 9.1 Microbiology Microbiology Results: Microbiology 03/15/24 15:12 Blood Culture - Preliminary Blood - Venous No growth after 48 hours. 03/15/24 15:12 Blood Culture - Preliminary Blood - Venous No growth after 48 hours. Assessment and Plan (1) Hypoxia: Status: Acute Plan 79F PMH metastic adenocarcinoma of left lung, CAD, SVT< hfpef, dm, htn, hld, hypothyroid presented with sob Acute hypoxic respiratory failure secondary to postobstructive pneumonia due to metastatic adenocarcinoma of left lung further complicated by acute on chronic diastolic CHF Continue ceftriaxone azithromycin, follow-up cultures - ngtd back on po lasix wean o2 as tolerated [id number] left pleural effusion d/w pulm and IR, not significant enough to warrant thoracentesis Coronary disease dual antiplatelet after thoracentesis, continue statin Diabetes Insulin sliding scale Hypothyroid Levothyroxine Hypertension Holding lisinopril for low normal blood pressure, monitor for now SVT On amiodarone and Coreg DVT prophylaxis with Lovenox Full code reason for continued hospitalization: Hypoxic, sob Quality Stroke Does the patient have a stroke diagnosis?: No VTE Prior VTE?: No VTE Risk Level:: Medical - moderate - high VTE Device Contraindication: N/A - Device Ordered VTE Drug Contraindication: Treatment Not Indicated
[2024-03-18 11:16] LABS: Glucose, Whole Blood 202 mg/dL (60-115)
[2024-03-18] MEDS: Insulin Lispro 100 UNIT/ML 3 ML VIAL SUBCUT ×3 (11:44→20:13)
[2024-03-18] MEDS: Azithromycin 500 MG TABLET PO (13:25)
[2024-03-18 16:25] LABS: Glucose, Whole Blood 232 mg/dL (60-115)
[2024-03-18] MEDS: Acetaminophen 325 MG TABLET 650 MG PO (16:59)
[2024-03-18] MEDS: Enoxaparin Sodium 40 MG/0.4 ML SYRINGE SUBCUT (17:00)
[2024-03-18] MEDS: cefTRIAXone sodium 1 GM in 0.9 % Sodium Chloride 50 ML IV (18:15)
[2024-03-18 20:04] LABS: Glucose, Whole Blood 197 mg/dL (60-115)
[2024-03-18] MEDS: Atorvastatin Calcium 80 MG TABLET PO (20:11)
[2024-03-18] MEDS: Ezetimibe 10 MG TABLET PO (20:11)
[2024-03-18] MEDS: Insulin Glargine,Hum.rec.anlog 100 UNIT/ML 10 ML VIAL 11 UNIT SUBCUT (20:12)
[2024-03-19] VITALS (12 sets, daily range): BP systolic 109–127; BP diastolic 60–76; PULSE 71–78; RESP 14–20; TEMP 36.2–36.8; O2SAT 91–99
[2024-03-19] MEDS: Levothyroxine Sodium 25 MCG TABLET PO (04:57)
[2024-03-19 07:44] LABS: Glucose, Whole Blood 138 mg/dL (60-115)
[2024-03-19] MEDS: Albuterol/Iprat 2.5/0.5MG 3 ML AMPUL.NEB INHALE ×4 (07:50→20:54)
[2024-03-19] MEDS: Folic Acid 1 MG TABLET PO (08:34)
[2024-03-19] MEDS: Isosorbide Mononitrate 30 MG TAB.ER.24H PO (08:34)
[2024-03-19] MEDS: carvediloL 6.25 MG TABLET PO ×2 (08:34→21:10)
[2024-03-19] MEDS: Clopidogrel Bisulfate 75 MG TABLET PO (08:34)
[2024-03-19] MEDS: Furosemide 20 MG TABLET PO ×2 (08:34→17:03)
[2024-03-19] MEDS: Aspirin Enteric Coated 81 MG TABLET.DR PO (08:34)
[2024-03-19] MEDS: traMADoL HCL 50 MG TABLET PO (08:34)
[2024-03-19] MEDS: Amiodarone HCL 200 MG TABLET PO (08:34)
[2024-03-19] MEDS: 0.9 % Sodium Chloride Flush 3 ML SYRINGE IVFLUSH ×2 (08:35→17:03)
--- NOTE | 2024-03-19 08:35 | P.PNIM_ITS ---
Subjective Subjective Date of Service: 03/19/24 Interval History: sob Physical Exam 2 Vital Signs: Vital Signs: Last Vital Signs Temp 98.1 F 03/19/24 07:50 Pulse 71 03/19/24 07:55 Resp 16 03/19/24 07:55 BP 122/60 03/19/24 07:50 Pulse Ox 98 03/19/24 07:55 O2 Del Method Nasal Cannula 03/19/24 07:50 O2 Flow Rate 2 03/19/24 07:50 BMI result Body Mass Index 28.2 Const: General: no acute distress, alert and awake Eyes: Sclerae: sclerae normal EOM: EOMs intact bilaterally Neck: Neck: Yes no lymphadenopathy, Yes trachea midline and Yes supple Resp: Effort & Inspection: normal respiratory effort and no respiratory distress Auscultation: rales (Left upper lung field) Cardio: Rate: regular rate Rhythm: regular rhythm Heart sounds: no gallops, no murmurs and no rubs GI: Palpation (GI): Soft to palpation and Other GI palpation findings present ( Nontender) Auscultation: normal bowel sounds Extrem: General: Yes no pedal edema, No clubbing and No cyanosis Objective Data Active Medications Acetaminophen (Acetaminophen 325 Mg Tablet) 650 mg PO Q6H PRN PRN Reason: Pain, Mild (Pain Scale 1-3), fever or headache Last Admin: 03/18/24 16:59 Dose: 650 mg Documented By: BRUCE Albuterol/Ipratropium (Albuterol/Iprat 2.5/0.5mg 3 Ml Ampul.Neb) 3 ml INHALE RQ4H WHILE AWAKE [facility] Last Admin: 03/19/24 07:50 Dose: 3 ml Documented By: JACKLYN Amiodarone HCl (Amiodarone Hcl 200 Mg Tablet) 200 mg PO DAILY [facility] Last Admin: 03/18/24 07:55 Dose: 200 mg Documented By: ROBERTO Aspirin (Aspirin Enteric Coated 81 Mg Tablet.) 81 mg PO DAILY [facility] Last Admin: 03/18/24 07:55 Dose: 81 mg Documented By: ROBERTO Atorvastatin Calcium (Atorvastatin Calcium 80 Mg Tablet) 80 mg PO BEDTIME [facility] Last Admin: 03/18/24 20:11 Dose: 80 mg Documented By: SYED Azithromycin (Azithromycin 500 Mg Tablet) 500 mg PO Q24H [facility] Last Admin: 03/18/24 13:25 Dose: 500 mg Documented By: BRUCE Calcium Carbonate (Calcium Carbonate 750 Mg Tab.Chew) 750 mg PO Q4H PRN PRN Reason: Heartburn Carvedilol (Carvedilol 6.25 Mg Tablet) 6.25 mg PO BID [facility]; Protocol Last Admin: 03/18/24 20:11 Dose: 6.25 mg Documented By: SYED Clopidogrel Bisulfate (Clopidogrel Bisulfate 75 Mg Tablet) 75 mg PO DAILY [facility] Last Admin: 03/18/24 07:55 Dose: 75 mg Documented By: ROBERTO Ezetimibe (Ezetimibe 10 Mg Tablet) 10 mg PO BEDTIME [facility] Last Admin: 03/18/24 20:11 Dose: 10 mg Documented By: SYED Enoxaparin Sodium (Enoxaparin Sodium 40 Mg/0.4 Ml Syringe) 40 mg SUBCUT Q24H [facility] Last Admin: 03/18/24 17:00 Dose: 40 mg Documented By: BRUCE Fluticasone Propionate (Fluticasone Propionate Nasal 16 Gm [place]) 1 spray NOSTRIL-B Q12H PRN PRN Reason: Congestion Folic Acid (Folic Acid 1 Mg Tablet) 1 mg PO DAILY [facility] Last Admin: 03/18/24 07:54 Dose: 1 mg Documented By: ROBERTO Furosemide (Furosemide 20 Mg Tablet) 20 mg PO BID@0900,1800 [facility]; Protocol Last Admin: 03/18/24 16:59 Dose: 20 mg Documented By: BRUCE Glucose (Glucose Gel 15 Gm Gel..Gram.) 15 gm PO Q15M PRN; Protocol PRN Reason: per Hypoglycemia Standing Ord. Guaifenesin/Codeine Phosphate (Guaifen/Codeine Sf 200/20/10ml 10 Ml Liquid) 10 ml PO Q4H PRN PRN Reason: Cough Last Admin: 03/16/24 06:04 Dose: 10 ml Documented By: JOSE Dextrose (D10) 250 mls @ 750 mls/hr IV Q15M PRN; Protocol PRN Reason: per Hypoglycemia Standing Ord. Ceftriaxone Sodium 1 gm/ (Sodium Chloride) 50 mls @ 100 mls/hr IV Q24H [facility] Last Infusion: 03/18/24 20:02 Dose: Infused Documented By: SYED Insulin Glargine (Insulin Glargine,Hum.Rec.Anlog 100 Unit/Ml 10 Ml Vial) 11 unit SUBCUT BEDTIME [facility] Last Admin: 03/18/24 20:12 Dose: 11 unit Documented By: SYED Insulin Human Lispro (Insulin Lispro 100 Unit/Ml 3 Ml Vial) 0 unit SUBCUT QIDACHS [facility]; Protocol Last Admin: 03/19/24 07:50 Dose: Not Given Documented By: DOE Non-Admin Reason: No Insulin Coverage Isosorbide Mononitrate (Isosorbide Mononitrate 30 Mg Tab.Er.24h) 30 mg PO DAILY [facility]; Protocol Last Admin: 03/18/24 07:55 Dose: 30 mg Documented By: ROBERTO Levothyroxine Sodium (Levothyroxine Sodium 25 Mcg Tablet) 25 mcg PO DAILY@0600 [facility] Last Admin: 03/19/24 04:57 Dose: 25 mcg Documented By: SYED Magnesium Hydroxide (Milk Of Magnesia 30 Ml Oral.Susp) 30 ml PO DAILY PRN PRN Reason: Constipation Melatonin (Melatonin 3 Mg Tablet) 6 mg PO BEDTIME PRN PRN Reason: Insomnia Morphine Sulfate (Morphine Sulfate 2 Mg/Ml Cartridge) 2 mg IVPUSH Q4H PRN; Protocol PRN Reason: pain or sob Last Admin: 03/18/24 20:12 Dose: 2 mg Documented By: SYED Ondansetron HCl (Ondansetron Hcl 4 Mg/2 Ml Vial) 4 mg IVPUSH Q8H PRN PRN Reason: Nausea and Vomiting Sodium Chloride (0.9 % Sodium Chloride Flush 3 Ml Syringe) 3 ml IVFLUSH QSHIFT [facility] Last Admin: 03/18/24 20:23 Dose: 3 ml Documented By: SYED Tramadol HCl (Tramadol Hcl 50 Mg Tablet) 50 mg PO Q8H PRN PRN Reason: Breakthrough Pain, Moderate Labs 03/17/24 06:24 03/18/24 05:58 Labs: Laboratory Results - last 24 hr 03/18/24 03/18/24 03/18/24 11:04 16:22 19:57 POC Glucose 202 H 232 H 197 H 03/19/24 07:37 POC Glucose 138 H Assessment and Plan (1) Hypoxia: Status: Acute Plan 79F PMH metastic adenocarcinoma of left lung, CAD, SVT< hfpef, dm, htn, hld, hypothyroid presented with sob Acute hypoxic respiratory failure secondary to postobstructive pneumonia due to metastatic adenocarcinoma of left lung further complicated by acute on chronic diastolic CHF Continue ceftriaxone azithromycin, chest physiotherapy back on po lasix wean o2 as tolerated Gekr-[id number]-[id number] left pleural effusion d/w pulm and IR, not significant enough to warrant thoracentesis Coronary disease dual antiplatelet after thoracentesis, continue statin Diabetes Insulin sliding scale Hypothyroid Levothyroxine Hypertension Holding lisinopril for low normal blood pressure, monitor for now SVT On amiodarone and Coreg DVT prophylaxis with Lovenox Full code reason for continued hospitalization: Hypoxic, sob Quality Stroke Does the patient have a stroke diagnosis?: No VTE Prior VTE?: No VTE Risk Level:: Medical - moderate - high VTE Device Contraindication: N/A - Device Ordered VTE Drug Contraindication: Treatment Not Indicated
--- NOTE | 2024-03-19 11:08 | MHC.CM.PN ---
EMR REVIEWED AND PER MD ROUNDS, PT IS NOT MEDICALLY CLEARED FOR DC (STILL SOB, WILL NEED TO WEAN OFF 02) COMFORT + VNA UPDATED VIA [facility]. CM WILL CONTINUE TO FOLLOW FOR ANY CHANGE TO THE DC PLAN/NEEDS.
[2024-03-19 11:30] LABS: Glucose, Whole Blood 379 mg/dL (60-115)
[2024-03-19] MEDS: Insulin Lispro 100 UNIT/ML 3 ML VIAL SUBCUT ×3 (11:45→21:03)
[2024-03-19] MEDS: Milk of Magnesia 30 ML ORAL.SUSP PO (11:45)
[2024-03-19] MEDS: Azithromycin 500 MG TABLET PO (13:25)
[2024-03-19] MEDS: Morphine Sulfate 2 MG/ML CARTRIDGE IVPUSH ×2 (13:26→21:40)
[2024-03-19 16:00] LABS: Glucose, Whole Blood 282 mg/dL (60-115)
[2024-03-19] MEDS: Enoxaparin Sodium 40 MG/0.4 ML SYRINGE SUBCUT (17:03)
[2024-03-19] MEDS: cefTRIAXone sodium 1 GM in 0.9 % Sodium Chloride 50 ML IV (18:12)
[2024-03-19] MEDS: guaiFEN/Codeine SF 200/20/10ML 10 ML LIQUID PO (18:18)
[2024-03-19 20:19] LABS: Glucose, Whole Blood 277 mg/dL (60-115)
[2024-03-19] MEDS: Atorvastatin Calcium 80 MG TABLET PO (21:03)
[2024-03-19] MEDS: Ezetimibe 10 MG TABLET PO (21:03)
[2024-03-19] MEDS: Insulin Glargine,Hum.rec.anlog 100 UNIT/ML 10 ML VIAL 11 UNIT SUBCUT (21:04)
[2024-03-20] VITALS (11 sets, daily range): BP systolic 107–142; BP diastolic 52–60; PULSE 70–82; RESP 16–18; TEMP 36–36.6; O2SAT 92–99
[2024-03-20] MEDS: Levothyroxine Sodium 25 MCG TABLET PO (06:20)
[2024-03-20] MEDS: 0.9 % Sodium Chloride Flush 3 ML SYRINGE IVFLUSH ×2 (06:20→22:18)
[2024-03-20 07:14] LABS: Glucose, Whole Blood 187 mg/dL (60-115)
[2024-03-20] MEDS: Insulin Lispro 100 UNIT/ML 3 ML VIAL SUBCUT ×4 (07:51→20:37)
[2024-03-20] MEDS: Furosemide 20 MG TABLET PO ×2 (07:51→16:55)
[2024-03-20] MEDS: Folic Acid 1 MG TABLET PO (07:51)
[2024-03-20] MEDS: Aspirin Enteric Coated 81 MG TABLET.DR PO (07:51)
[2024-03-20] MEDS: Isosorbide Mononitrate 30 MG TAB.ER.24H PO (07:51)
[2024-03-20] MEDS: carvediloL 6.25 MG TABLET PO ×2 (07:51→19:34)
[2024-03-20] MEDS: Amiodarone HCL 200 MG TABLET PO (07:51)
[2024-03-20] MEDS: Clopidogrel Bisulfate 75 MG TABLET PO (07:52)
[2024-03-20] MEDS: guaiFEN/Codeine SF 200/20/10ML 10 ML LIQUID PO (07:57)
[2024-03-20] MEDS: Albuterol/Iprat 2.5/0.5MG 3 ML AMPUL.NEB INHALE ×4 (08:22→19:52)
--- NOTE | 2024-03-20 09:50 | HO.PM.IMPN ---
Subjective Subjective Date of Service: 03/20/24 Interval History: making small progress every day, starting to get stuff up , still sob Physical Exam Vital Signs: Vital Signs: Last Vital Signs Temp 96.9 F 03/20/24 07:18 Pulse 77 03/20/24 08:26 Resp 16 03/20/24 08:26 BP 142/60 H 03/20/24 07:18 Pulse Ox 92 03/20/24 08:26 O2 Del Method Nasal Cannula 03/20/24 07:18 O2 Flow Rate 2 03/20/24 07:18 BMI result Body Mass Index 28.2 Const: General: no acute distress, alert and awake Eyes: Sclerae: sclerae normal EOM: EOMs intact bilaterally Neck: Neck: Yes no lymphadenopathy, Yes trachea midline and Yes supple Resp: Effort & Inspection: normal respiratory effort and no respiratory distress Auscultation: rales (Left upper lung field) Cardio: Rate: regular rate Rhythm: regular rhythm Heart sounds: no gallops, no murmurs and no rubs GI: Palpation (GI): Soft to palpation and Other GI palpation findings present ( Nontender) Auscultation: normal bowel sounds Extrem: General: Yes no pedal edema, No clubbing and No cyanosis Objective Data Active Medications Acetaminophen (Acetaminophen 325 Mg Tablet) 650 mg PO Q6H PRN PRN Reason: Pain, Mild (Pain Scale 1-3), fever or headache Last Admin: 03/18/24 16:59 Dose: 650 mg Documented By: BRUCE Albuterol/Ipratropium (Albuterol/Iprat 2.5/0.5mg 3 Ml Ampul.Neb) 3 ml INHALE RQ4H WHILE AWAKE [facility] Last Admin: 03/20/24 08:22 Dose: 3 ml Documented By: NILESH Amiodarone HCl (Amiodarone Hcl 200 Mg Tablet) 200 mg PO DAILY [facility] Last Admin: 03/20/24 07:51 Dose: 200 mg Documented By: TRICE Aspirin (Aspirin Enteric Coated 81 Mg Tablet.) 81 mg PO DAILY [facility] Last Admin: 03/20/24 07:51 Dose: 81 mg Documented By: TRICE Atorvastatin Calcium (Atorvastatin Calcium 80 Mg Tablet) 80 mg PO BEDTIME [facility] Last Admin: 03/19/24 21:03 Dose: 80 mg Documented By: YANI Azithromycin (Azithromycin 500 Mg Tablet) 500 mg PO Q24H [facility] Last Admin: 03/19/24 13:25 Dose: 500 mg Documented By: DOE Calcium Carbonate (Calcium Carbonate 750 Mg Tab.Chew) 750 mg PO Q4H PRN PRN Reason: Heartburn Carvedilol (Carvedilol 6.25 Mg Tablet) 6.25 mg PO BID [facility]; Protocol Last Admin: 03/20/24 07:51 Dose: 6.25 mg Documented By: TRICE Clopidogrel Bisulfate (Clopidogrel Bisulfate 75 Mg Tablet) 75 mg PO DAILY [facility] Last Admin: 03/20/24 07:52 Dose: 75 mg Documented By: TRICE Ezetimibe (Ezetimibe 10 Mg Tablet) 10 mg PO BEDTIME [facility] Last Admin: 03/19/24 21:03 Dose: 10 mg Documented By: YANI Enoxaparin Sodium (Enoxaparin Sodium 40 Mg/0.4 Ml Syringe) 40 mg SUBCUT Q24H [facility] Last Admin: 03/19/24 17:03 Dose: 40 mg Documented By: DOE Fluticasone Propionate (Fluticasone Propionate Nasal 16 Gm [place]) 1 spray NOSTRIL-B Q12H PRN PRN Reason: Congestion Folic Acid (Folic Acid 1 Mg Tablet) 1 mg PO DAILY [facility] Last Admin: 03/20/24 07:51 Dose: 1 mg Documented By: TRICE Furosemide (Furosemide 20 Mg Tablet) 20 mg PO BID@0900,1800 [facility]; Protocol Last Admin: 03/20/24 07:51 Dose: 20 mg Documented By: TRICE Glucose (Glucose Gel 15 Gm Gel..Gram.) 15 gm PO Q15M PRN; Protocol PRN Reason: per Hypoglycemia Standing Ord. Guaifenesin/Codeine Phosphate (Guaifen/Codeine Sf 200/20/10ml 10 Ml Liquid) 10 ml PO Q4H PRN PRN Reason: Cough Last Admin: 03/20/24 07:57 Dose: 10 ml Documented By: TRICE Dextrose (D10) 250 mls @ 750 mls/hr IV Q15M PRN; Protocol PRN Reason: per Hypoglycemia Standing Ord. Ceftriaxone Sodium 1 gm/ (Sodium Chloride) 50 mls @ 100 mls/hr IV Q24H [facility] Last Infusion: 03/19/24 18:42 Dose: Infused Documented By: DOE Insulin Glargine (Insulin Glargine,Hum.Rec.Anlog 100 Unit/Ml 10 Ml Vial) 11 unit SUBCUT BEDTIME [facility] Last Admin: 03/19/24 21:04 Dose: 11 unit Documented By: YANI Insulin Human Lispro (Insulin Lispro 100 Unit/Ml 3 Ml Vial) 0 unit SUBCUT QIDACHS [facility]; Protocol Last Admin: 03/20/24 07:51 Dose: 2 unit Documented By: TRICE Isosorbide Mononitrate (Isosorbide Mononitrate 30 Mg Tab.Er.24h) 30 mg PO DAILY [facility]; Protocol Last Admin: 03/20/24 07:51 Dose: 30 mg Documented By: TRICE Levothyroxine Sodium (Levothyroxine Sodium 25 Mcg Tablet) 25 mcg PO DAILY@0600 [facility] Last Admin: 03/20/24 06:20 Dose: 25 mcg Documented By: NIKA Magnesium Hydroxide (Milk Of Magnesia 30 Ml Oral.Susp) 30 ml PO DAILY PRN PRN Reason: Constipation Last Admin: 03/19/24 11:45 Dose: 30 ml Documented By: DOE Melatonin (Melatonin 3 Mg Tablet) 6 mg PO BEDTIME PRN PRN Reason: Insomnia Morphine Sulfate (Morphine Sulfate 2 Mg/Ml Cartridge) 2 mg IVPUSH Q4H PRN; Protocol PRN Reason: pain or sob Last Admin: 03/19/24 21:40 Dose: 2 mg Documented By: YANI Ondansetron HCl (Ondansetron Hcl 4 Mg/2 Ml Vial) 4 mg IVPUSH Q8H PRN PRN Reason: Nausea and Vomiting Sodium Chloride (0.9 % Sodium Chloride Flush 3 Ml Syringe) 3 ml IVFLUSH QSHIFT [facility] Last Admin: 03/20/24 07:20 Dose: Not Given Documented By: TRICE Non-Admin Reason: Previously Administered Tramadol HCl (Tramadol Hcl 50 Mg Tablet) 50 mg PO Q8H PRN PRN Reason: Breakthrough Pain, Moderate Last Admin: 03/19/24 08:34 Dose: 50 mg Documented By: DOE Labs 03/17/24 06:24 07/07/24 05:58 Labs: Laboratory Results - last 24 hr 03/19/24 03/19/24 03/19/24 11:25 15:49 20:15 POC Glucose 379 H* 282 H 277 H 03/20/24 07:10 POC Glucose 187 H Assessment and Plan (1) Hypoxia: Status: Acute Plan 79F PMH metastic adenocarcinoma of left lung, CAD, SVT< hfpef, dm, htn, hld, hypothyroid presented with sob Acute hypoxic respiratory failure secondary to postobstructive pneumonia due to metastatic adenocarcinoma of left lung further complicated by acute on chronic diastolic CHF Continue ceftriaxone azithromycin, chest physiotherapy back on po lasix wean o2 as tolerated slow improvement every day, beginning to get stuff up [id number] left pleural effusion d/w pulm and IR, not significant enough to warrant thoracentesis Coronary disease dual antiplatelet after thoracentesis, continue statin Diabetes Insulin sliding scale Hypothyroid Levothyroxine Hypertension Holding lisinopril for low normal blood pressure, monitor for now SVT On amiodarone and Coreg DVT prophylaxis with Lovenox Full code reason for continued hospitalization: Hypoxic, sob Quality Stroke Does the patient have a stroke diagnosis?: No VTE Prior VTE?: No VTE Risk Level:: Medical - moderate - high VTE Device Contraindication: N/A - Device Ordered VTE Drug Contraindication: Treatment Not Indicated
[2024-03-20 11:01] LABS: Glucose, Whole Blood 171 mg/dL (60-115)
[2024-03-20] MEDS: Azithromycin 500 MG TABLET PO (14:19)
[2024-03-20 16:16] LABS: Glucose, Whole Blood 167 mg/dL (60-115)
[2024-03-20] MEDS: Enoxaparin Sodium 40 MG/0.4 ML SYRINGE SUBCUT (16:55)
[2024-03-20] MEDS: traMADoL HCL 50 MG TABLET PO (16:59)
[2024-03-20] MEDS: Ezetimibe 10 MG TABLET PO (19:34)
[2024-03-20] MEDS: Atorvastatin Calcium 80 MG TABLET PO (19:35)
[2024-03-20] MEDS: cefTRIAXone sodium 1 GM in 0.9 % Sodium Chloride 50 ML IV (19:42)
[2024-03-20 20:05] LABS: Glucose, Whole Blood 193 mg/dL (60-115)
[2024-03-20] MEDS: Morphine Sulfate 2 MG/ML CARTRIDGE IVPUSH (20:35)
[2024-03-20] MEDS: Insulin Glargine,Hum.rec.anlog 100 UNIT/ML 10 ML VIAL 11 UNIT SUBCUT (20:37)
[2024-03-21] VITALS (13 sets, daily range): BP systolic 102–147; BP diastolic 54–67; PULSE 73–81; RESP 16–20; TEMP 36.1–36.6; O2SAT 89–94
[2024-03-21] MEDS: guaiFEN/Codeine SF 200/20/10ML 10 ML LIQUID PO ×2 (05:11→09:00)
[2024-03-21] MEDS: Levothyroxine Sodium 25 MCG TABLET PO (05:15)
[2024-03-21 06:18] LABS: Anion Gap 14 (12-20); Blood Urea Nitrogen 18 mg/dL (9-16); Calcium 8.9 mg/dL (8.4-10.2); Carbon Dioxide 29 mmol/L (22-29); Chloride 99 mmol/L (96-108); Creatinine Clr Calc Pharmacy 45.5; Estimated Glomerular Filt Rate > 60; Glucose Fasting 112 mg/dL (60-99); Hematocrit 30.7 % (37.0-47.0); Hemoglobin 9.8 g/dl (12.0-16.0); Mean Corpuscular HGB Conc 31.9 g/dl (31.0-35.0); Mean Corpuscular Hemoglobin 34.4 pg (27.0-33.0); Mean Corpuscular Volume 107.7 fL (80.0-98.0); Platelet Count 303 X10*3/uL (160-400); Potassium 3.9 mmol/L (3.3-5.1); Red Blood Count 2.85 X10*6/uL (4.20-5.50); Red Cell Distribution Width 14.5 % (11.0-16.0); Sodium 138 mmol/L (135-145); WBC ABN SCTR FOR CBC 1
[2024-03-21 06:20] LABS: White Blood Count 14.3 X10*3/uL (4.8-10.8)
[2024-03-21 07:35] LABS: Glucose, Whole Blood 130 mg/dL (60-115)
[2024-03-21] MEDS: Albuterol/Iprat 2.5/0.5MG 3 ML AMPUL.NEB INHALE ×4 (08:01→18:47)
[2024-03-21] MEDS: 0.9 % Sodium Chloride Flush 3 ML SYRINGE IVFLUSH ×3 (08:59→19:51)
[2024-03-21] MEDS: Isosorbide Mononitrate 30 MG TAB.ER.24H PO (09:01)
[2024-03-21] MEDS: Aspirin Enteric Coated 81 MG TABLET.DR PO (09:01)
[2024-03-21] MEDS: Furosemide 20 MG TABLET PO ×2 (09:01→17:19)
[2024-03-21] MEDS: Amiodarone HCL 200 MG TABLET PO (09:01)
[2024-03-21] MEDS: carvediloL 6.25 MG TABLET PO ×2 (09:02→20:10)
[2024-03-21] MEDS: Folic Acid 1 MG TABLET PO (09:02)
[2024-03-21] MEDS: Clopidogrel Bisulfate 75 MG TABLET PO (09:02)
--- NOTE | 2024-03-21 10:31 | MHC.CM.PN ---
EMR REVIEWED AND PER MD ROUNDS, PT MAY NOT BE READY FOR DC TODAY (SOB, 02) COMFORT PLUS VNA UPDATED VIA [facility]. CM WILL CONTINUE TO FOLLOW FOR ANY CHANGE TO DC PLAN/NEEDS.
[2024-03-21 11:14] LABS: Glucose, Whole Blood 194 mg/dL (60-115)
[2024-03-21] MEDS: Insulin Lispro 100 UNIT/ML 3 ML VIAL SUBCUT ×3 (12:00→20:12)
--- NOTE | 2024-03-21 12:17 | HO.PM.IMPN ---
Subjective Subjective Date of Service: 03/21/24 Interval History: seen and evaluated this morning overall better but still feeling dyspnic with minimal exertion On O2 supplement Review of Systems Review of Systems: Yes all other systems are reviewed and are negative Physical Exam Vital Signs: Vital Signs: Last Vital Signs Temp 98 F 03/21/24 07:15 Pulse 80 03/21/24 11:12 Resp 17 03/21/24 11:12 BP 102/56 L 03/21/24 09:14 Pulse Ox 89 L 03/21/24 08:02 O2 Del Method Nasal Cannula 03/21/24 07:15 O2 Flow Rate 3 03/21/24 07:15 BMI result Body Mass Index 28.2 Const: Other: Constitutional : Awake, interactive, not in distress Neck : Normal inspection, Supple Cardiovascular : RRR, no JVP, no lower extremity edema Respiratory : fair bilateral air entry, basal fine lt sided crackles, exp rhonchi, on O2 supplement Gastrointestinal: soft, lax, Normal bowel sounds, Non tender Skin : Warm, Dry Neurological : Alert & oriented x3, No focal deficit Objective Data Active Medications Acetaminophen (Acetaminophen 325 Mg Tablet) 650 mg PO Q6H PRN PRN Reason: Pain, Mild (Pain Scale 1-3), fever or headache Last Admin: 03/18/24 16:59 Dose: 650 mg Documented By: BRUCE Albuterol/Ipratropium (Albuterol/Iprat 2.5/0.5mg 3 Ml Ampul.Neb) 3 ml INHALE RQ4H WHILE AWAKE [facility] Last Admin: 03/21/24 11:08 Dose: 3 ml Documented By: IFEANYI Amiodarone HCl (Amiodarone Hcl 200 Mg Tablet) 200 mg PO DAILY [facility] Last Admin: 03/21/24 09:01 Dose: 200 mg Documented By: RASHAAD Aspirin (Aspirin Enteric Coated 81 Mg Tablet.) 81 mg PO DAILY [facility] Last Admin: 03/21/24 09:01 Dose: 81 mg Documented By: RASHAAD Atorvastatin Calcium (Atorvastatin Calcium 80 Mg Tablet) 80 mg PO BEDTIME [facility] Last Admin: 03/20/24 19:35 Dose: 80 mg Documented By: SYED Azithromycin (Azithromycin 500 Mg Tablet) 500 mg PO Q24H [facility] Last Admin: 03/20/24 14:19 Dose: 500 mg Documented By: TRICE Calcium Carbonate (Calcium Carbonate 750 Mg Tab.Chew) 750 mg PO Q4H PRN PRN Reason: Heartburn Carvedilol (Carvedilol 6.25 Mg Tablet) 6.25 mg PO BID [facility]; Protocol Last Admin: 03/21/24 09:02 Dose: 6.25 mg Documented By: RASHAAD Clopidogrel Bisulfate (Clopidogrel Bisulfate 75 Mg Tablet) 75 mg PO DAILY [facility] Last Admin: 03/21/24 09:02 Dose: 75 mg Documented By: RASHAAD Ezetimibe (Ezetimibe 10 Mg Tablet) 10 mg PO BEDTIME [facility] Last Admin: 03/20/24 19:34 Dose: 10 mg Documented By: SYED Enoxaparin Sodium (Enoxaparin Sodium 40 Mg/0.4 Ml Syringe) 40 mg SUBCUT Q24H [facility] Last Admin: 03/20/24 16:55 Dose: 40 mg Documented By: TRICE Fluticasone Propionate (Fluticasone Propionate Nasal 16 Gm [place]) 1 spray NOSTRIL-B Q12H PRN PRN Reason: Congestion Folic Acid (Folic Acid 1 Mg Tablet) 1 mg PO DAILY [facility] Last Admin: 03/21/24 09:02 Dose: 1 mg Documented By: RASHAAD Furosemide (Furosemide 20 Mg Tablet) 20 mg PO BID@0900,1800 [facility]; Protocol Last Admin: 03/21/24 09:01 Dose: 20 mg Documented By: RASHAAD Glucose (Glucose Gel 15 Gm Gel..Gram.) 15 gm PO Q15M PRN; Protocol PRN Reason: per Hypoglycemia Standing Ord. Guaifenesin/Codeine Phosphate (Guaifen/Codeine Sf 200/20/10ml 10 Ml Liquid) 10 ml PO Q4H PRN PRN Reason: Cough Last Admin: 03/21/24 09:00 Dose: 10 ml Documented By: RASHAAD Dextrose (D10) 250 mls @ 750 mls/hr IV Q15M PRN; Protocol PRN Reason: per Hypoglycemia Standing Ord. Ceftriaxone Sodium 1 gm/ (Sodium Chloride) 50 mls @ 100 mls/hr IV Q24H [facility] Last Infusion: 03/20/24 20:41 Dose: Infused Documented By: SYED Insulin Glargine (Insulin Glargine,Hum.Rec.Anlog 100 Unit/Ml 10 Ml Vial) 11 unit SUBCUT BEDTIME [facility] Last Admin: 03/20/24 20:37 Dose: 11 unit Documented By: SYED Insulin Human Lispro (Insulin Lispro 100 Unit/Ml 3 Ml Vial) 0 unit SUBCUT QIDACHS [facility]; Protocol Last Admin: 03/21/24 12:00 Dose: 2 unit Documented By: RASHAAD Isosorbide Mononitrate (Isosorbide Mononitrate 30 Mg Tab.Er.24h) 30 mg PO DAILY [facility]; Protocol Last Admin: 03/21/24 09:01 Dose: 30 mg Documented By: RASHAAD Levothyroxine Sodium (Levothyroxine Sodium 25 Mcg Tablet) 25 mcg PO DAILY@0600 [facility] Last Admin: 03/21/24 05:15 Dose: 25 mcg Documented By: SYED Magnesium Hydroxide (Milk Of Magnesia 30 Ml Oral.Susp) 30 ml PO DAILY PRN PRN Reason: Constipation Last Admin: 03/19/24 11:45 Dose: 30 ml Documented By: COTRADHA Melatonin (Melatonin 3 Mg Tablet) 6 mg PO BEDTIME PRN PRN Reason: Insomnia Morphine Sulfate (Morphine Sulfate 2 Mg/Ml Cartridge) 2 mg IVPUSH Q4H PRN; Protocol PRN Reason: pain or sob Last Admin: 03/20/24 20:35 Dose: 2 mg Documented By: SYED Ondansetron HCl (Ondansetron Hcl 4 Mg/2 Ml Vial) 4 mg IVPUSH Q8H PRN PRN Reason: Nausea and Vomiting Sodium Chloride (0.9 % Sodium Chloride Flush 3 Ml Syringe) 3 ml IVFLUSH QSHIFT [facility] Last Admin: 03/21/24 08:59 Dose: 3 ml Documented By: RASHAAD Tramadol HCl (Tramadol Hcl 50 Mg Tablet) 50 mg PO Q8H PRN PRN Reason: Breakthrough Pain, Moderate Last Admin: 03/20/24 16:59 Dose: 50 mg Documented By: SOFFAA Labs 03/21/24 05:13 03/21/24 05:13 Labs: Laboratory Results - last 24 hr 03/20/24 03/20/24 03/21/24 16:10 20:00 05:13 MCV 107.7 H MCH 34.4 H MCHC 31.9 RDW 14.5 Plt Count 303 MPV 12.0 Absolute Nucleated RBC 0.000 Nucleated RBC % (auto) 0.0 Anion Gap 14 Estim Creat Clear Calc 45.5 Estimated GFR > 60 POC Glucose 167 H 193 H Fasting Glucose 112 H Calcium 8.9 03/21/24 03/21/24 07:26 11:07 MCV MCH MCHC RDW Plt Count MPV Absolute Nucleated RBC Nucleated RBC % (auto) Anion Gap Estim Creat Clear Calc Estimated GFR POC Glucose 130 H 194 H Fasting Glucose Calcium Microbiology Microbiology Results: Microbiology 03/15/24 15:12 Blood Culture - Final Blood - Venous No growth after 5 days. 03/15/24 15:12 Blood Culture - Final Blood - Venous No growth after 5 days. 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: Status: Acute Plan 79F PMH metastic adenocarcinoma of left lung, CAD, SVT< hfpef, dm, htn, hld, hypothyroid presented with sob Acute hypoxic respiratory failure secondary to postobstructive pneumonia due to metastatic adenocarcinoma of left lung further complicated by acute on chronic diastolic CHF slow improvement repeat CXR Mucinex bid Continue ceftriaxone azithromycin chest physiotherapy po lasix wean o2 as tolerated Oncology to start pembrolizumab [id number] left pleural effusion d/w pulm and IR, not significant enough to warrant thoracentesis Coronary disease dual antiplatelet after thoracentesis, continue statin Diabetes Insulin sliding scale Hypothyroid Levothyroxine Hypertension Holding lisinopril for low normal blood pressure, monitor for now SVT On amiodarone and Coreg DVT prophylaxis with Lovenox Full code reason for continued hospitalization: Hypoxic, sob Quality Stroke Does the patient have a stroke diagnosis?: No VTE Prior VTE?: No VTE Risk Level:: Medical - moderate - high VTE Device Contraindication: N/A - Device Ordered VTE Drug Contraindication: Treatment Not Indicated
[2024-03-21] MEDS: Azithromycin 500 MG TABLET PO (14:35)
--- NOTE | 2024-03-21 16:29 | P.PNPL_ITS ---
Subjective Subjective Date of Service: 03/21/24 Interval history: No significant clinical improvement. Remains significantly hypoxic. Follow-up x-ray unrevealing. Objective Data Labs 03/21/24 05:13 03/21/24 05:13 Labs: Laboratory Results - last 24 hr 03/20/24 03/21/24 03/21/24 20:00 05:13 07:26 WBC 14.3 H RBC 2.85 L Hgb 9.8 L Hct 30.7 L MCV 107.7 H MCH 34.4 H MCHC 31.9 RDW 14.5 Plt Count 303 MPV 12.0 Absolute Nucleated RBC 0.000 Nucleated RBC % (auto) 0.0 Sodium 138 Potassium 3.9 Chloride 99 Carbon Dioxide 29 Anion Gap 14 BUN 18 H Creatinine 0.86 Estim Creat Clear Calc 45.5 Estimated GFR > 60 POC Glucose 193 H 130 H Fasting Glucose 112 H Calcium 8.9 03/21/24 11:07 WBC RBC Hgb Hct MCV MCH MCHC RDW Plt Count MPV Absolute Nucleated RBC Nucleated RBC % (auto) Sodium Potassium Chloride Carbon Dioxide Anion Gap BUN Creatinine Estim Creat Clear Calc Estimated GFR POC Glucose 194 H Fasting Glucose Calcium Microbiology Microbiology Results: Microbiology 03/15/24 15:12 Blood - Venous Blood Culture - Final No growth after 5 days. 03/15/24 15:12 Blood - Venous Blood Culture - Final No growth after 5 days. Physical Exam 2 Vital Signs: Vital Signs: Last Vital Signs Temp 96.9 F 03/21/24 15:01 Pulse 73 03/21/24 15:31 Resp 18 03/21/24 15:31 BP 104/54 L 03/21/24 15:01 Pulse Ox 94 03/21/24 15:01 O2 Del Method Nasal Cannula 03/21/24 15:01 O2 Flow Rate 3 03/21/24 15:01 BMI result Body Mass Index 28.2 Const: General: no acute distress, alert and awake Eyes: Sclerae: sclerae normal EOM: EOMs intact bilaterally Neck: Neck: Yes no lymphadenopathy, Yes trachea midline and Yes supple Resp: Effort & Inspection: normal respiratory effort and no respiratory distress Auscultation: clear to auscultation bilaterally Cardio: Rate: regular rate Rhythm: regular rhythm Heart sounds: no gallops, no murmurs and no rubs GI: Palpation (GI): Soft to palpation and Other GI palpation findings present ( Nontender) Auscultation: normal bowel sounds Extrem: General: Yes no pedal edema, No clubbing and No cyanosis Procedures Date of Service Date of Service: 03/21/24 Assessment and Plan Assessment and plan (1) Pneumonia: Status: Acute (2) 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 Recommendations: Continue empiric antibiotics and assist/chest CPT to the left upper lobe. Will repeat CT chest for further assessment. Time Spent With Patient Time: Total time managing care of this patient today ____ minutes. Progress Note: Quality Stroke Does the patient have a stroke diagnosis?: No
[2024-03-21 16:32] LABS: Glucose, Whole Blood 247 mg/dL (60-115)
[2024-03-21] MEDS: Enoxaparin Sodium 40 MG/0.4 ML SYRINGE SUBCUT (17:20)
[2024-03-21] MEDS: cefTRIAXone sodium 1 GM in 0.9 % Sodium Chloride 50 ML IV (19:52)
[2024-03-21 20:08] LABS: Glucose, Whole Blood 345 mg/dL (60-115)
[2024-03-21] MEDS: traMADoL HCL 50 MG TABLET PO (20:10)
[2024-03-21] MEDS: Atorvastatin Calcium 80 MG TABLET PO (20:10)
[2024-03-21] MEDS: Ezetimibe 10 MG TABLET PO (20:11)
[2024-03-21] MEDS: Insulin Glargine,Hum.rec.anlog 100 UNIT/ML 10 ML VIAL 11 UNIT SUBCUT (20:12)
[2024-03-21] MEDS: Milk of Magnesia 30 ML ORAL.SUSP PO (20:21)
[2024-03-21] MEDS: Morphine Sulfate 2 MG/ML CARTRIDGE IVPUSH (21:56)
[2024-03-22] VITALS (10 sets, daily range): BP systolic 99–134; BP diastolic 54–62; PULSE 70–84; RESP 16–21; TEMP 36.2–37.3; O2SAT 92–93
[2024-03-22] MEDS: guaiFEN/Codeine SF 200/20/10ML 10 ML LIQUID PO ×2 (03:08→07:50)
[2024-03-22] MEDS: Levothyroxine Sodium 25 MCG TABLET PO (06:24)
[2024-03-22 07:13] LABS: Blood Urea Nitrogen 16 mg/dL (9-16); Calcium 8.6 mg/dL (8.4-10.2); Creatinine Clr Calc Pharmacy 48.3; Estimated Glomerular Filt Rate > 60; Glucose Random 161 mg/dL (60-115)
[2024-03-22 07:21] LABS: Glucose, Whole Blood 160 mg/dL (60-115)
[2024-03-22 07:33] LABS: Anion Gap 15 (12-20); Carbon Dioxide 28 mmol/L (22-29); Chloride 99 mmol/L (96-108); Potassium 4.1 mmol/L (3.3-5.1); Sodium 138 mmol/L (135-145)
[2024-03-22 07:45] LABS: Hematocrit 30.7 % (37.0-47.0); Hemoglobin 9.7 g/dl (12.0-16.0); Mean Corpuscular HGB Conc 31.6 g/dl (31.0-35.0); Mean Corpuscular Hemoglobin 34.4 pg (27.0-33.0); Mean Corpuscular Volume 108.9 fL (80.0-98.0); Mean Platelet Volume 12.3 fL (9.4-12.3); Platelet Count 286 X10*3/uL (160-400); Red Blood Count 2.82 X10*6/uL (4.20-5.50); Red Cell Distribution Width 14.6 % (11.0-16.0); White Blood Count 14.4 X10*3/uL (4.8-10.8)
[2024-03-22] MEDS: Insulin Lispro 100 UNIT/ML 3 ML VIAL SUBCUT ×4 (07:48→21:00)
[2024-03-22] MEDS: Folic Acid 1 MG TABLET PO (07:48)
[2024-03-22] MEDS: Isosorbide Mononitrate 30 MG TAB.ER.24H PO (07:49)
[2024-03-22] MEDS: traMADoL HCL 50 MG TABLET PO ×2 (07:49→21:21)
[2024-03-22] MEDS: carvediloL 6.25 MG TABLET PO ×2 (07:50→21:01)
[2024-03-22] MEDS: Aspirin Enteric Coated 81 MG TABLET.DR PO (07:50)
[2024-03-22] MEDS: Clopidogrel Bisulfate 75 MG TABLET PO (07:50)
[2024-03-22] MEDS: Amiodarone HCL 200 MG TABLET PO (07:50)
[2024-03-22] MEDS: Furosemide 20 MG TABLET PO ×2 (07:50→17:20)
[2024-03-22] MEDS: 0.9 % Sodium Chloride Flush 3 ML SYRINGE IVFLUSH ×2 (07:53→15:25)
[2024-03-22] MEDS: Albuterol/Iprat 2.5/0.5MG 3 ML AMPUL.NEB INHALE ×4 (08:38→19:58)
--- NOTE | 2024-03-22 10:14 | HO.THORCON_ITS ---
History of Present Illness Consult details Consult date: 03/22/24 Narrative: Patient is a pleasant, unfortunate 79-year-old female with metastatic left lung cancer. She has an intricate and complex past thoracic history. Patient had prior surgery at [facility] were she initially had was felt to be early stage lung cancer. She developed a recurrence with mediastinal disease. She has had thoracentesis x2 and [place] in the fall with moderate symptomatic relief. She states that she has not received any form of chemotherapy or radiation therapy that she is aware. Patient presents here because of progressive shortness of breath. She has had a workup which demonstrates CT scan findings highly consistent with local regionally advanced lung cancer involving left upper lobe and mediastinum. There was concern that there is postobstructive process involving the left upper lobe with atelectasis/pneumonia. No large pleural effusion was demonstrated. Chart was reviewed and patient evaluated PMFSH Past Medical History Medical History SVT (supraventricular tachycardia) Tachycardia Dyslipidemia PAD (peripheral artery disease) Nicotine dependence, cigarettes, uncomplicated Tubular adenoma of colon Anemia Anxiety CAD (coronary artery disease) Essential hypertension Diabetes type 2, controlled Family History Family History Daughter Lung cancer Father Bone cancer Mother Colon cancer Surgical History Surgical History S/P cardiac catheterization History of lung surgery History of varicose vein stripping History of angioplasty History of heart artery stent History of carpal tunnel surgery of right wrist History of colonoscopy History of splenectomy History of partial pancreatectomy History of cholecystectomy History of appendectomy History of tonsillectomy Social History Social History Household Members: None Housing: House Are you a primary menagerie caretaker to a significant other at home: No Alcohol intake: never Patient Tobacco Use Status: Former Tobacco user Tobacco use type: Cigarette Years Smoked: 50 Smoked in Last 30 Days: No e-Cigarette/Vaping Use: Never Used Second Hand Smoke Exposure: No Use of substances other than those prescribed or required for medical reasons: No Currently Displaying Signs/Symptoms of Drug Intoxication Withdrawal: No Have you been hit, kicked, punched, or otherwise hurt by someone within the past year? If so, by whom?: No Do you feel safe in your current relationship?: No Current Relationship Is there a partner from a previous relationship who is making you feel unsafe now?: No Are you made to feel afraid or neglected: No Advance Directives: Yes Advance Directives on File: Yes Advance Directives Date on File: 01/18/23 Do you have a plan to hurt others: No Plan Recently lost weight without trying: No Eating poorly because of decreased appetite: No Nutrition Risks: No Nutritional Risk Patient : No : No Poor oral hygiene: No service: No Current occupational status: retired Current occupational exposures/hazards: No Cognitive needs: No Hearing needs: No Vision needs: No Meds Allergies Allergy/AdvReac Type Severity Reaction Status Date / Time No Known Allergies Allergy Verified 03/15/24 12:17 Active Medications: Current Medications Acetaminophen (Acetaminophen 325 Mg Tablet) 650 mg PO Q6H PRN PRN Reason: Pain, Mild (Pain Scale 1-3), fever or headache Last Admin: 03/18/24 16:59 Dose: 650 mg Albuterol/Ipratropium (Albuterol/Iprat 2.5/0.5mg 3 Ml Ampul.Neb) 3 ml INHALE RQ4H WHILE AWAKE [facility] Last Admin: 03/22/24 08:38 Dose: 3 ml Amiodarone HCl (Amiodarone Hcl 200 Mg Tablet) 200 mg PO DAILY [facility] Last Admin: 03/22/24 07:50 Dose: 200 mg Aspirin (Aspirin Enteric Coated 81 Mg Tablet.Dr) 81 mg PO DAILY [facility] Last Admin: 03/22/24 07:50 Dose: 81 mg Atorvastatin Calcium (Atorvastatin Calcium 80 Mg Tablet) 80 mg PO BEDTIME [facility] Last Admin: 03/21/24 20:10 Dose: 80 mg Azithromycin (Azithromycin 500 Mg Tablet) 500 mg PO Q24H [facility] Last Admin: 03/21/24 14:35 Dose: 500 mg Calcium Carbonate (Calcium Carbonate 750 Mg Tab.Chew) 750 mg PO Q4H PRN PRN Reason: Heartburn Carvedilol (Carvedilol 6.25 Mg Tablet) 6.25 mg PO BID [facility]; Protocol Last Admin: 03/22/24 07:50 Dose: 6.25 mg Clopidogrel Bisulfate (Clopidogrel Bisulfate 75 Mg Tablet) 75 mg PO DAILY [facility] Last Admin: 03/22/24 07:50 Dose: 75 mg Ezetimibe (Ezetimibe 10 Mg Tablet) 10 mg PO BEDTIME [facility] Last Admin: 03/21/24 20:11 Dose: 10 mg Enoxaparin Sodium (Enoxaparin Sodium 40 Mg/0.4 Ml Syringe) 40 mg SUBCUT Q24H [facility] Last Admin: 03/21/24 17:20 Dose: 40 mg Fluticasone Propionate (Fluticasone Propionate Nasal 16 Gm [place]) 1 spray NOSTRIL-B Q12H PRN PRN Reason: Congestion Folic Acid (Folic Acid 1 Mg Tablet) 1 mg PO DAILY [facility] Last Admin: 03/22/24 07:48 Dose: 1 mg Furosemide (Furosemide 20 Mg Tablet) 20 mg PO BID@0900,1800 [facility]; Protocol Last Admin: 03/22/24 07:50 Dose: 20 mg Glucose (Glucose Gel 15 Gm Gel..Gram.) 15 gm PO Q15M PRN; Protocol PRN Reason: per Hypoglycemia Standing Ord. Guaifenesin/Codeine Phosphate (Guaifen/Codeine Sf 200/20/10ml 10 Ml Liquid) 10 ml PO Q4H PRN PRN Reason: Cough Last Admin: 03/22/24 07:50 Dose: 10 ml Dextrose (D10) 250 mls @ 750 mls/hr IV Q15M PRN; Protocol PRN Reason: per Hypoglycemia Standing Ord. Ceftriaxone Sodium 1 gm/ (Sodium Chloride) 50 mls @ 100 mls/hr IV Q24H [facility] Last Infusion: 03/21/24 20:26 Dose: Infused Insulin Glargine (Insulin Glargine,Hum.Rec.Anlog 100 Unit/Ml 10 Ml Vial) 11 unit SUBCUT BEDTIME [facility] Last Admin: 03/21/24 20:12 Dose: 11 unit Insulin Human Lispro (Insulin Lispro 100 Unit/Ml 3 Ml Vial) 0 unit SUBCUT QIDACHS [facility]; Protocol Last Admin: 03/22/24 07:48 Dose: 2 unit Isosorbide Mononitrate (Isosorbide Mononitrate 30 Mg Tab.Er.24h) 30 mg PO DAILY [facility]; Protocol Last Admin: 03/22/24 07:49 Dose: 30 mg Levothyroxine Sodium (Levothyroxine Sodium 25 Mcg Tablet) 25 mcg PO DAILY@0600 [facility] Last Admin: 03/22/24 06:24 Dose: 25 mcg Magnesium Hydroxide (Milk Of Magnesia 30 Ml Oral.Susp) 30 ml PO DAILY PRN PRN Reason: Constipation Last Admin: 03/21/24 20:21 Dose: 30 ml Melatonin (Melatonin 3 Mg Tablet) 6 mg PO BEDTIME PRN PRN Reason: Insomnia Ondansetron HCl (Ondansetron Hcl 4 Mg/2 Ml Vial) 4 mg IVPUSH Q8H PRN PRN Reason: Nausea and Vomiting Sodium Chloride (0.9 % Sodium Chloride Flush 3 Ml Syringe) 3 ml IVFLUSH QSHIFT [facility] Last Admin: 03/22/24 07:53 Dose: 3 ml Tramadol HCl (Tramadol Hcl 50 Mg Tablet) 50 mg PO Q8H PRN PRN Reason: Breakthrough Pain, Moderate Last Admin: 03/22/24 07:49 Dose: 50 mg Home Medications ?Medication ?Instructions ?Recorded ?Confirmed ?Last Taken ?Type atorvastatin 80 mg tablet 80 mg PO BEDTIME 08/21/20 03/15/24 03/14/24 History blood sugar diagnostic #10 ea 08/21/20 02/28/24 Unknown History blood-glucose meter #1 ea 08/21/20 02/28/24 Unknown History pen needle, diabetic 31 gauge x #50 ea 08/21/20 02/28/24 Unknown History 11/25 insulin aspart U-100 100 unit/mL 0 sliding scale dose subcut QIDACHS 11/19/22 03/15/24 03/15/24 History (3 mL) subcutaneous pen (Novolog FlexPen U-100 Insulin aspart) lancets 30 gauge (OneTouch [place] #100 ea 11/19/22 02/28/24 Unknown History Plus Lancet) ezetimibe 10 mg tablet 10 mg PO BEDTIME 03/15/24 03/15/24 03/14/24 History fluticasone propionate 50 1 spray intranasal Q12H PRN 03/15/24 03/15/24 03/15/24 History mcg/actuation nasal Congestion spray,suspension (Flonase Allergy Relief) furosemide 20 mg tablet 20 mg PO BID@0900,1700 03/15/24 03/15/24 03/15/24 History insulin detemir U-100 100 unit/mL 16 unit subcut BEDTIME 03/15/24 03/15/24 03/15/24 History (3 mL) subcutaneous pen lisinopril 20 mg tablet 10 mg PO DAILY 03/15/24 03/15/24 03/15/24 History ondansetron 8 mg disintegrating 8 mg PO Q8H PRN Nausea And Vomiting 03/15/24 03/15/24 03/15/24 History tablet Physical Exam 2 Vital Signs: Vital Signs: Last Vital Signs Temp 97.9 F 03/22/24 07:09 Pulse 70 03/22/24 08:39 Resp 21 H 03/22/24 08:39 BP 109/55 L 03/22/24 07:09 Pulse Ox 92 03/22/24 08:39 O2 Del Method Nasal Cannula 03/22/24 07:09 O2 Flow Rate 3 03/22/24 07:09 BMI result Body Mass Index 28.2 Chest: Other: Chest breath sounds bilaterally, diminished left upper zone. GI: Other: Abdomen is soft, benign Results Labs 03/22/24 05:43 03/22/24 05:43 Labs: Abnormal lab results 03/21/24 03/21/24 03/21/24 Range/Units 11:07 16:23 20:04 WBC (4.8-10.8) X10*3/uL RBC (4.20-5.50) X10*6/uL Hgb (12.0-16.0) g/dl Hct (37.0-47.0) % MCV (80.0-98.0) fL MCH (27.0-33.0) pg POC Glucose 194 H 247 H 345 H (60-115) mg/dL Random Glucose (60-115) mg/dL 03/22/24 03/22/24 Range/Units 05:43 07:09 WBC 14.4 H (4.8-10.8) X10*3/uL RBC 2.82 L (4.20-5.50) X10*6/uL Hgb 9.7 L (12.0-16.0) g/dl Hct 30.7 L (37.0-47.0) % MCV 108.9 H (80.0-98.0) fL MCH 34.4 H (27.0-33.0) pg POC Glucose 160 H (60-115) mg/dL Random Glucose 161 H (60-115) mg/dL Short CBC 03/22/24 Range/Units 05:43 WBC 14.4 H (4.8-10.8) X10*3/uL Hgb 9.7 L (12.0-16.0) g/dl Hct 30.7 L (37.0-47.0) % Plt Count 286 (160-400) X10*3/uL [facility] 03/22/24 05:43 Sodium 138 Potassium 4.1 Chloride 99 Carbon Dioxide 28 BUN 16 Creatinine 0.81 Calcium 8.6 All other labs normal. 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 Therapy would include chemotherapy, immunotherapy, radiation therapy, or combination of these. At present, no acute thoracic surgical issues. Patient would not benefit from thoracentesis or PleurX catheter because of the post obstructive changes that would not allow to lung to re-expand. And therefore removing any malignant pleural effusion at this point would not improve patient's symptoms. Procedures Date of Service Date of Service: 03/22/24
[2024-03-22 11:07] LABS: Glucose, Whole Blood 176 mg/dL (60-115)
--- NOTE | 2024-03-22 13:02 | HO.PM.IMPN ---
Subjective Subjective Date of Service: 03/22/24 Interval History: seen and evaluated this morning still feeling dyspnic with minimal exertion On O2 supplement Thoracic surgery doesnt think Thoracentesis would help Review of Systems Review of Systems: Yes all other systems are reviewed and are negative Physical Exam Vital Signs: Vital Signs: Last Vital Signs Temp 97.9 F 03/22/24 07:09 Pulse 84 03/22/24 11:24 Resp 19 03/22/24 11:24 BP 109/55 L 03/22/24 07:09 Pulse Ox 92 03/22/24 08:39 O2 Del Method Nasal Cannula 03/22/24 07:09 O2 Flow Rate 3 03/22/24 07:09 BMI result Body Mass Index 28.2 Const: Other: Constitutional : Awake, interactive, not in distress Neck : Normal inspection, Supple Cardiovascular : RRR, no JVP, no lower extremity edema Respiratory : fair bilateral air entry, basal fine lt sided crackles, exp rhonchi, on O2 supplement Gastrointestinal: soft, lax, Normal bowel sounds, Non tender Skin : Warm, Dry Neurological : Alert & oriented x3, No focal deficit Objective Data Active Medications Acetaminophen (Acetaminophen 325 Mg Tablet) 650 mg PO Q6H PRN PRN Reason: Pain, Mild (Pain Scale 1-3), fever or headache Last Admin: 03/18/24 16:59 Dose: 650 mg Documented By: BRUCE Albuterol/Ipratropium (Albuterol/Iprat 2.5/0.5mg 3 Ml Ampul.Neb) 3 ml INHALE RQ4H WHILE AWAKE [facility] Last Admin: 03/22/24 11:24 Dose: 3 ml Documented By: IFEANYI Amiodarone HCl (Amiodarone Hcl 200 Mg Tablet) 200 mg PO DAILY [facility] Last Admin: 03/22/24 07:50 Dose: 200 mg Documented By: RASHAAD Aspirin (Aspirin Enteric Coated 81 Mg Tablet.) 81 mg PO DAILY [facility] Last Admin: 03/22/24 07:50 Dose: 81 mg Documented By: RASHAAD Atorvastatin Calcium (Atorvastatin Calcium 80 Mg Tablet) 80 mg PO BEDTIME [facility] Last Admin: 03/21/24 20:10 Dose: 80 mg Documented By: KARLENE Azithromycin (Azithromycin 500 Mg Tablet) 500 mg PO Q24H [facility] Last Admin: 03/21/24 14:35 Dose: 500 mg Documented By: RASHAAD Calcium Carbonate (Calcium Carbonate 750 Mg Tab.Chew) 750 mg PO Q4H PRN PRN Reason: Heartburn Carvedilol (Carvedilol 6.25 Mg Tablet) 6.25 mg PO BID [facility]; Protocol Last Admin: 03/22/24 07:50 Dose: 6.25 mg Documented By: RASHAAD Clopidogrel Bisulfate (Clopidogrel Bisulfate 75 Mg Tablet) 75 mg PO DAILY [facility] Last Admin: 03/22/24 07:50 Dose: 75 mg Documented By: RASHAAD Ezetimibe (Ezetimibe 10 Mg Tablet) 10 mg PO BEDTIME [facility] Last Admin: 03/21/24 20:11 Dose: 10 mg Documented By: KARLENE Enoxaparin Sodium (Enoxaparin Sodium 40 Mg/0.4 Ml Syringe) 40 mg SUBCUT Q24H [facility] Last Admin: 03/21/24 17:20 Dose: 40 mg Documented By: RASHAAD Fluticasone Propionate (Fluticasone Propionate Nasal 16 Gm [place]) 1 spray NOSTRIL-B Q12H PRN PRN Reason: Congestion Folic Acid (Folic Acid 1 Mg Tablet) 1 mg PO DAILY [facility] Last Admin: 03/22/24 07:48 Dose: 1 mg Documented By: RASHAAD Furosemide (Furosemide 20 Mg Tablet) 20 mg PO BID@0900,1800 [facility]; Protocol Last Admin: 03/22/24 07:50 Dose: 20 mg Documented By: RASHAAD Glucose (Glucose Gel 15 Gm Gel..Gram.) 15 gm PO Q15M PRN; Protocol PRN Reason: per Hypoglycemia Standing Ord. Guaifenesin/Codeine Phosphate (Guaifen/Codeine Sf 200/20/10ml 10 Ml Liquid) 10 ml PO Q4H PRN PRN Reason: Cough Last Admin: 03/22/24 07:50 Dose: 10 ml Documented By: RASHAAD Dextrose (D10) 250 mls @ 750 mls/hr IV Q15M PRN; Protocol PRN Reason: per Hypoglycemia Standing Ord. Ceftriaxone Sodium 1 gm/ (Sodium Chloride) 50 mls @ 100 mls/hr IV Q24H [facility] Last Infusion: 03/21/24 20:26 Dose: Infused Documented By: KARLENE Insulin Glargine (Insulin Glargine,Hum.Rec.Anlog 100 Unit/Ml 10 Ml Vial) 11 unit SUBCUT BEDTIME [facility] Last Admin: 03/21/24 20:12 Dose: 11 unit Documented By: KARLENE Insulin Human Lispro (Insulin Lispro 100 Unit/Ml 3 Ml Vial) 0 unit SUBCUT QIDACHS [facility]; Protocol Last Admin: 03/22/24 11:45 Dose: 2 unit Documented By: RASHAAD Isosorbide Mononitrate (Isosorbide Mononitrate 30 Mg Tab.Er.24h) 30 mg PO DAILY [facility]; Protocol Last Admin: 03/22/24 07:49 Dose: 30 mg Documented By: RASHAAD Levothyroxine Sodium (Levothyroxine Sodium 25 Mcg Tablet) 25 mcg PO DAILY@0600 [facility] Last Admin: 03/22/24 06:24 Dose: 25 mcg Documented By: KARLENE Magnesium Hydroxide (Milk Of Magnesia 30 Ml Oral.Susp) 30 ml PO DAILY PRN PRN Reason: Constipation Last Admin: 03/21/24 20:21 Dose: 30 ml Documented By: KARLENE Melatonin (Melatonin 3 Mg Tablet) 6 mg PO BEDTIME PRN PRN Reason: Insomnia Ondansetron HCl (Ondansetron Hcl 4 Mg/2 Ml Vial) 4 mg IVPUSH Q8H PRN PRN Reason: Nausea and Vomiting Sodium Chloride (0.9 % Sodium Chloride Flush 3 Ml Syringe) 3 ml IVFLUSH QSHIFT [facility] Last Admin: 03/22/24 07:53 Dose: 3 ml Documented By: RASHAAD Tramadol HCl (Tramadol Hcl 50 Mg Tablet) 50 mg PO Q8H PRN PRN Reason: Breakthrough Pain, Moderate Last Admin: 03/22/24 07:49 Dose: 50 mg Documented By: RASHAAD Labs 03/22/24 05:43 03/22/24 05:43 Labs: Laboratory Results - last 24 hr 03/21/24 03/21/24 03/22/24 16:23 20:04 05:43 MCV 108.9 H MCH 34.4 H MCHC 31.6 RDW 14.6 Plt Count 286 MPV 12.3 Absolute Nucleated RBC 0.000 Nucleated RBC % (auto) 0.0 Anion Gap 15 Estim Creat Clear Calc 48.3 Estimated GFR > 60 POC Glucose 247 H 345 H Random Glucose 161 H Calcium 8.6 03/22/24 03/22/24 07:09 10:59 MCV MCH MCHC RDW Plt Count MPV Absolute Nucleated RBC Nucleated RBC % (auto) Anion Gap Estim Creat Clear Calc Estimated GFR POC Glucose 160 H 176 H Random Glucose Calcium Assessment and Plan (1) Hypoxia: Status: Acute (2) Pneumonia: Status: Acute (3) Pleural effusion: Status: Acute (4) 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: Status: Acute Plan 79F PMH metastic adenocarcinoma of left lung, CAD, SVT< hfpef, dm, htn, hld, hypothyroid presented with sob Acute hypoxic respiratory failure secondary to postobstructive pneumonia due to metastatic adenocarcinoma of left lung further complicated by acute on chronic diastolic CHF slow improvement CT chest showing small lyly effusion and large left sided mass w pneumonia , pendig official reading Mucinex bid Continue ceftriaxone azithromycin chest physiotherapy po lasix wean o2 as tolerated Pulm rec repeat CT Oncology to start pembrolizumab as OP [id number] left pleural effusion d/w pulm and IR, not significant enough to warrant thoracentesis Thoracic surgery rec to hold on Thoracentesis and treat medically after reveiwing CT scan Coronary disease dual antiplatelet after thoracentesis, continue statin Diabetes Insulin sliding scale Hypothyroid Levothyroxine Hypertension Holding lisinopril for low normal blood pressure, monitor for now SVT On amiodarone and Coreg DVT prophylaxis with Lovenox Full code reason for continued hospitalization: Hypoxic, sob Quality Stroke Does the patient have a stroke diagnosis?: No VTE Prior VTE?: No VTE Risk Level:: Medical - moderate - high VTE Device Contraindication: N/A - Device Ordered VTE Drug Contraindication: Treatment Not Indicated
[2024-03-22] MEDS: Azithromycin 500 MG TABLET PO (15:24)
[2024-03-22 16:29] LABS: Glucose, Whole Blood 169 mg/dL (60-115)
[2024-03-22] MEDS: Lactulose 20 GM/30 ML SOLUTION 30 GM PO (18:18)
[2024-03-22] MEDS: cefTRIAXone sodium 1 GM in 0.9 % Sodium Chloride 50 ML IV (19:27)
[2024-03-22 20:29] LABS: Glucose, Whole Blood 229 mg/dL (60-115)
[2024-03-22] MEDS: Atorvastatin Calcium 80 MG TABLET PO (20:59)
[2024-03-22] MEDS: Ezetimibe 10 MG TABLET PO (20:59)
[2024-03-22] MEDS: Insulin Glargine,Hum.rec.anlog 100 UNIT/ML 10 ML VIAL 11 UNIT SUBCUT (21:01)
[2024-03-23 04:00] VITALS: BP 116/55; PULSE 66; RESP 18; TEMP 36.4; O2SAT 95
[2024-03-23] MEDS: Levothyroxine Sodium 25 MCG TABLET PO (05:27)
[2024-03-23 07:00] VITALS: BP 132/60; PULSE 77; RESP 20; TEMP 36.8; O2SAT 91
[2024-03-23 07:18] LABS: Glucose, Whole Blood 162 mg/dL (60-115)
[2024-03-23] MEDS: guaiFEN/Codeine SF 200/20/10ML 10 ML LIQUID PO (07:33)
[2024-03-23] MEDS: Furosemide 20 MG TABLET PO (07:34)
[2024-03-23] MEDS: traMADoL HCL 50 MG TABLET PO (07:34)
[2024-03-23] MEDS: carvediloL 6.25 MG TABLET PO (07:34)
[2024-03-23] MEDS: Isosorbide Mononitrate 30 MG TAB.ER.24H PO (07:34)
[2024-03-23] MEDS: Clopidogrel Bisulfate 75 MG TABLET PO (07:34)
[2024-03-23] MEDS: Aspirin Enteric Coated 81 MG TABLET.DR PO (07:35)
[2024-03-23] MEDS: 0.9 % Sodium Chloride Flush 3 ML SYRINGE IVFLUSH (07:36)
[2024-03-23] MEDS: Insulin Lispro 100 UNIT/ML 3 ML VIAL SUBCUT ×2 (07:36→11:36)
[2024-03-23] MEDS: Folic Acid 1 MG TABLET PO (07:36)
[2024-03-23] MEDS: Amiodarone HCL 200 MG TABLET PO (07:36)
[2024-03-23 08:44] VITALS: PULSE 70; PULSE 72; PULSE 90; PULSE 96; O2SAT 80; O2SAT 86; O2SAT 90; O2SAT 91
[2024-03-23 09:38] VITALS: BP 132/60; PULSE 77; O2SAT 91
[2024-03-23 11:10] LABS: Glucose, Whole Blood 190 mg/dL (60-115)
--- NOTE | 2024-03-23 11:19 | PM.DS ---
DS: Providers Provider Date of Service: 03/23/24 Date of admission: 03/15/24 18:28 Primary care physician: Kenji Mcnally MD Consults: 03/15/24 18:05 Consult to Hematology / Oncology Routine Consulting Provider: [facility] Oncology/Hematology Reason for consultation: Non small cell lung cancer, Dr. Berger's pt Consult to Pulmonology Routine Consulting Provider: [facility] Pulmonology Services Reason for consultation: Hypoxia, pneumonia, hx of NSCLC, pleural effusion 03/21/24 15:02 Consult to Thoracic Surgery Routine Consulting Provider: Edgar Alonzo Reason for consultation: Post obstructive pneumonia, not improving, on O2 supplement. 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 Berger, CAD s/p stenting, SVT, HFpEF, insulin-dependent type 2 diabetes, HTN, HLD, and hypothyroidism who presents to the ED with?shortness of breath and [place] x1 week and lower leg edema x3 days. Has been experiencing cough mostly productive of clear sputum. No fever or chills. Denies chest pain or pressure. No palpitations. Patient also has been experiencing lower back pain x1 week, which is a new symptom for her. No history of recent falls or known trauma to the area. Patient [place] on [place]01/2023 [place] [facility] [place]acent[place] with 750 cc drained. PET scan on 02/06/2024 revealed activity in supraclavicular and multiple mediastinal lymph nodes suspicious for recurrent/residual neoplasm with metastatic disease. In the ED pt was tachypneic up to 24 hypoxic as low as 85% on RA and was soft BP as low as 115/54. Labs were significant for leukocytosis of 11.5, stable macrocytic anemia 10.1/29.6 with MCV 109.2, bilirubin 2.1, alk-phos 141, and BNP 386. Mildly elevated D-dimer of 256. No significant electrolyte abnormalities. Tested negative for flu, RSV, and COVID. CXR showed pneumonia in left lung and pleural effusion. CTA of chest found no evidence of pulmonary embolism, but showed likely pulmonary artery hypertension. Did show left upper lobe consolidation with air bubbles in the center of the consolidation, and bilateral pleural effusion and right lung nodules. Also showed mediastinal and right hilar lymphadenopathy. EKG demonstrated normal sinus rhythm showing pulmonary disease pattern without evidence of significant ST elevations or depressions. Pt was treated with DuoNebs, azithromycin, and ceftriaxone. Pt will be admitted to the hospital for treatment and further evaluation of acute hypoxic respiratory failure in the setting of left upper lobe pneumonia. Hospital course Acute hypoxic respiratory failure secondary to postobstructive pneumonia due to metastatic adenocarcinoma of left lung further complicated by acute on chronic diastolic CHF as CT chest showing small lyly effusion and large left sided mass w pneumonia with small bilateral effusions that were treated with IV antibiotics, Mucinex bid, IV Lasix , chest physiotherapy and Oxygen supplement that was weaned down as tolerated. she was evaluated by Pulmonology and thoracic surgeon with recommendations for medical management of the lung cancer with immuno\chemo therapy. She was seen by Oncologist dr Berger who recommended a follow up next week to start Pembrolizumab infusion next 1 pm. for the [id number] left pleural effusion it was discussed with pulmonology and IR who thought it was not significant enough to warrant thoracentesis. Thoracic surgery rec to hold on Thoracentesis and treat medically after reveiwing CT scan as it is showing likely rapidly progressing cancer rather than worsening infection as no other signs of infection after being on antibiotics for almost a week. To finish 10 days total of dual antibiotics then keep her on Doxycycline for 2 weeks until she starts immunotherapy with a plan to follow with Oncology and PCP as outpatient. Evaluated for Home O2 and will be delivered as she needs 2-3L on rest and 6 with ambulation. Code status discussed with the patient and her HCP and they would like to discuss it and give an answer later. Discharge plan Continue Ceftin for 3 more days Continue doxycycline for 14 more days Start Immunotherapy next at [address] Berger Home Oxygen with rest and ambulation The patient has high chance of readmission given progressing cancer and increasing O2 requriments. Time Attestation Discharge Coordination Time (in mins): 46 Quality: Safe Use of Opioids Does Pt have an Active Cancer Diagnosis on the Problem List?: Yes Opioid Measure Date for CMS Report: 02/22/24 Opioid Measure Time for [facility] Report: 15:09 Quality: Stroke Does the patient have a stroke diagnosis?: No Physical Exam Vital Signs: Vital Signs: Last Vital Signs Temp 98.2 F 03/23/24 07:00 Pulse 77 03/23/24 09:38 Resp 20 03/23/24 07:00 BP 132/60 03/23/24 09:38 Pulse Ox 91 L 03/23/24 09:38 O2 Del Method Nasal Cannula 03/23/24 07:00 O2 Flow Rate 3 03/23/24 07:00 BMI result Body Mass Index 28.2 Const: Other: Constitutional : Awake, interactive, not in distress Neck : Normal inspection, Supple Cardiovascular : RRR, no JVP, no lower extremity edema Respiratory : fair bilateral air entry, basal fine lt sided crackles, on O2 supplement Gastrointestinal: soft, lax, Normal bowel sounds, Non tender Skin : Warm, Dry Neurological : Alert & oriented x3, No focal deficit DS: Data Data Completed and Pending Labs on day of discharge: Laboratory Results - last 24 hr 03/22/24 03/22/24 03/23/24 16:25 20:23 07:06 POC Glucose 169 H 229 H 162 H 03/23/24 11:07 POC Glucose [address] scan - chest: Radiologist's impression: ITS Impressions Chest X-Ray 03/15/24 13:45 IMPRESSION: Pneumonia in the left lung and pleural effusion Chest CTA 03/15/24 14:54 IMPRESSION: 1. No evidence of pulmonary embolism. Most likely pulmonary artery hypertension 2. Left upper lobe consolidation with air bubbles in the center of the consolidation. 3. Bilateral pleural effusion and right lung nodules. 4. Mediastinal and right hilar lymphadenopathy. VTE: negative. Lumbar Spine X-Ray 03/15/24 18:45 IMPRESSION: Diffuse osteopenia. No evidence of acute compression fracture or suspicious osseous lesion. Lumbar spondylosis. Spondylosis in the visualized lower thoracic spine. Somewhat unusual finding along the right pelvic inlet as described above. Recommend short-term interval follow-up pelvic x-ray within 2-3 days following clearing of the excreted contrast in the urinary bladder. Chest X-Ray 03/21/24 13:00 IMPRESSION: No interval change Chest CT 03/21/24 17:39 IMPRESSION: Progressive, now complete, consolidation of the left upper lobe with no remaining aerated left upper lung tissue visible. This is mildly worsened compared to 03/15/2024. Rapidly progressing malignancy versus superimposed infection cannot be differentiated on this imaging test. Progressive multifocal consolidation around the left hilum and in the left lung with narrowing of the involved airways. This is significantly worsened when compared to 03/15/2024. Rapidly progressing malignancy versus superimposed infection cannot be differentiated on this imaging test. Stable small left pleural effusion. Increasing small right pleural effusion. Discharge Plan Discharge Anticipated Discharge Date/Time: 03/23/24 11:12 Patient Disposition: Home Health Service Discharge Diagnosis: Pneumonia Lung cancer Referrals: [facility] [Outside] - 3-5 Days (home services for long term- a nurse will call you to set up first visit) Kenji Mcnlaly MD [Primary Care Provider] - 1 Week Discharge Medications: New (DME) walker Misc See Rx Instructions .Route Qty: 1 0RF Rx Instructions: As directed doxycycline monohydrate 100 mg capsule 100 mg PO BID Qty: 28 0RF cefuroxime axetil 500 mg tablet 500 mg PO BID Qty: 6 0RF guaifenesin 100 mg/5 mL liquid 200 mg PO Q4H PRN (Reason: congestion) Qty: 473 1RF Continued aspirin [Adult Aspirin Regimen] 81 mg tablet,delayed release (DR/EC) 81 mg PO DAILY Qty: 90 0RF clopidogrel 75 mg tablet 75 mg PO DAILY Qty: 90 3RF isosorbide mononitrate 30 mg tablet extended release 24 hr 30 mg PO DAILY Qty: 90 3RF amiodarone 200 mg tablet 200 mg PO DAILY Qty: 30 2RF carvedilol 6.25 mg tablet 6.25 mg PO BID 30 Days Qty: 60 2RF Rx Instructions: NEW DOSE must administer with a meal/food folic acid 1 mg Tablet 1 mg PO DAILY Qty: 90 4RF tramadol 50 mg Tablet 50 mg PO Q8H PRN (Reason: Breakthrough Pain, Moderate) Qty: 50 0RF codeine-guaifenesin [Guaifenesin AC] 10-100 mg/5 mL Liquid 10 ml PO Q4-6H PRN (Reason: Cough) Qty: 300 2RF furosemide 20 mg tablet 20 mg PO BID@0900,1700 fluticasone propionate [Flonase Allergy Relief] 50 mcg/actuation spray,suspension 1 spray intranasal Q12H PRN (Reason: Congestion) Rx Instructions: administer into each nostril ezetimibe 10 mg tablet 10 mg PO BEDTIME insulin detemir U-100 100 unit/mL (3 mL) insulin pen 16 unit subcut BEDTIME atorvastatin 80 mg tablet 80 mg PO BEDTIME (DME) blood sugar diagnostic Strip See Rx Instructions Not Applicable .MEDSUPPLY Qty: 10 Rx Instructions: As directed (DME) pen needle, diabetic 31 gauge x 3/16 needle See Rx Instructions subcut QID Qty: 50 Rx Instructions: As directed (DME) blood-glucose meter Misc See Rx Instructions .ROUTE .MEDSUPPLY Qty: 1 Rx Instructions: As directed insulin aspart U-100 [Novolog FlexPen U-100 Insulin] 100 unit/mL (3 mL) insulin pen 0 sliding scale dose subcut QIDACHS Protocol: Insulin Correction Scale Less than or equal to 110 ---- Give (units): 0 111 to 150 Give (units): 0 151 to 200 Give (units): 2 201 to 250 Give (units): 4 251 to 300 Give (units): 6 301 to 350 Give (units): 8 Greater than 350 Give (units): 10 Call MD if Blood Glucose > : 350 (DME) lancets [OneTouch Delica Plus Lancet] 30 gauge misc See Rx Instructions .ROUTE .MEDSUPPLY Qty: 100 Rx Instructions: As directed (DME) compr.stocking,knee,long,large Misc See Rx Instructions .Route Qty: 12 2RF Rx Instructions: 20-30?mmHg,?As directed, 90 days levothyroxine 25 mcg tablet 25 mcg PO DAILY 30 Days Qty: 30 3RF Changed ondansetron 8 mg tablet,disintegrating 8 mg PO Q8H PRN (Reason: Nausea And Vomiting) Qty: 20 0RF Discontinued lisinopril 20 mg tablet 10 mg PO DAILY Discharge Orders: Discharge Order (Routine); Ordered 03/23/24 Ordered By: Racquel Pickering Diet: Diabetic diet Activity on Discharge: As tolerated Stand Alone Forms: Patient Portal Discharge page Print Language: Telugu Care Plan Goals: Continue Ceftin for 3 more days Continue doxycycline for 14 more days Start Immunotherapy next at [address] Berger Home Oxygen with rest and ambulation Health Concerns: Read below Plan of Treatment: Read below Assessment: Read below Discharge Date/Time: 03/23/24 12:59
--- NOTE | 2024-03-23 12:01 | MHC.CM.PN ---
DP: PT HAS BEEN MEDICALLY CLEARED FOR DC HOME WITH [facility] AND NEW HOME 02 VIA [facility]. [facility] + NOTIFIED OF TODAY'S DC. PT HAS OWN RIDE HOME.
--- NOTE | 2024-03-23 15:08 | W.MHC.F2F ---
Service Date Service Date: 03/23/24 Encounter Date of encounter: 03/23/24 Reasons for Services Signs and symptoms assessed: NEw home oxygen physical deconditioning Reason for assisted: medication management and teach disease management Reason for physical therapy: home safety and mobility and therapeutic exercises Homebound: Leaving the home is medically contraindicated at this time without the asist of a device and/or another person due th the listed conditions above and below. Reason homebound: unable to drive Certification: Based on the above findings, I certify that this patient is confined to the home and needs intermittent assisted care, physical therapy and/or speech therapy, or continues to need occupational therapy. The patient is under my care, and I have initiated the establishment of the plan of care. The patient will be followed by a physician who will periodically review the plan of care. Time Spent With Patient Time: Total time managing care of this patient today ____ minutes.
== END 2024-03-23 12:59 | disposition home health service (06) | DRG 193 ==
LOC: HO.ED 16:16 → HO.EDOVER 18:37 → HO.S3 20:06
PROVIDERS: Internal Medicine; Physician Assistant; Admitting Provider Student in an Organized Health Care Education/Training Program; Emergency Provider Emergency Medicine; PCP Family Medicine; Visit Provider Student in an Organized Health Care Education/Training Program
DX: J18.9 Pneumonia, unspecified organism (principal); I50.33 Acute on chronic diastolic (congestive) heart failure; J96.01 Acute respiratory failure with hypoxia; I47.10 Supraventricular tachycardia, unspecified; J44.0 Chronic obstructive pulmonary disease with (acute) lower respiratory infection; C34.12 Malignant neoplasm of upper lobe, left bronchus or lung; C77.8 Secondary and unspecified malignant neoplasm of lymph nodes of multiple regions; J44.1 Chronic obstructive pulmonary disease with (acute) exacerbation; I11.0 Hypertensive heart disease with heart failure; E78.5 Hyperlipidemia, unspecified; D53.9 Nutritional anemia, unspecified; I27.21 Secondary pulmonary arterial hypertension; E03.9 Hypothyroidism, unspecified; I25.10 Atherosclerotic heart disease of native coronary artery without angina pectoris; Z20.822 Contact with and (suspected) exposure to COVID-19; Z90.2 Acquired absence of lung [part of]; Z87.891 Personal history of nicotine dependence; Z79.4 Long term (current) use of insulin; Z79.02 Long term (current) use of antithrombotics/antiplatelets; Z79.82 Long term (current) use of aspirin; Z79.890 Hormone replacement therapy; Z79.899 Other long term (current) drug therapy
CPT/HCPCS: 0241U; 36415; 71045; 71250; 71275; 72100; 80048; 80053; 82947; 83735; 83880; 84484; 85025; 85027; 85379; 85610; 85730; 87040; 93005; 94640; 97116; 97162; 99285; J0456; J0696; J1650; J1940; J2270

== ENCOUNTER → 2024-03-15 12:14 | Outpatient (BNV) | payer MEDICARE, SELFPAY | PROVIDERS: Admitting Provider Student in an Organized Health Care Education/Training Program; Emergency Provider Emergency Medicine; PCP Family Medicine; Visit Provider Internal Medicine | DX: R06.02 Shortness of breath (principal); R94.31 Abnormal electrocardiogram [ECG] [EKG] | CPT/HCPCS: 93010 ==

== ENCOUNTER → 2024-03-15 18:28 | Outpatient (BNV) | payer MEDICARE, SELFPAY | PROVIDERS: Admitting Provider Student in an Organized Health Care Education/Training Program; Emergency Provider Emergency Medicine; PCP Family Medicine; Visit Provider Internal Medicine Pulmonary Disease | DX: J18.9 Pneumonia, unspecified organism (principal); C34.90 Malignant neoplasm of unspecified part of unspecified bronchus or lung; C77.1 Secondary and unspecified malignant neoplasm of intrathoracic lymph nodes | CPT/HCPCS: 99223; 99232 ==

== ENCOUNTER → 2024-03-15 18:28 | Outpatient (BNV) | payer MEDICARE, SELFPAY | PROVIDERS: Admitting Provider Student in an Organized Health Care Education/Training Program; Emergency Provider Emergency Medicine; PCP Family Medicine; Visit Provider Surgery | DX: C34.90 Malignant neoplasm of unspecified part of unspecified bronchus or lung (principal); C77.1 Secondary and unspecified malignant neoplasm of intrathoracic lymph nodes; J44.9 Chronic obstructive pulmonary disease, unspecified; R09.02 Hypoxemia | CPT/HCPCS: 99222 ==

== ENCOUNTER → 2024-03-15 18:28 | Outpatient (BNV) | payer MEDICARE, SELFPAY | PROVIDERS: Admitting Provider Student in an Organized Health Care Education/Training Program; Emergency Provider Emergency Medicine; PCP Family Medicine; Visit Provider Internal Medicine Medical Oncology | DX: C34.12 Malignant neoplasm of upper lobe, left bronchus or lung (principal); C77.1 Secondary and unspecified malignant neoplasm of intrathoracic lymph nodes | CPT/HCPCS: 99222 ==

== ENCOUNTER → 2024-03-15 18:28 | Outpatient (BNV) | payer MEDICARE, SELFPAY | PROVIDERS: Admitting Provider Student in an Organized Health Care Education/Training Program; Emergency Provider Emergency Medicine; PCP Family Medicine; Visit Provider Student in an Organized Health Care Education/Training Program | DX: J96.01 Acute respiratory failure with hypoxia (principal); J18.9 Pneumonia, unspecified organism; J90 Pleural effusion, not elsewhere classified; C34.90 Malignant neoplasm of unspecified part of unspecified bronchus or lung; C77.1 Secondary and unspecified malignant neoplasm of intrathoracic lymph nodes; R53.81 Other malaise | CPT/HCPCS: 99223; 99232; 99233; 99239; G0180 ==

== ENCOUNTER → 2024-03-26 11:56 | Outpatient (AMB) | payer MEDICARE, SELFPAY ==
--- NOTE | 2024-03-26 11:44 | A.OFFPC_ITS ---
Intake Visit Reasons: Hospital F/U Can not come in. Intake Note: Patient is calling to follow up on hospital discharge follow up, and would like to talk about swollen feet. Allergies No Known Allergies Allergy (Verified 03/26/24 11:49) Medication List - Last Reconciled 03/26/24 by Kenji Mcnally MD amiodarone 200 mg PO DAILY aspirin (Adult Aspirin Regimen) 81 mg PO DAILY atorvastatin 80 mg PO BEDTIME blood sugar diagnostic As directed blood-glucose meter As directed carvedilol 6.25 mg PO BID 30 days cefuroxime axetil 500 mg PO BID clopidogrel 75 mg PO DAILY codeine-guaifenesin 10-100 mg/5 mL (Guaifenesin AC) 10 mL PO Q4-6H PRN compr.stocking,knee,long,large 20-30?mmHg,?As directed, 90 days doxycycline monohydrate 100 mg PO BID ezetimibe 10 mg PO BEDTIME fluticasone propionate 50 mcg/actuation (Flonase Allergy Relief) 1 spray intranasal Q12H PRN folic acid 1 mg PO DAILY furosemide 20 mg PO BID@0900,1700 guaifenesin 200 mg (10 mL) PO Q4H PRN insulin aspart U-100 (Novolog FlexPen U-100 Insulin aspart) 0 sliding scale doses See Protocol subcut QIDACHS insulin detemir U-100 16 units subcut BEDTIME isosorbide mononitrate ER 30 mg PO DAILY lancets (OneTouch Delica Plus Lancet) As directed levothyroxine 25 mcg PO DAILY 30 days ondansetron 8 mg PO Q8H PRN pen needle, diabetic As directed tramadol 50 mg PO Q8H PRN walker As directed Tobacco use date assessed: 02/28/24 Dental Screening Dental Screen Date: 11/16/23 [facility] Hospital F/U Can not come in. [facility] Details 79 y/o female presents to f/u [facility] via telemedicine. Was hospitalized for pneumonia. She reports is still on doxycycline and has finished her ceftin. She notes breathing improved a bit on doxycyline. She is still on her oxygen. She continues to f/u with Dr. Berger. She reports she feels she is constipated. She is not taking anything for her bowel. She reports ankles still swollen. She notes she had stopped her lisinopril. She continues to take her furosemide 20mg. [facility] Medical History SVT (supraventricular tachycardia) Tachycardia Dyslipidemia PAD (peripheral artery disease) Nicotine dependence, cigarettes, uncomplicated Tubular adenoma of colon Anemia Anxiety CAD (coronary artery disease) Essential hypertension Diabetes type 2, controlled Surgical History S/P cardiac catheterization History of lung surgery History of varicose vein stripping History of angioplasty History of heart artery stent History of carpal tunnel surgery of right wrist History of colonoscopy History of splenectomy History of partial pancreatectomy History of cholecystectomy History of appendectomy History of tonsillectomy Family History Daughter Lung cancer Father Bone cancer Mother Colon cancer Social History Household Members: None Housing: House Are you a primary personal care service provider to a significant other at home: No Alcohol intake: never Comment: pt rings appropriately Patient Tobacco Use Status: Former Tobacco user Tobacco use type: Cigarette Years Smoked: 50 e-Cigarette/Vaping Use: Never Used Second Hand Smoke Exposure: No Advance Directives Date on File: 01/18/23 service: No Current occupational status: retired Current occupational exposures/hazards: No Cognitive needs: No Hearing needs: No Vision needs: No Questionnaire Thrive Questionnaire Date Thrive assessed: 03/16/24 SAMMY-7 AMB Questionnaire SAMMY-7 Date SAMMY - 7 assessed: 07/20/23 Source: Developed by Drs. Ari Serrano, Ban Erazo, Lee Lehman and colleagues, with an educational sonia from [employer]. Review of Systems Const Denies chills, Denies fatigue, Denies fever(s), Denies headache(s) and Denies weakness ENT Denies dizziness and Denies headache(s) Card Denies dyspnea Resp Denies cough, Denies dyspnea, Denies wheezing and Denies other (shortness of breath) GI Reports constipation Musc Denies numbness and Denies tingling Neuro Denies dizziness, Denies headache(s), Denies numbness, Denies tingling and Denies weakness Psych Denies anxiety and Denies depression Endo Denies fatigue Aller/Immun Denies wheezing Physical exam (Primary Care) Tobacco/Smoking Status: Tobacco use Status Tobacco use date assessed 02/28/24 03/26/24 11:46 Patient Tobacco Use Status Former Tobacco user 03/26/24 11:46 Tobacco use type Cigarette 03/26/24 11:46 e-Cigarette/Vaping Use Never Used 03/26/24 11:46 Thrive Assessment: Date of Thrive Assessment Date Thrive assessed 03/16/24 03/26/24 11:46 Telehealth Telehealth Telehealth Platform: Telephone Location of provider rendering services: practice address Location of patient: address on file Patient Identification confirmed using: Name, : Yes Telehealth method: voice only Patient verbally consented to treatment: Yes Patient verbally consented to billing insurance company: Yes Patient informed of any privacy concerns related to visit: Yes Minutes spent on Phone/Video with Pt.: 11 Assessment and Plan Assessment & Plan (1) Pneumonia: Code(s): J18.9 - Pneumonia, unspecified organism Plan: on discharge she was advised to: Continue Ceftin for 3 more days - now complete Continue doxycycline for 14 more days Start Immunotherapy next at [address] Berger Use Home Oxygen with rest and ambulation gradually improving but still rather short of breath and hypoxia she will let me know if improvement Stalls or she worsens. 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 Berger (3) Constipation: Code(s): K59.00 - Constipation, unspecified Plan: hydrate well will send script for MiraLax and Dulcolax call or return to office if not improving (4) Swelling of lower extremity: Code(s): M79.89 - Other specified soft tissue disorders Plan: still has significant lower extremity edema although this has improved, per patient Creatinine level within normal range and stable at last check on 03/22/2024 increase furosemide to 60 mg daily for the next 2 days then return to 40 mg daily. (5) Abnormal thyroid scan: Code(s): R94.6 - Abnormal results of thyroid function studies Plan: abnormal thyroid hormone levels and FDG uptake seen in thyroid had referred her to endocrinology but she has not heard from them yet and I will ask the office to help get her an appointment meantime, check thyroid ultrasound Orders: Orders US thyroid Today R79.89 - Other specified abnormal findings of blood chemistry, R94.6 - Abnormal results of thyroid function studies Medications: New polyethylene glycol 3350 (Miralax) 17 grams PO DAILY 14 days 14 ea 0RF bisacodyl (Dulcolax (bisacodyl)) 5 mg PO BEDTIME 2 days 2 tabs 0RF Coding Level of Care Code Tele Est Pt Level 2 (99717) Diagnoses Pneumonia J18.9 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
== END ==
LOC: HO.HMGFM 11:56
PROVIDERS: PCP Family Medicine; Visit Provider Family Medicine
DX: J18.9 Pneumonia, unspecified organism (principal); C34.90 Malignant neoplasm of unspecified part of unspecified bronchus or lung; C77.1 Secondary and unspecified malignant neoplasm of intrathoracic lymph nodes; K59.00 Constipation, unspecified; M79.89 Other specified soft tissue disorders; R94.6 Abnormal results of thyroid function studies
CPT/HCPCS: 99442

== ENCOUNTER 2024-03-30 14:00 | Outpatient (RCR) | payer MEDICARE, SELFPAY ==
[2022-11-12 09:40] VITALS: BMI 28.3
[2022-11-12 09:44] VITALS: BP 137/65; PULSE 64; RESP 16; TEMP 37.1; O2SAT 100
--- NOTE | 2022-11-12 10:28 | P.CNHO_ITS ---
Subjective - Subjective Chief complaint: Consult for: Lingular lung nodule. Mediastinal adenopathy. Patient: new to practice Consult date: 11/12/22 Requesting Physician: Kenji Mcnally MD Primary Care Provider: Kenji Mcnally MD Medical Summary: DIAGNOSIS: 1.8 MMLINGULAR LUNG NODULE. MEDIASTINAL ADENOPATHY. HPI - Consult Narrative Reason for consult: Consult for: 1.8 cm lingular lung nodule. Mediastinal yesica opathy. Narrative: Bhupendra Morgan is a 77 year old lady referred by Dr. Mcnally, on account of pulmonary nodules and mediastinal adenopathy. She had an exam by Dr. Mcnally, he heard some wheezing. CT scan of the chest was ordered which she was done on 10/12 and revealed: 1. Centrilobular emphysema with multiple pulmonary nodules. The largest nodule measures 1.8 cm in the lingula. 2. Small to moderate size lymph nodes seen in the mediastinum and bilateral hilar regions question metastatic 3. Moderate coronary artery calcifications. 4. Cholecystectomy changes. FAMILY HISTORY: Dad had bone cancer. Mom had colon cancer. This was discovered on autopsy. Daughter with lung cancer. She is a smoker. 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 She is . in July of heart attack. He was a patient here. She has 2 daughters 1 lives in [place], and the other lives in [place]. She started smoking in her 20s. She smoked less than a pack a day. She smoked off and on. Denies any alcohol. ROS: She does feel tired. She is rather sad on account of the demise of her . Denies any fever chills or night sweats. Appetite is okay. She did lose some weight. She denies any headache no dizziness. She denies chest pain. Sometimes he gets a mid sternal pain. She has shortness of breath on exertion. She occasionally feels pain in her right upper quadrant area she feels a ball there. Denies nausea vomiting nor diarrhea. Bowels are working without any gross blood in it. She had a colonoscopy years ago by Dr. Acevedo. No dysuria or hematuria. She has old age pains in her joints. Her legs are weak at times. She has seen Dr. Pimentel who is ordering an ultrasound of the legs. She has reactive depression. No skin rashes nor pruritus. Review of Systems - Constitutional Reports system reviewed and no additional complaints, except as documented - Eyes Reports system reviewed and no additional complaints, except as documented - ENT Reports system reviewed and no additional complaints, except as documented - Cardiovascular Reports system reviewed and no additional complaints, except as documented - Respiratory Reports no additional respiratory complaints - Gastrointestinal Reports system reviewed and no additional complaints, except as documented - Genitourinary Reports no additional female genitourinary complaints - Musculoskeletal Reports system reviewed and no additional complaints, except as documented - Integumentary/Breasts Skin/Breast: Reports no additional skin complaints - Neurologic Reports system reviewed and no additional complaints, except as documented - Psychiatric Reports system reviewed and no additional complaints, except as documented - Endocrine Reports no additional endocrine complaints - Hematologic/Lymphatic Reports system reviewed and no additional complaints, except as documented - Allergic/Immunologic Reports system reviewed and no additional complaints, except as documented Oncology Screenings - ECOG Performance Status ECOG Performance Status: 0 PMFSH Family History: Family History (Last Updated 11/12/22 @ 10:16 by Yumiko Alex RN) Daughter Lung cancer Father Bone cancer Mother Colon cancer Surgical History: Surgical History (Last Updated 11/12/22 @ 10:12 by Yumiko Alex RN) H/O splenectomy History of appendectomy History of cholecystectomy History of partial pancreatectomy History of tonsillectomy Social History: Social History (Last Updated 11/12/22 @ 10:14 by Yumiko Alex RN) [facility] Sit[facility] History[facility] Tobacco History: Patient Tobacco Use Status: Current someday Tobacco Years Smoked: 50 e-Cigarette/Vaping Use: Never Used Second Hand Smoke Exposure: No Occupation Assessmet: service: No Current occupational status: employed Current occupational exposures/hazards: No Home Medications and Allergies Home Medications Medication Instructions Recorded Confirmed Type atorvastatin 80 mg tablet 80 mg PO DAILY 08/21/20 11/19/22 History blood sugar diagnostic #10 ea 08/21/20 11/19/22 History blood-glucose meter #1 ea 08/21/20 11/19/22 History carvedilol 25 mg tablet 25 mg PO BID 08/21/20 11/19/22 History clopidogrel 75 mg tablet 75 mg PO DAILY 08/21/20 11/19/22 History insulin lispro 100 unit/mL unit subcut 08/21/20 11/19/22 History subcutaneous pen isosorbide mononitrate 30 mg 30 mg PO DAILY 08/21/20 11/19/22 History tablet,extended release 24 hr lisinopril 20 mg tablet 20 mg PO DAILY 08/21/20 11/19/22 History pen needle, diabetic 31 gauge x #50 ea 08/21/20 11/19/22 History 3/16 verapamil 120 mg tablet,extended 120 mg PO DAILY 08/21/20 11/19/22 History release insulin aspart U-100 100 unit/mL subcut 11/19/22 11/19/22 History (3 mL) subcutaneous pen (Novolog FlexPen U-100 Insulin aspart) insulin detemir U-100 100 unit/mL 20 unit subcut BEDTIME 11/19/22 11/19/22 History (3 mL) subcutaneous pen lancets 30 gauge (OneTouch Delica #100 ea 11/19/22 11/19/22 History Plus Lancet) Allergies Allergy/AdvReac Type Severity Reaction Status Date / Time lorazepam [LORAZEPAM] Allergy Unknown WENT Verified 11/19/22 08:52 CRAZY Physical Exam Vital signs: Vital Signs Temp 98.8 F 11/12/22 09:44 Pulse 64 11/12/22 09:44 Resp 16 11/12/22 09:44 BP 137/65 11/12/22 09:44 Pulse Ox 100 11/12/22 09:44 O2 Del Method 11/12/22 09:44 Intake & Output 11/11/22 11/12/22 11/12/22 18:59 06:59 18:59 Other: Weight 70.4 kg Archer Weight in Grams [id number] Weight 70.4 kg - Constitutional Present: mild distress - Routine HEENT Exam Head: Present: normal inspection Eye: Present: normal appearance ENT: Present: mucous membranes moist - Routine Neck Exam Present: supple - Routine Respiratory Exam Present: decreased breath sounds - Routine Cardiovascular Exam Cardiovascular: Present: RRR, S1, S2 - Routine Abdominal Exam Present: normal bowel sounds, nontender - Routine Extremities Exam Present: nontender - Routine Skin Exam Present: intact - Routine Neurological Exam Present: alert, oriented X3, normal speech - Detailed Neurological Exam: Coma Scale Eye Opening: Spontaneous (4) Verbal Response: Oriented (5) Motor Response: Obeys commands (6) Sharon Coma Scale Total: 15 - Routine Psychiatric Exam Present: depressed, cooperative Hem/Onc Consult Result - Labs CBC & Chem 7: 11/12/22 10:38 11/12/22 10:38 Assessment and Plan Patient Active problem list reviewed?: Yes (1) Pulmonary nodule Status: Acute Assessment and plan: This is a pleasant 77-year-old lady with a history of [address]. [address] scan of the chest was ordered which was done on 10/12 and revealed: 1. Centrilobular emphysema with multiple pulmonary nodules. The largest nodule measures 1.8 cm in the lingula. 2. Small to moderate size lymph nodes seen in the mediastinum and bilateral hil ar regions question metastatic 3. Moderate coronary artery calcifications. 4. Cholecystectomy changes. Concern is underlying lung cancer, given the history of smoking. PLAN: I will proceed with further staging workup. Will check a PET scan. Check PFTs to assess her lung function. She will be referred for thoracic surgery consultation. I will check baseline labs. LDH is 528, makes me wonder if she has small cell of the lung. She will meet with our navigator. Will regroup after a couple of weeks to make further plans. All her and her neighbors questions were answered to her satisfaction. Thank you, Cc: . Dr. Willis. (2) Anemia Status: Acute Assessment and plan: 77 year old lady with NC/NC Anemia. IRON STUDIES: 254/279/91/232. C/W Anemia of Chronic Disease. Elevated Iron Saturation, concerning for Hemochromatosis. PLAN: Will check DNA Level. Thanks, - Time Spent With Patient Time Spent with Patient (in minutes): 30
--- NOTE | 2022-11-12 10:37 | MHC.HEMONC ---
Onc consult for pulmonary nodules. Current smoker- on and off for 50+years. History reviewed. Medications reconciled. Patient accompanied by friend/neighbor for support. Labs obtained. PET scan/PFTS/and referral for Dr. Jones made. (all orders given to Lorraine-medical educator) Jessica navigator in to see patient also. Follow up in 2 weeks.
[2022-11-12 10:41] LABS: MANUAL DIFF FLAG NO
--- NOTE | 2022-11-12 10:46 | MHC.HEMONC ---
I met with pt following her Consultation with Dr Berger for pulmonary nodules. She was accompanied by her neighbor. Report given to me by Mirna VASQUEZ. She said that she was anxious about everything. I explained to her that Dr Berger would be ordering a PRT and referral to Dr Willis, thoracic surgeon. She will need PFTs as well. Lorraine has all of these orders and will be facilitating appointments. I gave pt my contact information should she have questions. F/U per Dr Berger.
[2022-11-12 10:53] LABS: Basophils Absolute Auto 0.1 X10*3/uL (0.0-0.2); Basophils Percent Auto 1.4 % (0-2); Eosinophils Absolute Auto 0.2 X10*3/uL (0.0-0.4); Eosinophils Percent Auto 1.8 % (0-4); Hemoglobin 11.4 g/dl (12.0-16.0); Imm Gran Abs Auto 0.03 X10*3/uL (0.00-0.03); Imm Gran Pct Auto 0.3 % (0.0-0.4); Lymphocytes Absolute Auto 2.6 X10*3/uL (1.2-4.9); Lymphocytes Percent Auto 25.8 % (20-40); Mean Corpuscular HGB Conc 33.5 g/dl (31.0-35.0); Mean Corpuscular Volume 107.3 fL (80.0-98.0); Mean Platelet Volume 12.1 fL (9.4-12.3); Monocytes Percent Auto 10.1 % (2-11); Neutrophils Absolute Auto 6.1 x10*3/uL (2.0-8.3); Neutrophils Percent Auto 60.6 % (45-73); Platelet Count 316 X10*3/uL (160-400); Red Blood Count 3.17 X10*6/uL (4.20-5.50); Red Cell Distribution Width 14.6 % (11.0-16.0)
--- NOTE | 2022-11-12 11:13 | MHC.HEMONCMA ---
entered PFT in of and sent referral to [facility].
[2022-11-12 11:15] LABS: Alanine Aminotransferase 20 U/L (0-31); Alkaline Phosphatase 112 U/L (39-117); Anion Gap 14 (12-20); Aspartate Amino Transferase 29 U/L (5-31); Bilirubin Total 3.9 mg/dL (0.0-1.0); Blood Urea Nitrogen 14 mg/dL (9-16); Calcium 9.3 mg/dL (8.4-10.2); Carbon Dioxide 24 mmol/L (22-29); Chloride 107 mmol/L (96-108); Creatinine Clr Calc Pharmacy 63.8; Estimated Glomerular Filt Rate > 60; Glucose Random 113 mg/dL (60-115); Iron 254 mcg/dL (30-160); Lactate Dehydrogenase 528 U/L (122-220); Percent Iron Saturation 91 % (15-50); Potassium 4.8 mmol/L (3.3-5.1); Sodium 140 mmol/L (135-145); Total Iron Binding Capacity 279 mcg/dL (228-428); Total Protein 6.7 g/dL (6.5-8.0); Unsaturated Iron Binding < 25 ug/dL
[2022-11-12 11:20] LABS: Ferritin 232 ng/mL (10-250)
--- NOTE | 2022-11-16 11:09 | HO.HEMONCPA ---
Addendum entered by Michelle Veras 11/22/22 12:23: PA REQUEST FOR PET/CT SCAN -CPT CODE 37671 APPROVED. AUTH# [id number]. DOS- 11/16/22 to 03/18/23. DOCUMENT SCANNED IN THE CHART. Original Note: PA REQUEST FOR PET/CT SCAN -CPT CODE 97988 SUBMITTED. AWAITING DECISION
--- NOTE | 2022-11-22 12:54 | MHC.HEMONCMA ---
Called [facility] looking for status of refrral and was given appt for 11/26/22 at 10:[address] Willis
--- NOTE | 2022-11-22 13:00 | MHC.HEMONC ---
I called pt and informed her of appt with Dr Willsi on Tuesday11/26/22 at 10:45 am [place] [facility] [place]FT [place]. PET has not been scheduled as yet due to no pathology.
--- NOTE | 2022-11-22 15:59 | HO.HEMONCSCH ---
Addendum entered by Michelle Veras 11/30/22 17:23: [facility]- APPT SCHEDULED FOR PET ON 12/07/22 at 12:15pm Original Note: [facility] - APPT ORDER FAXED. AWAITING DATE & TIME
--- NOTE | 2022-11-26 16:18 | MHC.HEMONC ---
Per eLigha, PET to be done on Tuesday11/30/22
--- NOTE | 2022-11-26 16:34 | MHC.HEMONC ---
Appt changed with Dr Berger from 11/29 to 12/09 until PET is done. Pt seeing Dr Willis on 12/10. Pt is aware.
--- NOTE | 2022-11-29 12:42 | HO.HEMONCPA ---
Addendum entered by Michelle Veras 11/29/22 17:36: [facility] - [facility] APPROVED. AUTH# [id number]. DOS- 11/25/22 to 03/18/2023. DOCUMENT SCANNED IN THE CHART. APPT REQUEST RE-FAXED TO [facility] ON 11/25/22. Original Note: PA WAS INITIALLY APPROVED ON 11/16/22 UNDER INCORRECT FACILITY. PA RE-SUBMITTED FOR FACILITY CHANGE ON 11/25/22. AWAITING DECISION
--- NOTE | 2022-12-07 14:44 | MHC.HEMONC ---
Pt called. She was unable to have PET today due to poor IV access. They sent her home and will add her to the schedule next Tuesday. I have r/s her f/u from this to next . She may come here for IV insertion prior to PET.
[2022-12-14 10:54] LABS: MANUAL DIFF FLAG NO
--- NOTE | 2022-12-14 11:13 | MHC.HEMONC ---
Pt here for IV access and lab draw. #24 angio inserted in right hand with blood return noted. Labs drawn by senior applications architect- specimen to lab. Pt to PET scan.
[2022-12-14 11:22] LABS: Basophils Absolute Auto 0.1 X10*3/uL (0.0-0.2); Basophils Percent Auto 1.1 % (0-2); Eosinophils Absolute Auto 0.2 X10*3/uL (0.0-0.4); Eosinophils Percent Auto 1.6 % (0-4); Hemoglobin 10.8 g/dl (12.0-16.0); Imm Gran Abs Auto 0.03 X10*3/uL (0.00-0.03); Imm Gran Pct Auto 0.3 % (0.0-0.4); Lymphocytes Absolute Auto 2.6 X10*3/uL (1.2-4.9); Lymphocytes Percent Auto 23.7 % (20-40); Mean Corpuscular HGB Conc 32.7 g/dl (31.0-35.0); Mean Corpuscular Hemoglobin 35.4 pg (27.0-33.0); Mean Corpuscular Volume 108.2 fL (80.0-98.0); Mean Platelet Volume 12.1 fL (9.4-12.3); Monocytes Percent Auto 8.6 % (2-11); Neutrophils Absolute Auto 7.2 x10*3/uL (2.0-8.3); Neutrophils Percent Auto 64.7 % (45-73); Platelet Count 331 X10*3/uL (160-400); Red Blood Count 3.05 X10*6/uL (4.20-5.50); Red Cell Distribution Width 14.8 % (11.0-16.0); White Blood Count 11.1 X10*3/uL (4.8-10.8)
[2022-12-14 11:33] LABS: Alanine Aminotransferase 16 U/L (0-31); Albumin Level 3.8 g/dL (3.5-5.0); Alkaline Phosphatase 116 U/L (39-117); Anion Gap 17 (12-20); Aspartate Amino Transferase 26 U/L (5-31); Bilirubin Total 3.5 mg/dL (0.0-1.0); Blood Urea Nitrogen 17 mg/dL (9-16); Calcium 9.2 mg/dL (8.4-10.2); Carbon Dioxide 23 mmol/L (22-29); Chloride 105 mmol/L (96-108); Creatinine Clr Calc Pharmacy 57.1; Estimated Glomerular Filt Rate > 60; Glucose Random 134 mg/dL (60-115); Potassium 5.3 mmol/L (3.3-5.1); Sodium 140 mmol/L (135-145); Total Protein 6.3 g/dL (6.5-8.0)
--- NOTE | 2022-12-16 08:47 | PM.HEMONCPN ---
Medical Summary - Medical Summary Date of Service: 12/16/22 Chief complaint: Follow-up For: Non-small cell lung carcinoma. Primary Care Provider: Kenji Mcnally MD Medical Summary: DIAGNOSIS: 1.8 MM LINGULAR LUNG NODULE. MEDIASTINAL ADENOPATHY. Interval History Interval history: Bhupendra Morgan is a 77 year old lady here for a follow-up visit. She denies any new complaints. She does feel tired. Denies any fever chills or night sweats. She denies any headache no dizziness. She denies chest pain. Sometimes he gets a mid sternal pain. She has shortness of breath on exertion. She occasionally feels pain in her right upper quadrant area, she feels a ball there. Denies nausea vomiting nor diarrhea. Bowels are working without any gross blood in it. She had a colonoscopy years ago by Dr. Acevedo. Appetite is okay. She did lose some weight. No dysuria or hematuria. She has old age pains in her joints. Her legs are weak at times. She has seen Dr. Pimentel who is ordering an ultrasound of the legs. She has reactive depression. She is rather sad on account of the demise of her . No skin rashes nor pruritus. She had a PET scan on 12/14: 1. A solid nodule in the lingula shows only weak FDG activity, suggesting a benign etiology. However because approximately 10% of pulmonary malignancies demonstrate no abnormal FDG activity, if biopsy of this nodule is not obtained, followup with diagnostic chest CT scan in 6 months is recommended. 2. Several additional small subcentimeter pulmonary nodules are present, unchanged from 10/12/2022 and all too small to be characterized on the FDG PET images. Follow-up of these with diagnostic CT imaging also an approximately 6 months is recommended. 3. A 6.1 cm left adnexal cyst is present. This shows fluid density and is markedly FDG photopenic and probably benign. However, further characterization of this with pelvic ultrasonography is recommended. This was not present on the 12/08/2018 CT scan. 4. A hyperdense 2.4 cm right adnexal lesion shows no abnormal FDG activity and is not significantly changed from 12/08/2018. This is likely benign but could also be further characterized with pelvic ultrasound. 5. No additional abnormalities suspicious for metastatic or other malignant lesions are noted. 6. Postsurgical changes in the abdomen are noted. 7. Diffuse vascular calcifications including coronary are noted. There are also prominent calcifications of the aortic valve. PRESENTING HISTORY: She was referred by Dr. Mcnally, on account of pulmonary nodules and mediastinal adenopathy. She had an exam by Dr. Mcnally, he heard some wheezing. CT scan of the chest was ordered which she was done on 10/12 and revealed: 1. Centrilobular emphysema with multiple pulmonary nodules. The largest nodule measures 1.8 cm in the lingula. 2. Small to moderate size lymph nodes seen in the mediastinum and bilateral hilar regions question metastatic 3. Moderate coronary artery calcifications. 4. Cholecystectomy changes. FAMILY HISTORY: Dad had bone cancer. Mom had colon cancer. This was discovered on autopsy. Daughter with lung cancer. She is a smoker. 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 She is . in July of heart attack. He was a patient here. She has 2 daughters 1 lives in [place], and the other lives in [place]. She started smoking in her 20s. She smoked less than a pack a day. She smoked off and on. Denies any alcohol. Review of Systems - Constitutional Reports system reviewed and no additional complaints, except as documented, Reports fatigue, Reports weakness, Denies fever(s), Denies weight gain - Eyes Reports system reviewed and no additional complaints, except as documented - ENT Reports system reviewed and no additional complaints, except as documented - Cardiovascular Reports system reviewed and no additional complaints, except as documented - Respiratory Reports no additional respiratory complaints - Gastrointestinal Reports system reviewed and no additional complaints, except as documented, Reports abdominal pain - Genitourinary Reports no additional female genitourinary complaints - Musculoskeletal Reports system reviewed and no additional complaints, except as documented - Integumentary/Breasts Skin/Breast: Reports no additional skin complaints - Neurologic Reports system reviewed and no additional complaints, except as documented - Psychiatric Reports system reviewed and no additional complaints, except as documented - Endocrine Reports no additional endocrine complaints - Hematologic/Lymphatic Reports system reviewed and no additional complaints, except as documented - Allergic/Immunologic Reports system reviewed and no additional complaints, except as documented PMFSH Medical History: Medical History (Last Reviewed 12/17/22 @ 15:34 by Jess Willis MD) Anemia Anxiety CAD (coronary artery disease) Diabetes type 2, controlled Dyslipidemia Essential hypertension Nicotine dependence, cigarettes, uncomplicated PAD (peripheral artery disease) Tubular adenoma of colon Family History: Family History (Last Reviewed 12/17/22 @ 15:34 by Jess Willis MD) Daughter Lung cancer Father Bone cancer Mother Colon cancer Surgical History: Surgical History (Last Reviewed 12/17/22 @ 15:34 by Jess Willis MD) History of angioplasty History of appendectomy History of carpal tunnel surgery of right wrist History of cholecystectomy History of colonoscopy History of heart artery stent History of partial pancreatectomy History of splenectomy History of tonsillectomy History of varicose vein stripping Social History: Social History (Last Reviewed 12/17/22 @ 15:34 by Jess Willis MD) Living Situation History: Household Members: None Housing: Condominium Tobacco History: Patient Tobacco Use Status: Current someday Tobacco Years Smoked: 50 e-Cigarette/Vaping Use: Never Used Second Hand Smoke Exposure: No Occupation Assessmet: service: No Current occupational status: employed Current occupational status: retired Current occupational exposures/hazards: No Oncology Screenings - ECOG Performance Status ECOG Performance Status: 1 Home Medications and Allergies Home Medications Medication Instructions Recorded Confirmed Type atorvastatin 80 mg tablet 80 mg PO DAILY 08/21/20 12/17/22 History blood sugar diagnostic #10 ea 08/21/20 12/17/22 History blood-glucose meter #1 ea 08/21/20 12/17/22 History carvedilol 25 mg tablet 25 mg PO BID 08/21/20 12/17/22 History clopidogrel 75 mg tablet 75 mg PO DAILY 08/21/20 12/17/22 History insulin lispro 100 unit/mL unit subcut 08/21/20 12/17/22 History subcutaneous pen isosorbide mononitrate 30 mg 30 mg PO DAILY 08/21/20 12/17/22 History tablet,extended release 24 hr lisinopril 20 mg tablet 20 mg PO DAILY 08/21/20 12/17/22 History pen needle, diabetic 31 gauge x #50 ea 08/21/20 12/17/22 History 3/16 verapamil 120 mg tablet,extended 120 mg PO DAILY 08/21/20 12/17/22 History release insulin aspart U-100 100 unit/mL 3 unit subcut DAILY 11/19/22 12/17/22 History (3 mL) subcutaneous pen (Novolog FlexPen U-100 Insulin aspart) insulin detemir U-100 100 unit/mL 20 unit subcut BEDTIME 11/19/22 12/17/22 History (3 mL) subcutaneous pen lancets 30 gauge (OneTouch Delica #100 ea 11/19/22 12/17/22 History Plus Lancet) Allergies Allergy/AdvReac Type Severity Reaction Status Date / Time lorazepam [LORAZEPAM] Allergy Unknown WENT Verified 12/17/22 11:05 CRAZY Exam Vital signs: Vital Signs Temp 98.8 F 11/12/22 09:44 Pulse 64 11/12/22 09:44 Resp 16 11/12/22 09:44 BP 137/65 11/12/22 09:44 Pulse Ox 100 11/12/22 09:44 O2 Del Method Room Air 11/12/22 09:44 Weight 70.4 kg BMI result Body Mass Index 28.3 - Constitutional Present: mild distress - Routine HEENT Exam Head: Present: normal inspection Eye: Present: normal appearance ENT: Present: mucous membranes moist - Routine Neck Exam Present: full ROM - Routine Respiratory Exam Present: decreased breath sounds - Routine Cardiovascular Exam Cardiovascular: Present: RRR, S1, S2 - Routine Abdominal Exam Present: normal bowel sounds, nontender - Routine Rectal Exam Patient deferred: digital exam - Routine Extremities Exam Present: nontender - Routine Back/Spine/Pelvis Exam Back/Spine: Present: full ROM - Routine Skin Exam Present: intact - Routine Neurological Exam Present: alert, oriented X3, normal speech - Detailed Neurological Exam: Coma Scale Eye Opening: Spontaneous (4) - Routine Psychiatric Exam Present: normal affect Data - Labs CBC & Chem 7: 12/14/22 10:52 12/14/22 10:52 Labs: 11/12/22 10:38 Complete Blood Count Auto Diff Stat Comprehensive Met. Panel Stat Ferritin Routine IRON PROFILE Routine LDH [Lactate Dehydrogenase] Routine 12/14/22 10:52 CMP [Comprehensive Met. Panel] Stat Complete Blood Count Auto Diff Stat Laboratory Last Values WBC 11.1 X10*3/uL (4.8-10.8) H 12/14/22 10:52 RBC 3.05 X10*6/uL (4.20-5.50) L 12/14/22 10:52 Hgb 10.8 g/dl (12.0-16.0) L 12/14/22 10:52 Hct 33.0 % (37.0-47.0) L 12/14/22 10:52 MCV 108.2 fL (80.0-98.0) H 12/14/22 10:52 MCH 35.4 pg (27.0-33.0) H 12/14/22 10:52 MCHC 32.7 g/dl (31.0-35.0) 12/14/22 10:52 RDW 14.8 % (11.0-16.0) 12/14/22 10:52 Plt Count 331 X10*3/uL (160-400) 12/14/22 10:52 MPV 12.1 fL (9.4-12.3) 12/14/22 10:52 Immature Gran % (Auto) 0.3 % (0.0-0.4) 12/14/22 10:52 Neut % (Auto) 64.7 % (45-73) 12/14/22 10:52 Lymph % (Auto) 23.7 % (20-40) 12/14/22 10:52 Ada % (Auto) 8.6 % (2-11) 12/14/22 10:52 Eos % (Auto) 1.6 % (0-4) 12/14/22 10:52 Baso % (Auto) 1.1 % (0-2) 12/14/22 10:52 Lymph # (Auto) 2.6 X10*3/uL (1.2-4.9) 12/14/22 10:52 Ada # (Auto) 1.0 X10*3/uL (0.1-1.2) 12/14/22 10:52 Eos # (Auto) 0.2 X10*3/uL (0.0-0.4) 12/14/22 10:52 Baso # (Auto) 0.1 X10*3/uL (0.0-0.2) 12/14/22 10:52 Abs Immat Gran (auto) 0.03 X10*3/uL (0.00-0.03) 12/14/22 10:52 Absolute Neuts (auto) 7.2 x10*3/uL (2.0-8.3) 12/14/22 10:52 Absolute Nucleated RBC 0.000 X10*3/uL (0.0-0.012) 12/14/22 10:52 Nucleated RBC % (auto) 0.0 /100WBC (0.0-0.2) 12/14/22 10:52 Sodium 140 mmol/L (135-145) 12/14/22 10:52 Potassium 5.3 mmol/L (3.3-5.1) H 12/14/22 10:52 Chloride 105 mmol/L (96-108) 12/14/22 10:52 Carbon Dioxide 23 mmol/L (22-29) 12/14/22 10:52 Anion Gap 17 (12-20) 12/14/22 10:52 BUN 17 mg/dL (9-16) H 12/14/22 10:52 Creatinine 0.77 mg/dL (0.5-1.4) 12/14/22 10:52 Estim Creat Clear Calc 57.1 12/14/22 10:52 Estimated GFR > 60 12/14/22 10:52 Random Glucose 134 mg/dL (60-115) H 12/14/22 10:52 Calcium 9.2 mg/dL (8.4-10.2) 12/14/22 10:52 Iron 254 mcg/dL (30-160) H 11/12/22 10:38 TIBC 279 mcg/dL (228-428) 11/12/22 10:38 % Saturation 91 % (15-50) H 11/12/22 10:38 Unsat Iron Binding < 25 ug/dL 11/12/22 10:38 Ferritin 232 ng/mL (10-250) 11/12/22 10:38 Total Bilirubin 3.5 mg/dL (0.0-1.0) H 12/14/22 10:52 AST 26 U/L (5-31) 12/14/22 10:52 ALT 16 U/L (0-31) 12/14/22 10:52 Alkaline Phosphatase 116 U/L (39-117) 12/14/22 10:52 Lactate Dehydrogenase 528 U/L (122-220) H 11/12/22 10:38 Total Protein 6.3 g/dL (6.5-8.0) L 12/14/22 10:52 Albumin 3.8 g/dL (3.5-5.0) 12/14/22 10:52 Assessment and Plan Patient Active problem list reviewed?: Yes (1) Pulmonary nodule Problem details: (1.8cm nodule in lingula noted on 10/12/[address]) Status: Acute Assessment and plan: This is a pleasant 77-year-old lady with a history of 56 pack years of smoking. CT scan of the chest was ordered which was done on 10/12 and revealed: 1. Centrilobular emphysema with multiple pulmonary nodules. The largest nodule measures 1.8 cm in the lingula. 2. Small to moderate size lymph nodes seen in the mediastinum and bilateral hilar regions question metastatic 3. Moderate coronary artery calcifications. 4. Cholecystectomy changes. Concern is underlying lung cancer, given the history of smoking. LDH is 528, makes me wonder if she has small cell of the lung. I proceeded with further staging workup. l checked a PET scan. She had a PET scan on 12/14: 1. A solid nodule in the lingula shows only weak FDG activity, suggesting a benign etiology. However because approximately 10% of pulmonary malignancies demonstrate no abnormal FDG activity, if biopsy of this nodule is not obtained, followup with diagnostic chest CT scan in 6 months is recommended. 2. Several additional small subcentimeter pulmonary nodules are present, unchanged from 10/12/2022 and all too small to be characterized on the FDG PET images. Follow-up of these with diagnostic CT imaging also an approximately 6 months is recommended. 3. A 6.1 cm left adnexal cyst is present. This shows fluid density and is markedly FDG photopenic and probably benign. However, further characterization of this with pelvic ultrasonography is recommended. This was not present on the 12/08/2018 CT scan. 4. A hyperdense 2.4 cm right adnexal lesion shows no abnormal FDG activity and is not significantly changed from 12/08/2018. This is likely benign but could also be further characterized with pelvic ultrasound. 5. No additional abnormalities suspicious for metastatic or other malignant lesions are noted. 6. Postsurgical changes in the abdomen are noted. 7. Diffuse vascular calcifications including coronary are noted. There are also prominent calcifications of the aortic valve. Checked PFTs to assess her lung function. PLAN: She will be followed up by thoracic surgery, appointment is tomorrow. The PET scan her revealed bilateral adnexal masses. Will set her up with the pelvic ultrasound. Then appointment at [facility] at [facility]. (they recommended to proceed with the lung surgery, then F/U with them.) Will see her back in a month after she meets with Dr. Willis to make further plans. All her questions were answered to her satisfaction. Thank you, Cc: . Dr. Willis. Addendum: 12/[address] Willis: 77-year-old woman with multiple medical comorbidities and a clinical stage I lung cancer until proven otherwise. I did discuss with her the findings on her CT scan, PET scan, and pulmonary function testing. We also discussed how PET scans work and that we specifically due PET scans more to rule out distant disease then to evaluate the nodule in the lung itself because at least 10% of known lung cancers are PET negative. Again we discussed pulmonary nodules in general and how their size, shape, and warp changer time affects our level of suspicion. Given her smoking history and the nodule characteristics I do think there is a very high chance that this is a lung cancer. We also went over the diagnosis, staging, and treatment of lung cancer which he seemed understand. Finally we discussed 3 different options bein. Continued observation which I do not necessarily recommend versus 2. Navigational bronchoscopy with biopsy versus 3. Davinci left upper lobe wedge possible segmentectomy/lobectomy. We discussed the risks and benefits each of these options in some detail. She was take some time and discuss this with her family and friends and she will call us back on how she wants to proceed. If she decides on either navigational bronchoscopy or surgery she will need to hold her Plavix for 7 days and she will need to see her silica mixer operator for a preoperative risk assessment. All questions were answered. (2) Anemia Status: Acute Assessment and plan: 77 year old lady with NC/NC Anemia. IRON STUDIES: 254/279/91/232. C/W Anemia of Chronic Disease. Elevated Iron Saturation, concerning for Hemochromatosis. PLAN: Will check DNA Level. Heterozygous for H63D, Thanks, - Time Spent With Patient Time Spent with Patient (in minutes): 30
[2022-12-16 08:53] VITALS: BP 127/58; PULSE 65; RESP 14; TEMP 36.5; O2SAT 95; BMI 28.6
--- NOTE | 2022-12-16 09:27 | MHC.HEMONCMA ---
entered in OF u/s pelvis complete, booked with Sofi [id number] for 12/17/22 at 12:[address] Judith vences at 11:15, gave bladder filling instructions to pt.
--- NOTE | 2022-12-16 09:28 | MHC.HEMONCMA ---
patient seen today for followup pulmonary nodule, VSS, u/s ordered, entered in OF, 1 month followup.
--- NOTE | 2022-12-22 09:08 | MHC.HEMONC ---
Faxed notes and demographics to STEAM FITTER SUPERVISOR MAINTENANCE ONC at [facility] (Dr Knight and Max) for Consultation for ovarian cystic lesions per request of Dr Berger.
--- NOTE | 2022-12-24 10:37 | MHC.HEMONCMA ---
spoke to patient regarding customer account representative appt that she was confused about, greg called customer account representative in [facility], was told everything looked normal and will fopllow up after lung surgery but patient is aware.
--- NOTE | 2022-12-28 08:53 | MHC.HEMONC ---
Patient has an appt with Dr Santana GUITAR REPAIR TECHNICIAN at [facility] for bilateral ovarian cysts on january 10, 2023 at 10:30 at [phone]. I have informed patient.
--- NOTE | 2023-01-10 14:38 | MHC.HEMONC ---
I called Dr Retana in Cardiology at [phone] to see if he could see pt sooner than 01/26. They can offer her appt Tuesday01/12/23. I did mention that the SOCIAL ECONOMIST she saw earlier today noted jaw pain in her note. They will call her.
--- NOTE | 2023-01-14 11:12 | MHC.HEMONC ---
Pt will be having echo on 01/19/23.
[2023-01-18 08:25] VITALS: BP 138/68; PULSE 66; TEMP 36; BMI 28.7
[2023-01-18 08:28] LABS: Hematocrit 34.5 % (37.0-47.0); Mean Corpuscular HGB Conc 31.9 g/dl (31.0-35.0); Mean Corpuscular Volume 109.9 fL (80.0-98.0); Mean Platelet Volume 11.4 fL (9.4-12.3); Platelet Count 346 X10*3/uL (160-400); Red Blood Count 3.14 X10*6/uL (4.20-5.50)
[2023-01-18 08:29] LABS: WBC ABN SCTR FOR CBC 1
--- NOTE | 2023-01-18 08:33 | PM.HEMONCPN ---
Medical Summary - Medical Summary Date of Service: 01/18/23 Chief complaint: Follow-up For: Non-small cell lung cancer. Primary Care Provider: Kenji Mcnally MD Medical Summary: DIAGNOSIS: 1.8 MM LINGULAR LUNG NODULE. MEDIASTINAL ADENOPATHY. Interval History Interval history: Bhupendra Morgan is a 77 year old lady here for a follow-up visit. The devinci VATS procedure is scheduled for 02/02. She is currently undergoing a preop workup. She is scheduled for a echo tomorrow. She had a PET scan done on 12/14/2022 which showed: Minimal PET uptake in the nodule itself SUV of 2.1 but no increased uptake elsewhere in the chest or outside of the chest. She had pulmonary function testing done on 11/30/2022 which shows an FEV1 of 91% of predicted and a DLCO VA of 55% of predicted. Of note she does have a history of multiple coronary stents and will be seen by Dr. Tinoco from Cardiology on 01/25, for preop clearance. She is feeling reasonably well. She sometimes feels tired. Denies any fever chills or night sweats. She denies any headache no dizziness. She denies chest pain. Sometimes he gets a mid sternal pain. She has shortness of breath on exertion. She occasionally feels pain in her right upper quadrant area, she feels a ball there. Denies nausea vomiting nor diarrhea. Bowels are working without any gross blood in it. She had a colonoscopy years ago by Dr. Acevedo. Appetite is okay. She ost some weight. No dysuria or hematuria. She has old age pains in her joints. Her legs are weak at times. She has reactive depression. She is rather sad on account of the demise of her . No skin rashes nor pruritus. She had a PET scan on 12/14: 1. A solid nodule in the lingula shows only weak FDG activity, suggesting a benign etiology. However because approximately 10% of pulmonary malignancies demonstrate no abnormal FDG activity, if biopsy of this nodule is not obtained, followup with diagnostic chest CT scan in 6 months is recommended. 2. Several additional small subcentimeter pulmonary nodules are present, unchanged from 10/12/2022 and all too small to be characterized on the FDG PET images. Follow-up of these with diagnostic CT imaging also an approximately 6 months is recommended. 3. A 6.1 cm left adnexal cyst is present. This shows fluid density and is markedly FDG photopenic and probably benign. However, further characterization of this with pelvic ultrasonography is recommended. This was not present on the 12/08/2018 CT scan. 4. A hyperdense 2.4 cm right adnexal lesion shows no abnormal FDG activity and is not significantly changed from 12/08/2018. This is likely benign but could also be further characterized with pelvic ultrasound. 5. No additional abnormalities suspicious for metastatic or other malignant lesions are noted. 6. Postsurgical changes in the abdomen are noted. 7. Diffuse vascular calcifications including coronary are noted. There are also prominent calcifications of the aortic valve. PRESENTING HISTORY: She was referred by Dr. Mcnally, on account of pulmonary nodules and mediastinal adenopathy. She had an exam by Dr. Mcnally, he heard some wheezing. CT scan of the chest was ordered which she was done on 10/12 and revealed: 1. Centrilobular emphysema with multiple pulmonary nodules. The largest nodule measures 1.8 cm in the lingula. 2. Small to moderate size lymph nodes seen in the mediastinum and bilateral hilar regions question metastatic 3. Moderate coronary artery calcifications. 4. Cholecystectomy changes. FAMILY HISTORY: Dad had bone cancer. Mom had colon cancer. This was discovered on autopsy. Daughter with lung cancer. She is a smoker. 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 She is . in July of heart attack. He was a patient here. She has 2 daughters 1 lives in [place], and the other lives in [place]. She started smoking in her 20s. She smoked less than a pack a day. She smoked off and on. Denies any alcohol. Review of Systems - Constitutional Reports no additional constitutional complaints, Denies lack of energy, Denies weight gain, Reports weight loss - Eyes Reports no additional eye complaints - ENT Reports no additional ear, nose, mouth, and throat complaints - Cardiovascular Reports no additional cardiovascular complaints - Respiratory Reports no additional respiratory complaints - Gastrointestinal Reports no additional gastrointestinal complaints - Genitourinary Reports no additional female genitourinary complaints - Musculoskeletal Reports no additional musculoskeletal complaints - Integumentary/Breasts Skin/Breast: Reports no additional skin complaints - Neurologic Reports no additional neurologic complaints, Reports weakness - Psychiatric Reports no additional psychiatric complaints - Endocrine Reports no additional endocrine complaints - Hematologic/Lymphatic Reports no additional hematologic/lymphatic complaints - Allergic/Immunologic Reports no additional allergic/immunologic complaints FORMERLY [facility], 1928–1983 Medical History: Medical History (Last Reviewed 01/18/23 @ 08:28 by Nina Dietrich) Anemia Anxiety CAD (coronary artery disease) Diabetes type 2, controlled Dyslipidemia Essential hypertension Nicotine dependence, cigarettes, uncomplicated PAD (peripheral artery disease) Tubular adenoma of colon Functional capacity: independent ambulation Patient : No Family History: Family History (Last Reviewed 01/18/23 @ 08:28 by Nina Dietrich) Daughter Lung cancer Father Bone cancer Mother Colon cancer Surgical History: Surgical History (Last Reviewed 01/18/23 @ 08:28 by Nina Dietrich) History of angioplasty History of appendectomy History of carpal tunnel surgery of right wrist History of cholecystectomy History of colonoscopy History of heart artery stent History of partial pancreatectomy History of splenectomy History of tonsillectomy History of varicose vein stripping Social History: Social History (Last Reviewed 01/18/23 @ 08:28 by Nina Dietrich) Living Situation History: Household Members: None Housing: [facility] Alcohol History Details: 1. How often do you have a drink containing alcohol?: a. Never Tobacco History: Patient Tobacco Use Status: Current someday Tobacco Years Smoked: 50 e-Cigarette/Vaping Use: Never Used Second Hand Smoke Exposure: No Substance Use History: Use of substances other than those prescribed or required for medical reasons: No Domestic Abuse History: Have you been hit, kicked, punched, or otherwise hurt by someone within the past year? If so, by whom?: No Do you feel safe in your current relationship?: No Current Relationship Homicidal Assessment: Do you have thoughts of harming others: None Do you have a plan to hurt others: No Plan Do you have the means to hurt others: No Nutrition Assessment: Recently lost weight without trying: No Occupation Assessmet: service: No Current occupational status: employed Current occupational status: retired Current occupational exposures/hazards: No Oncology Screenings - ECOG Performance Status ECOG Performance Status: 0 Home Medications and Allergies Home Medications Medication Instructions Recorded Confirmed Type atorvastatin 80 mg tablet 80 mg PO DAILY 08/21/20 01/18/23 History blood sugar diagnostic #10 ea 08/21/20 01/18/23 History blood-glucose meter #1 ea 08/21/20 01/18/23 History carvedilol 25 mg tablet 25 mg PO BID 08/21/20 01/18/23 History clopidogrel 75 mg tablet 75 mg PO DAILY 08/21/20 01/18/23 History insulin lispro 100 unit/mL 100 unit subcut DAILY 08/21/20 01/18/23 History subcutaneous pen isosorbide mononitrate 30 mg 30 mg PO DAILY 08/21/20 01/18/23 History tablet,extended release 24 hr lisinopril 20 mg tablet 20 mg PO DAILY 08/21/20 01/18/23 History pen needle, diabetic 31 gauge x #50 ea 08/21/20 01/18/23 History 3/16 verapamil 120 mg tablet,extended 120 mg PO DAILY 08/21/20 01/18/23 History release insulin aspart U-100 100 unit/mL 3 unit subcut DAILY 11/19/22 01/18/23 History (3 mL) subcutaneous pen (Novolog FlexPen U-100 Insulin aspart) insulin detemir U-100 100 unit/mL 20 unit subcut BEDTIME 11/19/22 01/18/23 History (3 mL) subcutaneous pen lancets 30 gauge (OneTouch Delica #100 ea 11/19/22 01/18/23 History Plus Lancet) Allergies Allergy/AdvReac Type Severity Reaction Status Date / Time lorazepam [LORAZEPAM] Allergy Unknown WENT Verified 01/18/23 08:28 CRAZY Exam Vital signs: Vital Signs Temp 96.8 F 01/18/23 08:25 Pulse 66 01/18/23 08:25 Resp 14 12/16/22 08:53 BP 138/68 01/18/23 08:25 Pulse Ox 95 12/16/22 08:53 O2 Del Method Room Air 01/18/23 08:25 Intake & Output 01/17/23 01/18/23 01/18/23 18:59 06:59 18:59 Other: Weight 71.2 kg [place] Weight in Grams 17956 Weight 71.2 kg BMI result Body Mass Index 28.7 - Constitutional Present: mild distress - Routine HEENT Exam Head: Present: normal inspection Eye: Present: normal appearance ENT: Present: mucous membranes moist - Routine Neck Exam Present: full ROM - Routine Respiratory Exam Present: decreased breath sounds - Routine Cardiovascular Exam Cardiovascular: Present: RRR, S1, S2 - Routine Abdominal Exam Present: normal bowel sounds, nontender - Routine Rectal Exam Patient deferred: digital exam - Routine Extremities Exam Present: nontender - Routine Back/Spine/Pelvis Exam Back/Spine: Present: full ROM - Routine Skin Exam Present: intact - Routine Neurological Exam Present: alert, oriented X3, normal speech - Detailed Neurological Exam: Coma Scale Eye Opening: Spontaneous (4) - Routine Psychiatric Exam Present: normal affect Data - Labs CBC & Chem 7: 01/18/23 08:22 01/18/23 08:22 Assessment and Plan Patient Active problem list reviewed?: Yes (1) Pulmonary nodule Problem details: (1.8cm nodule in lingula noted on 10/12/[address]) Status: Acute Assessment and plan: This is a pleasant 77-year-old lady with a history of 56 pack [address] of smoking. CT scan of the chest was ordered which was done on 10/12 and revealed: 1. Centrilobular emphysema with multiple pulmonary nodules. The largest nodule measures 1.8 cm in the lingula. 2. Small to moderate size lymph nodes seen in the mediastinum and bilateral hilar regions question metastatic 3. Moderate coronary artery calcifications. 4. Cholecystectomy changes. Concern is underlying lung cancer, given the history of smoking. LDH is 528, makes me wonder if she has small cell of the lung. I proceeded with further staging workup. l checked a PET scan. She had a PET scan on 12/14: 1. A solid nodule in the lingula shows only weak FDG activity, suggesting a benign etiology. However because approximately 10% of pulmonary malignancies demonstrate no abnormal FDG activity, if biopsy of this nodule is not obtained, followup with diagnostic chest CT scan in 6 months is recommended. 2. Several additional small subcentimeter pulmonary nodules are present, unchanged from 10/12/2022 and all too small to be characterized on the FDG PET images. Follow-up of these with diagnostic CT imaging also an approximately 6 months is recommended. 3. A 6.1 cm left adnexal cyst is present. This shows fluid density and is markedly FDG photopenic and probably benign. However, further characterization of this with pelvic ultrasonography is recommended. This was not present on the 12/08/2018 CT scan. 4. A hyperdense 2.4 cm right adnexal lesion shows no abnormal FDG activity and is not significantly changed from 12/08/2018. This is likely benign but could also be further characterized with pelvic ultrasound. 5. No additional abnormalities suspicious for metastatic or other malignant lesions are noted. 6. Postsurgical changes in the abdomen are noted. 7. Diffuse vascular calcifications including coronary are noted. There are also prominent calcifications of the aortic valve. She was given 3 options by : 1. Continued observation which I do not necessarily recommend versus 2. Navigational bronchoscopy with biopsy versus 3. Davinci left upper lobe wedge possible segmentectomy/lobectomy. We discussed the risks and benefits each of these options in some detail. She discussed this with her family and friends, and decided to proceed with left Upper lobe wedge resection. She had a PET scan done on 12/14/2022 which showed: Minimal PET uptake in the nodule itself SUV of 2.1 but no increased uptake elsewhere in the chest or outside of the chest. She had pulmonary function testing done on 11/30/2022 which shows an FEV1 of 91% of predicted and a DLCO VA of 55% of predicted. Of note she does have a history of multiple coronary stents and will be seen by Dr. Tinoco from Cardiology on 01/25, for preop clearance. PLAN: She will be having an echocardiogram at [facility] tomorrow. She will then be followed by Dr. Sheth, for the clearance. She has been tentatively booked by thoracic surgery for lung surgery on 02/02. Will see her back in about 6 weeks after, after she has a chance to recover from the surgery. All her questions were answered to her satisfaction. Thank you, Cc: . Dr. Willis. (2) Anemia Status: Acute Assessment and plan: 77 year old lady with NC/NC Anemia. IRON STUDIES: 254/279/91/232. C/W Anemia of Chronic Disease. Elevated Iron Saturation, concerning for Hemochromatosis. PLAN: I checked DNA Level. It revealed: Heterozygous for H63D. Thanks, (3) Adnexal mass Status: Acute Assessment and plan: She had an ultrasound of the pelvis on , which revealed: Bilateral adnexal cysts. Minimally complex right ovarian cyst similar in size to previous CT scans from 2017 and 2019. Minimally complex 5 x 6 cm left adnexal cyst new or increased in size from previous exams. NITRATOR OPERATOR consultation recommended. She saw hand rug braider Oncology at [facility]. They wanted to proceed with MRI of the pelvis however the deferred it till after her lung surgery. - Time Spent With Patient Time Spent with Patient (in minutes): 30
[2023-01-18 08:58] LABS: Band Neutrophils Percent 2 % (3-5); Eosinophils Percent Manual 2 % (0-4); Lymphocytes Percent Manual 20 % (20-40); Monocytes Percent Manual 8 % (2-11); Neutrophils Percent Manual 68 % (45-73)
--- NOTE | 2023-01-18 08:59 | MHC.HEMONCMA ---
Patient sen today for pulmonary nodule, vss,labs, following up with provider in 6 weeks .
[2023-01-18 09:00] LABS: RBC Morphology NOTED
[2023-01-18 09:01] LABS: Acanthocytes 2+ (3-5) /OIF; Ovalocytes 1+ (5-14) /OIF
[2023-01-18 09:02] LABS: Macrocytosis 1+ (5-14) /OIF
[2023-01-18 09:03] LABS: Large Platelet PRESENT; Platelet Estimate NORMAL (NORMAL); Platelet Morphology Comment NOTED; Polychromasia 1+ (0-2) /OIF
[2023-01-18 09:05] LABS: Schistocytes 1+ (0-2) /OIF; Toxic Vacuolation PRESENT
--- NOTE | 2023-01-18 09:15 | MHC.HEMONCSW ---
SW introduced self/role to Pt - she spoke about her dying in Dec and what's been going on since then. SW filled out the Health Care Proxy for her as she did not have her glasses, made a copy for the record, and gave her the original. Pt. was in the office with BRIAN and Nurse navigator while form was being filled out and took the opportunity to speak about all her stress and how awful it has been since her 's . BRIAN and Nurse Navigator listened and provided supportive counseling.
[2023-01-18 09:18] LABS: Eosinophils Absolute Manual 0.2 X10*3/uL (0.0-0.4); Lymphocytes Absolute Manual 2.4 X10*3/uL (1.2-4.9); Monocytes Absolute Manual 0.9 X10*3/uL (0.1-1.2); Neutrophils Absolute Manual 8.3 X10*3/uL (2.0-8.3); White Blood Count 11.8 X10*3/uL (4.8-10.8)
[2023-01-18 12:00] LABS: Alanine Aminotransferase 15 U/L (0-31); Albumin Level 3.8 g/dL (3.5-5.0); Alkaline Phosphatase 114 U/L (39-117); Anion Gap 12 (12-20); Aspartate Amino Transferase 23 U/L (5-31); Bilirubin Total 2.9 mg/dL (0.0-1.0); Blood Urea Nitrogen 13 mg/dL (9-16); Carbon Dioxide 25 mmol/L (22-29); Chloride 109 mmol/L (96-108); Creatinine Clr Calc Pharmacy 63.2; Estimated Glomerular Filt Rate > 60; Glucose Random 130 mg/dL (60-115); Potassium 4.2 mmol/L (3.3-5.1); Sodium 142 mmol/L (135-145); Total Protein 6.5 g/dL (6.5-8.0)
[2023-03-03 08:35] LABS: MANUAL DIFF FLAG NO
[2023-03-03 08:36] VITALS: BP 135/60; PULSE 66; TEMP 35.8; BMI 28.7
--- NOTE | 2023-03-03 08:38 | P.PNHO-ONC_ITS ---
Medical Summary - Medical Summary Date of Service: 03/03/23 Chief complaint: Follow-up for: Non-small cell lung carcinoma. Primary Care Provider: Kenji Mcnally MD Medical Summary: DIAGNOSIS: 1.8 MM LINGULAR LUNG NODULE. MEDIASTINAL ADENOPATHY. CURRENT THERAPY: 02/02, Status post which resection and segmentectomy via the DA Mary Carmen approach. Pathology: Left upper lobe of the lung: Size: 1.4 x 0.9 x 0.6 cm. Invasive adenocarcinoma. Micropapillary and solid type. JANEY: Present. Visceral pleural invasion: Present. Lymphovascular invasion: Present. Margin: All margins negative for invasive carcinoma. Closest margin about 1.3 cm. Lymph node status: Negative. TNM category:pT2a. PN 0. TTF 1: Express by neoplastic cells. Biomarker studies: Pending. Lingular/left upper lobe segmentectomy: Size: 1.8 x 0.9 10.6 cm. Invasive adenocarcinoma. Mucinous features. STA S: Not identified. Visceral pleural invasion: Not identified. LVI: Not identified. Margins all negative. Closest margin: 6.2 cm. Lymph nodes: Negative. Stage:pT1b. Interval History Interval history: Bhupendra Morgan is a 78 year old lady here for a follow-up visit. She underwent the devinci VATS procedure on 02/02. She tells me surgery went well. She initially had drains in for few days. She tells me she is feeling good, for the most part. She feels tired at times. No fever chills or night sweats. No headache no dizziness. She denies chest pain. Sometimes he gets a mid sternal pain. She has shortness of breath on exertion. She occasionally feels pain in her right upper quadrant area, she feels a ball there. Denies nausea vomiting nor diarrhea. Bowels are working without any gross blood in it. She had a colonoscopy years ago by Dr. Acevedo. Appetite is okay. She lost some weight. No dysuria or hematuria. She has old age pains in her joints. Her legs are weak at times. She has reactive depression. She is rather sad on account of the demise of her . No skin rashes nor pruritus. PRESENTING HISTORY: She was referred by Dr. Mcnally, on account of pulmonary nodules and mediastinal adenopathy. She had an exam by Dr. Mcnally, he heard some wheezing. CT scan of the chest was ordered which she was done on 10/12 and revealed: 1. Centrilobular emphysema with multiple pulmonary nodules. The largest nodule measures 1.8 cm in the lingula. 2. Small to moderate size lymph nodes seen in the mediastinum and bilateral hilar regions question metastatic 3. Moderate coronary artery calcifications. 4. Cholecystectomy changes. She had a PET scan done on 12/14/2022 which showed: Minimal PET uptake in the nodule itself SUV of 2.1 but no increased uptake elsewhere in the chest or outside of the chest. She had pulmonary function testing done on 11/30/2022 which shows an FEV1 of 91% of predicted and a DLCO VA of 55% of predicted. PAST MEDICAL HISTORY: Of note she does have a history of multiple coronary stents and will be seen by Dr. Tinoco from Cardiology on 01/25, for preop clearance. She had a PET scan on 12/14: 1. A solid nodule in the lingula shows only weak FDG activity, suggesting a benign etiology. However because approximately 10% of pulmonary malignancies demonstrate no abnormal FDG activity, if biopsy of this nodule is not obtained, followup with diagnostic chest CT scan in 6 months is recommended. 2. Several additional small subcentimeter pulmonary nodules are present, unchanged from 10/12/2022 and all too small to be characterized on the FDG PET images. Follow-up of these with diagnostic CT imaging also an approximately 6 months is recommended. 3. A 6.1 cm left adnexal cyst is present. This shows fluid density and is markedly FDG photopenic and probably benign. However, further characterization of this with pelvic ultrasonography is recommended. This was not present on the 12/08/2018 CT scan. 4. A hyperdense 2.4 cm right adnexal lesion shows no abnormal FDG activity and is not significantly changed from 12/08/2018. This is likely benign but could also be further characterized with pelvic ultrasound. 5. No additional abnormalities suspicious for metastatic or other malignant lesions are noted. 6. Postsurgical changes in the abdomen are noted. 7. Diffuse vascular calcifications including coronary are noted. There are also prominent calcifications of the aortic valve. FAMILY HISTORY: Dad had bone cancer. Mom had colon cancer. This was discovered on autopsy. Daughter with lung cancer. She is a smoker. 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 She is . in July of heart attack. He was a patient here. She has 2 daughters 1 lives in [place], and the other lives in [place]. She started smoking in her 20s. She smoked less than a pack a day. She smoked off and on. Denies any alcohol. Review of Systems - Constitutional Reports system reviewed and no additional complaints, except as documented, Reports lack of energy, Reports weight loss - Eyes Reports system reviewed and no additional complaints, except as documented - ENT Reports system reviewed and no additional complaints, except as documented - Cardiovascular Reports system reviewed and no additional complaints, except as documented - Respiratory Reports no additional respiratory complaints - Gastrointestinal Reports system reviewed and no additional complaints, except as documented - Genitourinary Reports no additional female genitourinary complaints - Musculoskeletal Reports system reviewed and no additional complaints, except as documented - Integumentary/Breasts Skin/Breast: Reports no additional skin complaints - Neurologic Reports system reviewed and no additional complaints, except as documented, Reports weakness - Psychiatric Reports system reviewed and no additional complaints, except as documented - Endocrine Reports no additional endocrine complaints - Hematologic/Lymphatic Reports system reviewed and no additional complaints, except as documented - Allergic/Immunologic Reports system reviewed and no additional complaints, except as documented PMFSH Medical History: Medical History (Last Reviewed 03/03/23 @ 13:27 by Nina Dietrich) Anemia Anxiety CAD (coronary artery disease) Diabetes type 2, controlled Dyslipidemia Essential hypertension Nicotine dependence, cigarettes, uncomplicated PAD (peripheral artery disease) Tubular adenoma of colon Functional capacity: independent ambulation Patient : No Family History: Family History (Last Reviewed 03/03/23 @ 13:27 by Nina Dietrich) Daughter Lung cancer Father Bone cancer Mother Colon cancer Surgical History: Surgical History (Last Reviewed 03/03/23 @ 13:27 by Nina Dietrich) History of angioplasty History of appendectomy History of carpal tunnel surgery of right wrist History of cholecystectomy History of colonoscopy History of heart artery stent History of lung surgery History of partial pancreatectomy History of splenectomy History of tonsillectomy History of varicose vein stripping Social History: Social History (Last Reviewed 03/03/23 @ 13:27 by Nina Dietrich) Living Situation History: Household Members: None [facility] Alcohol History Details: 1. How often do you have a drink containing alcohol?: a. Never Tobacco History: Patient Tobacco Use Status: Current someday Tobacco Years Smoked: 50 e-Cigarette/Vaping Use: Never Used Second Hand Smoke Exposure: No Substance Use History: Use of substances other than those prescribed or required for medical reasons : No Domestic Abuse History: Have you been hit, kicked, punched, or otherwise hurt by someone within the past year? If so, by whom?: No Do you feel safe in your current relationship?: No Current Relationship Homicidal Assessment: Do you have thoughts of harming others: None Do you have a plan to hurt others: No Plan Do you have the means to hurt others: No Nutrition Assessment: Recently lost weight without trying: No Patient : No Occupation Assessmet: service: No Current occupational status: employed Current occupational status: retired Current occupational exposures/hazards: No Oncology Screenings - ECOG Performance Status ECOG Performance Status: 1 Home Medications and Allergies Home Medications Medication Instructions Recorded Confirmed Type atorvastatin 80 mg tablet 80 mg PO DAILY 08/21/20 03/03/23 History blood sugar diagnostic #10 ea 08/21/20 03/03/23 History blood-glucose meter #1 ea 08/21/20 03/03/23 History carvedilol 25 mg tablet 25 mg PO BID 08/21/20 03/03/23 History clopidogrel 75 mg tablet 75 mg PO DAILY 08/21/20 03/03/23 History insulin lispro 100 unit/mL 100 unit subcut DAILY 08/21/20 03/03/23 History subcutaneous pen isosorbide mononitrate 30 mg 30 mg PO DAILY 08/21/20 03/03/23 History tablet,extended release 24 hr lisinopril 20 mg tablet 20 mg PO DAILY 08/21/20 03/03/23 History pen needle, diabetic 31 gauge x #50 ea 08/21/20 03/03/23 History 3/16 verapamil 120 mg tablet,extended 120 mg PO DAILY 08/21/20 03/03/23 History release insulin aspart U-100 100 unit/mL 3 unit subcut DAILY 11/19/22 03/03/23 History (3 mL) subcutaneous pen (Novolog FlexPen U-100 Insulin aspart) insulin detemir U-100 100 unit/mL 20 unit subcut BEDTIME 11/19/22 03/03/23 History (3 mL) subcutaneous pen lancets 30 gauge (OneAdaliduch Kemi #100 ea 11/19/22 03/03/23 History Plus Lancet) Allergies Allergy/AdvReac Type Severity Reaction Status Date / Time lorazepam [LORAZEPAM] Allergy Unknown WENT Verified 03/03/23 08:38 CRAZY Exam Vital signs: Vital Signs Temp 96.4 F L 03/03/23 08:36 Pulse 66 03/03/23 08:36 Resp 14 12/16/22 08:53 BP 135/60 03/03/23 08:36 Pulse Ox 95 12/16/22 08:53 O2 Del Method Room Air 01/18/23 08:25 Intake & Output 03/02/23 03/03/23 03/03/23 18:59 06:59 18:59 Other: Weight 71.2 kg Weight in Grams [id number] Weight 71.2 kg BMI result Body Mass Index 28.7 - Constitutional Present: mild distress - Routine HEENT Exam Head: Present: normal inspection Eye: Present: normal appearance ENT: Present: mucous membranes moist - Routine Neck Exam Present: full ROM - Routine Respiratory Exam Present: decreased breath sounds - Routine Cardiovascular Exam Cardiovascular: Present: RRR, S1, S2 - Routine Abdominal Exam Present: normal bowel sounds, nontender - Routine Rectal Exam Patient deferred: digital exam - Routine Extremities Exam Present: nontender - Routine Back/Spine/Pelvis Exam Back/Spine: Present: full ROM - Routine Skin Exam Present: intact - Routine Neurological Exam Present: alert, oriented X3, normal speech - Detailed Neurological Exam: Coma Scale Eye Opening: Spontaneous (4) - Routine Psychiatric Exam Present: normal affect Data - Labs CBC & Chem 7: 03/03/23 08:34 03/03/23 08:34 Assessment and Plan Patient Active problem list reviewed?: Yes (1) Pulmonary nodule Problem details: (1.8cm nodule in lingula noted on 10/12/[address]) Status: Acute Assessment and plan: This is a pleasant 77-year-old lady with a history of 56 pack years of smoking. CT scan of the chest was ordered which was done on 10/12 and revealed: 1. Centrilobular emphysema with multiple pulmonary nodules. The largest nodule measures 1.8 cm in the lingula. 2. Small to moderate size lymph nodes seen in the mediastinum and bilateral hilar regions question metastatic 3. Moderate coronary artery calcifications. 4. Cholecystectomy changes. Concern is underlying lung cancer, given the history of smoking. LDH is 528, makes me wonder if she has small cell of the lung. I proceeded with further staging workup. l checked a PET scan. She had a PET scan on 12/14: 1. A solid nodule in the lingula shows only weak FDG activity, suggesting a benign etiology. However because approximately 10% of pulmonary malignancies demonstrate no abnormal FDG activity, if biopsy of this nodule is not obtained, followup with diagnostic chest CT scan in 6 months is recommended. 2. Several additional small subcentimeter pulmonary nodules are present, unchanged from 10/12/2022 and all too small to be characterized on the FDG PET images. Follow-up of these with diagnostic CT imaging also an approximately 6 months is recommended. 3. A 6.1 cm left adnexal cyst is present. This shows fluid density and is markedly FDG photopenic and probably benign. However, further characterization of this with pelvic ultrasonography is recommended. This was not present on the 12/08/2018 CT scan. 4. A hyperdense 2.4 cm right adnexal lesion shows no abnormal FDG activity and is not significantly changed from 12/08/2018. This is likely benign but could also be further characterized with pelvic ultrasound. 5. No additional abnormalities suspicious for metastatic or other malignant lesions are noted. 6. Postsurgical changes in the abdomen are noted. 7. Diffuse vascular calcifications including coronary are noted. There are also prominent calcifications of the aortic valve. She was given 3 options by : 1. Continued observation which I do not necessarily recommend versus 2. Navigational bronchoscopy with biopsy versus 3. Davinci left upper lobe wedge possible segmentectomy/lobectomy. We discussed the risks and benefits each of these options in some detail. She discussed this with her family and friends, and decided to proceed with left Upper lobe wedge resection. She had a PET scan done on 12/14/2022 which showed: Minimal PET uptake in the nodule itself SUV of 2.1 but no increased uptake elsewhere in the chest or outside of the chest. She had pulmonary function testing done on 11/30/2022 which shows an FEV1 of 91% of predicted and a DLCO VA of 55% of predicted. Of note she does have a history of multiple coronary stents and will be seen by Dr. Tinoco from Cardiology on 01/25, for preop clearance. She underwent surgery on 02/[address] Guevara at [facility]. She had resection and segmentectomy via the DA Mary Carmen approach. Pathology: Left upper lobe of the lung: Size: 1.4 x 0.9 x 0.6 cm. Invasive adenocarcinoma. Micropapillary and solid type. JANEY: Present. Visceral pleural invasion: Present. Lymphovascular invasion: Present. Margin: All margins negative for invasive carcinoma. Closest margin about 1.3 cm. Lymph node status: Negative. TNM category:pT2a. PN 0. TTF 1: Express by neoplastic cells. Biomarker studies: Pending. Lingular/left upper lobe segmentectomy: Size: 1.8 x 0.9 10.6 cm. Invasive adenocarcinoma. Mucinous features. JANEY: Not identified. Visceral pleural invasion: Not identified. LVI: Not identified. Margins all negative. Closest margin: 6.2 cm. Lymph nodes: Negative. Stage:pT1b. She is currently in the process of recuperating from the surgery. She still feels rather weak. According to the literature adjuvant chemotherapy may improve survival in patients with pathologic stage I non-small cell lung carcinoma who have factors associated with high risk of recurrence, pathologic stage T2 a or lymphovascular invasion. I discussed the option of adjuvant chemotherapy. At this point she does not wish to undergo adjuvant systemic chemotherapy especially at her age with her comorbidities, she would be at high risk of treatment related toxicity. Will wait for biomarker studies to see, if she would be eligible for an oral agent. PLAN: The plan is to carefully follow her along. She will return in a month for a follow-up. She will be following up with Dr. Willis in the near future. All her questions were answered to her satisfaction. Thank you, Cc: . Dr. Willis. (2) Anemia Status: Acute Assessment and plan: 78 year old lady with NC/NC Anemia. IRON STUDIES: 254/279/91/232. C/W Anemia of Chronic Disease. Elevated Iron Saturation, concerning for Hemochromatosis. PLAN: I checked DNA Level. It revealed: Heterozygous for H63D. Thanks, (3) Adnexal mass Status: Acute Assessment and plan: 78 year old lady. She had an ultrasound of the pelvis on 12/17, which revealed: Bilateral adnexal cysts. Minimally complex right ovarian cyst similar in size to previous CT scans from 2017 and 2019. Minimally complex 5 x 6 cm left adnexal cyst new or increased in size from previous exams. VENEER JOINER consultation recommended. She saw Dr. Santana from [facility]. They wanted to proceed with MRI of the pelvis however the deferred it till after her lung surgery. PLAN: She prefers to have the pelvic ultrasound scheduled here at [facility]. Will then forwarded to Dr. Santana. For the plan will be undertaken based upon the results. - Time Spent With Patient Time Spent with Patient (in minutes): 30
[2023-03-03 09:03] LABS: Basophils Absolute Auto 0.1 X10*3/uL (0.0-0.2); Basophils Percent Auto 1.4 % (0-2); Eosinophils Absolute Auto 0.4 X10*3/uL (0.0-0.4); Eosinophils Percent Auto 3.9 % (0-4); Hematocrit 34.1 % (37.0-47.0); Hemoglobin 11.4 g/dl (12.0-16.0); Imm Gran Abs Auto 0.04 X10*3/uL (0.00-0.03); Imm Gran Pct Auto 0.4 % (0.0-0.4); Lymphocytes Absolute Auto 1.9 X10*3/uL (1.2-4.9); Lymphocytes Percent Auto 19.5 % (20-40); Mean Corpuscular HGB Conc 33.4 g/dl (31.0-35.0); Mean Corpuscular Hemoglobin 36.7 pg (27.0-33.0); Mean Corpuscular Volume 109.6 fL (80.0-98.0); Mean Platelet Volume 11.1 fL (9.4-12.3); Monocytes Absolute Auto 0.9 X10*3/uL (0.1-1.2); Neutrophils Absolute Auto 6.3 x10*3/uL (2.0-8.3); Neutrophils Percent Auto 65.8 % (45-73); Platelet Count 393 X10*3/uL (160-400); Red Blood Count 3.11 X10*6/uL (4.20-5.50); Red Cell Distribution Width 15.2 % (11.0-16.0); White Blood Count 9.6 X10*3/uL (4.8-10.8)
[2023-03-03 09:19] LABS: Alanine Aminotransferase 12 U/L (0-31); Albumin Level 3.8 g/dL (3.5-5.0); Alkaline Phosphatase 115 U/L (39-117); Anion Gap 12 (12-20); Aspartate Amino Transferase 18 U/L (5-31); Blood Urea Nitrogen 14 mg/dL (9-16); Calcium 9.8 mg/dL (8.4-10.2); Carbon Dioxide 26 mmol/L (22-29); Chloride 109 mmol/L (96-108); Creatinine Clr Calc Pharmacy 64.9; Estimated Glomerular Filt Rate > 60; Glucose Random 93 mg/dL (60-115); Potassium 4.3 mmol/L (3.3-5.1); Sodium 143 mmol/L (135-145); Total Protein 6.9 g/dL (6.5-8.0)
--- NOTE | 2023-03-03 09:41 | MHC.HEMONCMA ---
patient seen today for pulmonary nodule, vss, labs, following up in 1 month
[2023-04-04 13:01] LABS: MANUAL DIFF FLAG NO
[2023-04-04 13:04] VITALS: BP 119/59; PULSE 75; O2SAT 94; BMI 28.7
--- NOTE | 2023-04-04 13:08 | P.PNHO-ONC_ITS ---
Medical Summary - Medical Summary Date of Service: 04/04/23 Chief complaint: Follow-up for: Non-small cell lung carcinoma. Primary Care Provider: Kenji Mcnally MD Medical Summary: DIAGNOSIS: 1.8 MM LINGULAR LUNG NODULE. MEDIASTINAL ADENOPATHY. CURRENT THERAPY: 02/02, Status post which resection and segmentectomy via the DA Mary Carmen approach. Pathology: Left upper lobe of the lung: Size: 1.4 x 0.9 x 0.6 cm. Invasive adenocarcinoma. Micropapillary and solid type. JANEY: Present. Visceral pleural invasion: Present. Lymphovascular invasion: Present. Margin: All margins negative for invasive carcinoma. Closest margin about 1.3 cm. Lymph node status: Negative. TNM category:pT2a. PN 0. TTF 1: Express by neoplastic cells. Biomarker studies: Pending. Lingular/left upper lobe segmentectomy: Size: 1.8 x 0.9 10.6 cm. Invasive adenocarcinoma. Mucinous features. STA S: Not identified. Visceral pleural invasion: Not identified. LVI: Not identified. Margins all negative. Closest margin: 6.2 cm. Lymph nodes: Negative. Stage:pT1b. Interval History Interval history: Bhupendra Morgan is a 78 year old lady here for a follow-up visit. She tells me she is feeling good, for the most part. She feels tired at times. No fever chills or night sweats. No headache no dizziness. She denies chest pain. Sometimes he gets a mid sternal pain. She has saulo rtness of breath on exertion. She occasionally feels pain in her right upper quadrant area, she feels a ball there. Denies nausea vomiting nor diarrhea. Bowels are working without any gross blood in it. She had a colonoscopy years ago by Dr. Acevedo. Appetite is okay. She lost some weight. No dysuria or hematuria. Denies any pelvic pain no discharge. She has old age pains in her joints. Her legs are weak at times. She has reactive depression. She is rather sad on account of the demise of her . No skin rashes nor pruritus. INTERIM HISTORY: She underwent the devinci VATS procedure on 02/02. She tells me surgery went well. She initially had drains in for few days. PRESENTING HISTORY: She was referred by Dr. Mcnally, on account of pulmonary nodules and mediastinal adenopathy. She had an exam by Dr. Mcnally, he heard some wheezing. CT scan of the chest was ordered which she was done on 10/12 and revealed: 1. Centrilobular emphysema with multiple pulmonary nodules. The largest nodule measures 1.8 cm in the lingula. 2. Small to moderate size lymph nodes seen in the mediastinum and bilateral hilar regions question metastatic 3. Moderate coronary artery calcifications. 4. Cholecystectomy changes. She had a PET scan done on 12/14/2022 which showed: Minimal PET uptake in the nodule itself SUV of 2.1 but no increased uptake elsewhere in the chest or outside of the chest. She had pulmonary function testing done on 11/30/2022 which shows an FEV1 of 91% of predicted and a DLCO VA of 55% of predicted. PAST MEDICAL HISTORY: Of note she does have a history of multiple coronary stents and will be seen by Dr. Tinoco from Cardiology on 01/25, for preop clearance. She had a PET scan on 12/14: 1. A solid nodule in the lingula shows only weak FDG activity, suggesting a benign etiology. However because approximately 10% of pulmonary malignancies demonstrate no abnormal FDG activity, if biopsy of this nodule is not obtained, followup with diagnostic chest CT scan in 6 months is recommended. 2. Several additional small subcentimeter pulmonary nodules are present, unchanged from 10/12/2022 and all too small to be characterized on the FDG PET images. Follow-up of these with diagnostic CT imaging also an approximately 6 months is recommended. 3. A 6.1 cm left adnexal cyst is present. This shows fluid density and is markedly FDG photopenic and probably benign. However, further characterization of this with pelvic ultrasonography is recommended. This was not present on the 12/08/2018 CT scan. 4. A hyperdense 2.4 cm right adnexal lesion shows no abnormal FDG activity and is not significantly changed from 12/08/2018. This is likely benign but could also be further characterized with pelvic ultrasound. 5. No additional abnormalities suspicious for metastatic or other malignant lesions are noted. 6. Postsurgical changes in the abdomen are noted. 7. Diffuse vascular calcifications including coronary are noted. There are also prominent calcifications of the aortic valve. FAMILY HISTORY: Dad had bone cancer. Mom had colon cancer. This was discovered on autopsy. Daughter with lung cancer. She is a smoker. 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 She is . in July of heart attack. He was a patient here. She has 2 daughters 1 lives in [place], and the other lives in [place]. She started smoking in her 20s. She smoked less than a pack a day. She smoked off and on. Denies any alcohol. Review of Systems - Constitutional Reports system reviewed and no additional complaints, except as documented, Reports fatigue, Reports lack of energy, Reports malaise, Reports weight gain, Denies anorexia, Denies fever(s) - Eyes Reports system reviewed and no additional complaints, except as documented - ENT Reports system reviewed and no additional complaints, except as documented - Cardiovascular Reports system reviewed and no additional complaints, except as documented - Respiratory Reports no additional respiratory complaints - Gastrointestinal Reports system reviewed and no additional complaints, except as documented - Genitourinary Reports no additional female genitourinary complaints - Musculoskeletal Reports system reviewed and no additional complaints, except as documented - Integumentary/Breasts Skin/Breast: Reports no additional skin complaints - Neurologic Reports system reviewed and no additional complaints, except as documented, Reports weakness - Psychiatric Reports system reviewed and no additional complaints, except as documented - Endocrine Reports no additional endocrine complaints - Hematologic/Lymphatic Reports system reviewed and no additional complaints, except as documented - Allergic/Immunologic Reports system reviewed and no additional complaints, except as documented PMFSH Medical History: Medical History (Last Reviewed 04/04/23 @ 13:05 by Nina Dietrich) Anemia Anxiety CAD (coronary artery disease) Diabetes type 2, controlled Dyslipidemia Essential hypertension Nicotine dependence, cigarettes, uncomplicated PAD (peripheral artery disease) Tubular adenoma of colon Functional capacity: independent ambulation Patient : No Family History: Family History (Last Reviewed 04/04/23 @ 13:05 by Nina Dietrich) Daughter Lung cancer Father Bone cancer Mother Colon cancer Surgical History: Surgical History (Last Reviewed 04/04/23 @ 13:05 by Nina Dietrich) History of angioplasty History of appendectomy History of carpal tunnel surgery of right wrist History of cholecystectomy History of colonoscopy History of heart artery stent History of lung surgery History of partial pancreatectomy History of splenectomy History of tonsillectomy History of varicose vein stripping Social History: Social History (Last Reviewed 04/04/23 @ 13:05 by Nina Dietrich) Living Situation History: Household Members: None Housing: Condominium Alcohol History Details: 1. How often do you have a drink containing alcohol?: a. Never Tobacco History: Patient Tobacco Use Status: Former Tobacco user Years Smoked: 50 e-Cigarette/Vaping Use: Never Used Second Hand Smoke Exposure: No Substance Use History: Use of substances other than those prescribed or required for medical reasons : No Domestic Abuse History: Have you been hit, kicked, punched, or otherwise hurt by someone within the past year? If so, by whom?: No Do you feel safe in your current relationship?: No Current Relationship Homicidal Assessment: Do you have thoughts of harming others: None Do you have a plan to hurt others: No Plan Do you have the means to hurt others: No Nutrition Assessment: Recently lost weight without trying: No Patient : No Occupation Assessmet: service: No Current occupational status: retired Current occupational exposures/hazards: No Oncology Screenings - ECOG Performance Status ECOG Performance Status: 1 Home Medications and Allergies Home Medications Medication Instructions Recorded Confirmed Type atorvastatin 80 mg tablet 80 mg PO DAILY 08/21/20 04/04/23 History blood sugar diagnostic #10 ea 08/21/20 04/04/23 History blood-glucose meter #1 ea 08/21/20 04/04/23 History carvedilol 25 mg tablet 25 mg PO BID 08/21/20 04/04/23 History clopidogrel 75 mg tablet 75 mg PO DAILY 08/21/20 04/04/23 History insulin lispro 100 unit/mL 100 unit subcut DAILY 08/21/20 04/04/23 History subcutaneous pen isosorbide mononitrate 30 mg 30 mg PO DAILY 08/21/20 04/04/23 History tablet,extended release 24 hr lisinopril 20 mg tablet 20 mg PO DAILY 08/21/20 04/04/23 History pen needle, diabetic 31 gauge x #50 ea 08/21/20 04/04/23 History 3/16 verapamil 120 mg tablet,extended 120 mg PO DAILY 08/21/20 04/04/23 History release insulin aspart U-100 100 unit/mL 3 unit subcut DAILY 11/19/22 04/04/23 History (3 mL) subcutaneous pen (Novolog FlexPen U-100 Insulin aspart) insulin detemir U-100 100 unit/mL 20 unit subcut BEDTIME 11/19/22 04/04/23 Hist ory (3 mL) subcutaneous pen lancets 30 gauge ([employer] Delica #100 ea 11/19/22 04/04/23 History Plus Lancet) Allergies Allergy/AdvReac Type Severity Reaction Status Date / Time lorazepam [LORAZEPAM] Allergy Unknown WENT Verified 04/04/23 13:06 CRAZY Exam Vital signs: Vital Signs Temp 96.4 F L 03/03/23 08:36 Pulse 75 04/04/23 13:04 Resp 14 12/16/22 08:53 BP 119/59 L 04/04/23 13:04 Pulse Ox 94 04/04/23 13:04 O2 Del Method Room Air 04/04/23 13:04 Intake & Output 04/03/23 04/04/23 04/04/23 18:59 06:59 18:59 Other: Weight 71.1 kg Weight in Grams [id number] Weight 71.1 kg BMI result Body Mass Index 28.7 - Constitutional Present: mild distress - Routine HEENT Exam Head: Present: normal inspection Eye: Present: normal appearance ENT: Present: mucous membranes moist - Routine Neck Exam Present: full ROM - Routine Respiratory Exam Present: decreased breath sounds - Routine Cardiovascular Exam Cardiovascular: Present: RRR, S1, S2 - Routine Abdominal Exam Present: normal bowel sounds, nontender - Routine Rectal Exam Patient deferred: digital exam - Routine Extremities Exam Present: nontender - Routine Back/Spine/Pelvis Exam Back/Spine: Present: full ROM - Routine Skin Exam Present: intact - Routine Neurological Exam Present: alert, oriented X3, normal speech - Detailed Neurological Exam: Coma Scale Eye Opening: Spontaneous (4) - Routine Psychiatric Exam Present: normal affect Data - Labs CBC & Chem 7: 04/04/23 13:01 04/04/23 13:01 Assessment and Plan Patient Active problem list reviewed?: Yes (1) Pulmonary nodule Problem details: (1.8cm nodule in lingula noted on 10/12/[address]) Status: Acute Assessment and plan: This is a pleasant 77-year-old lady with a history of 56 [address] of smoking. CT scan of the chest was ordered which was done on 10/12 and revealed: 1. Centrilobular emphysema with multiple pulmonary nodules. The largest nodule measures 1.8 cm in the lingula. 2. Small to moderate size lymph nodes seen in the mediastinum and bilateral hilar regions question metastatic 3. Moderate coronary artery calcifications. 4. Cholecystectomy changes. Concern is underlying lung cancer, given the history of smoking. LDH is 528, makes me wonder if she has small cell of the lung. I proceeded with further staging workup. l checked a PET scan. She had a PET scan on 12/14: 1. A solid nodule in the lingula shows only weak FDG activity, suggesting a benign etiology. However because approximately 10% of pulmonary malignancies demonstrate no abnormal FDG activity, if biopsy of this nodule is not obtained, followup with diagnostic chest CT scan in 6 months is recommended. 2. Several additional small subcentimeter pulmonary nodules are present, unchanged from 10/12/2022 and all too small to be characterized on the FDG PET images. Follow-up of these with diagnostic CT imaging also an approximately 6 months is recommended. 3. A 6.1 cm left adnexal cyst is present. This shows fluid density and is markedly FDG photopenic and probably benign. However, further characterization of this with pelvic ultrasonography is recommended. This was not present on the 12/08/2018 CT scan. 4. A hyperdense 2.4 cm right adnexal lesion shows no abnormal FDG activity and is not significantly changed from 12/08/2018. This is likely benign but could also be further characterized with pelvic ultrasound. 5. No additional abnormalities suspicious for metastatic or other malignant lesions are noted. 6. Postsurgical changes in the abdomen are noted. 7. Diffuse vascular calcifications including coronary are noted. There are also prominent calcifications of the aortic valve. She was given 3 options by : 1. Continued observation which I do not necessarily recommend versus 2. Navigational bronchoscopy with biopsy versus 3. Davinci left upper lobe wedge possible segmentectomy/lobectomy. We discussed the risks and benefits each of these options in some detail. She discussed this with her family and friends, and decided to proceed with left Upper lobe wedge resection. She had a PET scan done on 12/14/2022 which showed: Minimal PET uptake in the nodule itself SUV of 2.1 but no increased uptake elsewhere in the chest or outside of the chest. She had pulmonary function testing done on 11/30/2022 which shows an FEV1 of 91% of predicted and a DLCO VA of 55% of predicted. Of note she does have a history of multiple coronary stents and will be seen by Dr. Tinoco from Cardiology on 01/25, for preop clearance. She underwent surgery on 02/[address] Guevara at [facility]. She had resection and segmentectomy via the DA Mary Carmen approach. Pathology: Left upper lobe of the lung: Size: 1.4 x 0.9 x 0.6 cm. Invasive adenocarcinoma. Micropapillary and solid type. JANEY: Present. Visceral pleural invasion: Present. Lymphovascular invasion: Present. Margin: All margins negative for invasive carcinoma. Closest margin about 1.3 cm. Lymph node status: Negative. TNM category:pT2a. PN 0. TTF 1: Express by neoplastic cells. Biomarker studies: Pending. Lingular/left upper lobe segmentectomy: Size: 1.8 x 0.9 10.6 cm. Invasive adenocarcinoma. Mucinous features. JANEY: Not identified. Visceral pleural invasion: Not identified. LVI: Not identified. Margins all negative. Closest margin: 6.2 cm. Lymph nodes: Negative. Stage:pT1b. She has recuperated from the surgery. She still less fatigued. According to the literature adjuvant chemotherapy may improve survival in patients with pathologic stage I non-small cell lung carcinoma who have factors associated with high risk of recurrence, pathologic stage T2 a or lymphovascular invasion. I discussed the option of adjuvant chemotherapy. At this point she does not wish to undergo adjuvant systemic chemotherapy especially at her age with her comorbidities, she would be at high risk of treatment related toxicity. Biomarker studies: PDL-1: Positive 60%. ROS: Negative. EGFR: Negative. ALK: negative. KRAS: Positive: c34G>T(p.G12C) PLAN: The plan is to carefully follow her along. She will return in a month for a follow-up. She will be following up with Dr. Willis in August, with a CT scan of the chest. All her questions were answered to her satisfaction. Thank you, Cc: . Dr. Willis. (2) Anemia Status: Acute Assessment and plan: 78 year old lady with NC/NC Anemia. IRON STUDIES: 254/279/91/232. C/W Anemia of Chronic Disease. Elevated Iron Saturation, concerning for Hemochromatosis. PLAN: I checked DNA Level. It revealed: Heterozygous for H63D. Thanks, (3) Adnexal mass Status: Acute Assessment and plan: 78 year old lady. She had an ultrasound of the pelvis on 12/17, which revealed: Bilateral adnexal cysts. Minimally complex right ovarian cyst similar in size to previous CT scans from 2017 and 2019. Minimally complex 5 x 6 cm left adnexal cyst new or increased in size from previous exams. 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 She saw Dr. Santana from [facility]. They wanted to proceed with MRI of the pelvis however the deferred it till after her lung surgery. PLAN: She prefers to have the pelvic MRI scheduled here at [facility]. Will then forwarded to Dr. Santana. Unfortunately she went in the machine was broken. It will be rescheduled. Further plan will be undertaken based upon the results. - Time Spent With Patient Time Spent with Patient (in minutes): 25
[2023-04-04 13:17] LABS: Basophils Absolute Auto 0.2 X10*3/uL (0.0-0.2); Basophils Percent Auto 1.4 % (0-2); Eosinophils Absolute Auto 0.9 X10*3/uL (0.0-0.4); Eosinophils Percent Auto 7.5 % (0-4); Hematocrit 33.8 % (37.0-47.0); Hemoglobin 11.5 g/dl (12.0-16.0); Imm Gran Abs Auto 0.04 X10*3/uL (0.00-0.03); Imm Gran Pct Auto 0.3 % (0.0-0.4); Lymphocytes Absolute Auto 3.3 X10*3/uL (1.2-4.9); Lymphocytes Percent Auto 28.1 % (20-40); Mean Corpuscular Hemoglobin 36.1 pg (27.0-33.0); Mean Platelet Volume 10.9 fL (9.4-12.3); Monocytes Absolute Auto 1.1 X10*3/uL (0.1-1.2); Monocytes Percent Auto 9.5 % (2-11); Neutrophils Absolute Auto 6.3 x10*3/uL (2.0-8.3); Neutrophils Percent Auto 53.2 % (45-73); Platelet Count 328 X10*3/uL (160-400); Red Blood Count 3.19 X10*6/uL (4.20-5.50); Red Cell Distribution Width 14.6 % (11.0-16.0); White Blood Count 11.8 X10*3/uL (4.8-10.8)
[2023-04-04 13:24] LABS: Alanine Aminotransferase 11 U/L (0-31); Albumin Level 3.7 g/dL (3.5-5.0); Alkaline Phosphatase 108 U/L (39-117); Anion Gap 12 (12-20); Aspartate Amino Transferase 14 U/L (5-31); Bilirubin Total 1.4 mg/dL (0.0-1.0); Blood Urea Nitrogen 13 mg/dL (9-16); Calcium 9.5 mg/dL (8.4-10.2); Carbon Dioxide 29 mmol/L (22-29); Chloride 109 mmol/L (96-108); Creatinine Clr Calc Pharmacy 61.2; Estimated Glomerular Filt Rate > 60; Glucose Random 87 mg/dL (60-115); Potassium 4.6 mmol/L (3.3-5.1); Sodium 145 mmol/L (135-145); Total Protein 6.6 g/dL (6.5-8.0)
--- NOTE | 2023-04-04 14:11 | MHC.HEMONCMA ---
patient seen today for pulmonary nodule, vss, labs, following up with provider in 6 months
--- NOTE | 2023-04-04 14:40 | MHC.HEMONC ---
I sent message via [employer] to Dr Willis's office requesting results of molecular testing done at [facility] or if it was not ordered to please order it per Dr Berger.
--- NOTE | 2023-04-25 13:57 | MHC.HEMONC ---
I faxed Pelvic MRI report to Dr Santana at ([facility]) [id number] [facility], [facility].
--- NOTE | 2024-01-27 11:50 | MHC.HEMONC ---
Returned call to patient- left voicemail. Awaiting callback.
[2024-02-07 10:44] VITALS: BP 95/53; PULSE 83
--- NOTE | 2024-02-07 12:00 | PM.HEMONCPN ---
Medical Summary - Medical Summary Date of Service: 02/07/24 Chief complaint: Follow-up for: 1. Anemia. 2. Lung cancer. Primary Care Provider: Kenji Mcnally MD Medical Summary: DIAGNOSIS: 1.8 MM LINGULAR LUNG NODULE. MEDIASTINAL ADENOPATHY. CURRENT THERAPY: 02/02, Status post which resection and segmentectomy via the DA Mary Carmen approach. Pathology: Left upper lobe of the lung: Size: 1.4 x 0.9 x 0.6 cm. Invasive adenocarcinoma. Micropapillary and solid type. JANEY: Present. Visceral pleural invasion: Present. Lymphovascular invasion: Present. Margin: All margins negative for invasive carcinoma. Closest margin about 1.3 cm. Lymph node status: Negative. TNM category:pT2a. PN 0. TTF 1: Express by neoplastic cells. Biomarker studies: Pending. Lingular/left upper lobe segmentectomy: Size: 1.8 x 0.9 10.6 cm. Invasive adenocarcinoma. Mucinous features. STA S: Not identified. Visceral pleural invasion: Not identified. LVI: Not identified. Margins all negative. Closest margin: 6.2 cm. Lymph nodes: Negative. Stage:pT1b. On imaging. She was noted to have pulmonary nodule and new mediastinal adenopathy. EBUS on 01/26/2024. Left upper lobe bronchial washings: No malignant cells identified. Lymph node: Right paratracheal: Metastatic adenocarcinoma. Lymph node: subcarinal: Metastatic adenocarcinoma. Lymph node: left paratracheal: Metastatic adenocarcinoma. Similar to left upper lobe pulmonary adenocarcinoma. Positive for TTF 1. Molecular testing pending on the right paratracheal lymph node. Interval History Interval history: Bhupendra Morgan is a 79 year old lady here for a follow-up visit. She tells me she is not feeling too good. She has had bronchitis/pneumonia. She has been treated with 3 different antibiotic courses. She is on Cephalexin now. Lately she has been tired most of the times. She has a hard time walking due to shortness of breath. She feels palpitations. Sometimes she feels her heartbeat in her ears. She had left jaw pain but that has resolved. She was diagnosed with hypothyroidism. She has been started on Levoxyl 0.25 mcg. She just started that on Tuesday. No fever chills or night sweats. No headache no dizziness. She denies chest pain. She has shortness of breath on exertion. She occasionally feels pain in her right upper quadrant area. Denies nausea vomiting nor diarrhea. Bowels are working without any gross blood in it. She had a colonoscopy several years ago by Dr. Acevedo. Appetite is good. She has lost some weight. No dysuria or hematuria. Denies any pelvic pain no discharge. She has aches and pains in her joints. Her legs are weak. She has reactive depression. She is rather sad on account of the demise of her . No skin rashes nor pruritus. INTERIM HISTORY: She underwent the Devinci VATS lingulaectomy and mediastinal lymphadenectomy on 02/02/23. After this she had a prolonged air leak but ultimately did rather well after removal of the chest tube about a week and a half later. She was found to have 2 separate primary lung cancers in the specimen and negative mediastinal and hilar lymph nodes. Recently she had developed worsening shortness of breath and jaw pain. She had a catheterization on 06/23/2023 where a stent was placed successfully. She stayed in the hospital afterwards due to bilateral pleural effusions and hypoxia. 06/28/2023 she had a thoracentesis. CT scan on 06/24/2023 showed: Moderate left-sided and small right-sided pleural effusion, no recurrent nodules nor adenopathy. On 08/01/2023 CT scan showed a moderate left-sided effusion the site of her operation. Thoracentesis was done for 750 cc. Her breathing did improve. Recently she had shortness of breath and jaw pain after which she had a cardiac catheterization on December 21 but no stent was placed. She was recently treated with antibiotic for URI/pneumonia. Follow-up CT of the chest on 12/29/2023 showed postsurgical changes on the left and a small normal left effusion. There is increased mediastinal lymph nodes right paratracheal measuring 21 mm and subcarinal measuring 24 mm as well as fullness in the left hilum. She underwent EBUS on 01/26/2024 which showed positive lymph nodes consistent with her previous cancer in the right paratracheal, left paratracheal and subcarinal lymph nodes. There is adequate tissue for molecular testing which will be sent. PET scan from 02/06/2024 revealed increased uptake in all of these same lymph nodes as well as left hilar and infrahilar oral, cervical and supraclavicular lymph. There is no distended uptake. PRESENTING HISTORY: She was referred by Dr. Mcnally, on account of pulmonary nodules and mediastinal adenopathy. She had an exam by Dr. Mcnally, he heard some wheezing. CT scan of the chest was ordered which she was done on 10/12 and revealed: 1. Centrilobular emphysema with multiple pulmonary nodules. The largest nodule measures 1.8 cm in the lingula. 2. Small to moderate size lymph nodes seen in the mediastinum and bilateral hilar regions question metastatic 3. Moderate coronary artery calcifications. 4. Cholecystectomy changes. She had a PET scan done on 12/14/2022 which showed: Minimal PET uptake in the nodule itself SUV of 2.1 but no increased uptake elsewhere in the chest or outside of the chest. She had pulmonary function testing done on 11/30/2022 which shows an FEV1 of 91% of predicted and a DLCO VA of 55% of predicted. PAST MEDICAL HISTORY: Of note she does have a history of multiple coronary stents and will be seen by Dr. Tinoco from Cardiology on 01/25, for preop clearance. She had a PET scan on 12/14: 1. A solid nodule in the lingula shows only weak FDG activity, suggesting a benign etiology. However because approximately 10% of pulmonary malignancies demonstrate no abnormal FDG activity, if biopsy of this nodule is not obtained, followup with diagnostic chest CT scan in 6 months is recommended. 2. Several additional small subcentimeter pulmonary nodules are present, unchanged from 10/12/2022 and all too small to be characterized on the FDG PET images. Follow-up of these with diagnostic CT imaging also an approximately 6 months is recommended. 3. A 6.1 cm left adnexal cyst is present. This shows fluid density and is markedly FDG photopenic and probably benign. However, further characterization of this with pelvic ultrasonography is recommended. This was not present on the 12/08/2018 CT scan. 4. A hyperdense 2.4 cm right adnexal lesion shows no abnormal FDG activity and is not significantly changed from 12/08/2018. This is likely benign but could also be further characterized with pelvic ultrasound. 5. No additional abnormalities suspicious for metastatic or other malignant lesions are noted. 6. Postsurgical changes in the abdomen are noted. 7. Diffuse vascular calcifications including coronary are noted. There are also prominent calcifications of the aortic valve. FAMILY HISTORY: Dad had bone cancer. Mom had colon cancer. This was discovered on autopsy. Daughter with lung cancer. She is a smoker. 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 She is . in July of heart attack. He was a patient here. She has 2 daughters 1 lives in [place], and the other lives in [place]. She started smoking in her 20s. She smoked less than a pack a day. She smoked off and on. Denies any alcohol. Review of Systems - Constitutional Reports system reviewed and no additional complaints, except as documented, Reports lack of energy, Reports malaise, Reports weight loss - Eyes Reports system reviewed and no additional complaints, except as documented - ENT Reports system reviewed and no additional complaints, except as documented - Cardiovascular Reports system reviewed and no additional complaints, except as documented - Respiratory Reports no additional respiratory complaints - Gastrointestinal Reports system reviewed and no additional complaints, except as documented - Genitourinary Reports no additional female genitourinary complaints - Musculoskeletal Reports system reviewed and no additional complaints, except as documented - Integumentary/Breasts Skin/Breast: Reports no additional skin complaints - Neurologic Reports system reviewed and no additional complaints, except as documented, Reports weakness - Psychiatric Reports system reviewed and no additional complaints, except as documented - Endocrine Reports no additional endocrine complaints - Hematologic/Lymphatic Reports system reviewed and no additional complaints, except as documented - Allergic/Immunologic Reports system reviewed and no additional complaints, except as documented PMFSH Medical History: Medical History (Last Reviewed 02/21/24 @ 11:06 by Nina Dietrich) Anemia Anxiety CAD (coronary artery disease) Diabetes type 2, controlled Dyslipidemia Essential hypertension Nicotine dependence, cigarettes, uncomplicated PAD (peripheral artery disease) SVT (supraventricular tachycardia) Tachycardia Tubular adenoma of colon Functional capacity: independent ambulation Patient : No Family History: Family History (Last Reviewed 02/21/24 @ 11:06 by Nina Dietrich) Daughter Lung cancer Father Bone cancer Mother Colon cancer Surgical History: Surgical History (Last Reviewed 02/21/24 @ 11:06 by Nina Dietrich) History of angioplasty History of appendectomy History of carpal tunnel surgery of right wrist History of cholecystectomy History of colonoscopy History of heart artery stent History of lung surgery History of partial pancreatectomy History of splenectomy History of tonsillectomy History of varicose vein stripping S/P cardiac catheterization Social History: Social History (Last Reviewed 02/21/24 @ 11:06 by Nina Dietrich) Living Situation History: Household Members: None Housing: Condominium Alcohol History Details: 1. How often do you have a drink containing alcohol?: a. Never Tobacco History: Patient Tobacco Use Status: Former Tobacco user Years Smoked: 50 e-Cigarette/Vaping Use: Never Used Second Hand Smoke Exposure: No Substance Use History: Use of substances other than those prescribed or required for medical reasons: No Domestic Abuse History: Have you been hit, kicked, punched, or otherwise hurt by someone within the past year? If so, by whom?: No Do you feel safe in your current relationship?: No Current Relationship Advance Directives: Advance Directives Date on File: 01/18/23 Homicidal Assessment: Do you have thoughts of harming others: None Do you have a plan to hurt others: No Plan Do you have the means to hurt others: No Nutrition Assessment: Recently lost weight without trying: No Patient : No Occupation Assessmet: service: No Current occupational status: retired Current occupational exposures/hazards: No Oncology Screenings - ECOG Performance Status ECOG Performance Status: 0 Home Medications and Allergies Home Medications ?Medication ?Instructions ?Recorded ?Confirmed ?Type atorvastatin 80 mg tablet 80 mg PO DAILY 08/21/20 02/21/24 History blood sugar diagnostic #10 ea 08/21/20 02/21/24 History blood-glucose meter #1 ea 08/21/20 02/21/24 History insulin lispro 100 unit/mL 100 unit subcut DAILY 08/21/20 02/21/24 History subcutaneous pen pen needle, diabetic 31 gauge x #50 ea 08/21/20 02/21/24 History 3/16 insulin aspart U-100 100 unit/mL 3 unit subcut DAILY 11/19/22 02/21/24 History (3 mL) subcutaneous pen (Novolog FlexPen U-100 Insulin aspart) lancets 30 gauge (OneAdaliduch Kemi #100 ea 11/19/22 02/21/24 History Plus Lancet) Allergies Allergy/AdvReac Type Severity Reaction Status Date / Time No Known Allergies Allergy Verified 02/21/24 11:06 Exam Vital signs: Vital Signs Temp 96.4 F L 03/03/23 08:36 Pulse 83 05/28/24 10:44 Resp 14 12/16/22 08:53 BP 95/53 L 02/07/24 10:44 Pulse Ox 94 04/04/23 13:04 O2 Del Method Room Air 02/07/24 10:44 Weight 71.1 kg BMI result Body Mass Index 28.7 - Constitutional Present: mild distress - Routine HEENT Exam Head: Present: normal inspection Eye: Present: normal appearance ENT: Present: mucous membranes moist - Routine Neck Exam Present: full ROM - Routine Respiratory Exam Present: decreased breath sounds - Routine Cardiovascular Exam Cardiovascular: Present: RRR, S1, S2 - Routine Abdominal Exam Present: normal bowel sounds, nontender - Routine Rectal Exam Patient deferred: digital exam - Routine Extremities Exam Present: nontender - Routine Back/Spine/Pelvis Exam Back/Spine: Present: full ROM - Routine Skin Exam Present: intact - Routine Neurological Exam Present: alert, oriented X3, normal speech - Detailed Neurological Exam: Coma Scale Eye Opening: Spontaneous (4) - Routine Psychiatric Exam Present: normal affect Data - Labs CBC & Chem 7: 02/21/24 11:01 02/21/24 11:01 Assessment and Plan Patient Active problem list reviewed?: Yes (1) Pulmonary nodule Problem details: (1.8cm nodule in lingula noted on 10/12/[address]) Status: Acute Assessment and plan: This is a pleasant 79 year-old lady with a history of 56 [address] of smoking. CT scan of the chest was ordered which was done on 10/12 and revealed: 1. Centrilobular emphysema with multiple pulmonary nodules. The largest nodule measures 1.8 cm in the lingula. 2. Small to moderate size lymph nodes seen in the mediastinum and bilateral hilar regions question metastatic 3. Moderate coronary artery calcifications. 4. Cholecystectomy changes. Concern is underlying lung cancer, given the history of smoking. LDH is 528, makes me wonder if she has small cell of the lung. I proceeded with further staging workup. She had a PET scan on 12/14: 1. A solid nodule in the lingula shows only weak FDG activity, suggesting a benign etiology. However because approximately 10% of pulmonary malignancies demonstrate no abnormal FDG activity, if biopsy of this nodule is not obtained, followup with diagnostic chest CT scan in 6 months is recommended. 2. Several additional small subcentimeter pulmonary nodules are present, unchanged from 10/12/2022 and all too small to be characterized on the FDG PET images. Follow-up of these with diagnostic CT imaging also an approximately 6 months is recommended. 3. A 6.1 cm left adnexal cyst is present. This shows fluid density and is markedly FDG photopenic and probably benign. However, further characterization of this with pelvic ultrasonography is recommended. This was not present on the 12/08/2018 CT scan. 4. A hyperdense 2.4 cm right adnexal lesion shows no abnormal FDG activity and is not significantly changed from 12/08/2018. This is likely benign but could also be further characterized with pelvic ultrasound. 5. No additional abnormalities suspicious for metastatic or other malignant lesions are noted. 6. Postsurgical changes in the abdomen are noted. 7. Diffuse vascular calcifications including coronary are noted. There are also prominent calcifications of the aortic valve. She was given 3 options by : 1. Continued observation which I do not necessarily recommend versus 2. Navigational bronchoscopy with biopsy versus 3. Davinci left upper lobe wedge possible segmentectomy/lobectomy. We discussed the risks and benefits each of these options in some detail. She discussed this with her family and friends, and decided to proceed with left Upper lobe wedge resection. She had a PET scan done on 12/14/2022 which showed: Minimal PET uptake in the nodule itself SUV of 2.1 but no increased uptake elsewhere in the chest or outside of the chest. She had pulmonary function testing done on 11/30/2022 which shows an FEV1 of 91% of predicted and a DLCO VA of 55% of predicted. Of note she does have a history of multiple coronary stents and will be seen by Dr. Tinoco from Cardiology on 01/25, for preop clearance. She underwent surgery on 02/[address] Guevara at [facility]. She had resection and segmentectomy via the DA Mary Carmen approach. Pathology: Left upper lobe of the lung: Size: 1.4 x 0.9 x 0.6 cm. Invasive adenocarcinoma. Micropapillary and solid type. JANEY: Present. Visceral pleural invasion: Present. Lymphovascular invasion: Present. Margin: All margins negative for invasive carcinoma. Closest margin about 1.3 cm. Lymph node status: Negative. TNM category:pT2a. PN 0. TTF 1: Express by neoplastic cells. Biomarker studies: Pending. Lingular/left upper lobe segmentectomy: Size: 1.8 x 0.9 10.6 cm. Invasive adenocarcinoma. Mucinous features. JANEY: Not identified. Visceral pleural invasion: Not identified. LVI: Not identified. Margins all negative. Closest margin: 6.2 cm. Lymph nodes: Negative. Stage:pT1b. According to the literature adjuvant chemotherapy may improve survival in patients with pathologic stage I non-small cell lung carcinoma who have factors associated with high risk of recurrence, pathologic stage T2 a or lymphovascular invasion. I discussed the option of adjuvant chemotherapy. At that point she did not wish to undergo adjuvant systemic chemotherapy especially at her age with her comorbidities, she would be at high risk of treatment related toxicity. Biomarker studies: PDL-1: Positive 60%. ROS: Negative. EGFR: Negative. ALK: negative. KRAS: Positive: c34G>T(p.G12C) Recent CT scan had revealed: Pulmonary nodule and New mediastinal adenopathy. She had EBUS done on 01/[address] Willis. Left upper lobe bronchial washings: No malignant cells identified. Lymph node: Right paratracheal: Metastatic adenocarcinoma. Lymph node: subcarinal: Metastatic adenocarcinoma. Lymph node: left paratracheal: Metastatic adenocarcinoma. Similar to left upper lobe pulmonary adenocarcinoma. Positive for TTF 1. Molecular testing pending on the right paratracheal lymph node. PET scan from 02/06/2024 revealed increased uptake in all of these same lymph nodes as well as left hilar and infrahilar oral, cervical and supraclavicular lymph. There is no distended uptake. She now has stage IIIB likely without evidence of distant disease. In general treatment would be with combined modality therapy with chemotherapy and radiation, possibly additional immunotherapy. PLAN: Will wait for the molecular testing to be completed, before making further recommendations. Appointment has been made with [facility] for 02/28, with Dr. Singh. She would be a candidate for Carbo/Alimta (carboplatin AUC of 5 and Alimta 500 mg per m2 IV day 1, every 3 weeks for 3 cycles with concurrent RT at a dose of 2 Gy per day administered 5 days a week for a total of 64-68 Gy.) Then consolidation Alimta 500 mg per m2 every 3 weeks for 3 cycles after RT completion. She will receive B12 injection and folic acid 1 mg daily the week prior to starting treatment. She will return in a month for a follow-up. She will be following up with Dr. Willis on . All her questions were answered to her satisfaction. Thank you, Cc: . Dr. Willis. (2) Anemia Status: Acute Assessment and plan: 79 year old lady with NC/NC Anemia. IRON STUDIES: 254/279/91/232. C/W Anemia of Chronic Disease. Elevated Iron Saturation, concerning for Hemochromatosis. I checked DNA Level. It revealed: Heterozygous for H63D. CBC from 01/31/2024 revealed: WBC 11.4, HGB 10.1, HCT 30.3, MCV 118, PLT 303. CMP: Lytes WNL, glucose 94, BUN 20, HOSPITAL ADMINISTRATOR 0.87. LFTs: 3.1/134//. TSH 1.48. F T4 1.19. Peripheral smear: Red cell agglutination is present. Admixed echinocytes, acanthocytes and red cell fragments are also seen. 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 PLAN: I will proceed with hemolytic screen: Retic: 4.6, LDH: 421. Check type and screen: A +. Coomb's Test: Braulio positive for C3. Check cold agglutinins. Check mycoplasma titer. Check SIEP. It appears that patient had pneumonia. Could have been mycoplasma, that led to cold agglutinin hemolysis. She was given antibiotics. She appears to be recovering. Will continue to monitor her blood count. Thanks, CC: . (3) Adnexal mass Status: Acute Assessment and plan: 88 year old lady. She had an ultrasound of the pelvis on 12/17, which revealed: Bilateral adnexal cysts. Minimally complex right ovarian cyst similar in size to previous CT scans from 2017 and 2019. Minimally complex 5 x 6 cm left adnexal cyst new or increased in size from previous exams. TECHNOLOGY TRAINER consultation recommended. She saw Dr. Santana from [facility] at [facility]. They wanted to proceed with MRI of the pelvis however they deferred it till after her lung surgery. PLAN: She prefers to have the pelvic MRI scheduled here at [place]. Will then forwarded to Dr. Santana. Unfortunately she went in the machine was broken. It will be rescheduled. Further plan will be undertaken based upon the results. - Time Spent With Patient Time Spent with Patient (in minutes): 30
[2024-02-07 12:04] LABS: Lactate Dehydrogenase 421 U/L (122-220)
[2024-02-07 12:13] LABS: Baso%MD 1.3 %; Eos%MD 2.6 %; Hematocrit 33.9 % (37.0-47.0); IG%MD 0.5 %; Immature Retic Fraction 24.5 % (3.0-15.9); Lymph%MD 17.3 %; Mean Corpuscular Hemoglobin 37.3 pg (27.0-33.0); Mean Platelet Volume 11.5 fL (9.4-12.3); Mono%MD 9.6 %; Neut%MD 68.7 %; Platelet Count 300 X10*3/uL (160-400); Red Blood Count 2.95 X10*6/uL (4.20-5.50); Red Cell Distribution Width 14.9 % (11.0-16.0); Retic HGB Equivalent 35.3 pg (30.0-35.0); Reticulocyte Percent 4.6 % (0.5-1.8); Reticulocytes Absolute 0.136 X10*6/uL (0.026-0.095)
[2024-02-07 12:15] LABS: Mean Corpuscular Volume 114.9 fL (80.0-98.0); WBC ABN SCTR FOR CBC 1
[2024-02-07 12:16] LABS: Mean Corpuscular HGB Conc 32.4 g/dl (31.0-35.0)
[2024-02-07 12:26] LABS: Eosinophils Percent Manual 1 % (0-4); Lymphocytes Percent Manual 22 % (20-40); Monocytes Percent Manual 7 % (2-11); Neutrophils Percent Manual 70 % (45-73)
[2024-02-07 12:29] LABS: RBC Morphology NOTED; Schistocytes 2+ (3-5) /OIF
[2024-02-07 12:32] LABS: Hypochromasia 1+ (5-14) /OIF; Macrocytosis 1+ (5-14) /OIF; Microcytosis 1+ (5-14) /OIF; Polychromasia 1+ (0-2) /OIF
[2024-02-07 12:33] LABS: Large Platelet PRESENT; Platelet Estimate NORMAL (NORMAL); Platelet Morphology Comment NOTED
--- NOTE | 2024-02-07 12:47 | MHC.HEMONCMA ---
patient seenn today for anemia, vss, labs, following up with provider in 10 days
[2024-02-07 14:14] LABS: Eosinophils Absolute Manual 0.1 X10*3/uL (0.0-0.4); Lymphocytes Absolute Manual 2.6 X10*3/uL (1.2-4.9); Monocytes Absolute Manual 0.8 X10*3/uL (0.1-1.2); White Blood Count 11.9 X10*3/uL (4.8-10.8)
[2024-02-07 14:52] LABS: Band Neutrophils Percent 0 % (3-5); Neutrophils Absolute Manual 8.3 X10*3/uL (2.0-8.3)
[2024-02-08 17:33] LABS: Haptoglobin <10 mg/dL (43-212)
--- NOTE | 2024-02-09 13:40 | MHC.HEMONC ---
Pt called reporting that she saw Dr Tyler and if Dr Berger could call her. Note given to Dr Berger.
[2024-02-09 16:13] LABS: IgA 546 mg/dL (70-320); IgG 686 mg/dL (600-1540); IgM 354 mg/dL (50-300)
[2024-02-10 15:29] LABS: Mycoplasma Pneumoniae - IgG 3.64 (<=0.90); Mycoplasma Pneumoniae - IgM 162 U/mL (<770)
--- NOTE | 2024-02-21 10:53 | P.PNHO-ONC_ITS ---
Medical Summary - Medical Summary Date of Service: 02/21/24 Chief complaint: Follow-up for: Sov-[id number]-[id number] lung carcinoma. Primary Care Provider: Kenji Mcnally MD Medical Summary: DIAGNOSIS: 1.8 MM LINGULAR LUNG NODULE. MEDIASTINAL ADENOPATHY. CURRENT THERAPY: 02/02, Status post which resection and segmentectomy via the DA Mary Carmen approach. Pathology: Left upper lobe of the lung: Size: 1.4 x 0.9 x 0.6 cm. Invasive adenocarcinoma. Micropapillary and solid type. JANEY: Present. Visceral pleural invasion: Present. Lymphovascular invasion: Present. Margin: All margins negative for invasive carcinoma. Closest margin about 1.3 cm. Lymph node status: Negative. TNM category:pT2a. PN 0. TTF 1: Express by neoplastic cells. Biomarker studies: Pending. Lingular/left upper lobe segmentectomy: Size: 1.8 x 0.9 10.6 cm. Invasive adenocarcinoma. Mucinous features. STA S: Not identified. Visceral pleural invasion: Not identified. LVI: Not identified. Margins all negative. Closest margin: 6.2 cm. Lymph nodes: Negative. Stage:pT1b. On imaging. She was noted to have pulmonary nodule and new mediastinal adenopathy. EBUS on 01/26/2024. Left upper lobe bronchial washings: No malignant cells identified. Lymph node: Right paratracheal: Metastatic adenocarcinoma. Lymph node: subcarinal: Metastatic adenocarcinoma. Lymph node: left paratracheal: Metastatic adenocarcinoma. Similar to left upper lobe pulmonary adenocarcinoma. Positive for TTF 1. Molecular testing pending on the right paratracheal lymph node. Interval History Interval history: Bhupendra Morgan is a 79 year old lady here for a follow-up visit. She tells me she is feeling better. She had bronchitis/pneumonia. She was treated with 3 different antibiotic courses. She still has a residual cough. Sometimes the sputum comes up, but then goes back down. She has a hard time walking due to shortness of breath. No fever chills or night sweats. No headache no dizziness. She denies chest pain. She occasionally feels pain in her right upper quadrant area. Denies nausea vomiting nor diarrhea. Bowels are working without any gross blood in it. She had a colonoscopy several years ago by Dr. Acevedo. Appetite is good. She has gained some weight. No dysuria or hematuria. Denies any pelvic pain no discharge. She has aches and pains in her joints. Her legs are weak. She has reactive depression. She is rather sad on account of the demise of her . No skin rashes nor pruritus. INTERIM HISTORY: She underwent the Devinci VATS lingulaectomy and mediastinal lymphadenectomy on 02/02/23. After this she had a prolonged air leak but ultimately did rather well after removal of the chest tube about a week and a half later. She was found to have 2 separate primary lung cancers in the specimen and negative mediastinal and hilar lymph nodes. Recently she had developed worsening shor of breath and jaw pain. She had a catheterization on 06/23/2023 where a stent was placed successfully. She stayed in the hospital afterwards due to bilateral pleural effusions and hypoxia. 06/28/2023 she had a thoracentesis. CT scan on 06/24/2023 showed: Moderate left-sided and small right-sided pleural effusion, no recurrent nodules nor adenopathy. On 08/01/2023 CT scan showed a moderate left-sided effusion the site of her operation. Thoracentesis was done for 750 cc. Her breathing did improve. Recently she had shortness of breath and jaw pain after which she had a cardiac catheterization on December 21 but no stent was placed. She was recently treated with antibiotic for URI/pneumonia. Follow-up CT of the chest on 12/29/2023 showed postsurgical changes on the left and a small normal left effusion. There is increased mediastinal lymph nodes right paratracheal measuring 21 mm and subcarinal measuring 24 mm as well as fullness in the left hilum. She underwent EBUS on 01/26/2024 which showed positive lymph nodes consistent with her previous cancer in the right paratracheal, left paratracheal and subcarinal lymph nodes. There is adequate tissue for molecular testing which will be sent. PET scan from 02/06/2024 revealed increased uptake in all of these same lymph nodes as well as left hilar and infrahilar oral, cervical and supraclavicular lymph. There is no distended uptake. PRESENTING HISTORY: She was referred by Dr. Mcnally, on account of pulmonary nodules and mediastinal adenopathy. She had an exam by Dr. Mcnally, he heard some wheezing. CT scan of the chest was ordered which she was done on 10/12 and revealed: 1. Centrilobular emphysema with multiple pulmonary nodules. The largest nodule measures 1.8 cm in the lingula. 2. Small to moderate size lymph nodes seen in the mediastinum and bilateral hilar regions question metastatic 3. Moderate coronary artery calcifications. 4. Cholecystectomy changes. She had a PET scan done on 12/14/2022 which showed: Minimal PET uptake in the nodule itself SUV of 2.1 but no increased uptake elsewhere in the chest or outside of the chest. She had pulmonary function testing done on 11/30/2022 which shows an FEV1 of 91% of predicted and a DLCO VA of 55% of predicted. PAST MEDICAL HISTORY: 1. She does have a history of multiple coronary stents and will be seen by Dr. Tinoco from Cardiology on 01/25, for preop clearance. 2. She was diagnosed with hypothyroidism. She has been started on Levoxyl 0.25 mcg. She had a PET scan on 12/14: 1. A solid nodule in the lingula shows only weak FDG activity, suggesting a benign etiology. However because approximately 10% of pulmonary malignancies demonstrate no abnormal FDG activity, if biopsy of this nodule is not obtained, followup with diagnostic chest CT scan in 6 months is recommended. 2. Several additional small subcentimeter pulmonary nodules are present, unchanged from 10/12/2022 and all too small to be characterized on the FDG PET images. Follow-up of these with diagnostic CT imaging also an approximately 6 months is recommended. 3. A 6.1 cm left adnexal cyst is present. This shows fluid density and is markedly FDG photopenic and probably benign. However, further characterization of this with pelvic ultrasonography is recommended. This was not present on the 12/08/2018 CT scan. 4. A hyperdense 2.4 cm right adnexal lesion shows no abnormal FDG activity and is not significantly changed from 12/08/2018. This is likely benign but could also be further characterized with pelvic ultrasound. 5. No additional abnormalities suspicious for metastatic or other malignant lesions are noted. 6. Postsurgical changes in the abdomen are noted. 7. Diffuse vascular calcifications including coronary are noted. There are also prominent calcifications of the aortic valve. FAMILY HISTORY: Dad had bone cancer. Mom had colon cancer. This was discovered on autopsy. Daughter with lung cancer. She is a smoker. 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 She is . in July of heart attack. He was a patient here. She has 2 daughters 1 lives in [place], and the other lives in [place]. She started smoking in her 20s. She smoked less than a pack a day. She smoked off and on. Denies any alcohol. Review of Systems - Constitutional Reports system reviewed and no additional complaints, except as documented, Reports lack of energy, Reports weight gain - Eyes Reports system reviewed and no additional complaints, except as documented - ENT Reports system reviewed and no additional complaints, except as documented - Cardiovascular Reports system reviewed and no additional complaints, except as documented - Respiratory Reports no additional respiratory complaints - Gastrointestinal Reports system reviewed and no additional complaints, except as documented - Genitourinary Reports no additional female genitourinary complaints - Musculoskeletal Reports system reviewed and no additional complaints, except as documented - Integumentary/Breasts Skin/Breast: Reports no additional skin complaints - Neurologic Reports system reviewed and no additional complaints, except as documented, Reports weakness - Psychiatric Reports system reviewed and no additional complaints, except as documented - Endocrine Reports no additional endocrine complaints - Hematologic/Lymphatic Reports system reviewed and no additional complaints, except as documented - Allergic/Immunologic Reports system reviewed and no additional complaints, except as documented PMFSH Medical History: Medical History (Last Reviewed 02/21/24 @ 11:06 by Nina Dietrich) Anemia Anxiety CAD (coronary artery disease) Diabetes type 2, controlled Dyslipidemia Essential hypertension Nicotine dependence, cigarettes, uncomplicated PAD (peripheral artery disease) SVT (supraventricular tachycardia) Tachycardia Tubular adenoma of colon Functional capacity: independent ambulation Patient : No Family History: Family History (Last Reviewed 02/21/24 @ 11:06 by Nina Dietrich) Daughter Lung cancer Father Bone cancer Mother Colon cancer Surgical History: Surgical History (Last Reviewed 02/21/24 @ 11:06 by Nina Dietrich) History of angioplasty History of appendectomy History of carpal tunnel surgery of right wrist History of cholecystectomy History of colonoscopy History of heart artery stent History of lung surgery History of partial pancreatectomy History of splenectomy History of tonsillectomy History of varicose vein stripping S/P cardiac catheterization Social History: Social History (Last Reviewed 02/21/24 @ 11:06 by Nina Dietrich) Living Situation History: Household Members: None Housing: Condominium Alcohol History Details: 1. How often do you have a drink containing alcohol?: a. Never Tobacco History: Patient Tobacco Use Status: Former Tobacco user Years Smoked: 50 e-Cigarette/Vaping Use: Never Used Second Hand Smoke Exposure: No Substance Use History: Use of substances other than those prescribed or required for medical reasons : No Domestic Abuse History: Have you been hit, kicked, punched, or otherwise hurt by someone within the past year? If so, by whom?: No Do you feel safe in your current relationship?: No Current Relationship Advance Directives: Advance Directives Date on File: 01/18/23 Homicidal Assessment: Do you have thoughts of harming others: None Do you have a plan to hurt others: No Plan Do you have the means to hurt others: No Nutrition Assessment: Recently lost weight without trying: No Patient : No Occupation Assessmet: service: No Current occupational status: retired Current occupational exposures/hazards: No Oncology Screenings - ECOG Performance Status ECOG Performance Status: 0 Home Medications and Allergies Home Medications ?Medication ?Instructions ?Recorded ?Confirmed ?Type atorvastatin 80 mg tablet 80 mg PO DAILY 08/21/20 02/21/24 History blood sugar diagnostic #10 ea 08/21/20 02/21/24 History blood-glucose meter #1 ea 08/21/20 02/21/24 History insulin lispro 100 unit/mL 100 unit subcut DAILY 08/21/20 02/21/24 History subcutaneous pen pen needle, diabetic 31 gauge x #50 ea 08/21/20 02/21/24 History /16 insulin aspart U-100 100 unit/mL 3 unit subcut DAILY 11/19/22 02/21/24 History (3 mL) subcutaneous pen (Novolog FlexPen U-100 Insulin aspart) lancets 30 gauge (OneTouch Delica #100 ea 11/19/22 02/21/24 History Plus Lancet) Allergies Allergy/AdvReac Type Severity Reaction Status Date / Time No Known Allergies Allergy Verified 02/21/24 11:06 Exam Vital signs: Vital Signs Temp 96.4 F L 03/03/23 08:36 Pulse 83 02/07/24 10:44 Resp 14 12/16/22 08:53 BP 95/53 L 02/07/24 10:44 Pulse Ox 94 04/04/23 13:04 O2 Del Method Room Air 02/07/24 10:44 Weight 71.1 kg BMI result Body Mass Index 28.7 - Constitutional Present: mild distress - Routine HEENT Exam Head: Present: normal inspection Eye: Present: normal appearance ENT: Present: mucous membranes moist - Routine Neck Exam Present: full ROM - Routine Respiratory Exam Present: decreased breath sounds - Routine Cardiovascular Exam Cardiovascular: Present: RRR, S1, S2 - Routine Abdominal Exam Present: normal bowel sounds, nontender - Routine Rectal Exam Patient deferred: digital exam - Routine Extremities Exam Present: nontender - Routine Back/Spine/Pelvis Exam Back/Spine: Present: full ROM - Routine Skin Exam Present: intact - Routine Neurological Exam Present: alert, oriented X3, normal speech - Detailed Neurological Exam: Coma Scale Eye Opening: Spontaneous (4) - Routine Psychiatric Exam Present: normal affect Data - Labs CBC & Chem 7: 02/21/24 11:01 02/21/24 11:01 Assessment and Plan Patient Active problem list reviewed?: Yes (1) Pulmonary nodule Problem details: (1.8cm nodule in lingula noted on 10/12/[address]) Status: A cute Assessment and plan: This is a pleasant 77-year-old lady with a history of 56 pack years of smoking. CT scan of the chest was ordered which was done on 10/12 and revealed: 1. Centrilobular emphysema with multiple pulmonary nodules. The largest nodule measures 1.8 cm in the lingula. 2. Small to moderate size lymph nodes seen in the mediastinum and bilateral hilar regions question metastatic 3. Moderate coronary artery calcifications. 4. Cholecystectomy changes. Concern is underlying lung cancer, given the history of smoking. LDH is 528, makes me wonder if she has small cell of the lung. I proceeded with further staging workup. l checked a PET scan. She had a PET scan on 12/14: 1. A solid nodule in the lingula shows only weak FDG activity, suggesting a benign etiology. However because approximately 10% of pulmonary malignancies demonstrate no abnormal FDG activity, if biopsy of this nodule is not obtained, followup with diagnostic chest CT scan in 6 months is recommended. 2. Several additional small subcentimeter pulmonary nodules are present, unchanged from 10/12/2022 and all too small to be characterized on the FDG PET images. Follow-up of these with diagnostic CT imaging also an approximately 6 months is recommended. 3. A 6.1 cm left adnexal cyst is present. This shows fluid density and is markedly FDG photopenic and probably benign. However, further characterization of this with pelvic ultrasonography is recommended. This was not present on the 12/08/2018 CT scan. 4. A hyperdense 2.4 cm right adnexal lesion shows no abnormal FDG activity and is not significantly changed from 12/08/2018. This is likely benign but could also be further characterized with pelvic ultrasound. 5. No additional abnormalities suspicious for metastatic or other malignant lesions are noted. 6. Postsurgical changes in the abdomen are noted. 7. Diffuse vascular calcifications including coronary are noted. There are also prominent calcifications of the aortic valve. She was given 3 options by : 1. Continued observation which I do not necessarily recommend versus 2. Navigational bronchoscopy with biopsy versus 3. Davinci left upper lobe wedge possible segmentectomy/lobectomy. We discussed the risks and benefits each of these options in some detail. She discussed this with her family and friends, and decided to proceed with left Upper lobe wedge resection. She had a PET scan done on 12/14/2022 which showed: Minimal PET uptake in the nodule itself SUV of 2.1 but no increased uptake elsewhere in the chest or outside of the chest. She had pulmonary function testing done on 11/30/2022 which shows an FEV1 of 91% of predicted and a DLCO VA of 55% of predicted. Of note she does have a history of multiple coronary stents and will be seen by Dr. Tinoco from Cardiology on 01/25, for preop clearance. She underwent surgery on 02/[address] Guevara at [facility]. She had resection and segmentectomy via the DA Mary Carmen approach. Pathology: Left upper lobe of the lung: Size: 1.4 x 0.9 x 0.6 cm. Invasive adenocarcinoma. Micropapillary and solid type. JANEY: Present. Visceral pleural invasion: Present. Lymphovascular invasion: Present. Margin: All margins negative for invasive carcinoma. Closest margin about 1.3 cm. Lymph node status: Negative. TNM category:pT2a. PN 0. TTF 1: Express by neoplastic cells. Biomarker studies: Pending. Lingular/left upper lobe segmentectomy: Size: 1.8 x 0.9 10.6 cm. Invasive adenocarcinoma. Mucinous features. JANEY: Not identified. Visceral pleural invasion: Not identified. LVI: Not identified. Margins all negative. Closest margin: 6.2 cm. Lymph nodes: Negative. Stage:pT1b. According to the literature adjuvant chemotherapy may improve survival in patients with pathologic stage I non-small cell lung carcinoma who have factors associated with high risk of recurrence, pathologic stage T2 a or lymphovascular invasion. I discussed the option of adjuvant chemotherapy. At that point she did not wish to undergo adjuvant systemic chemotherapy especially at her age with her comorbidities, she would be at high risk of treatment related toxicity. Biomarker studies: PDL-1: Positive 60%. ROS: Negative. EGFR: Negative. ALK: negative. KRAS: Positive: c34G>T(p.G12C) Recent CT scan had revealed: Pulmonary nodule and New mediastinal adenopathy. She had EBUS done on 01/[address] Willis. Left upper lobe bronchial washings: No malignant cells identified. Lymph node: Right paratracheal: Metastatic adenocarcinoma. Lymph node: subcarinal: Metastatic adenocarcinoma. Lymph node: left paratracheal: Metastatic adenocarcinoma. Similar to left upper lobe pulmonary adenocarcinoma. Positive for TTF 1. Molecular testing pending on the right paratracheal lymph node. PET scan from 02/06/2024 revealed increased uptake in all of these same lymph nodes as well as left hilar and infrahilar oral, cervical and supraclavicular lymph. There is no distended uptake. She now has stage IIIB likely without evidence of distant disease. In general treatment would be with combined modality therapy with chemotherapy and radiation, possibly additional immunotherapy. l will wait for the molecular testing to be completed. PLAN: She has an appointment with [facility] for 02/28, with Dr. Singh. She is a candidate for Carbo/Alimta (carboplatin AUC of 5 and Alimta 500 mg per m2 IV day 1, every 3 weeks for 3 cycles with concurrent RT at a dose of 2 Gy per day administered 5 days a week for a total of 64-68 Gy.) Then consolidation Alimta 500 mg per m2 every 3 weeks for 3 cycles after RT completion. She received the B12 injection today, and started folic acid 1 mg daily. She will return in a couple of weeks for chemo teaching. All her questions were answered to her satisfaction. Thank you, Cc: . Dr. Willis. (2) Anemia Status: Acute Assessment and plan: 79 year old lady with NC/NC Anemia. IRON STUDIES: 254/279/91/232. C/W Anemia of Chronic Disease. Elevated Iron Saturation, concerning for Hemochromatosis. I checked DNA Level. It revealed: Heterozygous for H63D. CBC from 01/31/2024 revealed: WBC 11.4, HGB 10.1, HCT 30.3, MCV 118, PLT 303. CMP: Lytes WNL, glucose 94, BUN 20, DEPUTY BAILIFF 0.87. LFTs: 3.1/134/21/14. TSH 1.48. F T4 1.19. Peripheral smear: Red cell agglutination is present. Admixed echinocytes, acanthocytes and red cell fragments are also seen. 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 PLAN: I will proceed with hemolytic screen: Retic: 4.6, LDH: 421. Check type and screen: A +. Coomb's Test: Braulio positive for C3. Check cold agglutinins. Check mycoplasma titer. Check SIEP. It appears that patient had pneumonia. Could have been mycoplasma, that led to cold agglutinin hemolysis. She was given antibiotics. She appears to be recovering. Will continue to monitor her blood count. Thanks, CC: . (3) Adnexal mass Status: Acute Assessment and plan: 88 year old lady. She had an ultrasound of the pelvis on 12/17, which revealed: Bilateral adnexal cysts. Minimally complex right ovarian cyst similar in size to previous CT scans from 2017 and 2019. Minimally complex 5 x 6 cm left adnexal cyst new or increased in size from previous exams. RADAR TECHNICIAN consultation recommended. She saw Dr. Santana from [facility] at [facility]. They wanted to proceed with MRI of the pelvis however they deferred it till after her lung surgery. Pelvic MRI from 04/19/23: * The left ovary is remarkable for a 7.2 cm unilocular ovarian cyst demonstrating greater than 10% increase in diameter, a probable enlarging low- grade cystic neoplasm. Recommend gynecologic consult with follow-up imaging if clinically warranted. * The right ovary is markable for a 2 cm intrinsically T1 hyperintense lesion with a T2 hypointense shading sign suggestive of an endometrioma, for which annual follow-up ultrasound is recommended. * There is some T1 intrinsically hyperintense signal within the endometrial canal, recommend correlation with symptoms of postmenopausal bleeding. Endometrium is otherwise uniformly thin measuring 0.1 cm in thickness. Pelvic/transvaginal ultrasound from 11/07: 1. Small uterine fibroid. Not seen previously. 2. Bilateral ovarian cysts with internal echoes. The left ovarian cyst has slightly increased in size. 3. There is no free fluid in the cul-de-sac. Abdominal ultrasound from 11/07 revealed: Status post distal pancreatectomy, splenectomy, cholecystectomy. Otherwise unremarkable abdominal ultrasound. l forwarded to Dr. Santana. PLAN: She has elected to monitor her. . - Time Spent With Patient Time Spent with Patient (in minutes): 25
[2024-02-21 11:03] LABS: MANUAL DIFF FLAG NO
[2024-02-21 11:07] VITALS: BP 114/56; PULSE 69; O2SAT 90; BMI 25.6
[2024-02-21 11:21] LABS: Basophils Absolute Auto 0.1 X10*3/uL (0.0-0.2); Basophils Percent Auto 1.4 % (0-2); Eosinophils Absolute Auto 0.3 X10*3/uL (0.0-0.4); Eosinophils Percent Auto 2.9 % (0-4); Hematocrit 34.9 % (37.0-47.0); Hemoglobin 11.3 g/dl (12.0-16.0); Imm Gran Abs Auto 0.03 X10*3/uL (0.00-0.03); Imm Gran Pct Auto 0.4 % (0.0-0.4); Lymphocytes Absolute Auto 1.4 X10*3/uL (1.2-4.9); Lymphocytes Percent Auto 16.6 % (20-40); Mean Corpuscular HGB Conc 32.4 g/dl (31.0-35.0); Mean Corpuscular Hemoglobin 36.3 pg (27.0-33.0); Mean Platelet Volume 11.8 fL (9.4-12.3); Monocytes Absolute Auto 0.8 X10*3/uL (0.1-1.2); Monocytes Percent Auto 9.3 % (2-11); Neutrophils Absolute Auto 5.9 x10*3/uL (2.0-8.3); Neutrophils Percent Auto 69.4 % (45-73); Platelet Count 365 X10*3/uL (160-400); Red Blood Count 3.11 X10*6/uL (4.20-5.50); Red Cell Distribution Width 14.9 % (11.0-16.0); White Blood Count 8.5 X10*3/uL (4.8-10.8)
[2024-02-21] MEDS: Cyanocobalamin (Vitamin B-12) 1,000 MCG/ML VIAL 1000 MCG IM (11:32)
[2024-02-21 11:35] LABS: Mean Corpuscular Volume 112.2 fL (80.0-98.0)
[2024-02-21 11:37] LABS: Alanine Aminotransferase 14 U/L (0-31); Albumin Level 3.8 g/dL (3.5-5.0); Alkaline Phosphatase 160 U/L (39-117); Anion Gap 13 (12-20); Aspartate Amino Transferase 21 U/L (5-31); Bilirubin Total 2.8 mg/dL (0.0-1.0); Blood Urea Nitrogen 23 mg/dL (9-16); Calcium 9.2 mg/dL (8.4-10.2); Carbon Dioxide 25 mmol/L (22-29); Chloride 105 mmol/L (96-108); Creatinine Clr Calc Pharmacy 44.6; Estimated Glomerular Filt Rate 60; Glucose Random 183 mg/dL (60-115); Potassium 4.9 mmol/L (3.3-5.1); Sodium 138 mmol/L (135-145); Total Protein 7.1 g/dL (6.5-8.0)
--- NOTE | 2024-02-21 11:46 | MHC.HEMONC ---
Pt here for provider visit. Vitamin B-12 injection IM given in left arm-tolerated well. No edema or redness at site after injection. Pt scheduled for chemo teach on March 05 2024 at 1400-Pemetrexed and Carboplatin. Educational booklet given. Awaiting radiation appointment schedule.
--- NOTE | 2024-02-21 14:28 | MHC.HEMONC ---
2pm-called pt. because of the needle stick exposure that occurred with the phlebotomy staff at 11am. Pt is a hard stick, and while the animal assistant was pulling out the butterfly needle, needle did contract and stuck the animal assistant's middle finger. The phlebotomy washed the exposed area,notified me and the supervisor mattress and boxsprings. Lab staff then went to work connection for an evaluation. Pt was aware/notified of incident, and she will return for needle stick exposure panel labs tomorrow.
[2024-02-22 08:28] LABS: HBS Num1 0.38 mIU/mL (0-7.99); HBc Num1 0.07 S/CO (0.00-0.79); HBsAGNum1 0.23 S/CO (0.00-0.99); HIV AB/AG Nonreactive (Nonreactive); HIV Num 1 0.05 S/CO (0.00-0.99); Hepatitis B Core Antibody Nonreactive (Nonreactive); Hepatitis B Surface Antigen Negative (Negative); ~HepC Num1 0.08 S/CO (0.00-0.79); ~Hepatitis B Surface Antibody NONREACTIVE (Nonreactive); ~Hepatitis C Antibody Nonreactive (Nonreactive)
--- NOTE | 2024-02-27 15:22 | MHC.HEMONC ---
Triage call-received call from pt requesting we fax list of her medications to Dr Charlene Singh RAd/ONC at -med list faxed as requested
--- NOTE | 2024-03-05 08:56 | MHC.HEMONC ---
Pt called me with c/o coughing all weekend . She was coughing steadily during our conversation but was able to stop to speak with me. She does not have a fever. O2 sat is 92% but she has a bad productive cough and thinks it's pneumonia . She does not want to come to ER and asked if she could have an outpatient xray. I spoke to Dr Berger who ordered one. She was advised to come in for it and we will call her with report and advise on chemo teach which was scheduled for this afternoon.
--- NOTE | 2024-03-06 08:42 | HO.HEMONCPA ---
Addendum entered by Nathalie Manriquez 03/07/24 13:24: PA APPROVED FOR PEMBROLIZUMAB/KEYTRUDA [id number] AUTH # [id number] DOS 03/08/24 - 03/07/25 FOR 16 VISITS Addendum entered by Nathalie Manriquez 03/06/24 11:00: MAY CHANGE PLAN TO PEMBROLIZUMAB/KEYTRUDA [id number] PA PENDING AWAITING DECISION FROM [facility] Original Note: NO PA REQUIRED FOR PEMETREXED J9305 OR CARBOPLATIN J9045 PER [facility] WEBSITE Select Drugs: Medications That Do NOT Require Prior Authorization HCPCS Code Generic Name Brand Name Pharmacological Class J9305 Pemetrexed, NOS Alimta Antineoplastic and antimetabolite agent J9045 Carboplatin Paraplatin Antineoplastic agent and alkylating agent
--- NOTE | 2024-03-06 09:53 | PM.EVENT ---
79-year-old lady, she called yesterday with complaints of productive cough. Chest x-ray from 03/05 revealed: 1. Redemonstrated diffuse interstitial lung markings. 2. Blunting of left costophrenic recess may reflect small pleural effusion versus scarring. 3. Surgical material in the left mid and upper lung field. Patient has been on Bactrim this week, for a UTI, prescribed by her primary. DATABASE: PET scan from 02/06/2024 revealed: FDG activity along the medial aspect of the suture line extending into the left hilar and infrahilar region, suspicious for recurrent/residual neoplasm with metastatic disease. FDG avid left cervical level 5 LN with SUV of 4.5, right and left supraclavicular node with SUV of 5.6 and 5.1. Multiple Mediastinal lymph nodes: right paratracheal, left paratracheal, subcarinal, left prevascular and pericardial. Right zahraa-parotid adenopathy with SUV of 3.1. Non specific focal FDG activity within left thyroid nodule. Correlation with thyroid ultrasound may be helpful. 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 Molecular testing: PDL1: TPS score: 100%. Intensity: 2+. Alk: Negative. EGFR: Negative. KRAS/LIZA: SNVs/Indels: KRAS G12C: No alterations detected in BRAF, HRAS , NRAS. In view of the above updates, with high PD-L1 score, will elect to treat with pembrolizumab. Will start her on it as soon as prior authorization has been obtained. Thank you,
--- NOTE | 2024-03-06 10:01 | MHC.HEMONC ---
I called [facility] per request of Dr Berger. I spoke with Tanya and she was able to fax me the path report including molecular studies. Dr Berger to order chemo plan.
[2024-03-08 14:18] LABS: Hematocrit 29.5 % (37.0-47.0); Hemoglobin 9.8 g/dl (12.0-16.0); Mean Corpuscular HGB Conc 33.2 g/dl (31.0-35.0); Mean Platelet Volume 11.4 fL (9.4-12.3); NRBC Pct Auto 0.2 /100WBC (0.0-0.2); Platelet Count 333 X10*3/uL (160-400); Red Blood Count 2.65 X10*6/uL (4.20-5.50); Red Cell Distribution Width 14.7 % (11.0-16.0)
[2024-03-08 14:19] LABS: Mean Corpuscular Volume 111.3 fL (80.0-98.0); WBC ABN SCTR FOR CBC 1; White Blood Count 10.6 X10*3/uL (4.8-10.8)
[2024-03-08 14:33] LABS: Alanine Aminotransferase 10 U/L (0-31); Albumin Level 3.3 g/dL (3.5-5.0); Alkaline Phosphatase 133 U/L (39-117); Anion Gap 12 (12-20); Aspartate Amino Transferase 14 U/L (5-31); Bilirubin Total 1.6 mg/dL (0.0-1.0); Blood Urea Nitrogen 18 mg/dL (9-16); Calcium 8.5 mg/dL (8.4-10.2); Carbon Dioxide 24 mmol/L (22-29); Chloride 105 mmol/L (96-108); Creatinine Clr Calc Pharmacy 39.8; Estimated Glomerular Filt Rate 52; Glucose Random 227 mg/dL (60-115); Potassium 3.9 mmol/L (3.3-5.1); Sodium 137 mmol/L (135-145)
[2024-03-08 14:48] LABS: Thyroid Stimulating Hormone 1.14 uIU/mL (0.32-4.0)
[2024-03-08 14:52] LABS: Band Neutrophils Percent 0 % (3-5); Basophils Abs Manual 0.1 X10*3/uL (0.0-0.2); Basophils Percent Manual 1 % (0-2); Eosinophils Absolute Manual 0.4 X10*3/uL (0.0-0.4); Eosinophils Percent Manual 4 % (0-4); Lymphocytes Percent Manual 9 % (20-40); Monocytes Absolute Manual 0.7 X10*3/uL (0.1-1.2); Monocytes Percent Manual 7 % (2-11); Neutrophils Absolute Manual 8.4 X10*3/uL (2.0-8.3); Neutrophils Percent Manual 79 % (45-73)
[2024-03-08 14:55] LABS: Macrocytosis 1+ (5-14) /OIF; Microcytosis 1+ (5-14) /OIF; RBC Morphology NOTED; Schistocytes 2+ (3-5) /OIF
[2024-03-08 14:56] LABS: Burr Cells 1+ (0-2) /OIF; Platelet Estimate NORMAL (NORMAL); Platelet Morphology Comment NORMAL; Polychromasia 1+ (0-2) /OIF
--- NOTE | 2024-03-08 15:51 | MHC.HEMONC ---
Pt here for chemo teach and lab draw. Chemo teach on Pembrolizumab given, treatment plan reviewed. Educational literature on Pembrolizumab given with chemo side effect booklet. Discussed possible side effects, need for pre chemo labs, when to call the doctor, post chemo emetics ordered. All questions answered to patients satisfaction. Chemotherapy consent obtained. Pre chemo labs drawn by gun perforator loader-specimen to lab. Dr Berger in room to discuss recent MRI. Orientated to unit. Calendar given with next appointments scheduled
[2024-03-09 08:08] LABS: HBS Num1 0.55 mIU/mL (0-7.99); HBc Num1 0.08 S/CO (0.00-0.79); HBsAGNum1 0.35 S/CO (0.00-0.99); Hepatitis B Core Antibody Nonreactive (Nonreactive); Hepatitis B Surface Antigen Negative (Negative); ~Hepatitis B Surface Antibody NONREACTIVE (Nonreactive)
--- NOTE | 2024-03-09 09:08 | MHC.HEMONC ---
Triage call-pt called stating the tramadol for pain helped her so much last night. States the Hycodan cough medicine is not available at her pharmacy. Dr Berger notified. Codeine cough syrup ordered-pt called and notified
--- NOTE | 2024-03-13 13:46 | MHC.HEMONC ---
[facility] called asking to change the robitussin with codeine to 10mg/100ml because they did not have the 7.5/225ml. Note given to Dr Berger.
[2024-03-29 13:41] VITALS: BP 120/55; PULSE 84; RESP 18; TEMP 36.6; O2SAT 92; BMI 26.0
[2024-03-29 13:43] LABS: Hematocrit 30.1 % (37.0-47.0); Hemoglobin 9.8 g/dl (12.0-16.0); Mean Corpuscular HGB Conc 32.6 g/dl (31.0-35.0); Mean Corpuscular Volume 104.5 fL (80.0-98.0); Mean Platelet Volume 12.6 fL (9.4-12.3); Platelet Count 327 X10*3/uL (160-400); Red Blood Count 2.88 X10*6/uL (4.20-5.50)
[2024-03-29 13:46] LABS: WBC ABN SCTR FOR CBC 1
[2024-03-29 14:06] LABS: Alanine Aminotransferase 14 U/L (0-31); Albumin Level 3.1 g/dL (3.5-5.0); Alkaline Phosphatase 158 U/L (39-117); Anion Gap 15 (12-20); Aspartate Amino Transferase 16 U/L (5-31); Bilirubin Total 1.8 mg/dL (0.0-1.0); Blood Urea Nitrogen 15 mg/dL (9-16); Calcium 9.3 mg/dL (8.4-10.2); Carbon Dioxide 33 mmol/L (22-29); Chloride 94 mmol/L (96-108); Creatinine Clr Calc Pharmacy 53.7; Estimated Glomerular Filt Rate > 60; Glucose Random 104 mg/dL (60-115); Potassium 3.5 mmol/L (3.3-5.1); Sodium 138 mmol/L (135-145); Total Protein 5.9 g/dL (6.5-8.0)
[2024-03-29 14:08] LABS: Band Neutrophils Percent 1 % (3-5); Basophils Percent Manual 1 % (0-2); Lymphocytes Percent Manual 6 % (20-40); Monocytes Percent Manual 10 % (2-11); Neutrophils Percent Manual 82 % (45-73)
[2024-03-29 14:11] LABS: Macrocytosis 1+ (5-14) /OIF; RBC Morphology NOTED
[2024-03-29 14:13] LABS: Burr Cells 1+ (0-2) /OIF; Large Platelet PRESENT; Platelet Estimate NORMAL (NORMAL); Platelet Morphology Comment NOTED; Polychromasia 1+ (0-2) /OIF; Schistocytes 1+ (0-2) /OIF; Toxic Vacuolation PRESENT
[2024-03-29 14:15] LABS: Basophils Abs Manual 0.2 X10*3/uL (0.0-0.2); Monocytes Absolute Manual 1.6 X10*3/uL (0.1-1.2); Neutrophils Absolute Manual 13.6 X10*3/uL (2.0-8.3); White Blood Count 16.4 X10*3/uL (4.8-10.8)
[2024-03-29 14:22] LABS: Thyroid Stimulating Hormone 1.26 uIU/mL (0.32-4.0)
[2024-03-29] MEDS: diphenhydrAMINE HCL 50 MG/ML VIAL 25 MG IVPUSH (14:32)
[2024-03-29] MEDS: Ondansetron ODT 8 MG TAB.RAPDIS TRANSLINGU (14:32)
[2024-03-29] MEDS: Acetaminophen 325 MG TABLET 650 MG PO (14:32)
--- NOTE | 2024-03-29 15:05 | MHC.HEMONC ---
LATE ENTRY FOR 03/27/24 - Pt's dtr, Pavithra leblanc, said she was very concerned because she said a visiting nurse had been talking to her about the pt in terms of comfort measures , but she wants to make sure that we are giving 100% taking care of her mom. Nurse assured her that her mom will be well taken care of. Dtr also asked about a rumor she heard that taking oral antibiotics would interfere with Keytruda, but nurse said he was unaware, but would pass the concerns on to Dr. Berger.
--- NOTE | 2024-03-29 16:39 | MHC.HEMONC ---
C1D1: PEMBROLIZUMAB- Patient recently discharged from hospital. Labs obtained peripherally and reviewed. #24angio inserted to left wrist with positive blood return. Patient states she has not had a bowel movement in 1 week. Patient also reports lower extremity swelling. Patient did follow up with Dr. Mcnally PCP who did address these concerns on 03/26. Dr. Mcnally did order Miralax and Dulcolax and increased Lasix to 60mg daily x2 days then to resume to Lasix 40mg PO daily. Encouraged patient to elevate legs as tolerated. Also recommended to drink Prune juice if possible. Dr. Berger aware of patient's concerns. MD recommends to continue with Dr. Mcnally orders. Pre-medicated with Tylenol 650mg PO, Zofran 8mg IV, and Benadryl 25mg IV. Pembro infused and well tolerated. Patient is drowsy but easily arousable after Benadryl. IV removed- catheter intact. Friend Floresita will be driving patient home and will stay with patient this evening. Patient departed unit via wheelchair - accompanied by Floresita. Discharge packet provided. TeleVisit with Dr. Berger scheduled for 03/30.
[2024-03-30 05:16] LABS: HBS Num1 0.41 mIU/mL (0-7.99); ~Hepatitis B Surface Antibody NONREACTIVE (Nonreactive)
[2024-03-30 05:17] LABS: HBc Num1 0.12 S/CO (0.00-0.79); HBsAGNum1 0.36 S/CO (0.00-0.99); Hepatitis B Core Antibody Nonreactive (Nonreactive); Hepatitis B Surface Antigen Negative (Negative)
--- NOTE | 2024-03-30 13:55 | P.PNHO-ONC_ITS ---
[facility] Telehealth - Telehealth Location of Provider rendering services: [facility]on[facility] office. Location of Patient: Home. Patient Identification confirmed using: Name, : Yes Telehealth Method: Via telephone Patient verbally consented to treatment: Yes Patient verbally consented to billing insurance company: Yes Patient informed of any privacy concerns related to visit: Yes Primary Care Provider: Kenji Mcnally MD Medical Summary - Medical Summary Primary Care Provider: Kenji Mcnally MD Medical Summary: DIAGNOSIS: 1.8 MM LINGULAR LUNG NODULE. MEDIASTINAL ADENOPATHY. CURRENT THERAPY: 02/02, Status post which resection and segmentectomy via the DA Mary Carmen approach. Pathology: Left upper lobe of the lung: Size: 1.4 x 0.9 x 0.6 cm. Invasive adenocarcinoma. Micropapillary and solid type. JANEY: Present. Visceral pleural invasion: Present. Lymphovascular invasion: Present. Margin: All margins negative for invasive carcinoma. Closest margin about 1.3 cm. Lymph node status: Negative. TNM category:pT2a. PN 0. TTF 1: Express by neoplastic cells. Biomarker studies: Pending. Lingular/left upper lobe segmentectomy: Size: 1.8 x 0.9 10.6 cm. Invasive adenocarcinoma. Mucinous features. STA S: Not identified. Visceral pleural invasion: Not identified. LVI: Not identified. Margins all negative. Closest margin: 6.2 cm. Lymph nodes: Negative. Stage:pT1b. On imaging. She was noted to have pulmonary nodule and new mediastinal adenopathy. EBUS on 01/26/2024. Left upper lobe bronchial washings: No malignant cells identified. Lymph node: Right paratracheal: Metastatic adenocarcinoma. Lymph node: subcarinal: Metastatic adenocarcinoma. Lymph node: left paratracheal: Metastatic adenocarcinoma. Similar to left upper lobe pulmonary adenocarcinoma. Positive for TTF 1. Molecular testing pending on the right paratracheal lymph node. Interval History Interval history: Bhupendra Morgan is a 79 year old lady with whom a tele visit was held. She received her 1st cycle of pembrolizumab yesterday. She tells me after the immunotherapy all her pain has gone away. She was tired yesterday and slept a lot. She still has some shortness of breath. She is on home oxygen. She still has a residual cough. Sometimes the sputum comes up, but then goes back down. No fever chills or night sweats. No headache no dizziness. She denies chest pain. She occasionally feels pain in her right upper quadrant area. Denies nausea vomiting nor diarrhea. Bowels are working without any gross blood in it. She had a colonoscopy several years ago by Dr. Acevedo. Appetite is good. She has gained some weight. No dysuria or hematuria. Denies any pelvic pain no discharge. She has aches and pains in her joints. Her legs are weak. She has reactive depression. She is rather sad on account of the demise of her . No skin rashes nor pruritus. She was in house between 03/15 and 03/23. Discharge summary: Acute hypoxic respiratory failure secondary to postobstructive pneumonia due to metastatic adenocarcinoma of left lung further complicated by acute on chronic diastolic CHF as CT chest showing small lyly effusion and large left sided mass w pneumonia with small bilateral effusions that were treated with IV antibiotics, Mucinex bid, IV Lasix , chest physiotherapy and Oxygen supplement that was weaned down as tolerated. she was evaluated by Pulmonology and thoracic surgeon with recommendations for medical management of the lung cancer with immuno\chemo therapy. She was seen by Oncologist dr Berger who recommended a follow up next week to start Pembrolizumab infusion next 1 pm. for the Lawb-fi-ahvrxrok left pleural effusion it was discussed with pulmonology and IR who thought it was not significant enough to warrant thoracentesis. Thoracic surgery rec to hold on Thoracentesis and treat medically after reveiwing CT scan as it is showing likely rapidly progressing cancer rather than worsening infection as no other signs of infection after being on antibiotics for almost a week. To finish 10 days total of dual antibiotics then keep her on Doxycycline for 2 weeks until she starts immunotherapy with a plan to follow with Oncology and PCP as outpatient. Evaluated for Home O2 and will be delivered as she needs 2-3L on rest and 6 with ambulation. Code status discussed with the patient and her HCP and they would like to discuss it and give an answer later. She tells me she is feeling better. INTERIM HISTORY: She underwent the Devinci VATS lingulaectomy and mediastinal lymphadenectomy on 02/02/23. After this she had a prolonged air leak but ultimately did rather well after removal of the chest tube about a week and a half later. She was found to have 2 separate primary lung cancers in the specimen and negative mediastinal and hilar lymph nodes. Recently she had developed worsening shor of breath and jaw pain. She had a catheterization on 06/23/2023 where a stent was placed successfully. She stayed in the hospital afterwards due to bilateral pleural effusions and hypoxia. 06/28/2023 she had a thoracentesis. CT scan on 06/24/2023 showed: Moderate left-sided and small right-sided pleural effusion, no recurrent nodules nor adenopathy. On 08/01/2023 CT scan showed a moderate left-sided effusion the site of her operation. Thoracentesis was done for 750 cc. Her breathing did improve. Recently she had shortness of breath and jaw pain after which she had a cardiac catheterization on December 21 but no stent was placed. She was recently treated with antibiotic for URI/pneumonia. Follow-up CT of the chest on 12/29/2023 showed postsurgical changes on the left and a small normal left effusion. There is increased mediastinal lymph nodes right paratracheal measuring 21 mm and subcarinal measuring 24 mm as well as fullness in the left hilum. She underwent EBUS on 01/26/2024 which showed positive lymph nodes consistent with her previous cancer in the right paratracheal, left paratracheal and subcarinal lymph nodes. There is adequate tissue for molecular testing which will be sent. PET scan from 02/06/2024 revealed increased uptake in all of these same lymph nodes as well as left hilar and infrahilar oral, cervical and supraclavicular lymph. There is no distended uptake. PRESENTING HISTORY: She was referred by Dr. Mcnally, on account of pulmonary nodules and mediastinal adenopathy. She had an exam by Dr. Mcnally, he heard some wheezing. CT scan of the chest was ordered which she was done on 10/12 and revealed: 1. Centrilobular emphysema with multiple pulmonary nodules. The largest nodule measures 1.8 cm in the lingula. 2. Small to moderate size lymph nodes seen in the mediastinum and bilateral hilar regions question metastatic 3. Moderate coronary artery calcifications. 4. Cholecystectomy changes. She had a PET scan done on 12/14/2022 which showed: Minimal PET uptake in the nodule itself SUV of 2.1 but no increased uptake elsewhere in the chest or outside of the chest. She had pulmonary function testing done on 11/30/2022 which shows an FEV1 of 91% of predicted and a DLCO VA of 55% of predicted. PAST MEDICAL HISTORY: 1. She does have a history of multiple coronary stents and will be seen by Dr. Tinoco from Cardiology on 01/25, for preop clearance. 2. She was diagnosed with hypothyroidism. She has been started on Levoxyl 0.25 mcg. She had a PET scan on 12/14: 1. A solid nodule in the lingula shows only weak FDG activity, suggesting a benign etiology. However because approximately 10% of pulmonary malignancies demonstrate no abnormal FDG activity, if biopsy of this nodule is not obtained, followup with diagnostic chest CT scan in 6 months is recommended. 2. Several additional small subcentimeter pulmonary nodules are present, unchanged from 10/12/2022 and all too small to be characterized on the FDG PET images. Follow-up of these with diagnostic CT imaging also an approximately 6 months is recommended. 3. A 6.1 cm left adnexal cyst is present. This shows fluid density and is markedly FDG photopenic and probably benign. However, further characterization of this with pelvic ultrasonography is recommended. This was not present on the 12/08/2018 CT scan. 4. A hyperdense 2.4 cm right adnexal lesion shows no abnormal FDG activity and is not significantly changed from 12/08/2018. This is likely benign but could also be further characterized with pelvic ultrasound. 5. No additional abnormalities suspicious for metastatic or other malignant lesions are noted. 6. Postsurgical changes in the abdomen are noted. 7. Diffuse vascular calcifications including coronary are noted. There are also prominent calcifications of the aortic valve. FAMILY HISTORY: Dad had bone cancer. Mom had colon cancer. This was discovered on autopsy. Daughter with lung cancer. She is a smoker. 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 She is . in July of heart attack. He was a patient here. She has 2 daughters 1 lives in [place], and the other lives in [place]. She started smoking in her 20s. She smoked less than a pack a day. She smoked off and on. Denies any alcohol. Review of Systems - Constitutional Reports system reviewed and no additional complaints, except as documented, Reports lack of energy, Reports weight loss - Eyes Reports system reviewed and no additional complaints, except as documented - ENT Reports system reviewed and no additional complaints, except as documented - Cardiovascular Reports system reviewed and no additional complaints, except as documented - Respiratory Reports no additional respiratory complaints - Gastrointestinal Reports system reviewed and no additional complaints, except as documented - Genitourinary Reports no additional female genitourinary complaints - Musculoskeletal Reports system reviewed and no additional complaints, except as documented - Integumentary/Breasts Skin/Breast: Reports no additional skin complaints - Neurologic Reports system reviewed and no additional complaints, except as documented, Reports weakness - Psychiatric Reports system reviewed and no additional complaints, except as documented - Endocrine Reports no additional endocrine complaints - Hematologic/Lymphatic Reports system reviewed and no additional complaints, except as documented - Allergic/Immunologic Reports system reviewed and no additional complaints, except as documented Oncology Screenings - ECOG Performance Status ECOG Performance Status: 2 Home Medications and Allergies Home Medications ?Medication ?Instructions ?Recorded ?Confirmed ?Type atorvastatin 80 mg tablet 80 mg PO BEDTIME 08/21/20 04/01/24 History blood sugar diagnostic #10 ea 08/21/20 03/30/24 History blood-glucose meter #1 ea 08/21/20 03/30/24 History pen needle, diabetic 31 gauge x #50 ea 08/21/20 03/30/24 History 3/16 insulin aspart U-100 100 unit/mL See Protocol subcut QIDACHS 11/19/22 04/01/24 History (3 mL) subcutaneous pen (Novolog FlexPen U-100 Insulin aspart) lancets 30 gauge (OneTouch Delica #100 ea 11/19/22 03/30/24 History Plus Lancet) ezetimibe 10 mg tablet 10 mg PO BEDTIME 03/15/24 04/01/24 History furosemide 20 mg tablet 20 mg PO BID@0900,1700 03/15/24 04/01/24 History insulin detemir U-100 100 unit/mL 16 unit subcut BEDTIME 03/15/24 04/01/24 History (3 mL) subcutaneous pen citalopram 10 mg tablet 10 mg PO DAILY PRN Anxiety 04/01/24 04/01/24 History guaifenesin 100 mg/5 mL oral liquid 200 mg PO Q4H PRN Congestion 04/01/24 04/01/24 History Allergies Allergy/AdvReac Type Severity Reaction Status Date / Time No Known Allergies Allergy Verified 03/31/24 18:41 Exam Vital signs: Vital Signs Temp 97.8 F 03/29/24 13:41 Pulse 84 03/29/24 13:41 Resp 18 03/29/24 13:41 BP 120/55 L 03/29/24 13:41 Pulse Ox 92 03/29/24 13:41 O2 Del Method Room Air 03/29/24 13:41 Intake & Output 03/29/24 03/30/24 03/30/24 18:59 06:59 18:59 Intake Total Balance Intake: Intake, IV Amount Pembrolizumab 200 mg In 0.9 % Sodium Chloride 50 ml @ 116 mls /hr IV ONCE CHRISTOS Rx#:[id number] Other: Weight 64.4 kg Weight in Grams 27042 Weight 64.4 kg BMI result Body Mass Index 26.0 - Constitutional Present: mild distress - Routine HEENT Exam Head: Present: normal inspection - Routine Neck Exam Present: full ROM - Routine Respiratory Exam Present: decreased breath sounds - Routine Cardiovascular Exam Cardiovascular: Present: RRR, S1, S2 - Routine Abdominal Exam Present: normal bowel sounds, nontender - Routine Rectal Exam Patient deferred: digital exam - Routine Extremities Exam Present: nontender - Routine Back/Spine/Pelvis Exam Back/Spine: Present: full ROM - Routine Skin Exam Present: intact - Routine Neurological Exam Present: alert, oriented X3, normal speech - Detailed Neurological Exam: Coma Scale Eye Opening: Spontaneous (4) - Routine Psychiatric Exam Present: normal affect Data - Labs CBC & Chem 7: 03/29/24 13:34 03/29/24 13:34 Assessment and Plan Patient Active problem list reviewed?: Yes (1) Pulmonary nodule Problem details: (1.8cm nodule in lingula noted on 10/12/[address]) Status: A cute Assessment and plan: This is a pleasant 79 year-old lady with a history of 56 pack [address] of smoking. CT scan of the chest was ordered which was done on 10/12 and revealed: 1. Centrilobular emphysema with multiple pulmonary nodules. The largest nodule measures 1.8 cm in the lingula. 2. Small to moderate size lymph nodes seen in the mediastinum and bilateral hilar regions question metastatic 3. Moderate coronary artery calcifications. 4. Cholecystectomy changes. Concern is underlying lung cancer, given the history of smoking. LDH is 528, makes me wonder if she has small cell of the lung. I proceeded with further staging workup. l checked a PET scan. She had a PET scan on 12/14: 1. A solid nodule in the lingula shows only weak FDG activity, suggesting a benign etiology. However because approximately 10% of pulmonary malignancies demonstrate no abnormal FDG activity, if biopsy of this nodule is not obtained, followup with diagnostic chest CT scan in 6 months is recommended. 2. Several additional small subcentimeter pulmonary nodules are present, unchanged from 10/12/2022 and all too small to be characterized on the FDG PET images. Follow-up of these with diagnostic CT imaging also an approximately 6 months is recommended. 3. A 6.1 cm left adnexal cyst is present. This shows fluid density and is markedly FDG photopenic and probably benign. However, further characterization of this with pelvic ultrasonography is recommended. This was not present on the 12/08/2018 CT scan. 4. A hyperdense 2.4 cm right adnexal lesion shows no abnormal FDG activity and is not significantly changed from 12/08/2018. This is likely benign but could also be further characterized with pelvic ultrasound. 5. No additional abnormalities suspicious for metastatic or other malignant lesions are noted. 6. Postsurgical changes in the abdomen are noted. 7. Diffuse vascular calcifications including coronary are noted. There are also prominent calcifications of the aortic valve. She was given 3 options by : 1. Continued observation which I do not necessarily recommend versus 2. Navigational bronchoscopy with biopsy versus 3. Davinci left upper lobe wedge possible segmentectomy/lobectomy. We discussed the risks and benefits each of these options in some detail. She discussed this with her family and friends, and decided to proceed with left Upper lobe wedge resection. She had a PET scan done on 12/14/2022 which showed: Minimal PET uptake in the nodule itself SUV of 2.1 but no increased uptake elsewhere in the chest or outside of the chest. She had pulmonary function testing done on 11/30/2022 which shows an FEV1 of 91% of predicted and a DLCO VA of 55% of predicted. Of note she does have a history of multiple coronary stents and will be seen by Dr. Tinoco from Cardiology on 01/25, for preop clearance. She underwent surgery on 02/[address] Guevara at [facility]. She had resection and segmentectomy via the DA Mary Carmen approach. Pathology: Left upper lobe of the lung: Size: 1.4 x 0.9 x 0.6 cm. Invasive adenocarcinoma. Micropapillary and solid type. JANEY: Present. Visceral pleural invasion: Present. Lymphovascular invasion: Present. Margin: All margins negative for invasive carcinoma. Closest margin about 1.3 cm. Lymph node status: Negative. TNM category:pT2a. PN 0. TTF 1: Express by neoplastic cells. Biomarker studies: Pending. Lingular/left upper lobe segmentectomy: Size: 1.8 x 0.9 10.6 cm. Invasive adenocarcinoma. Mucinous features. JANEY: Not identified. Visceral pleural invasion: Not identified. LVI: Not identified. Margins all negative. Closest margin: 6.2 cm. Lymph nodes: Negative. Stage:pT1b. According to the literature adjuvant chemotherapy may improve survival in patients with pathologic stage I non-small cell lung carcinoma who have factors associated with high risk of recurrence, pathologic stage T2 a or lymphovascular invasion. I discussed the option of adjuvant chemotherapy. At that point she did not wish to undergo adjuvant systemic chemotherapy especially at her age with her comorbidities, she would be at high risk of treatment related toxicity. Biomarker studies: PDL-1: Positive 60%. ROS: Negative. EGFR: Negative. ALK: negative. KRAS: Positive: c34G>T(p.G12C) Recent CT scan had revealed: Pulmonary nodule and New mediastinal adenopathy. She had EBUS done on 01/[address] Willis. Left upper lobe bronchial washings: No malignant cells identified. Lymph node: Right paratracheal: Metastatic adenocarcinoma. Lymph node: subcarinal: Metastatic adenocarcinoma. Lymph node: left paratracheal: Metastatic adenocarcinoma. Similar to left upper lobe pulmonary adenocarcinoma. Positive for TTF 1. PET scan from 02/06/2024 revealed increased uptake in all of these same lymph nodes as well as left hilar and infrahilar oral, cervical and supraclavicular lymph. There is no distant uptake. She has stage IV disease. In general treatment would be with immunotherapy, with Pembrolizumab. She was booked for treatment on however unfortunately she had to be admitted to the hospital. She was able to receive it yesterday. She tolerated it well and actually mentioned that her pain has resolved. PLAN: She will continue on the current regimen for as long as she can tolerate it and it works. Will re-image in 3 months time. She will return in 1 week for labs in 2 weeks for treatment and a follow-up visit All her questions were answered to her satisfaction. 25 minutes were spent with the tele-visit, review of labs, review of images and counselling the patient. Thank you, Cc: . Dr. Willis. (2) Anemia Status: Acute Assessment and plan: 79 year old lady with NC/NC Anemia. IRON STUDIES: 254/279/91/232. C/W Anemia of Chronic Disease. Elevated Iron Saturation, concerning for Hemochromatosis. I checked DNA Level. It revealed: Heterozygous for H63D. CBC from 01/31/2024 revealed: WBC 11.4, HGB 10.1, HCT 30.3, MCV 118, PLT 303. CMP: Lytes WNL, glucose 94, BUN 20, [employer]ER 0.87. LFTs: 3.1/134/21/14. TSH 1.48. F T4 1.19. Peripheral smear: Red cell agglutination is present. Admixed echinocytes, acanthocytes and red cell fragments are also seen. 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 I proceeded with hemolytic screen: Retic: 4.6, LDH: 421. Checked type and screen: A +. Coomb's Test: DELIO positive for C3. Checked cold agglutinins. Checked Mycoplasma titer.: IgM: WNL Checked SIEP: IgG kappa monoclonal spike. It appears that patient had pneumonia. Could have been mycoplasma, that led to cold agglutinin hemolysis. She was given antibiotics. She has recovered. Will continue to monitor her blood count. Thanks, CC: . (3) Adnexal mass Status: Acute Assessment and plan: 79 year old lady. She had an ultrasound of the pelvis on 12/17, which revealed: Bilateral adnexal cysts. Minimally complex right ovarian cyst similar in size to previous CT scans from 2017 and 2019. Minimally complex 5 x 6 cm left adnexal cyst new or increased in size from previous exams. JUICE SCALEMAN consultation recommended. She saw Dr. Santana from [facility]. They wanted to proceed with MRI of the pelvis however they deferred it till after her lung surgery. Pelvic MRI from 04/19/23: * The left ovary is remarkable for a 7.2 cm unilocular ovarian cyst demonstrating greater than 10% increase in diameter, a probable enlarging low- grade cystic neoplasm. Recommend gynecologic consult with follow-up imaging if clinically warranted. * The right ovary is markable for a 2 cm intrinsically T1 hyperintense lesion with a T2 hypointense shading sign suggestive of an endometrioma, for which annual follow-up ultrasound is recommended. * There is some T1 intrinsically hyperintense signal within the endometrial canal, recommend correlation with symptoms of postmenopausal bleeding. Endometrium is otherwise uniformly thin measuring 0.1 cm in thickness. Pelvic/transvaginal ultrasound from 11/07: 1. Small uterine fibroid. Not seen previously. 2. Bilateral ovarian cysts with internal echoes. The left ovarian cyst has slightly increased in size. 3. There is no free fluid in the cul-de-sac. Abdominal ultrasound from 11/07 revealed: Status post distal pancreatectomy, splenectomy, cholecystectomy. Otherwise unremarkable abdominal ultrasound. l forwarded to Dr. Santana. PLAN: She has elected to monitor her. . - Time Spent With Patient Time Spent with Patient (in minutes): 25
== END 2024-04-06 | disposition home or self-care (01) ==
LOC: HO.ONC 14:00
PROVIDERS: PCP Family Medicine; Visit Provider Internal Medicine Medical Oncology
DX: C34.12 Malignant neoplasm of upper lobe, left bronchus or lung (principal); C77.1 Secondary and unspecified malignant neoplasm of intrathoracic lymph nodes; D64.9 Anemia, unspecified; J43.2 Centrilobular emphysema; J18.9 Pneumonia, unspecified organism; F17.210 Nicotine dependence, cigarettes, uncomplicated
CPT/HCPCS: 36415; 80053; 81256; 82728; 82784; 83010; 83540; 83615; 83735; 84443; 85007; 85025; 85027; 85045; 86157; 86334; 86704; 86706; 86738; 86803; 86850; 86880; 86900; 86901; 86905; 87340; 87389; 96372; 96375; 96413; 99204; 99212; 99213; 99214; J1200; J3420; J9271

== ENCOUNTER 2024-03-31 18:35 | Inpatient (IN) | payer MEDICARE, SELFPAY ==
--- NOTE | ~2024-03-31 | XR_ITS ---
EXAMINATION: XR CHEST CLINICAL INFORMATION: Shortness of breath. COMPARISON: CT chest dated 03/31/2024. TECHNIQUE: Frontal view of the chest was obtained. FINDINGS: Near-complete opacification of the left lung, similar when compared to the prior examination. Right-sided pleural effusion with adjacent atelectasis versus infiltrates, unchanged. No new pneumothorax. Stable cardiomediastinal silhouette. Left upper abdominal surgical clips. XR/XR chest 1V IMPRESSION: 1. Near-complete opacification of the left lung, similar when compared to the prior examination. 2. Right-sided pleural effusion with adjacent atelectasis versus infiltrates, unchanged.
--- NOTE | ~2024-03-31 | CT_ITS ---
EXAMINATION: CT CHEST, ABDOMEN AND PELVIS WITHOUT CONTRAST CLINICAL INFORMATION: Lung cancer. Dyspnea. Question pneumonia. COMPARISON: Multiple priors, most recent CT chest dated 03/21/2024 and PET/CT dated 12/14/2022. TECHNIQUE: Contiguous axial thin section helical images of the chest, abdomen and pelvis were performed without IV contrast. The data set was reformatted in the coronal and sagittal planes and reviewed on an independent workstation. This CT examination was performed using dose optimization techniques as appropriate, variously including the following: *Automated exposure control. *Adjustment of mA and/or kV according to patient size (this includes techniques or standardized protocols for targeted exams where dose is matched to indication/reason for exam; i.e. extremities or head). *Use of iterative reconstruction technique. DLP: 855 mGy-cm FINDINGS: LUNGS: Redemonstration of a dense left lung airspace consolidation with associated calcifications and posterior left upper lobe ground-glass and patchy airspace opacities. Left upper lobe opacities have slightly progressed when compared to the prior examination. Right lung dependent atelectasis. PLEURA: Small bilateral pleural effusions, not significantly changed. No pneumothorax. MEDIASTINUM: Stable cardiomegaly. Trace pericardial effusion, unchanged. Mild dilatation of the ascending thoracic aorta, unchanged. Atherosclerotic calcifications are redemonstrated. Prominent superior mediastinal and hilar lymphadenopathy is redemonstrated. The largest lymph nodes in the pretracheal region measuring up to 3.5 x 2.7 cm, not significantly changed. Coronary artery calcifications are present. CHEST WALL/AXILLA: No lymphadenopathy. THYROID: Slightly atrophic and heterogeneous, unchanged. LIVER, GALLBLADDER, AND BILIARY TREE: Normal size, shape, and attenuation. No focal hepatic lesion. No intra or extrahepatic biliary ductal dilatation. Status post cholecystectomy. PANCREAS: The pancreatic body and tail appears surgically resected. No inflammatory change or ductal dilatation. SPLEEN: Surgically absent. ADRENAL GLANDS: Mild thickening of the adrenal glands, unchanged. No discrete nodule. KIDNEYS AND URETERS: Normal size, shape, and attenuation. No hydronephrosis, hydroureter, or calculi. No perinephric stranding. BLADDER: Unremarkable. GASTROINTESTINAL TRACT: Moderate stool burden. No bowel wall thickening or inflammatory change. No small or large bowel obstruction. Appendix not identified; however, no right lower quadrant inflammatory change to suggest acute appendicitis. PERITONEAL CAVITY: No intra-abdominal free air or free fluid. ABDOMINAL WALL: No significant abdominal wall hernia. LYMPH NODES: Mildly prominent retroperitoneal lymph nodes measuring up to 1.2 cm to the left of midline, increased when compared to the PET/CT dated 12/14/2022. VASCULAR: No abdominal aortic dilatation. Scattered atherosclerotic calcifications. The IVC is unremarkable. PELVIC VISCERA: Left adnexal cystic structure measuring up to 7.0 x 4.8 cm in greatest axial dimension (previously 7.2 x 5.3 cm). OSSEOUS STRUCTURES: No lytic or blastic osseous lesion. CT/CT abdomen pelvis wo IV con IMPRESSION: 1. Redemonstration of a dense left lung airspace consolidation with associated calcifications. Left upper lobe ground-glass and patchy airspace opacities, slightly progressed when compared to the prior examination. Small bilateral pleural effusions, not significantly changed. 2. Prominent superior mediastinal and hilar lymphadenopathy, not significantly changed. 3. Mildly prominent retroperitoneal lymph nodes measuring up to 1.2 cm to the left of midline, increased when compared to the PET/CT dated 12/14/2022. 4. Moderate stool burden. No small or large bowel obstruction. 5. Left adnexal cystic structure, similar when compared to the prior examination.
--- NOTE | ~2024-03-31 | XR_ITS ---
EXAMINATION: XR CHEST CLINICAL INFORMATION: Dyspnea. Low O2 saturation. COMPARISON: Most recent CT chest dated 03/21/2024. TECHNIQUE: Frontal view of the chest was obtained. FINDINGS: Small bilateral pleural effusions, similar when compared to the prior examination. Diffuse left lung airspace opacities appear slightly increased. Right basilar airspace opacities are unchanged. No pneumothorax. Stable cardiomediastinal silhouette. XR/XR chest 1V IMPRESSION: 1. Small bilateral pleural effusions, similar when compared to the prior examination. 2. Diffuse left lung airspace opacities, slightly increased. Stable right basilar airspace opacities.
--- NOTE | ~2024-03-31 | XR_ITS ---
EXAMINATION: XR ABDOMEN KUB CLINICAL INDICATION: Abdominal pain, constipation COMPARISON: CT from 03/31/2024 TECHNIQUE: AP view of the abdomen. FINDINGS: Large amount retained stool seen throughout the colon consistent with constipation. No evidence of small bowel obstruction. Surgical clips is seen within the upper abdomen. Atherosclerotic calcifications of the abdominal aorta and iliac arteries. XR/XR KUB IMPRESSION: Large amount of retained stool throughout the colon consistent with constipation.
[2024-03-31 18:39] VITALS: BP 133/61; PULSE 90; RESP 18; TEMP 36.6; O2SAT 78; BMI 23.5
--- NOTE | 2024-03-31 18:49 | ED_ITS ---
HPI - General Adult General Chief complaint: Dyspnea Stated complaint: diff breathing and constipation and abd pain Time Seen by Provider: 03/31/24 18:49 History of Present Illness ED Provider: Nayely TEMPLETON narrative: The patient is a 79-year-old female with multiple medical problems including coronary disease and congestive heart failure. She also has metastatic [id number] left lung cancer. She was recently hospitalized shortness of breath. She was hospitalized from March 15 through March 23. She was hospitalized for shortness of breath and may have had a postobstructive pneumonia. She was treated with antibiotics as well as IV furosemide. At discharge she was discharged on cefuroxime and doxycycline. Patient says that since returning home from the hospital 8 days ago she has not had a bowel movement. She says that she has had enemas and other attempts at using a bowel movement at home without success. Today she was feeling sided abdominal discomfort that was associated with difficulty having a stool and she was also feeling somewhat more short of breath. She had a friend drive her to the hospital. She has not had a fever. The patient is normally on 3 L of oxygen at home. She has noted increasing peripheral edema of her lower legs. Related Data Home Medications ?Medication ?Instructions ?Recorded ?Confirmed atorvastatin 80 mg tablet 80 mg PO BEDTIME 08/21/20 03/30/24 blood sugar diagnostic #10 ea 08/21/20 03/30/24 blood-glucose meter #1 ea 08/21/20 03/30/24 pen needle, diabetic 31 gauge x #50 ea 08/21/20 03/30/24 3/16 insulin aspart U-100 100 unit/mL 0 sliding scale dose subcut QIDACHS 11/19/22 03/30/24 (3 mL) subcutaneous pen (Novolog FlexPen U-100 Insulin aspart) lancets 30 gauge (OneTouch Delica #100 ea 11/19/22 03/30/24 Plus Lancet) ezetimibe 10 mg tablet 10 mg PO BEDTIME 03/15/24 03/30/24 fluticasone propionate 50 1 spray intranasal Q12H PRN 03/15/24 03/30/24 mcg/actuation nasal Congestion spray,suspension (Flonase Allergy Relief) furosemide 20 mg tablet 20 mg PO BID@0900,1700 03/15/24 03/30/24 insulin detemir U-100 100 unit/mL 16 unit subcut BEDTIME 03/15/24 03/30/24 (3 mL) subcutaneous pen Previous Rx's ?Medication ?Instructions ?Recorded aspirin 81 mg tablet,delayed 81 mg PO DAILY #90 tabs 09/21/23 release (Adult Aspirin Regimen) clopidogrel 75 mg tablet 75 mg PO DAILY #90 tabs 12/13/23 isosorbide mononitrate 30 mg 30 mg PO DAILY #90 tabs 12/27/23 tablet,extended release 24 hr compr.stocking,knee,long,large #12 ea 01/31/24 levothyroxine 25 mcg tablet 25 mcg PO DAILY 30 days #30 tabs 02/03/24 folic acid 1 mg tablet 1 mg PO DAILY #90 tabs 02/21/24 amiodarone 200 mg tablet 200 mg PO DAILY #30 tabs 03/08/24 carvedilol 6.25 mg tablet 6.25 mg PO BID 30 days #60 tabs 03/08/24 tramadol 50 mg tablet 50 mg PO Q8H PRN Breakthrough 03/08/24 Pain, Moderate #50 tabs codeine 10 mg-guaifenesin 100 mg/5 10 ml PO Q4-6H PRN Cough #300 mL 03/13/24 mL oral liquid (Guaifenesin AC) cefuroxime axetil 500 mg tablet 500 mg PO BID #6 tabs 03/23/24 doxycycline monohydrate 100 mg 100 mg PO BID #28 caps 03/23/24 capsule guaifenesin 100 mg/5 mL oral liquid 200 mg (10 mL) PO Q4H PRN 03/23/24 congestion #473 mL ondansetron 8 mg disintegrating 8 mg PO Q8H PRN Nausea And 03/23/24 tablet Vomiting #20 tabs walker #1 ea 03/23/24 bisacodyl 5 mg tablet,delayed 5 mg PO BEDTIME 2 days #2 tabs 03/27/24 release (Dulcolax (bisacodyl)) polyethylene glycol 3350 17 gram 17 g PO DAILY 14 days #14 ea 03/27/24 oral powder packet (Miralax) sennosides 8.6 mg tablet (Senokot) 8.6 mg PO BID #60 tabs 03/30/24 Allergies Allergy/AdvReac Type Severity Reaction Status Date / Time No Known Allergies Allergy Verified 03/31/24 18:41 Review of Systems 2 Review of Systems: Yes all other systems are reviewed and are negative [facility] Past Medical History Medical History 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 COPD (chronic obstructive pulmonary disease) SVT (supraventricular tachycardia) Tachycardia Dyslipidemia PAD (peripheral artery disease) Nicotine dependence, cigarettes, uncomplicated Tubular adenoma of colon Anemia Anxiety CAD (coronary artery disease) Essential hypertension Diabetes type 2, controlled Surgical History S/P cardiac catheterization History of lung surgery History of varicose vein stripping History of angioplasty History of heart artery stent History of carpal tunnel surgery of right wrist History of colonoscopy History of splenectomy History of partial pancreatectomy History of cholecystectomy History of appendectomy History of tonsillectomy Family History Family History Daughter Lung cancer Father Bone cancer Mother Colon cancer Social History Social History Household Members: None Housing: House Are you a primary managed care coordinator to a significant other at home: No Alcohol intake: never Comment: pt rings appropriately Patient Tobacco Use Status: Former Tobacco user Tobacco use type: Cigarette Years Smoked: 50 Smoked in Last 30 Days: No e-Cigarette/Vaping Use: Never Used Second Hand Smoke Exposure: No Use of substances other than those prescribed or required for medical reasons: No Advance Directives: Yes Advance Directives on File: Yes Advance Directives Date on File: 01/18/23 Do you have a plan to hurt others: No Plan service: No Current occupational status: retired Current occupational exposures/hazards: No Cognitive needs: No Hearing needs: No Vision needs: No Physical Exam ED Vital Signs: Vital Signs - 24 hr 03/31/24 18:39 03/31/24 19:22 03/31/24 20:23 Temperature 97.8 F Pulse Rate 90 86 91 Respiratory Rate 18 20 21 H Blood Pressure 133/61 Pulse Oximetry 78 L 98 Oxygen Delivery Method Nasal Cannula Oxymask Oxygen Flow Rate 3 03/31/24 21:41 03/31/24 21:42 Temperature 97.9 F Pulse Rate 92 Respiratory Rate 21 H Blood Pressure 123/61 Pulse Oximetry 88 L 91 L Oxygen Delivery Method Oxymask Oxymask Oxygen Flow Rate 2 3 BMI result Body Mass Index 23.5 Const Other: The patient is awake and alert. She was placed on an OxyMask because she was having low oxygen saturations on her usual nasal oxygen. She seemed reasonably comfortable on an OxyMask HENMT Other: Face was symmetrical. Mucous membranes moist. Airway clear Eyes Other: Pupils are round equal Resp Other: No gross increased work of breathing. There are coarse breath sounds on the left side Cardio Rate: regular rate Rhythm: regular rhythm Heart sounds: S1 normal heart sound present and S2 normal heart sound present GI Other: Abdomen is soft. There is some mild right lower quadrant tenderness. Skin Other: Skin is pale and dry Neuro Other: The patient is awake and alert. Cranial nerves are grossly intact. She moves her extremities symmetrically. She does not have any obvious focal neurological deficit. Extrem Other: 1 to 2+ edema both lower legs. Medications Administered Generic Name Dose Route Start Last Admin Trade Name Freq PRN Reason Stop Dose Admin Enoxaparin Sodium 40 mg 03/31/24 20:30 03/31/24 21:54 Enoxaparin Sodium 40 Mg/0.4 Ml Syringe SUBCUT 40 mg Q24H [facility] Administration Piperacillin Sod/Tazobactam 100 mls @ 200 mls/hr 03/31/24 20:30 03/31/24 22:47 Sod 4.5 gm/ Sodium Chloride IV Infused Q6H [facility] Infusion Insulin Human Lispro 0 unit 03/31/24 21:00 03/31/24 22:04 Insulin Lispro 100 Unit/Ml 3 Ml Vial SUBCUT 2 unit QIDACHS [facility] Administration Protocol Sodium Chloride 3 ml 04/01/24 00:00 04/01/24 00:06 0.9 % Sodium Chloride Flush 3 Ml Syringe IVFLUSH Not Given QSHIFT [facility] Discontinued Medications Generic Name Dose Route Start Last Admin Trade Name Freq PRN Reason Stop Dose Admin Bisacodyl 10 mg 03/31/24 20:25 03/31/24 21:53 Bisacodyl 5 Mg Tablet. PO 03/31/24 20:26 10 mg ONCE ONE Administration Albuterol Sulfate 2.5 mg/ 0 mg 03/31/24 19:59 03/31/24 20:23 Albuterol/Ipratropium 3 ml INHALE 03/31/24 20:00 5 dose ONCE ONE Administration Vancomycin HCl 1,500 mg/ 500 mls @ 333.333 mls/hr 03/31/24 21:44 04/01/24 00:25 Sodium Chloride IV 03/31/24 23:13 Infused ONCE ONE Infusion Lactulose 20 gm 03/31/24 22:45 03/31/24 22:57 Lactulose 20 Gm/30 Ml Solution PO 03/31/24 22:46 20 gm ONCE ONE Administration Methylprednisolone Sodium Succinate 40 mg 03/31/24 20:50 03/31/24 21:54 Methylprednisolone Sod Succ 40 Mg/Ml Vial IVPUSH 03/31/24 20:51 40 mg ONCE ONE Administration Medical Decision Making Medical Decision Making [facility] Narrative: The patient is a 79-year-old woman with a left-sided lung cancer also has a history of congestive heart failure presents with worsening shortness of breath and a oxygen requirement. She also feels she is constipated. She has not had a fever. The patient's oxygen saturations on her usual 3 L was quite low so she was placed on a additional supplemental oxygen. A chest x-ray shows significant abnormalities in the left lung field which are somewhat worse than her most recent chest x-ray. Has an elevated white count of 17.5. Blood cultures were obtained and she was started on antibiotics for a possible recurrent postobstructive pneumonia. Her lactic acid is 1.8. Given her new oxygen requirement she will be admitted to the hospitalist service for further care. She had complained of some abdominal pain that she attributed to constipation. She had a noncontrast CT scan of the abdomen and pelvis that does not show any definite acute pathology. Lab Data 03/31/24 19:16 03/31/24 19:16 Labs: Lab Results 03/31/24 03/31/24 03/31/24 Range/Units 19:12 19:16 19:17 WBC 17.5 H (4.8-10.8) X10*3/uL RBC 2.91 L (4.20-5.50) X10*6/uL Hgb 10.0 L (12.0-16.0) g/dl Hct 30.3 L (37.0-47.0) % MCV 104.1 H (80.0-98.0) fL MCH 34.4 H (27.0-33.0) pg MCHC 33.0 (31.0-35.0) g/dl RDW 15.3 (11.0-16.0) % Plt Count 333 (160-400) X10*3/uL MPV 12.8 H (9.4-12.3) fL Immature Gran % (Auto) Cancelled Neut % (Auto) Cancelled Lymph % (Auto) Cancelled [place] % (Auto) Cancelled Eos % (Auto) Cancelled Baso % (Auto) Cancelled Lymph # (Auto) Cancelled [place] # (Auto) Cancelled Eos # (Auto) Cancelled Baso # (Auto) Cancelled Abs Immat Gran (auto) Cancelled Absolute Neuts (auto) Cancelled Absolute Nucleated RBC 0.020 H (0.0-0.012) X10*3/uL Nucleated RBC % (auto) 0.1 (0.0-0.2) /100WBC Neutrophils % (Manual) 92 H (45-73) % Band Neutrophils % 3 (3-5) % Lymphocytes % (Manual) 2 L (20-40) % Monocytes % (Manual) 3 (2-11) % Abs Neuts (Manual) 16.6 H (2.0-8.3) X10*3/uL Lymphocytes # (Manual) 0.4 L (1.2-4.9) X10*3/uL Monocytes # (Manual) 0.5 (0.1-1.2) X10*3/uL Nucleated RBCs 1 H (0-0) /100WBC Toxic Vacuolation PRESENT Platelet Estimate NORMAL (NORMAL) Large Platelets PRESENT Plt Morphology Comment NOTE RBC Morphology NORMAL Polychromasia 1+ (0-2) /OIF Basophilic Stippling 1+ (0-2) /OIF Macrocytosis 1+ (5-14) /OIF Spherocytes 1+ (0-2) /OIF Ovalocytes 2+ (15-30) /OIF Stomatocytes 1+ (5-14) /OIF Gomes-Quinnesec Bodies PRESENT Acanthocytes (Spur) 1+ (0-2) /OIF Schistocytes 1+ (0-2) /OIF PT 15.7 H (11.1-13.3) SEC INR 1.3 H (0.9-1.1) VBG pH 7.60 H* (7.32-7.43) VBG pCO2 37 mmHg VBG pO2 49 mmHg VBG HCO3 37 H (22-26) mmol/L VBG O2 Saturation 82.0 % VBG Base Excess 14.5 mmol/L Sodium 137 (135-145) mmol/L Potassium 3.8 (3.3-5.1) mmol/L Chloride 96 (96-108) mmol/L Carbon Dioxide 26 (22-29) mmol/L Anion Gap 19 (12-20) BUN 20 H (9-16) mg/dL Creatinine 0.84 (0.5-1.4) mg/dL Estim Creat Clear Calc 49.6 Estimated GFR > 60 POC Glucose (60-115) mg/dL Random Glucose 141 H (60-115) mg/dL Lactic Acid (0.5-2.0) mmol/L Calcium 9.1 (8.4-10.2) mg/dL Magnesium 2.1 (1.6-2.6) mg/dL Total Bilirubin 1.8 H (0.0-1.0) mg/dL AST 25 (5-31) U/L ALT 13 (0-31) U/L Alkaline Phosphatase 161 H (39-117) U/L Troponin I High Sens 3.4 (<3.5-17.0) ng/L C-Reactive Protein 1.89 H (< or = 0.50) mg/dL B-Natriuretic Peptide 135 H (<100) pg/mL Total Protein 6.3 L (6.5-8.0) g/dL Albumin 3.1 L (3.5-5.0) g/dL Lipase 6 L (8-78) U/L Procalcitonin 0.12 ng/mL Influenza Type A (PCR) NEGATIVE (Negative) Influenza Type B (PCR) NEGATIVE (Negative) RSV RNA Qual (PCR) NEGATIVE (Negative) SARS-CoV-2 RNA (RT-PCR) NEGATIVE (Negative) 03/31/24 03/31/24 Range/Units 22:00 23:05 WBC (4.8-10.8) X10*3/uL RBC (4.20-5.50) X10*6/uL Hgb (12.0-16.0) g/dl Hct (37.0-47.0) % MCV (80.0-98.0) fL MCH (27.0-33.0) pg MCHC (31.0-35.0) g/dl RDW (11.0-16.0) % Plt Count (160-400) X10*3/uL MPV (9.4-12.3) fL Immature Gran % (Auto) Neut % (Auto) Lymph % (Auto) [place] % (Auto) Eos % (Auto) Baso % (Auto) Lymph # (Auto) [place] # (Auto) Eos # (Auto) Baso # (Auto) Abs Immat Gran (auto) Absolute Neuts (auto) Absolute Nucleated RBC (0.0-0.012) X10*3/uL Nucleated RBC % (auto) (0.0-0.2) /100WBC Neutrophils % (Manual) (45-73) % Band Neutrophils % (3-5) % Lymphocytes % (Manual) (20-40) % Monocytes % (Manual) (2-11) % Abs Neuts (Manual) (2.0-8.3) X10*3/uL Lymphocytes # (Manual) (1.2-4.9) X10*3/uL Monocytes # (Manual) (0.1-1.2) X10*3/uL Nucleated RBCs (0-0) /100WBC Toxic Vacuolation Platelet Estimate (NORMAL) Large Platelets Plt Morphology Comment RBC Morphology Polychromasia /OIF Basophilic Stippling /OIF Macrocytosis /OIF Spherocytes /OIF Ovalocytes /OIF Stomatocytes /OIF Gomes-Quinn[place] Bodies Acanthocytes (Spur) /OIF Schistocytes /OIF PT (11.1-13.3) SEC INR (0.9-1.1) VBG pH (7.32-7.43) VBG pCO2 mmHg VBG pO2 mmHg VBG HCO3 (22-26) mmol/L VBG O2 Saturation % VBG Base Excess mmol/L Sodium (135-145) mmol/L Potassium (3.3-5.1) mmol/L Chloride (96-108) mmol/L Carbon Dioxide (22-29) mmol/L Anion Gap (12-20) BUN (9-16) mg/dL Creatinine (0.5-1.4) mg/dL Estim Creat Clear Calc Estimated GFR POC Glucose 161 H (60-115) mg/dL Random Glucose (60-115) mg/dL Lactic Acid 1.8 (0.5-2.0) mmol/L Calcium (8.4-10.2) mg/dL Magnesium (1.6-2.6) mg/dL Total Bilirubin (0.0-1.0) mg/dL AST (5-31) U/L ALT (0-31) U/L Alkaline Phosphatase (39-117) U/L Troponin I High Sens (<3.5-17.0) ng/L C-Reactive Protein (< or = 0.50) mg/dL B-Natriuretic Peptide (<100) pg/mL Total Protein (6.5-8.0) g/dL Albumin (3.5-5.0) g/dL Lipase (8-78) U/L Procalcitonin ng/mL Influenza Type A (PCR) (Negative) Influenza Type B (PCR) (Negative) RSV RNA Qual (PCR) (Negative) SARS-CoV-2 RNA (RT-PCR) (Negative) Discharge Plan Discharge Clinical Impression: Pneumonia Patient Disposition: Admitted As Inpatient Print Language: Indonesian
--- NOTE | 2024-03-31 18:51 | PC.NURSE ---
pt saO2 noted to be 78% on her 3L baseline, brought pt to main ED and changed her over to an oxymask at 6L she came up to 88% - notified MD Adler of pts arrival to room 5
[2024-03-31 19:22] VITALS: PULSE 86; RESP 20; O2SAT 98
[2024-03-31 19:22] LABS: Hematocrit 30.3 % (37.0-47.0); Mean Corpuscular Hemoglobin 34.4 pg (27.0-33.0); Mean Corpuscular Volume 104.1 fL (80.0-98.0); Mean Platelet Volume 12.8 fL (9.4-12.3); NRBC Pct Auto 0.1 /100WBC (0.0-0.2); Platelet Count 333 X10*3/uL (160-400); Red Blood Count 2.91 X10*6/uL (4.20-5.50); Red Cell Distribution Width 15.3 % (11.0-16.0)
[2024-03-31 19:25] LABS: Venous Blood Gas Refer to POC result; WBC ABN SCTR FOR CBC 1; White Blood Count 17.5 X10*3/uL (4.8-10.8)
--- NOTE | 2024-03-31 19:26 | PC.NURSE ---
this rn assumed care of pt, pt a&ox4, respirations even and unlabored. pt reporting increasing shortness of breath x3 days. pt sating 73% on nasal cannula baseline. pt placed on 5L oxymax sating 98%, this RN placed pt on 3L oxymax and now issating 96-98%. 22G placed in left wrist, labs obtained and sent to lab. pt normal sinus 60-65bpm.
[2024-03-31 19:27] LABS: VBG Base Excess 14.5 mmol/L; VBG HCO3 37 mmol/L (22-26); VBG pCO2 37 mmHg; VBG pO2 49 mmHg
[2024-03-31 19:29] LABS: INTERNATIONAL NORM RATIO 1.3 (0.9-1.1); Prothrombin Time 15.7 SEC (11.1-13.3)
[2024-03-31 19:46] LABS: Band Neutrophils Percent 3 % (3-5); Lymphocytes Absolute Manual 0.4 X10*3/uL (1.2-4.9); Lymphocytes Percent Manual 2 % (20-40); Monocytes Absolute Manual 0.5 X10*3/uL (0.1-1.2); Monocytes Percent Manual 3 % (2-11); Neutrophils Absolute Manual 16.6 X10*3/uL (2.0-8.3); Neutrophils Percent Manual 92 % (45-73)
[2024-03-31 19:47] LABS: RBC Morphology NORMAL
[2024-03-31 19:49] LABS: C Reactive Protein 1.89 mg/dL (< or = 0.50); Lipase 6 U/L (8-78); Magnesium 2.1 mg/dL (1.6-2.6)
[2024-03-31 19:50] LABS: Acanthocytes 1+ (0-2) /OIF; Large Platelet PRESENT; Macrocytosis 1+ (5-14) /OIF; Ovalocytes 2+ (15-30) /OIF; Platelet Estimate NORMAL (NORMAL); Schistocytes 1+ (0-2) /OIF
[2024-03-31 19:51] LABS: Basophilic Stippling 1+ (0-2) /OIF; Howell Jolly Bodies PRESENT; Polychromasia 1+ (0-2) /OIF; Spherocytes 1+ (0-2) /OIF; Stomatocytes 1+ (5-14) /OIF; Toxic Vacuolation PRESENT
[2024-03-31 19:52] LABS: Nucleated Red Blood Cells 1 /100WBC (0-0); Platelet Morphology Comment NOTE
[2024-03-31 19:52] LABS: B Type Natriuretic Peptide 135 pg/mL (<100)
[2024-03-31 19:54] LABS: Alanine Aminotransferase 13 U/L (0-31); Albumin Level 3.1 g/dL (3.5-5.0); Alkaline Phosphatase 161 U/L (39-117); Anion Gap 19 (12-20); Aspartate Amino Transferase 25 U/L (5-31); Bilirubin Total 1.8 mg/dL (0.0-1.0); Blood Urea Nitrogen 20 mg/dL (9-16); Calcium 9.1 mg/dL (8.4-10.2); Carbon Dioxide 26 mmol/L (22-29); Chloride 96 mmol/L (96-108); Creatinine Clr Calc Pharmacy 49.6; Estimated Glomerular Filt Rate > 60; Glucose Random 141 mg/dL (60-115); Potassium 3.8 mmol/L (3.3-5.1); Sodium 137 mmol/L (135-145); Total Protein 6.3 g/dL (6.5-8.0)
[2024-03-31 19:58] LABS: Troponin-I High Sensitivity 3.4 ng/L (<3.5-17.0)
[2024-03-31 20:05] LABS: Influenza A PCR NEGATIVE (Negative); Influenza B PCR NEGATIVE (Negative); Resp Syncy Virus RNA Qual PCR NEGATIVE (Negative); SARS COV2 PCR INHOUSE NEGATIVE (Negative)
[2024-03-31 20:23] VITALS: PULSE 91; RESP 21; O2SAT 93
[2024-03-31] MEDS: Albuterol Sulfate 2.5 MG, Albuterol/Iprat 2.5/0.5MG 3 ML 3 ML INHALE (20:23)
--- NOTE | 2024-03-31 20:31 | PM.IMHP ---
History of Present Illness Date of Service: 03/31/24 <DAVID Linton - Last Filed: 03/31/24 21:06> Attending physician on admission: Yanira Sierra <DAVID Linton - Last Filed: 03/31/24 21:06> Chief Complaint: abd pain <DAVID Linton - Last Filed: 03/31/24 21:06> 79-year-old female with a PMH significant for metastatic?nze-sgdsv-idci left lung cancer s/p resection and segmentectomy who follows with Dr. Berger, CAD s/p stenting, SVT, HFpEF, insulin-dependent type 2 diabetes, HTN, HLD, COPD with chronic hypoxemic respiatory failure on 3L O2 at baseline, and hypothyroidism presented to the ED for evaluation of right sided abd pain that has been gradually worsening over the last few days, but was reported as a 10/10 today prompting her to present to the ED for evaluation. No fevers, chills, nausea, vomiting, melena, hematochezia. She reports she has not had a full bowel movement in 8 days despite multiple enemas, miralax, and senna. She was recently admitted 03/15-03/23 for COPD exacerbation and post obstructive pneumonia. Since then continues to have intermittent cough but denies any sputum production or acute worsening of cough. She states her shortness of breath is baseline both at rest and with exertion. No chest pains. On arrival however, was satting 78% on baseline 3L and was transitioned to 6L via oxymask and has now been weaned to 3L via oxymask. No respiratory distress noted. She has a worsening leukocytosis of 17.5 with 92% neutrophilia and toxic vacuolationwith midly elevated HR 91 and tachypnea of 21. No hypotension. Renal function baseline, lytes normal. Total bili 1.8, consistent with baseline, AST/ALT WNL. Trop 3.4, BNP 135. CRP 1.89, PCT pending. Lipase 6. VBG with ph 7.60, pco2 37, hco3 37 Neg for covid, flu, rsv. CXR shows small bilateral pleural effusions, similar to prior and diffuse left lung airspace opacities, slightly increased with stable R airspace opacities. In the ED, received duoneb. <DAVID Linton - Last Filed: 03/31/24 21:06> Review of Systems Review of Systems: Yes all other systems are reviewed and are negative <DAVID Linton - Last Filed: 03/31/24 21:06> [facility] Medical History: Medical History 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 COPD (chronic obstructive pulmonary disease) SVT (supraventricular tachycardia) Tachycardia Dyslipidemia PAD (peripheral artery disease) Nicotine dependence, cigarettes, uncomplicated Tubular adenoma of colon Anemia Anxiety CAD (coronary artery disease) Essential hypertension Diabetes type 2, controlled <DAVID Linton - Last Filed: 03/31/24 21:06> Family History: Family History Daughter Lung cancer Father Bone cancer Mother Colon cancer <DAVID Linton - Last Filed: 03/31/24 21:06> Surgical History: Surgical History S/P cardiac catheterization History of lung surgery History of varicose vein stripping History of angioplasty History of heart artery stent History of carpal tunnel surgery of right wrist History of colonoscopy History of splenectomy History of partial pancreatectomy History of cholecystectomy History of appendectomy History of tonsillectomy <DAVID Linton - Last Filed: 03/31/24 21:06> Social History: Social History Household Members: None Housing: House Are you a primary neonatal critical care nurse to a significant other at home: No Alcohol intake: never Comment: pt rings appropriately Patient Tobacco Use Status: Former Tobacco user Tobacco use type: Cigarette Years Smoked: 50 Smoked in Last 30 Days: No e-Cigarette/Vaping Use: Never Used Second Hand Smoke Exposure: No Use of substances other than those prescribed or required for medical reasons: No Advance Directives: Yes Advance Directives on File: Yes Advance Directives Date on File: 01/18/23 Do you have a plan to hurt others: No Plan service: No Current occupational status: retired Current occupational exposures/hazards: No Cognitive needs: No Hearing needs: No Vision needs: No <DAVID Linton - Last Filed: 03/31/24 21:06> Meds Allergies/Adverse reactions: Allergies Allergy/AdvReac Type Severity Reaction Status Date / Time No Known Allergies Allergy Verified 03/31/24 18:41 <DAVID Linton - Last Filed: 03/31/24 21:06> Home medications: Home Medications ?Medication ?Instructions ?Recorded ?Confirmed ?Last Taken ?Type atorvastatin 80 mg tablet 80 mg PO BEDTIME 08/21/20 03/30/24 03/14/24 History blood sugar diagnostic #10 ea 08/21/20 03/30/24 Unknown History blood-glucose meter #1 ea 08/21/20 03/30/24 Unknown History pen needle, diabetic 31 gauge x #50 ea 08/21/20 03/30/24 Unknown History 3 insulin aspart U-100 100 unit/mL 0 sliding scale dose subcut QIDACHS 11/19/22 03/30/24 03/15/24 History (3 mL) subcutaneous pen (Novolog FlexPen U-100 Insulin aspart) lancets 30 gauge (OneTouch Delica #100 ea 11/19/22 03/30/24 Unknown History Plus Lancet) ezetimibe 10 mg tablet 10 mg PO BEDTIME 03/15/24 03/30/24 03/14/24 History fluticasone propionate 50 1 spray intranasal Q12H PRN 03/15/24 03/30/24 03/15/24 History mcg/actuation nasal Congestion spray,suspension (Flonase Allergy Relief) furosemide 20 mg tablet 20 mg PO BID@0900,1700 03/15/24 03/30/24 03/15/24 History insulin detemir U-100 100 unit/mL 16 unit subcut BEDTIME 03/15/24 03/30/24 03/15/24 History (3 mL) subcutaneous pen <DAVID Linton - Last Filed: 03/31/24 21:06> Physical Exam Vital Signs and Narrative: Vital Signs: Last Vital Signs Temp 97.8 F 03/31/24 18:39 Pulse 91 03/31/24 20:23 Resp 21 H 03/31/24 20:23 BP 133/61 03/31/24 18:39 Pulse Ox 98 03/31/24 19:22 O2 Del Method Oxymask 03/31/24 19:22 O2 Flow Rate 3 03/31/24 19:22 Oxygen Flow Rate 3 03/31/24 18:39 BMI result Body Mass Index 23.5 <DAVID Linton - Last Filed: 03/31/24 21:06> Constitutional - Awake and Alert, No apparent distress Eyes - PERRLA, EOMI Cardiovascular - S1S2, RRR, 1+ ble edema Respiratory - Normal lung expansion, Normal respiratory effort, No respiratory distress on 3L via oxymask, diffuse wheezing bilaterally Gastrointestinal - RUQ and LUQ ttp without guarding or rebound, no rigidity, negative edward sign. ND; +BS Extremities - no calf tenderness bilaterally, no swelling Skin - Warm/Dry Neurological - Alert & oriented x3 Psychological - Appropriate affect <DAVID Linton - Last Filed: 03/31/24 21:06> Results Labs CBC and Chem 7: 03/31/24 19:16 03/31/24 19:16 <DAVID Linton - Last Filed: 03/31/24 21:06> Labs: Laboratory Results - last 24 hr 03/31/24 03/31/24 03/31/24 19:12 19:16 19:17 MCV 104.1 H MCH 34.4 H MCHC 33.0 RDW 15.3 Plt Count 333 MPV 12.8 H Immature Gran % (Auto) Cancelled Neut % (Auto) Cancelled Lymph % (Auto) Cancelled [place] % (Auto) Cancelled Eos % (Auto) Cancelled Baso % (Auto) Cancelled Lymph # (Auto) Cancelled [place] # (Auto) Cancelled Eos # (Auto) Cancelled Baso # (Auto) Cancelled Abs Immat Gran (auto) Cancelled Absolute Neuts (auto) Cancelled Absolute Nucleated RBC 0.020 H Nucleated RBC % (auto) 0.1 Neutrophils % (Manual) 92 H Band Neutrophils % 3 Lymphocytes % (Manual) 2 L Monocytes % (Manual) 3 Abs Neuts (Manual) 16.6 H Lymphocytes # (Manual) 0.4 L Monocytes # (Manual) 0.5 Nucleated RBCs 1 H Toxic Vacuolation PRESENT Platelet Estimate NORMAL Large Platelets PRESENT Plt Morphology Comment NOTE RBC Morphology NORMAL Polychromasia 1+ (0-2) Basophilic Stippling 1+ (0-2) Macrocytosis 1+ (5-14) Spherocytes 1+ (0-2) Ovalocytes 2+ (15-30) Stomatocytes 1+ (5-14) [place] Bodies PRESENT Acanthocytes (Spur) 1+ (0-2) Schistocytes 1+ (0-2) PT 15.7 H INR 1.3 H VBG pH 7.60 H* VBG pCO2 37 VBG pO2 49 VBG HCO3 37 H VBG O2 Saturation 82.0 VBG Base Excess 14.5 Anion Gap 19 Estim Creat Clear Calc 49.6 Estimated GFR > 60 Random Glucose 141 H Calcium 9.1 Magnesium 2.1 Total Bilirubin 1.8 H AST 25 ALT 13 Alkaline Phosphatase 161 H Troponin I High Sens 3.4 C-Reactive Protein 1.89 H B-Natriuretic Peptide 135 H Total Protein 6.3 L Albumin 3.1 L Lipase 6 L Influenza Type A (PCR) NEGATIVE Influenza Type B (PCR) NEGATIVE RSV RNA Qual (PCR) NEGATIVE SARS-CoV-2 RNA (RT-PCR) NEGATIVE <DAVID Linton - Last Filed: 03/31/24 21:06> Imaging Radiologist's Impressions: Impressions Chest X-Ray 03/31/24 19:02 IMPRESSION: 1. Small bilateral pleural effusions, similar when compared to the prior examination. 2. Diffuse left lung airspace opacities, slightly increased. Stable right basilar airspace opacities. <DAVID Linton - Last Filed: 03/31/24 21:06> Assessment and Plan (1) Pneumonia: Status: Acute <DAVID Linton - Last Filed: 03/31/24 21:06> (2) Acute and chronic respiratory failure: Status: Acute <DAVID Linton - Last Filed: 03/31/24 21:06> (3) Abdominal pain: Status: Acute <DAVID Linton Last Filed: 03/31/24 21:06> 79-year-old female with a PMH significant for metastatic?obd-mqkgl-iokt left lung cancer s/p resection and segmentectomy who follows with Dr. Berger, CAD s/p stenting, SVT, HFpEF, insulin-dependent type 2 diabetes, HTN, HLD, COPD with chronic hypoxemic respiatory failure on 3L O2 at baseline, and hypothyroidism admitted for further management of acute hypoxemic respiratory failure due to post obstructive pneumonia and abdominal pain #acute hypoxemic respiratory failure due to post obstructive pneumonia with sepsis -CXR shows increasing diffuse left sided opacities and stable right sided opactities. Hypoxic to 78% on arrival. Chest CT pending -leukocytosis 17.5, mild tachycardia, tachypnea.No lactic acidosis/end organ damage. No severe sepsis/shock -IV zosyn (initiated 03/31) -sputum culture, Legionella antigen, strep antigen pending -pulmonology consult, Oncology consult -continue supplemental O2 to maintain oximetry 90-92%, wean as tolerated per protocol -pct pending -follow CBC, cultures # COPD exacerbation -patient not complaining of symptoms but diffuse wheezing bilaterally -40 mg IV methylprednisolone x1. Prednisone 40 mg daily (initiated 04/01) -DuoNebs q.4h while awake -Zosyn as above #Abdominal pain -?r/t severe constipation. No guarding on exam -CT abd/pelvis pending -Doubt obstruction, but hold on laxatives/futher bowel regimen until ruled out #Acute metabolic alkalosis -likely in setting of laxative use (multiple enemas at home) and diuretics -repeat VBG am # lsd-hdwmg-sjws lung cancer -Oncology consult, follows with Dr. Berger #Chronic hyperbilirubinemia -not severe sepsis #Chronic macrocytic anemia -h/h above transfusion threshold. saira b12 1200, folic acid wnl 02/02 #HFpEF -no acute exacerbation, continue p.o. diuretics # CAD/HLD/PAD -no chest pain. Continue asa/plavix, statin, isosorbide, Coreg # insulin-dependent type 2 diabetes -dose adjusted basal insulin -POC glucose, diabetic diet -Humalog on sliding scale # hypothyroidism -continue levothyroxine #SVT -amiodarone, coreg # hypertension -continue Coreg, isosorbide, Lasix DVT prophylaxis-Lovenox DNR/DNI-discussed with patient Patient requires inpatient stay at least 2 midnights for management of postobstruction pneumonia with sepsis and acute hypoxemic respiratory failure requiring increased supplemental O2 requirement, IV antibiotics, expert consultation, and close monitoring of hemodynamics to monitor for and prevent decompensation <DAVID Linton - Last Filed: 03/31/24 21:06> 79-year-old female with a PMH significant for metastatic?zzx-odnkc-tpqz left lung cancer s/p resection and segmentectomy who follows with Dr. Berger, CAD s/p stenting, SVT, HFpEF, insulin-dependent type 2 diabetes, HTN, HLD, COPD with chronic hypoxemic respiatory failure on 3L O2 at baseline, and hypothyroidism admitted for further management of acute hypoxemic respiratory failure due to post obstructive pneumonia and abdominal pain #acute hypoxemic respiratory failure due to post obstructive pneumonia with sepsis -CXR shows increasing diffuse left sided opacities and stable right sided opactities. Hypoxic to 78% on arrival. Chest CT pending -leukocytosis 17.5, mild tachycardia, tachypnea.No lactic acidosis/end organ damage. No severe sepsis/shock -IV zosyn and vanco (initiated 03/31) -sputum culture, Legionella antigen, strep antigen pending -pulmonology consult, Oncology consult -continue supplemental O2 to maintain oximetry 90-92%, wean as tolerated per protocol -pct pending -follow CBC, cultures # COPD exacerbation -patient not complaining of symptoms but diffuse wheezing bilaterally -40 mg IV methylprednisolone x1. Prednisone 40 mg daily (initiated 04/01) -DuoNebs q.4h while awake -Zosyn as above #Abdominal pain -?r/t severe constipation. No guarding on exam -CT abd/pelvis pending -Doubt obstruction, but hold on laxatives/futher bowel regimen until ruled out #Acute metabolic alkalosis -likely in setting of laxative use (multiple enemas at home) and diuretics -repeat VBG am # [id number]-xzpd lung cancer -Oncology consult, follows with Dr. Berger #Chronic hyperbilirubinemia -not severe sepsis #Chronic macrocytic anemia -h/h above transfusion threshold. saira b12 1200, folic acid wnl 02/02 #HFpEF -no acute exacerbation, continue p.o. diuretics # CAD/HLD/PAD -no chest pain. Continue asa/plavix, statin, isosorbide, Coreg # insulin-dependent type 2 diabetes -dose adjusted basal insulin -POC glucose, diabetic diet -Humalog on sliding scale # hypothyroidism -continue levothyroxine #SVT -amiodarone, coreg # hypertension -continue Coreg, isosorbide, Lasix DVT prophylaxis-Lovenox DNR/DNI-discussed with patient Patient requires inpatient stay at least 2 midnights for management of postobstruction pneumonia with sepsis and acute hypoxemic respiratory failure requiring increased supplemental O2 requirement, IV antibiotics, expert consultation, and close monitoring of hemodynamics to monitor for and prevent decompensation <Yanira Sierra MD - Last Filed: 03/31/24 21:29> Quality Stroke Does the patient have a stroke diagnosis?: No <DAVID Linton - Last Filed: 03/31/24 21:06> VTE Prior VTE?: No <DAVID Linton - Last Filed: 03/31/24 21:06> VTE Risk Level:: Medical - moderate - high <DAVID Linton - Last Filed: 03/31/24 21:06> VTE Device Contraindication: Treatment Not Indicated <DAVID Linton - Last Filed: 03/31/24 21:06> VTE Drug Contraindication: N/A - Med Ordered <DAVID Linton - Last Filed: 03/31/24 21:06>
[2024-03-31 21:22] LABS: Procalcitonin 0.12 ng/mL
--- NOTE | 2024-03-31 21:27 | MHC.EDTECH ---
Multiple attempts for second blood culture and lactic, difficult stick.
--- NOTE | 2024-03-31 21:40 | PC.NURSE ---
Pt daughter Elizabeth on phone at this time, daughter raising concerns that pt has been sleeping in recliner due to shortness of breath and ambulation troubles. provider aware to place PT consult at this time.
[2024-03-31 21:41] VITALS: BP 123/61; PULSE 92; RESP 21; TEMP 36.6; O2SAT 88
[2024-03-31 21:42] VITALS: O2SAT 91
--- NOTE | 2024-03-31 21:42 | PC.NURSE ---
pt hard stick, multiple attempts made for blood cultures. delay in medication administration.
[2024-03-31] MEDS: bisacodyL 5 MG TABLET.DR 10 MG PO (21:53)
[2024-03-31] MEDS: Enoxaparin Sodium 40 MG/0.4 ML SYRINGE SUBCUT (21:54)
[2024-03-31] MEDS: methylPREDNISolone Sod Succ 40 MG/ML VIAL IVPUSH (21:54)
[2024-03-31] MEDS: Piperacillin Sodium/Tazobactam 4.5 GM in 0.9 % Sodium Chloride 100 ML IV (21:55)
[2024-03-31 22:04] LABS: Glucose, Whole Blood 161 mg/dL (60-115)
[2024-03-31] MEDS: Insulin Lispro 100 UNIT/ML 3 ML VIAL SUBCUT (22:04)
--- NOTE | 2024-03-31 22:06 | PC.NURSE ---
pt medicated per mar, tolerated well with water. POC 166.
[2024-03-31] MEDS: vancomycin HCL 1,500 MG in 0.9 % Sodium Chloride 500 ML 333.33 MG IV (22:54)
[2024-03-31] MEDS: Lactulose 20 GM/30 ML SOLUTION PO (22:57)
--- NOTE | 2024-03-31 23:00 | MHC.EDTECH ---
Lactic acid hemolyzed x3 and per An VASQUEZ, lab told her to have us call phlebotomy to come up and draw Pt. This tech called lab who stated to reach phlebotomy on their cordless phone ([id number]). Attempted to contact phlebotomy 3x and no answer, RN aware
--- NOTE | 2024-03-31 23:08 | PC.NURSE ---
Addendum entered by An Brown 03/31/24 23:08: aware of multiple attempts made by ED staff to draw patient. Original Note: phlebotomy reached at this time, reports they will come draw patient.
[2024-03-31 23:38] LABS: Lactic Acid 1.8 mmol/L (0.5-2.0)
[2024-04-01] VITALS (12 sets, daily range): BP systolic 111–141; BP diastolic 55–65; PULSE 4–96; RESP 16–20; TEMP 36–37.1; O2SAT 92–97; BMI 23.5
[2024-04-01 01:36] LABS: Appearance Urine Turbid; Color Urine Dark Yellow; Glucose Urine UA Negative (Negative); Leukocyte Esterase Urine Trace (Negative); Nitrite Urine Negative (Negative); PH 5.5 (5.0-9.0); Specific Gravity - Urine >= 1.030 (1.005-1.025); UMIC TRIGGER UACC YES; Urine Blood Negative (Negative); Urine Ketones Trace mg/dL (Negative); Urine Protein Trace mg/dL (Neg-Trace)
[2024-04-01 01:45] LABS: Bacteria Urine None Seen (None Seen); Hyaline Casts Urine 0-2 /LPF (0-2); WBC Urine 0-5 /HPF (0-5)
[2024-04-01] MEDS: Piperacillin Sodium/Tazobactam 4.5 GM in 0.9 % Sodium Chloride 100 ML IV ×4 (03:03→19:32)
--- NOTE | 2024-04-01 03:05 | PC.NURSE ---
pt reporting shortness of breath, respiratory aware and duoneb received.
[2024-04-01] MEDS: Albuterol/Iprat 2.5/0.5MG 3 ML AMPUL.NEB INHALE ×5 (03:09→20:02)
[2024-04-01 06:11] LABS: Venous Blood Gas Refer to POC result
[2024-04-01 06:12] LABS: VBG Base Excess 9.1 mmol/L; VBG HCO3 31 mmol/L (22-26); VBG pCO2 34 mmHg; VBG pH 7.57 (7.32-7.43); VBG pO2 92 mmHg
[2024-04-01 06:29] LABS: Anion Gap 19 (12-20); Blood Urea Nitrogen 21 mg/dL (9-16); Calcium 9.2 mg/dL (8.4-10.2); Carbon Dioxide 26 mmol/L (22-29); Chloride 96 mmol/L (96-108); Creatinine Clr Calc Pharmacy 45.8; Estimated Glomerular Filt Rate 60; Glucose Random 215 mg/dL (60-115); Potassium 3.5 mmol/L (3.3-5.1); Sodium 137 mmol/L (135-145)
[2024-04-01 06:51] LABS: Hematocrit 31.4 % (37.0-47.0); Mean Corpuscular HGB Conc 31.8 g/dl (31.0-35.0); Mean Corpuscular Hemoglobin 34.2 pg (27.0-33.0); Mean Corpuscular Volume 107.5 fL (80.0-98.0); NRBC Pct Auto 0.2 /100WBC (0.0-0.2); Platelet Count 306 X10*3/uL (160-400); Red Blood Count 2.92 X10*6/uL (4.20-5.50); Red Cell Distribution Width 15.2 % (11.0-16.0)
[2024-04-01 06:55] LABS: WBC ABN SCTR FOR CBC 1
[2024-04-01 07:10] LABS: Band Neutrophils Percent 0 % (3-5); Lymphocytes Percent Manual 6 % (20-40); Neutrophils Percent Manual 94 % (45-73)
[2024-04-01 07:11] LABS: Acanthocytes 2+ (3-5) /OIF; Large Platelet PRESENT; Platelet Estimate NORMAL (NORMAL); Platelet Morphology Comment NOTED; RBC Morphology NOTED
[2024-04-01 07:12] LABS: Burr Cells 2+ (3-5) /OIF; Ovalocytes 1+ (5-14) /OIF; Polychromasia 1+ (0-2) /OIF; Schistocytes 1+ (0-2) /OIF; Spherocytes 1+ (0-2) /OIF; Toxic Vacuolation PRESENT
[2024-04-01 07:13] LABS: Lymphocytes Absolute Manual 0.8 X10*3/uL (1.2-4.9); Neutrophils Absolute Manual 13.2 X10*3/uL (2.0-8.3)
--- NOTE | 2024-04-01 07:15 | P.CNHO_ITS ---
Subjective - Subjective Chief complaint: Stage IV adenocarcionma of left lung Patient: known to practice within the last 3 years Consult date: 04/01/24 Primary Care Provider: Kenji Mcnally MD HPI - Consult Narrative Reason for consult: al cancer constipation and dyspnea Narrative: Bhupendra Morgan is a 79 year old female patient of Dr. Berger found to have adenocarcionma of the left lung a year ago resected at [facility] last summer with relapse this spring. She was started on pembrolizumab 03/29/2024 at [facility] due to pdl status. She presents with severe constipation, left lung pneumonia and left upper lobe atelectasis. She is dyspneic at rest. She is followed by Dr. Mora of pulmonary for lung disease and by cardiology as well. PCP is Dr. Mcnally. Review of Systems - Constitutional Reports anorexia, Reports weakness - Cardiovascular Reports shortness of breath - Respiratory Reports chest congestion, Reports cough, Reports dyspnea, Reports wheezing - Gastrointestinal Reports constipation - Neurologic Reports weakness [facility] Medical History: Medical History (Last Reviewed 03/31/24 @ 20:43 by DAVID Linton) Anemia Anxiety CAD (coronary artery disease) COPD (chronic obstructive pulmonary disease) Diabetes type 2, controlled Dyslipidemia Essential hypertension Nicotine dependence, cigarettes, uncomplicated 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 PAD (peripheral artery disease) SVT (supraventricular tachycardia) Tachycardia Tubular adenoma of colon Family History: Family History (Last Reviewed 03/31/24 @ 20:43 by DAVID Linton) Daughter Lung cancer Father Bone cancer Mother Colon cancer Surgical History: Surgical History (Last Reviewed 03/31/24 @ 20:43 by DAVID Linton) History of angioplasty History of appendectomy History of carpal tunnel surgery of right wrist History of cholecystectomy History of colonoscopy History of heart artery stent History of lung surgery History of partial pancreatectomy History of splenectomy History of tonsillectomy History of varicose vein stripping S/P cardiac catheterization Social History: Social History (Last Reviewed 03/31/24 @ 20:43 by DAVID Linton) Living Situation History: Household Members: None Housing: House Are you a primary prompt care rn to a significant other at home: No Do you presently have visiting nurse or other home services: No Alcohol History Details: 1. How often do you have a drink containing alcohol?: a. Never 3. How often do you have six or more drinks on one occasion?: a. Never AUDIT-C Alcohol total score: 0 Tobacco History: Patient Tobacco Use Status: Former Tobacco user Tobacco use type: Cigarette Years Smoked: 50 Smoked in Last 30 Days: No e-Cigarette/Vaping Use: Never Used Second Hand Smoke Exposure: No Substance Use History: Use of substances other than those prescribed or required for medical reasons : No Domestic Abuse History: Have you been hit, kicked, punched, or otherwise hurt by someone within the past year? If so, by whom?: No Do you feel safe in your current relationship?: No Current Relationship Is there a partner from a previous relationship who is making you feel unsafe now?: No Are you made to feel afraid or neglected: No Advance Directives: Advance Directives: Yes Advance Directives on File: Yes Advance Directives Date on File: 01/18/23 Homicidal Assessment: Do you have a plan to hurt others: No Plan Nutrition Assessment: Recently lost weight without trying: No Eating poorly because of decreased appetite: Yes Nutrition Risks: No Nutritional Risk Patient : No : No Poor oral hygiene: No Occupation Assessmet: service: No Current occupational status: retired Current occupational exposures/hazards: No Home Medications and Allergies Current Medications: Current Medications Acetaminophen (Acetaminophen 325 Mg Tablet) 650 mg PO Q6H PRN PRN Reason: Pain, Mild (Pain Scale 1-3), fever or headache Albuterol/Ipratropium (Albuterol/Iprat 2.5/0.5mg 3 Ml Ampul.Neb) 3 ml INHALE RQ4H WHILE AWAKE [facility] Albuterol/Ipratropium (Albuterol/Iprat 2.5/0.5mg 3 Ml Ampul.Neb) 3 ml INHALE Q4H PRN PRN Reason: Wheezing Last Admin: 04/01/24 03:09 Dose: 3 ml Calcium Carbonate (Calcium Carbonate 750 Mg Tab.Chew) 750 mg PO Q4H PRN PRN Reason: Heartburn Enoxaparin Sodium (Enoxaparin Sodium 40 Mg/0.4 Ml Syringe) 40 mg SUBCUT Q24H [facility] Last Admin: 03/31/24 21:54 Dose: 40 mg Glucose (Glucose Gel 15 Gm Gel..Gram.) 15 gm PO Q15M PRN; Protocol PRN Reason: per Hypoglycemia Standing Ord. Guaifenesin (Guaifenesin 200 Mg/10 Ml 10 Ml Liquid) 10 ml PO Q4H PRN PRN Reason: Cough Piperacillin Sod/Tazobactam (Sod 4.5 gm/ Sodium Chloride) 100 mls @ 200 mls/hr IV Q6H [facility] Last Infusion: 04/01/24 03:42 Dose: Infused Dextrose (D10) 250 mls @ 750 mls/hr IV Q15M PRN; Protocol PRN Reason: per Hypoglycemia Standing Ord. Insulin Human Lispro (Insulin Lispro 100 Unit/Ml 3 Ml Vial) 0 unit SUBCUT QIDACHS [facility]; Protocol Last Admin: 03/31/24 22:04 Dose: 2 unit Magnesium Hydroxide (Milk Of Magnesia 30 Ml Oral.Susp) 30 ml PO DAILY PRN PRN Reason: Constipation Melatonin (Melatonin 3 Mg Tablet) 6 mg PO BEDTIME PRN PRN Reason: Insomnia Pharmacy Consult (Consult Rx Vancomycin Dosing) 1 each MISCELLANE DAILY PRN PRN Reason: Consult order Prednisone (Prednisone 20 Mg Tablet) 40 mg PO DAILY [facility] Sodium Chloride (0.9 % Sodium Chloride Flush 3 Ml Syringe) 3 ml IVFLUSH QSHIFT [facility] Last Admin: 04/01/24 00:06 Dose: Not Given Home Medications ?Medication ?Instructions ?Recorded ?Confirmed ?Type atorvastatin 80 mg tablet 80 mg PO BEDTIME 08/21/20 03/30/24 History blood sugar diagnostic #10 ea 08/21/20 03/30/24 History blood-glucose meter #1 ea 08/21/20 03/30/24 History pen needle, diabetic 31 gauge x #50 ea 08/21/20 03/30/24 History 3/16 insulin aspart U-100 100 unit/mL 0 sliding scale dose subcut QIDACHS 11/19/22 03/30/24 History (3 mL) subcutaneous pen (Novolog FlexPen U-100 Insulin aspart) lancets 30 gauge (OneAdaliduch [place] #100 ea 11/19/22 03/30/24 History Plus Lancet) ezetimibe 10 mg tablet 10 mg PO BEDTIME 03/15/24 03/30/24 History fluticasone propionate 50 1 spray intranasal Q12H PRN 03/15/24 03/30/24 History mcg/actuation nasal Congestion spray,suspension (Flonase Allergy Relief) furosemide 20 mg tablet 20 mg PO BID@0900,1700 03/15/24 03/30/24 History insulin detemir U-100 100 unit/mL 16 unit subcut BEDTIME 03/15/24 03/30/24 History (3 mL) subcutaneous pen Allergies Allergy/AdvReac Type Severity Reaction Status Date / Time No Known Allergies Allergy Verified 03/31/24 18:41 Physical Exam Vital signs: Vital Signs Temp 98.0 F 04/01/24 04:00 Pulse 93 04/01/24 04:00 Resp 18 04/01/24 04:00 BP 121/60 04/01/24 04:00 Pulse Ox 92 04/01/24 04:00 O2 Del Method Oxymask 04/01/24 04:00 O2 Flow Rate 3 04/01/24 04:00 Intake & Output 03/31/24 04/01/24 04/01/24 18:59 06:59 18:59 Intake Total 760 / 760 Balance 760 / 760 Intake: Intake, Oral Amount 60 / 60 Intake, IV Amount 700 / 700 Piperacillin Sodium/Tazobactam 200 / 200 4.5 gm In 0.9 % Sodium Chloride 100 ml @ 200 mls/hr IV Q6H [facility] Rx#:[id number] vancomycin HCL 1,500 mg In 0.9 500 / 500 % Sodium Chloride 500 ml @ 333. 333 mls/hr IV ONCE ONE Rx#: [id number] Other: Number of Unmeasured Voids 2 Last Bowel Movement 03/31/24 Weight 63.957 kg 64 kg Weight in Grams 28916 Weight 64 kg Hem/Onc Consult Result - Labs CBC & Chem 7: 04/01/24 05:59 04/01/24 05:59 Labs: Short CBC 03/31/24 04/01/24 Range/Units 19:16 05:59 WBC 17.5 H 14.0 H (4.8-10.8) X10*3/uL Hgb 10.0 L 10.0 L (12.0-16.0) g/dl Hct 30.3 L 31.4 L (37.0-47.0) % Plt Count 333 306 (160-400) X10*3/uL BMP 03/31/24 04/01/24 19:16 05:59 Sodium 137 137 Potassium 3.8 3.5 Chloride 96 96 Carbon Dioxide 26 26 BUN 20 H 21 H Creatinine 0.84 0.91 Calcium 9.1 9.2 Liver Function 03/31/24 Range/Units 19:16 Total Bilirubin 1.8 H (0.0-1.0) mg/dL AST 25 (5-31) U/L ALT 13 (0-31) U/L Alkaline Phosphatase 161 H (39-117) U/L Albumin 3.1 L (3.5-5.0) g/dL Urine 04/01/24 Range/Units 01:31 Urine Color Dark Yellow Urine Appearance Turbid Urine pH 5.5 (5.0-9.0) Ur Specific [place] >= 1.030 H (1.005-1.025) Urine Protein Trace (Neg-Trace) mg/dL Urine Glucose (UA) Negative (Negative) mg/dL Assessment and Plan Patient Active problem list reviewed?: Yes (1) Non-small cell lung cancer (NSCLC) Status: Acute Assessment and plan: I agree with current therapy of pulmonary support, cathartics and antibiotics. Dr. Berger will be here tomorrow. Suggest clarification of MOLST. Will fpollow. - Time Spent With Patient Time Spent with Patient (in minutes): 20
[2024-04-01 07:43] LABS: Glucose, Whole Blood 215 mg/dL (60-115)
[2024-04-01] MEDS: Insulin Lispro 100 UNIT/ML 3 ML VIAL SUBCUT ×4 (08:13→20:58)
[2024-04-01] MEDS: predniSONE 20 MG TABLET 40 MG PO (08:13)
[2024-04-01] MEDS: 0.9 % Sodium Chloride Flush 3 ML SYRINGE IVFLUSH ×2 (08:22→23:13)
--- NOTE | 2024-04-01 08:47 | HO.PM.IMPN ---
Subjective Subjective Date of Service: 04/01/24 Interval History: had BM Physical Exam Vital Signs: Vital Signs: Last Vital Signs Temp 97.3 F 04/01/24 07:33 Pulse 96 04/01/24 08:00 Resp 18 04/01/24 08:00 BP 137/60 04/01/24 07:33 Pulse Ox 97 04/01/24 07:33 O2 Del Method Oxymask 04/01/24 07:33 O2 Flow Rate 3 04/01/24 07:33 Oxygen Flow Rate 3 03/31/24 18:39 BMI result Body Mass Index 23.5 Const: Other: Constitutional : Awake, interactive, not in distress Neck : Normal inspection, Supple Cardiovascular : RRR, no JVP, no lower extremity edema Respiratory : fair bilateral air entry, basal fine lt sided crackles, on O2 supplement Gastrointestinal: soft, lax, Normal bowel sounds, Non tender Skin : Warm, Dry Neurological : Alert & oriented x3, No focal deficit Objective Data Active Medications Acetaminophen (Acetaminophen 325 Mg Tablet) 650 mg PO Q6H PRN PRN Reason: Pain, Mild (Pain Scale 1-3), fever or headache Albuterol/Ipratropium (Albuterol/Iprat 2.5/0.5mg 3 Ml Ampul.Neb) 3 ml INHALE RQ4H WHILE AWAKE [facility] Last Admin: 04/01/24 07:38 Dose: 3 ml Documented By: VASU Albuterol/Ipratropium (Albuterol/Iprat 2.5/0.5mg 3 Ml Ampul.Neb) 3 ml INHALE Q4H PRN PRN Reason: Wheezing Last Admin: 04/01/24 03:09 Dose: 3 ml Documented By: ABHILASH Calcium Carbonate (Calcium Carbonate 750 Mg Tab.Chew) 750 mg PO Q4H PRN PRN Reason: Heartburn Enoxaparin Sodium (Enoxaparin Sodium 40 Mg/0.4 Ml Syringe) 40 mg SUBCUT Q24H [facility] Last Admin: 03/31/24 21:54 Dose: 40 mg Documented By: VENITA Glucose (Glucose Gel 15 Gm Gel..Gram.) 15 gm PO Q15M PRN; Protocol PRN Reason: per Hypoglycemia Standing Ord. Guaifenesin (Guaifenesin 200 Mg/10 Ml 10 Ml Liquid) 10 ml PO Q4H PRN PRN Reason: Cough Piperacillin Sod/Tazobactam (Sod 4.5 gm/ Sodium Chloride) 100 mls @ 200 mls/hr IV Q6H [facility] Last Admin: 04/01/24 08:13 Dose: 200 mls/hr Documented By: ARETHA Dextrose (D10) 250 mls @ 750 mls/hr IV Q15M PRN; Protocol PRN Reason: per Hypoglycemia Standing Ord. Vancomycin HCl 1,000 mg/ (Sodium Chloride) 270 mls @ 270 mls/hr IV Q24H [facility] Insulin Human Lispro (Insulin Lispro 100 Unit/Ml 3 Ml Vial) 0 unit SUBCUT QIDACHS [facility]; Protocol Last Admin: 04/01/24 08:13 Dose: 4 unit Documented By: ARETHA Magnesium Hydroxide (Milk Of Magnesia 30 Ml Oral.Susp) 30 ml PO DAILY PRN PRN Reason: Constipation Melatonin (Melatonin 3 Mg Tablet) 6 mg PO BEDTIME PRN PRN Reason: Insomnia Pharmacy Consult (Consult Rx Vancomycin Dosing) 1 each MISCELLANE DAILY PRN PRN Reason: Consult order Prednisone (Prednisone 20 Mg Tablet) 40 mg PO DAILY [facility] Last Admin: 04/01/24 08:13 Dose: 40 mg Documented By: ARETHA Sodium Chloride (0.9 % Sodium Chloride Flush 3 Ml Syringe) 3 ml IVFLUSH QSHIFT [facility] Last Admin: 04/01/24 08:22 Dose: 3 ml Documented By: ARETHA Labs 04/01/24 05:59 04/01/24 05:59 Labs: Laboratory Results - last 24 hr 03/31/24 03/31/24 03/31/24 19:12 19:16 19:17 MCV 104.1 H MCH 34.4 H MCHC 33.0 RDW 15.3 Plt Count 333 MPV 12.8 H Immature Gran % (Auto) Cancelled Neut % (Auto) Cancelled Lymph % (Auto) Cancelled [place] % (Auto) Cancelled Eos % (Auto) Cancelled Baso % (Auto) Cancelled Lymph # (Auto) Cancelled [place] # (Auto) Cancelled Eos # (Auto) Cancelled Baso # (Auto) Cancelled Abs Immat Gran (auto) Cancelled Absolute Neuts (auto) Cancelled Absolute Nucleated RBC 0.020 H Nucleated RBC % (auto) 0.1 Neutrophils % (Manual) 92 H Band Neutrophils % 3 Lymphocytes % (Manual) 2 L Monocytes % (Manual) 3 Abs Neuts (Manual) 16.6 H Lymphocytes # (Manual) 0.4 L Monocytes # (Manual) 0.5 Nucleated RBCs 1 H Toxic Vacuolation PRESENT Platelet Estimate NORMAL Large Platelets PRESENT Plt Morphology Comment NOTE RBC Morphology NORMAL Polychromasia 1+ (0-2) Basophilic Stippling 1+ (0-2) Macrocytosis 1+ (5-14) Spherocytes 1+ (0-2) Ovalocytes 2+ (15-30) Stomatocytes 1+ (5-14) [place] Level Bodies PRESENT Nic Cells Acanthocytes (Spur) 1+ (0-2) Schistocytes 1+ (0-2) PT 15.7 H INR 1.3 H VBG pH 7.60 H* VBG pCO2 37 VBG pO2 49 VBG HCO3 37 H VBG O2 Saturation 82.0 VBG Base Excess 14.5 Anion Gap 19 Estim Creat Clear Calc 49.6 Estimated GFR > 60 POC Glucose Random Glucose 141 H Lactic Acid Calcium 9.1 Magnesium 2.1 Total Bilirubin 1.8 H AST 25 ALT 13 Alkaline Phosphatase 161 H Troponin I High Sens 3.4 C-Reactive Protein 1.89 H B-Natriuretic Peptide 135 H Total Protein 6.3 L Albumin 3.1 L Lipase 6 L Procalcitonin 0.12 Urine Color Urine Appearance Urine pH Ur Specific [place] Urine Protein Urine Glucose (UA) Urine Ketones Urine Blood Urine Nitrite Ur Leukocyte Esterase Urine RBC Urine WBC Ur Squamous Epith Cells Urine Bacteria Hyaline Casts Influenza Type A (PCR) NEGATIVE Influenza Type B (PCR) NEGATIVE RSV RNA Qual (PCR) NEGATIVE SARS-CoV-2 RNA (RT-PCR) NEGATIVE 03/31/24 03/31/24 04/01/24 22:00 23:05 01:31 MCV MCH MCHC RDW Plt Count MPV Immature Gran % (Auto) Neut % (Auto) Lymph % (Auto) [place] % (Auto) Eos % (Auto) Baso % (Auto) Lymph # (Auto) [place] # (Auto) Eos # (Auto) Baso # (Auto) Abs Immat Gran (auto) Absolute Neuts (auto) Absolute Nucleated RBC Nucleated RBC % (auto) Neutrophils % (Manual) Band Neutrophils % Lymphocytes % (Manual) Monocytes % (Manual) Abs Neuts (Manual) Lymphocytes # (Manual) Monocytes # (Manual) Nucleated RBCs Toxic Vacuolation Platelet Estimate Large Platelets Plt Morphology Comment RBC Morphology Polychromasia Basophilic Stippling Macrocytosis Spherocytes Ovalocytes Stomatocytes [place] Level Bodies Tivoli Cells Acanthocytes (Spur) Schistocytes PT INR VBG pH VBG pCO2 VBG pO2 VBG HCO3 VBG O2 Saturation VBG Base Excess Anion Gap Estim Creat Clear Calc Estimated GFR POC Glucose 161 H Random Glucose Lactic Acid 1.8 Calcium Magnesium Total Bilirubin AST ALT Alkaline Phosphatase Troponin I High Sens C-Reactive Protein B-Natriuretic Peptide Total Protein Albumin Lipase Procalcitonin Urine Color Dark Yellow Urine Appearance Turbid Urine pH 5.5 Ur Specific [place] >= 1.030 H Urine Protein Trace Urine Glucose (UA) Negative Urine Ketones Trace Urine Blood Negative Urine Nitrite Negative Ur Leukocyte Esterase Trace H Urine RBC 6-10 H Urine WBC 0-5 Ur Squamous Epith Cells 3-5 Urine Bacteria None Seen Hyaline Casts 0-2 Influenza Type A (PCR) Influenza Type B (PCR) RSV RNA Qual (PCR) SARS-CoV-2 RNA (RT-PCR) 04/01/24 04/01/24 04/01/24 05:59 06:05 07:32 MCV 107.5 H MCH 34.2 H MCHC 31.8 RDW 15.2 Plt Count 306 MPV 13.0 H Immature Gran % (Auto) Cancelled Neut % (Auto) Cancelled Lymph % (Auto) Cancelled [place] % (Auto) Cancelled Eos % (Auto) Cancelled Baso % (Auto) Cancelled Lymph # (Auto) Cancelled [place] # (Auto) Cancelled Eos # (Auto) Cancelled Baso # (Auto) Cancelled Abs Immat Gran (auto) Cancelled Absolute Neuts (auto) Cancelled Absolute Nucleated RBC 0.030 H Nucleated RBC % (auto) 0.2 Neutrophils % (Manual) 94 H Band Neutrophils % 0 L Lymphocytes % (Manual) 6 L Monocytes % (Manual) Abs Neuts (Manual) 13.2 H Lymphocytes # (Manual) 0.8 L Monocytes # (Manual) Nucleated RBCs Toxic Vacuolation PRESENT Platelet Estimate NORMAL Large Platelets PRESENT Plt Morphology Comment NOTED RBC Morphology NOTED Polychromasia 1+ (0-2) Basophilic Stippling Macrocytosis Spherocytes 1+ (0-2) Ovalocytes 1+ (5-14) Stomatocytes [place] Level Bodies Nic Cells 2+ (3-5) Acanthocytes (Spur) 2+ (3-5) Schistocytes 1+ (0-2) PT INR VBG pH 7.57 H VBG pCO2 34 VBG pO2 92 VBG HCO3 31 H VBG O2 Saturation 99.0 VBG Base Excess 9.1 Anion Gap 19 Estim Creat Clear Calc 45.8 Estimated GFR 60 POC Glucose 215 H Random Glucose 215 H Lactic Acid Calcium 9.2 Magnesium Total Bilirubin AST ALT Alkaline Phosphatase Troponin I High Sens C-Reactive Protein B-Natriuretic Peptide Total Protein Albumin Lipase Procalcitonin Urine Color Urine Appearance Urine pH Ur Specific [place] Urine Protein Urine Glucose (UA) Urine Ketones Urine Blood Urine Nitrite Ur Leukocyte Esterase Urine RBC Urine WBC Ur Squamous Epith Cells Urine Bacteria Hyaline Casts Influenza Type A (PCR) Influenza Type B (PCR) RSV RNA Qual (PCR) SARS-CoV-2 RNA (RT-PCR) Assessment and Plan (1) Non-small cell lung cancer (NSCLC): Status: Acute Plan 79F PMH Metastatic [id number] lung cancer status post resection and segmentectomy, coronary disease, SVT, chronic diastolic CHF, chronic hypoxic respiratory failure on 3 L O2, hypertension, hyperlipidemia, COPD, diabetes presented with shortness of breath and constipation. Acute on chronic hypoxic respiratory failure secondary to postobstructive pneumonia and sepsis in a patient with metastatic [id number] lung cancer Continue vancomycin Zosyn, wean O2 as tolerated COPD with acute decompensation Steroids, nebs Constipation Had successful bowel movements Chronic diastolic CHF Continue Lasix maintenance Coronary disease Continue dual antiplatelet and statin Diabetes Insulin sliding scale Hypothyroid Continue Synthroid SVT On amiodarone DVT prophylaxis with Lovenox DNR/DNI Reason for continued hospitalization: Still with shortness of breath. Quality Stroke Does the patient have a stroke diagnosis?: No VTE Prior VTE?: No VTE Risk Level:: Medical - moderate - high VTE Device Contraindication: Treatment Not Indicated VTE Drug Contraindication: N/A - Med Ordered
--- NOTE | 2024-04-01 09:11 | PHA.MEDREC ---
Pharmacy Consult ? Medication Reconciliation Pharmacy has completed the medication reconciliation. Spoke with patient to confirm medications. She confirmed that she is no longer taking lisinopril. She states she has been taking the guaifenesin and doxycycline she was discharged here with, both taken yesterday (she finished her cefuroxime). She has zofran at home but has not had to take it. She confirmed her insulin units, detemir 16 units at bedtime and aspart is sliding scale. She uses citalorpam as needed for anxiety and does not take it everyday. She reports she last took her medications yesterday morning.
[2024-04-01] MEDS: Amiodarone HCL 200 MG TABLET PO (10:08)
[2024-04-01] MEDS: Levothyroxine Sodium 25 MCG TABLET PO (10:09)
[2024-04-01] MEDS: Folic Acid 1 MG TABLET PO (10:09)
[2024-04-01] MEDS: Clopidogrel Bisulfate 75 MG TABLET PO (10:09)
[2024-04-01] MEDS: Aspirin Enteric Coated 81 MG TABLET.DR PO (10:09)
--- NOTE | 2024-04-01 10:09 | MHC.CM.PN ---
PT REPORTS SHE LIVES ALONE AND IS INDEPENDENT WITH CARE SHE IS ACTIVE WITH [facility] AND HAS NO OTHER SERVICES AND NO DME HCP ON FILE AND VERIFIED PCP: [facility] IMM DELIVERED DCP: HOME RESUME [facility] FAMILY TO TRANSPORT
[2024-04-01] MEDS: carvediloL 6.25 MG TABLET PO ×2 (10:10→20:57)
[2024-04-01] MEDS: Isosorbide Mononitrate 30 MG TAB.ER.24H PO (10:10)
[2024-04-01] MEDS: polyethylene glycoL 3350 17 GM POWD.PACK PO (10:14)
[2024-04-01 11:21] LABS: Glucose, Whole Blood 232 mg/dL (60-115)
--- NOTE | 2024-04-01 11:23 | PM.CNPUL ---
History of Present Illness History of Present Illness Consult date: 04/01/24 Chief complaint: dyspnea, abd pain Narrative: This is an inpatient pulmonary consultation. The patient is a will 79-year-old female with a PMH significant for metastatic?[id number] left lung cancer s/p resection and segmentectomy who follows with Dr. Berger, CAD s/p stenting, SVT, HFpEF, insulin-dependent type 2 diabetes, HTN, HLD, COPD with chronic hypoxemic respiatory failure on 3L O2 at baseline, and hypothyroidism presented to the ED for evaluation of right sided abd pain that has been gradually worsening over the last few days, but was reported as a 10/10 today prompting her to present to the ED for evaluation. No fevers, chills, nausea, vomiting, melena, hematochezia. She reports she has not had a full bowel movement in 8 days despite multiple enemas, miralax, and senna. She was recently admitted 03/15-03/23 for COPD exacerbation and post obstructive pneumonia. Since then continues to have intermittent cough but denies any sputum production or acute worsening of cough. She states her shortness of breath is baseline both at rest and with exertion. No chest pains. On arrival however, was satting 78% on baseline 3L and was transitioned to 6L via oxymask and has now been weaned to 3L via oxymask. No respiratory distress noted. She has a worsening leukocytosis of 17.5. The patient was placed on vancomycin and Zosyn. Still having some difficulty taking a deep breath in. No significant pain now. Review of Systems Constitutional: Constitutional: Denies daytime sleepiness, Denies excessive sweating, Denies fatigue, Denies fever(s), Denies lethargy, Denies malaise, Denies night sweats, Denies snoring and Denies weight loss Eyes: Eyes: Denies blurry vision and Denies itchy eyes ENT: Denies nasal congestion, Denies post nasal drip, Denies sinus pain, Denies sinus pressure and Denies other ( Thrush) Cardiovascular: Cardiovascular: Denies chest pain, Denies pedal edema, Reports leg edema, Reports dyspnea, Reports dyspnea on exertion, Denies orthopnea and Denies paroxysmal nocturnal dyspnea Respiratory: Respiratory: Reports chest congestion, Reports cough, Denies hemoptysis, Reports pain on inspiration, Reports pain with cough, Reports dyspnea, Reports dyspnea on exertion, Denies snoring and Denies wheezing Gastrointestinal: Gastrointestinal: Denies abdominal pain and Denies heartburn Musculoskeletal: Musculoskeletal: Denies myalgias, Denies arthralgias and Denies joint swelling Integumentary/Breasts: Skin/Breast: Denies rash Neurologic: Denies memory loss and Denies seizure-like activity Psychiatric: Psychiatric: Denies abnormal sleep pattern, Denies anxiety and Denies memory loss Endocrine: Endocrine: Denies excessive sweating, Denies fatigue and Denies heat intolerance Hematologic/Lymphatic: Hematologic/Lymphatic: Denies easy bruising Allergic/Immunologic: Allergic/Immunologic: Denies itchy eyes, Denies seasonal rhinorrhea and Denies wheezing PMFSH Past Medical History Medical History 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 COPD (chronic obstructive pulmonary disease) SVT (supraventricular tachycardia) Tachycardia Dyslipidemia PAD (peripheral artery disease) Nicotine dependence, cigarettes, uncomplicated Tubular adenoma of colon Anemia Anxiety CAD (coronary artery disease) Essential hypertension Diabetes type 2, controlled Family History Family History Daughter Lung cancer Father Bone cancer Mother Colon cancer Surgical History Surgical History S/P cardiac catheterization History of lung surgery History of varicose vein stripping History of angioplasty History of heart artery stent History of carpal tunnel surgery of right wrist History of colonoscopy History of splenectomy History of partial pancreatectomy History of cholecystectomy History of appendectomy History of tonsillectomy Social History Social History Household Members: None Housing: House Are you a primary child care centre director to a significant other at home: No Do you presently have visiting nurse or other home services: No Alcohol intake: never Comment: pt rings appropriately Patient Tobacco Use Status: Former Tobacco user Tobacco use type: Cigarette Years Smoked: 50 Smoked in Last 30 Days: No e-Cigarette/Vaping Use: Never Used Second Hand Smoke Exposure: No Use of substances other than those prescribed or required for medical reasons: No Currently Displaying Signs/Symptoms of Drug Intoxication Withdrawal: No Have you been hit, kicked, punched, or otherwise hurt by someone within the past year? If so, by whom?: No Do you feel safe in your current relationship?: No Current Relationship Is there a partner from a previous relationship who is making you feel unsafe now?: No Are you made to feel afraid or neglected: No Advance Directives: Yes Advance Directives on File: Yes Advance Directives Date on File: 01/18/23 Do you have a plan to hurt others: No Plan Recently lost weight without trying: No Eating poorly because of decreased appetite: Yes Nutrition Risks: No Nutritional Risk Patient : No : No Poor oral hygiene: No service: No Current occupational status: retired Current occupational exposures/hazards: No Cognitive needs: No Hearing needs: No Vision needs: No Meds Allergies Allergy/AdvReac Type Severity Reaction Status Date / Time No Known Allergies Allergy Verified 03/31/24 18:41 Active Medications: Current Medications Acetaminophen (Acetaminophen 325 Mg Tablet) 650 mg PO Q6H PRN PRN Reason: Pain, Mild (Pain Scale 1-3), fever or headache Acetylcysteine (Acetylcysteine 10 % 400 Mg/4 Ml Vial) 400 mg INHALE RBID [facility] Albuterol/Ipratropium (Albuterol/Iprat 2.5/0.5mg 3 Ml Ampul.Neb) 3 ml INHALE RQ4H WHILE AWAKE [facility] Last Admin: 04/01/24 11:10 Dose: 3 ml Albuterol/Ipratropium (Albuterol/Iprat 2.5/0.5mg 3 Ml Ampul.Neb) 3 ml INHALE Q4H PRN PRN Reason: Wheezing Last Admin: 04/01/24 03:09 Dose: 3 ml Amiodarone HCl (Amiodarone Hcl 200 Mg Tablet) 200 mg PO DAILY [facility] Last Admin: 04/01/24 10:08 Dose: 200 mg Aspirin (Aspirin Enteric Coated 81 Mg Tablet.Dr) 81 mg PO DAILY [facility] Last Admin: 04/01/24 10:09 Dose: 81 mg Atorvastatin Calcium (Atorvastatin Calcium 80 Mg Tablet) 80 mg PO BEDTIME [facility] Calcium Carbonate (Calcium Carbonate 750 Mg Tab.Chew) 750 mg PO Q4H PRN PRN Reason: Heartburn Carvedilol (Carvedilol 6.25 Mg Tablet) 6.25 mg PO BID [facility]; Protocol Last Admin: 04/01/24 10:10 Dose: 6.25 mg Clopidogrel Bisulfate (Clopidogrel Bisulfate 75 Mg Tablet) 75 mg PO DAILY [facility] Last Admin: 04/01/24 10:09 Dose: 75 mg Ezetimibe (Ezetimibe 10 Mg Tablet) 10 mg PO BEDTIME [facility] Enoxaparin Sodium (Enoxaparin Sodium 40 Mg/0.4 Ml Syringe) 40 mg SUBCUT Q24H [facility] Last Admin: 03/31/24 21:54 Dose: 40 mg Folic Acid (Folic Acid 1 Mg Tablet) 1 mg PO DAILY [facility] Last Admin: 04/01/24 10:09 Dose: 1 mg Furosemide (Furosemide 20 Mg Tablet) 20 mg PO BID@0900,1700 [facility]; Protocol Glucose (Glucose Gel 15 Gm Gel..Gram.) 15 gm PO Q15M PRN; Protocol PRN Reason: per Hypoglycemia Standing Ord. Guaifenesin (Guaifenesin 200 Mg/10 Ml 10 Ml Liquid) 10 ml PO Q4H PRN PRN Reason: Cough Piperacillin Sod/Tazobactam (Sod 4.5 gm/ Sodium Chloride) 100 mls @ 200 mls/hr IV Q6H [facility] Last Infusion: 04/01/24 09:17 Dose: Infused Dextrose (D10) 250 mls @ 750 mls/hr IV Q15M PRN; Protocol PRN Reason: per Hypoglycemia Standing Ord. Vancomycin HCl 1,000 mg/ (Sodium Chloride) 270 mls @ 270 mls/hr IV Q24H [facility] Insulin Human Lispro (Insulin Lispro 100 Unit/Ml 3 Ml Vial) 0 unit SUBCUT QIDACHS [facility]; Protocol Last Admin: 04/01/24 08:13 Dose: 4 unit Isosorbide Mononitrate (Isosorbide Mononitrate 30 Mg Tab.Er.24h) 30 mg PO DAILY [facility]; Protocol Last Admin: 04/01/24 10:10 Dose: 30 mg Levothyroxine Sodium (Levothyroxine Sodium 25 Mcg Tablet) 25 mcg PO DAILY@0600 [facility] Last Admin: 04/01/24 10:09 Dose: 25 mcg Magnesium Hydroxide (Milk Of Magnesia 30 Ml Oral.Susp) 30 ml PO DAILY PRN PRN Reason: Constipation Melatonin (Melatonin 3 Mg Tablet) 6 mg PO BEDTIME PRN PRN Reason: Insomnia Pharmacy Consult (Consult Rx Vancomycin Dosing) 1 each MISCELLANE DAILY PRN PRN Reason: Consult order Polyethylene Glycol (Polyethylene Glycol 3350 17 Gm Powd.Pack) 17 gm PO DAILY [facility] Last Admin: 04/01/24 10:14 Dose: 17 gm Prednisone (Prednisone 20 Mg Tablet) 40 mg PO DAILY [facility] Last Admin: 04/01/24 08:13 Dose: 40 mg Sodium Chloride (0.9 % Sodium Chloride Flush 3 Ml Syringe) 3 ml IVFLUSH QSHIFT [facility] Last Admin: 04/01/24 08:22 Dose: 3 ml Home Medications ?Medication ?Instructions ?Recorded ?Confirmed ?Last Taken ?Type atorvastatin 80 mg tablet 80 mg PO BEDTIME 08/21/20 04/01/24 03/14/24 History blood sugar diagnostic #10 ea 08/21/20 03/30/24 Unknown History blood-glucose meter #1 ea 08/21/20 03/30/24 Unknown History pen needle, diabetic 31 gauge x #50 ea 08/21/20 03/30/24 Unknown History 3/16 insulin aspart U-100 100 unit/mL See Protocol subcut QIDACHS 11/19/22 04/01/24 03/15/24 History (3 mL) subcutaneous pen (Novolog FlexPen U-100 Insulin aspart) lancets 30 gauge (OneTouch Delica #100 ea 11/19/22 03/30/24 Unknown History Plus Lancet) ezetimibe 10 mg tablet 10 mg PO BEDTIME 03/15/24 04/01/24 03/14/24 History furosemide 20 mg tablet 20 mg PO BID@0900,1700 03/15/24 04/01/24 03/15/24 History insulin detemir U-100 100 unit/mL 16 unit subcut BEDTIME 03/15/24 04/01/24 03/15/24 History (3 mL) subcutaneous pen citalopram 10 mg tablet 10 mg PO DAILY PRN Anxiety 04/01/24 04/01/24 Unknown History guaifenesin 100 mg/5 mL oral liquid 200 mg PO Q4H PRN Congestion 04/01/24 04/01/24 03/31/24 History Physical Exam Vital Signs: Vital Signs: Last Vital Signs Temp 96.8 F 04/01/24 10:11 Pulse 83 04/01/24 11:16 Resp 18 04/01/24 11:16 BP 122/58 L 04/01/24 10:11 Pulse Ox 96 04/01/24 10:11 O2 Del Method Oxymask 04/01/24 10:11 O2 Flow Rate 3 04/01/24 10:11 Oxygen Flow Rate 3 03/31/24 18:39 BMI result Body Mass Index 23.5 Const: General: alert, awake and tired appearing Eyes: Sclerae: sclerae normal EOM: EOMs intact bilaterally Neck: Neck: Yes no lymphadenopathy, Yes trachea midline and Yes supple Resp: Effort & Inspection: normal respiratory effort Auscultation: crackles and diminished lung sounds Cardio: Rate: regular rate Rhythm: regular rhythm Heart sounds: no gallops, no murmurs and no rubs GI: Palpation (GI): Soft to palpation and Other GI palpation findings present ( Nontender) Auscultation: normal bowel sounds Extrem: General: Yes no pedal edema, No clubbing and No cyanosis Results Laboratory Findings 04/01/24 05:59 04/01/24 05:59 ABG, PT/INR, D-dimer: PT/INR, D-dimer PT 15.7 SEC (11.1-13.3) H 03/31/24 19:16 INR 1.3 (0.9-1.1) H 03/31/24 19:16 Abnormal lab findings: Abnormal Labs 03/31/24 03/31/24 03/31/24 19:16 19:17 22:00 WBC 17.5 H RBC 2.91 L Hgb 10.0 L Hct 30.3 L MCV 104.1 H MCH 34.4 H MPV 12.8 H Absolute Nucleated RBC 0.020 H Neutrophils % (Manual) 92 H Band Neutrophils % Lymphocytes % (Manual) 2 L Abs Neuts (Manual) 16.6 H Lymphocytes # (Manual) 0.4 L Nucleated RBCs 1 H PT 15.7 H INR 1.3 H VBG pH 7.60 H* VBG HCO3 37 H BUN 20 H POC Glucose 161 H Random Glucose 141 H Total Bilirubin 1.8 H Alkaline Phosphatase 161 H C-Reactive Protein 1.89 H B-Natriuretic Peptide 135 H Total Protein 6.3 L Albumin 3.1 L Lipase 6 L Ur Specific [place] Ur Leukocyte Esterase Urine RBC 04/01/24 04/01/24 04/01/24 01:31 05:59 06:05 WBC 14.0 H RBC 2.92 L Hgb 10.0 L Hct 31.4 L MCV 107.5 H MCH 34.2 H MPV 13.0 H Absolute Nucleated RBC 0.030 H Neutrophils % (Manual) 94 H Band Neutrophils % 0 L Lymphocytes % (Manual) 6 L Abs Neuts (Manual) 13.2 H Lymphocytes # (Manual) 0.8 L Nucleated RBCs PT INR VBG pH 7.57 H VBG HCO3 31 H BUN 21 H POC Glucose Random Glucose 215 H Total Bilirubin Alkaline Phosphatase C-Reactive Protein B-Natriuretic Peptide Total Protein Albumin Lipase Ur Specific [place] >= 1.030 H Ur Leukocyte Esterase Trace H Urine RBC 6-10 H 04/01/24 04/01/24 07:32 11:14 WBC RBC Hgb Hct MCV MCH MPV Absolute Nucleated RBC Neutrophils % (Manual) Band Neutrophils % Lymphocytes % (Manual) Abs Neuts (Manual) Lymphocytes # (Manual) Nucleated RBCs PT INR VBG pH VBG HCO3 BUN POC Glucose 215 H 232 H Random Glucose Total Bilirubin Alkaline Phosphatase C-Reactive Protein B-Natriuretic Peptide Total Protein Albumin Lipase Ur Specific [place] Ur Leukocyte Esterase Urine RBC Assessment and Plan (1) Acute and chronic respiratory failure: Qualifiers: Respiratory failure complication: hypoxia Qualified Code(s): J96.21 - Acute and chronic respiratory failure with hypoxia Status: Acute (2) Non-small cell lung cancer (NSCLC): Qualifiers: Laterality: unspecified laterality Qualified Code(s): C34.90 - Malignant neoplasm of unspecified part of unspecified bronchus or lung Status: Acute (3) Pneumonia: Qualifiers: Pneumonia type: due to unspecified organism Laterality: left Lung location: unspecified part of lung Qualified Code(s): J18.9 - Pneumonia, unspecified organism Status: Acute post obstructive Plan continue vanco/zosyn Star CPT with aerobika sputum culure if able start mucomyst BID Procedures Date of Service Date of Service: 04/01/24
[2024-04-01 16:34] LABS: Glucose, Whole Blood 313 mg/dL (60-115)
[2024-04-01] MEDS: Furosemide 20 MG TABLET PO (16:54)
[2024-04-01] MEDS: Acetaminophen 325 MG TABLET 650 MG PO (16:54)
[2024-04-01] MEDS: Milk of Magnesia 30 ML ORAL.SUSP PO (16:55)
[2024-04-01] MEDS: Enoxaparin Sodium 40 MG/0.4 ML SYRINGE SUBCUT (19:32)
[2024-04-01] MEDS: Acetylcysteine 10 % 400 MG/4 ML VIAL INHALE (20:02)
[2024-04-01 20:49] LABS: Glucose, Whole Blood 268 mg/dL (60-115)
[2024-04-01] MEDS: Atorvastatin Calcium 80 MG TABLET PO (20:57)
[2024-04-01] MEDS: traMADoL HCL 50 MG TABLET 25 MG PO (20:57)
[2024-04-01] MEDS: Ezetimibe 10 MG TABLET PO (20:57)
[2024-04-01] MEDS: bisacodyL 10 MG SUPP.RECT PR (20:58)
[2024-04-01] MEDS: vancomycin HCL 1,000 MG in 0.9 % Sodium Chloride 250 ML 270 MG IV (23:12)
[2024-04-02] VITALS (11 sets, daily range): BP systolic 116–137; BP diastolic 57–62; PULSE 76–90; RESP 16–18; TEMP 36–36.6; O2SAT 82–95
[2024-04-02] MEDS: Piperacillin Sodium/Tazobactam 4.5 GM in 0.9 % Sodium Chloride 100 ML IV ×4 (02:36→20:54)
[2024-04-02] MEDS: Albuterol/Iprat 2.5/0.5MG 3 ML AMPUL.NEB INHALE ×5 (05:41→20:02)
[2024-04-02] MEDS: Levothyroxine Sodium 25 MCG TABLET PO (06:02)
[2024-04-02 07:50] LABS: Glucose, Whole Blood 226 mg/dL (60-115)
[2024-04-02 07:55] LABS: Hematocrit 29.5 % (37.0-47.0); Hemoglobin 9.5 g/dl (12.0-16.0); Mean Corpuscular Hemoglobin 34.2 pg (27.0-33.0); Mean Corpuscular Volume 106.1 fL (80.0-98.0); PLT CLUMP 1; Red Blood Count 2.78 X10*6/uL (4.20-5.50); Red Cell Distribution Width 16.9 % (11.0-16.0); WBC ABN SCTR FOR CBC 1
[2024-04-02 07:56] LABS: Mean Corpuscular HGB Conc 32.2 g/dl (31.0-35.0)
[2024-04-02] MEDS: Amiodarone HCL 200 MG TABLET PO (08:01)
[2024-04-02] MEDS: predniSONE 20 MG TABLET 40 MG PO (08:01)
[2024-04-02] MEDS: Folic Acid 1 MG TABLET PO (08:02)
[2024-04-02] MEDS: Furosemide 20 MG TABLET PO ×2 (08:02→16:09)
[2024-04-02] MEDS: Isosorbide Mononitrate 30 MG TAB.ER.24H PO (08:02)
[2024-04-02] MEDS: Aspirin Enteric Coated 81 MG TABLET.DR PO (08:02)
[2024-04-02] MEDS: Clopidogrel Bisulfate 75 MG TABLET PO (08:02)
[2024-04-02] MEDS: Insulin Lispro 100 UNIT/ML 3 ML VIAL SUBCUT ×4 (08:03→20:54)
[2024-04-02] MEDS: carvediloL 6.25 MG TABLET PO ×2 (08:03→20:53)
[2024-04-02] MEDS: 0.9 % Sodium Chloride Flush 3 ML SYRINGE IVFLUSH ×3 (08:03→22:29)
[2024-04-02] MEDS: polyethylene glycoL 3350 17 GM POWD.PACK PO (08:06)
[2024-04-02] MEDS: Acetylcysteine 10 % 400 MG/4 ML VIAL INHALE ×2 (08:07→20:02)
[2024-04-02 08:34] LABS: Mean Platelet Volume 13.4 fL (9.4-12.3); Platelet Count 393 X10*3/uL (160-400); White Blood Count 20.4 X10*3/uL (4.8-10.8)
[2024-04-02] MEDS: Acetaminophen 325 MG TABLET 650 MG PO ×2 (08:35→16:10)
--- NOTE | 2024-04-02 08:54 | P.PNIM_ITS ---
Subjective Subjective Date of Service: 04/02/24 Interval History: sob Physical Exam 2 Vital Signs: Vital Signs: Last Vital Signs Temp 97.2 F 04/02/24 07:44 Pulse 88 04/02/24 08:07 Resp 18 04/02/24 08:07 BP 137/60 04/02/24 07:44 Pulse Ox 92 04/02/24 07:44 O2 Del Method Nasal Cannula 04/02/24 07:44 O2 Flow Rate 4 04/02/24 07:44 Oxygen Flow Rate 3 03/31/24 18:39 BMI result Body Mass Index 23.5 Const: General: alert, awake and tired appearing Eyes: Sclerae: sclerae normal EOM: EOMs intact bilaterally Neck: Neck: Yes no lymphadenopathy, Yes trachea midline and Yes supple Resp: Effort & Inspection: normal respiratory effort Auscultation: crackles and diminished lung sounds Cardio: Rate: regular rate Rhythm: regular rhythm Heart sounds: no gallops, no murmurs and no rubs GI: Palpation (GI): Soft to palpation and Other GI palpation findings present ( Nontender) Auscultation: normal bowel sounds Extrem: General: Yes no pedal edema, No clubbing and No cyanosis Objective Data Active Medications Acetaminophen (Acetaminophen 325 Mg Tablet) 650 mg PO Q6H PRN PRN Reason: Pain, Mild (Pain Scale 1-3), fever or headache Last Admin: 04/02/24 08:35 Dose: 650 mg Documented By: FELIX Acetylcysteine (Acetylcysteine 10 % 400 Mg/4 Ml Vial) 400 mg INHALE RBID [facility] Last Admin: 04/02/24 08:07 Dose: 400 mg Documented By: OSVALDO Albuterol/Ipratropium (Albuterol/Iprat 2.5/0.5mg 3 Ml Ampul.Neb) 3 ml INHALE RQ4H WHILE AWAKE [facility] Last Admin: 04/02/24 08:07 Dose: 3 ml Documented By: OSVALDO Albuterol/Ipratropium (Albuterol/Iprat 2.5/0.5mg 3 Ml Ampul.Neb) 3 ml INHALE Q4H PRN PRN Reason: Wheezing Last Admin: 04/02/24 05:41 Dose: 3 ml Documented By: JORGE Amiodarone HCl (Amiodarone Hcl 200 Mg Tablet) 200 mg PO DAILY [facility] Last Admin: 04/02/24 08:01 Dose: 200 mg Documented By: FELIX Aspirin (Aspirin Enteric Coated 81 Mg Tablet.) 81 mg PO DAILY [facility] Last Admin: 04/02/24 08:02 Dose: 81 mg Documented By: FELIX Atorvastatin Calcium (Atorvastatin Calcium 80 Mg Tablet) 80 mg PO BEDTIME [facility] Last Admin: 04/01/24 20:57 Dose: 80 mg Documented By: CRISTAL Calcium Carbonate (Calcium Carbonate 750 Mg Tab.Chew) 750 mg PO Q4H PRN PRN Reason: Heartburn Carvedilol (Carvedilol 6.25 Mg Tablet) 6.25 mg PO BID [facility]; Protocol Last Admin: 04/02/24 08:03 Dose: 6.25 mg Documented By: FELIX Clopidogrel Bisulfate (Clopidogrel Bisulfate 75 Mg Tablet) 75 mg PO DAILY [facility] Last Admin: 04/02/24 08:02 Dose: 75 mg Documented By: FELIX Ezetimibe (Ezetimibe 10 Mg Tablet) 10 mg PO BEDTIME [facility] Last Admin: 04/01/24 20:57 Dose: 10 mg Documented By: CRISTAL Enoxaparin Sodium (Enoxaparin Sodium 40 Mg/0.4 Ml Syringe) 40 mg SUBCUT Q24H [facility] Last Admin: 04/01/24 19:32 Dose: 40 mg Documented By: CRISTAL Folic Acid (Folic Acid 1 Mg Tablet) 1 mg PO DAILY [facility] Last Admin: 04/02/24 08:02 Dose: 1 mg Documented By: FELIX Furosemide (Furosemide 20 Mg Tablet) 20 mg PO BID@0900,1700 [facility]; Protocol Last Admin: 04/02/24 08:02 Dose: 20 mg Documented By: FELIX Glucose (Glucose Gel 15 Gm Gel..Gram.) 15 gm PO Q15M PRN; Protocol PRN Reason: per Hypoglycemia Standing Ord. Guaifenesin (Guaifenesin 200 Mg/10 Ml 10 Ml Liquid) 10 ml PO Q4H PRN PRN Reason: Cough Piperacillin Sod/Tazobactam (Sod 4.5 gm/ Sodium Chloride) 100 mls @ 200 mls/hr IV Q6H [facility] Last Infusion: 04/02/24 08:46 Dose: Infused Documented By: FELIX Dextrose (D10) 250 mls @ 750 mls/hr IV Q15M PRN; Protocol PRN Reason: per Hypoglycemia Standing Ord. Vancomycin HCl 1,000 mg/ (Sodium Chloride) 270 mls @ 270 mls/hr IV Q24H [facility] Last Infusion: 04/02/24 00:20 Dose: Infused Documented By: CRISTAL Insulin Human Lispro (Insulin Lispro 100 Unit/Ml 3 Ml Vial) 0 unit SUBCUT QIDACHS [facility]; Protocol Last Admin: 04/02/24 08:03 Dose: 1 unit Documented By: FELIX Isosorbide Mononitrate (Isosorbide Mononitrate 30 Mg Tab.Er.24h) 30 mg PO DAILY [facility]; Protocol Last Admin: 04/02/24 08:02 Dose: 30 mg Documented By: FELIX Levothyroxine Sodium (Levothyroxine Sodium 25 Mcg Tablet) 25 mcg PO DAILY@0600 [facility] Last Admin: 04/02/24 06:02 Dose: 25 mcg Documented By: CRISTAL Magnesium Hydroxide (Milk Of Magnesia 30 Ml Oral.Susp) 30 ml PO DAILY PRN PRN Reason: Constipation Last Admin: 04/01/24 16:55 Dose: 30 ml Documented By: ARETHA Melatonin (Melatonin 3 Mg Tablet) 6 mg PO BEDTIME PRN PRN Reason: Insomnia Pharmacy Consult (Consult Rx Vancomycin Dosing) 1 each MISCELLANE DAILY PRN PRN Reason: Consult order Polyethylene Glycol (Polyethylene Glycol 3350 17 Gm Powd.Pack) 17 gm PO DAILY [facility] Last Admin: 04/02/24 08:06 Dose: 17 gm Documented By: FELIX Prednisone (Prednisone 20 Mg Tablet) 40 mg PO DAILY [facility] Last Admin: 04/02/24 08:01 Dose: 40 mg Documented By: FELIX Sodium Chloride (0.9 % Sodium Chloride Flush 3 Ml Syringe) 3 ml IVFLUSH QSHIFT [facility] Last Admin: 04/02/24 08:03 Dose: 3 ml Documented By: FELIX Labs 04/02/24 07:21 04/01/24 05:59 Labs: Laboratory Results - last 24 hr 04/01/24 04/01/24 04/01/24 11:14 16:22 20:45 MCV MCH MCHC RDW Plt Count MPV Absolute Nucleated RBC Nucleated RBC % (auto) POC Glucose 232 H 313 H 268 H 04/02/24 04/02/24 07:21 07:42 MCV 106.1 H MCH 34.2 H MCHC 32.2 RDW 16.9 H Plt Count 393 D MPV 13.4 H Absolute Nucleated RBC 0.000 Nucleated RBC % (auto) 0.0 POC Glucose 226 H Microbiology Microbiology Results: Microbiology 03/31/24 21:46 Blood Culture - Preliminary Blood - Venous No growth after 24 hours. 03/31/24 20:58 Blood Culture - Preliminary Blood - Venous No growth after 24 hours. Assessment and Plan (1) Non-small cell lung cancer (NSCLC): Status: Acute Plan 79F PMH Metastatic [id number] lung cancer status post resection and segmentectomy, coronary disease, SVT, chronic diastolic CHF, chronic hypoxic respiratory failure on 3 L O2, hypertension, hyperlipidemia, COPD, diabetes presented with shortness of breath and constipation. Acute on chronic hypoxic respiratory failure secondary to postobstructive pneumonia and sepsis in a patient with metastatic [id number] lung cancer Continue vancomycin Zosyn, wean O2 as tolerated, still sob, pulm toilet COPD with acute decompensation Steroids, nebs Constipation Had successful bowel movements Chronic diastolic CHF Continue Lasix maintenance Coronary disease Continue dual antiplatelet and statin Diabetes Insulin sliding scale Hypothyroid Continue Synthroid SVT On amiodarone DVT prophylaxis with Lovenox DNR/DNI Reason for continued hospitalization: Still with shortness of breath. Quality Stroke Does the patient have a stroke diagnosis?: No VTE Prior VTE?: No VTE Risk Level:: Medical - moderate - high VTE Device Contraindication: Treatment Not Indicated VTE Drug Contraindication: N/A - Med Ordered
[2024-04-02 09:24] LABS: Anion Gap 14 (12-20); Blood Urea Nitrogen 25 mg/dL (9-16); Calcium 8.8 mg/dL (8.4-10.2); Carbon Dioxide 32 mmol/L (22-29); Chloride 96 mmol/L (96-108); Creatinine Clr Calc Pharmacy 38.6; Estimated Glomerular Filt Rate 49; Glucose Fasting 290 mg/dL (60-99); Potassium 4.2 mmol/L (3.3-5.1); Sodium 138 mmol/L (135-145)
[2024-04-02] MEDS: oxyCODONE HCl Immed Release 5 MG TABLET PO ×2 (10:40→22:27)
[2024-04-02 11:46] LABS: Glucose, Whole Blood 241 mg/dL (60-115)
--- NOTE | 2024-04-02 15:46 | MHC.CM.PN ---
per rounds pt expected to dc tomorrow plan remains to resume comfort plus vna
[2024-04-02] MEDS: Milk of Magnesia 30 ML ORAL.SUSP PO (16:18)
[2024-04-02 16:44] LABS: Glucose, Whole Blood 368 mg/dL (60-115)
[2024-04-02 19:46] LABS: Glucose, Whole Blood 366 mg/dL (60-115)
[2024-04-02] MEDS: Enoxaparin Sodium 40 MG/0.4 ML SYRINGE SUBCUT (20:53)
[2024-04-02] MEDS: Insulin Glargine,Hum.rec.anlog 100 UNIT/ML 10 ML VIAL 15 UNIT SUBCUT (20:53)
[2024-04-02] MEDS: Atorvastatin Calcium 80 MG TABLET PO (20:53)
[2024-04-02] MEDS: Ezetimibe 10 MG TABLET PO (20:53)
[2024-04-02 21:37] LABS: Vancomycin Random 8.5 mcg/mL (15-20)
--- NOTE | 2024-04-02 21:42 | HE.PHANOTE ---
RE: vanco Random came back low and subtherapeutic at 8.5mg/L; changed dose to 750mg Q12 H with predicted AUC of 553mg/L, trough of 18.4mg/L. Getting another level after two doses 04/03 @2100 due to increase in serum creatinine.
[2024-04-02 22:14] LABS: Glucose, Whole Blood 401 mg/dL (60-115)
[2024-04-02] MEDS: vancomycin HCL 750 MG in 0.9 % Sodium Chloride 250 ML 265 MG IV (22:29)
[2024-04-02 23:07] LABS: Glucose, Whole Blood 386 mg/dL (60-115)
[2024-04-02] MEDS: Insulin Lispro 100 UNIT/ML 3 ML VIAL 12 UNIT SUBCUT (23:28)
[2024-04-02] MEDS: 0.9 % Sodium Chloride 1,000 ML 999 ML IV (23:28)
[2024-04-03] VITALS (14 sets, daily range): BP systolic 107–143; BP diastolic 51–63; PULSE 7–84; RESP 15–20; TEMP 36.2–36.3; O2SAT 85–97
[2024-04-03 02:03] LABS: Glucose, Whole Blood 240 mg/dL (60-115)
[2024-04-03] MEDS: Piperacillin Sodium/Tazobactam 4.5 GM in 0.9 % Sodium Chloride 100 ML IV ×4 (02:19→22:04)
[2024-04-03] MEDS: Albuterol/Iprat 2.5/0.5MG 3 ML AMPUL.NEB INHALE ×5 (04:10→19:47)
[2024-04-03] MEDS: Levothyroxine Sodium 25 MCG TABLET PO (04:46)
[2024-04-03] MEDS: guaiFENesin 200 MG/10 ML 10 ML LIQUID PO ×2 (04:46→11:04)
[2024-04-03 06:32] LABS: Anion Gap 14 (12-20); Blood Urea Nitrogen 26 mg/dL (9-16); Carbon Dioxide 33 mmol/L (22-29); Chloride 99 mmol/L (96-108); Creatinine Clr Calc Pharmacy 46.8; Estimated Glomerular Filt Rate > 60; Glucose Fasting 119 mg/dL (60-99); Potassium 4.5 mmol/L (3.3-5.1); Sodium 141 mmol/L (135-145)
[2024-04-03 06:48] LABS: Hematocrit 29.1 % (37.0-47.0); Hemoglobin 9.2 g/dl (12.0-16.0); Mean Corpuscular HGB Conc 31.6 g/dl (31.0-35.0); Mean Corpuscular Hemoglobin 33.6 pg (27.0-33.0); Mean Corpuscular Volume 106.2 fL (80.0-98.0); Mean Platelet Volume 12.9 fL (9.4-12.3); NRBC Pct Auto 0.2 /100WBC (0.0-0.2); Platelet Count 286 X10*3/uL (160-400); Red Blood Count 2.74 X10*6/uL (4.20-5.50); Red Cell Distribution Width 15.1 % (11.0-16.0); White Blood Count 20.4 X10*3/uL (4.8-10.8)
[2024-04-03] MEDS: 0.9 % Sodium Chloride Flush 3 ML SYRINGE IVFLUSH ×3 (07:35→23:07)
[2024-04-03 07:37] LABS: Glucose, Whole Blood 89 mg/dL (60-115)
[2024-04-03] MEDS: Acetylcysteine 10 % 400 MG/4 ML VIAL INHALE ×2 (08:21→19:47)
--- NOTE | 2024-04-03 08:38 | P.PNIM_ITS ---
Subjective Subjective Date of Service: 04/03/24 Interval History: abd pain Physical Exam 2 Vital Signs: Vital Signs: Last Vital Signs Temp 97.4 F 04/03/24 08:00 Pulse 73 04/03/24 08:25 Resp 15 04/03/24 08:25 BP 143/62 H 04/03/24 08:00 Pulse Ox 93 04/03/24 08:00 O2 Del Method Nasal Cannula 04/03/24 08:00 O2 Flow Rate 4 04/03/24 04:00 Oxygen Flow Rate 3 03/31/24 18:39 BMI result Body Mass Index 23.5 Const: General: alert, awake and tired appearing Eyes: Sclerae: sclerae normal EOM: EOMs intact bilaterally Neck: Neck: Yes no lymphadenopathy, Yes trachea midline and Yes supple Resp: Effort & Inspection: normal respiratory effort Auscultation: crackles and diminished lung sounds Cardio: Rate: regular rate Rhythm: regular rhythm Heart sounds: no gallops, no murmurs and no rubs GI: Palpation (GI): Soft to palpation and Other GI palpation findings present ( Nontender) Auscultation: normal bowel sounds Extrem: General: Yes no pedal edema, No clubbing and No cyanosis Objective Data Active Medications Acetaminophen (Acetaminophen 325 Mg Tablet) 650 mg PO Q6H PRN PRN Reason: Pain, Mild (Pain Scale 1-3), fever or headache Last Admin: 04/02/24 16:10 Dose: 650 mg Documented By: FELIX Acetylcysteine (Acetylcysteine 10 % 400 Mg/4 Ml Vial) 400 mg INHALE RBID [facility] Last Admin: 04/03/24 08:21 Dose: 400 mg Documented By: NILESH Albuterol/Ipratropium (Albuterol/Iprat 2.5/0.5mg 3 Ml Ampul.Neb) 3 ml INHALE RQ4H WHILE AWAKE [facility] Last Admin: 04/03/24 08:21 Dose: 3 ml Documented By: NILESH Albuterol/Ipratropium (Albuterol/Iprat 2.5/0.5mg 3 Ml Ampul.Neb) 3 ml INHALE Q4H PRN PRN Reason: Wheezing Last Admin: 04/03/24 04:10 Dose: 3 ml Documented By: JORGE Amiodarone HCl (Amiodarone Hcl 200 Mg Tablet) 200 mg PO DAILY [facility] Last Admin: 04/02/24 08:01 Dose: 200 mg Documented By: FELIX Aspirin (Aspirin Enteric Coated 81 Mg Tablet.Dr) 81 mg PO DAILY [facility] Last Admin: 04/02/24 08:02 Dose: 81 mg Documented By: FELIX Atorvastatin Calcium (Atorvastatin Calcium 80 Mg Tablet) 80 mg PO BEDTIME [facility] Last Admin: 04/02/24 20:53 Dose: 80 mg Documented By: CRISTAL Calcium Carbonate (Calcium Carbonate 750 Mg Tab.Chew) 750 mg PO Q4H PRN PRN Reason: Heartburn Carvedilol (Carvedilol 6.25 Mg Tablet) 6.25 mg PO BID [facility]; Protocol Last Admin: 04/02/24 20:53 Dose: 6.25 mg Documented By: CRISTAL Clopidogrel Bisulfate (Clopidogrel Bisulfate 75 Mg Tablet) 75 mg PO DAILY [facility] Last Admin: 04/02/24 08:02 Dose: 75 mg Documented By: FELIX Ezetimibe (Ezetimibe 10 Mg Tablet) 10 mg PO BEDTIME [facility] Last Admin: 04/02/24 20:53 Dose: 10 mg Documented By: CRISTAL Enoxaparin Sodium (Enoxaparin Sodium 40 Mg/0.4 Ml Syringe) 40 mg SUBCUT Q24H [facility] Last Admin: 04/02/24 20:53 Dose: 40 mg Documented By: CRISTAL Folic Acid (Folic Acid 1 Mg Tablet) 1 mg PO DAILY [facility] Last Admin: 04/02/24 08:02 Dose: 1 mg Documented By: FELIX Furosemide (Furosemide 20 Mg Tablet) 20 mg PO BID@0900,1700 [facility]; Protocol Last Admin: 04/02/24 16:09 Dose: 20 mg Documented By: FELIX Glucose (Glucose Gel 15 Gm Gel..Gram.) 15 gm PO Q15M PRN; Protocol PRN Reason: per Hypoglycemia Standing Ord. Guaifenesin (Guaifenesin 200 Mg/10 Ml 10 Ml Liquid) 10 ml PO Q4H PRN PRN Reason: Cough Last Admin: 04/03/24 04:46 Dose: 10 ml Documented By: CRISTAL Piperacillin Sod/Tazobactam (Sod 4.5 gm/ Sodium Chloride) 100 mls @ 200 mls/hr IV Q6H [facility] Last Infusion: 04/03/24 02:54 Dose: Infused Documented By: CRISTAL Dextrose (D10) 250 mls @ 750 mls/hr IV Q15M PRN; Protocol PRN Reason: per Hypoglycemia Standing Ord. Vancomycin HCl 750 mg/ Sodium (Chloride) 265 mls @ 265 mls/hr IV Q12H [facility] Last Infusion: 04/03/24 00:01 Dose: Infused Documented By: CRISTAL Insulin Glargine (Insulin Glargine,Hum.Rec.Anlog 100 Unit/Ml 10 Ml Vial) 15 unit SUBCUT BEDTIME [facility] Last Admin: 04/02/24 20:53 Dose: 15 unit Documented By: CRISTAL Insulin Human Lispro (Insulin Lispro 100 Unit/Ml 3 Ml Vial) 0 unit SUBCUT QIDACHS [facility]; Protocol Last Admin: 04/03/24 07:39 Dose: Not Given Documented By: RASHAAD Non-Admin Reason: No Insulin Coverage Isosorbide Mononitrate (Isosorbide Mononitrate 30 Mg Tab.Er.24h) 30 mg PO DAILY [facility]; Protocol Last Admin: 04/02/24 08:02 Dose: 30 mg Documented By: FELIX Levothyroxine Sodium (Levothyroxine Sodium 25 Mcg Tablet) 25 mcg PO DAILY@0600 [facility] Last Admin: 04/03/24 04:46 Dose: 25 mcg Documented By: CRISTAL Magnesium Hydroxide (Milk Of Magnesia 30 Ml Oral.Susp) 30 ml PO DAILY PRN PRN Reason: Constipation Last Admin: 04/02/24 16:18 Dose: 30 ml Documented By: FELIX Melatonin (Melatonin 3 Mg Tablet) 6 mg PO BEDTIME PRN PRN Reason: Insomnia Oxycodone HCl (Oxycodone Hcl Immed Release 5 Mg Tablet) 5 mg PO Q4H PRN PRN Reason: moderate pain Last Admin: 04/02/24 22:27 Dose: 5 mg Documented By: CRISTAL Pharmacy Consult (Consult Rx Vancomycin Dosing) 1 each MISCELLANE DAILY PRN PRN Reason: Consult order Polyethylene Glycol (Polyethylene Glycol 3350 17 Gm Powd.Pack) 17 gm PO DAILY [facility] Last Admin: 04/02/24 08:06 Dose: 17 gm Documented By: FELIX Prednisone (Prednisone 20 Mg Tablet) 40 mg PO DAILY [facility] Last Admin: 04/02/24 08:01 Dose: 40 mg Documented By: FELIX Sodium Chloride (0.9 % Sodium Chloride Flush 3 Ml Syringe) 3 ml IVFLUSH QSHIFT [facility] Last Admin: 04/03/24 07:35 Dose: 3 ml Documented By: RASHAAD Labs 04/03/24 05:20 04/03/24 05:20 Labs: Laboratory Results - last 24 hr 04/02/24 04/02/24 04/02/24 09:00 11:39 16:37 MCV MCH MCHC RDW Plt Count MPV Absolute Nucleated RBC Nucleated RBC % (auto) Anion Gap 14 Estim Creat Clear Calc 38.6 Estimated GFR 49 POC Glucose 241 H 368 H* Fasting Glucose 290 H Calcium 8.8 Random Vancomycin 04/02/24 04/02/24 04/02/24 19:42 21:01 22:10 MCV MCH MCHC RDW Plt Count MPV Absolute Nucleated RBC Nucleated RBC % (auto) Anion Gap Estim Creat Clear Calc Estimated GFR POC Glucose 366 H* 401 H* Fasting Glucose Calcium Random Vancomycin 8.5 L 04/02/24 04/03/24 04/03/24 23:03 01:57 05:20 MCV 106.2 H MCH 33.6 H MCHC 31.6 RDW 15.1 Plt Count 286 D MPV 12.9 H Absolute Nucleated RBC 0.040 H Nucleated RBC % (auto) 0.2 Anion Gap 14 Estim Creat Clear Calc 46.8 Estimated GFR > 60 POC Glucose 386 H* 240 H Fasting Glucose 119 H Calcium 9.0 Random Vancomycin 04/03/24 07:31 MCV MCH MCHC RDW Plt Count MPV Absolute Nucleated RBC Nucleated RBC % (auto) Anion Gap Estim Creat Clear Calc Estimated GFR POC Glucose 89 Fasting Glucose Calcium Random Vancomycin Microbiology Microbiology Results: Microbiology 03/31/24 21:46 Blood Culture - Preliminary Blood - Venous No growth after 48 hours. 03/31/24 20:58 Blood Culture - Preliminary Blood - Venous No growth after 48 hours. Assessment and Plan (1) Non-small cell lung cancer (NSCLC): Status: Acute Plan 79F PMH Metastatic [id number] lung cancer status post resection and segmentectomy, coronary disease, SVT, chronic diastolic CHF, chronic hypoxic respiratory failure on 3 L O2, hypertension, hyperlipidemia, COPD, diabetes presented with shortness of breath and constipation. Acute on chronic hypoxic respiratory failure secondary to postobstructive pneumonia and sepsis in a patient with metastatic [id number] lung cancer Continue vancomycin Zosyn, wean O2 as tolerated, still sob - but improving, pulm toilet COPD with acute decompensation Steroids, nebs Constipation Had successful bowel movements, but still uncomftable, will check kub Chronic diastolic CHF Continue Lasix maintenance Coronary disease Continue dual antiplatelet and statin Diabetes Insulin sliding scale Hypothyroid Continue Synthroid SVT On amiodarone DVT prophylaxis with Lovenox DNR/DNI Reason for continued hospitalization: Still with shortness of breath. abd discomfort Quality Stroke Does the patient have a stroke diagnosis?: No VTE Prior VTE?: No VTE Risk Level:: Medical - moderate - high VTE Device Contraindication: Treatment Not Indicated VTE Drug Contraindication: N/A - Med Ordered
[2024-04-03] MEDS: polyethylene glycoL 3350 17 GM POWD.PACK PO (09:24)
[2024-04-03] MEDS: predniSONE 20 MG TABLET 40 MG PO (09:24)
[2024-04-03] MEDS: Clopidogrel Bisulfate 75 MG TABLET PO (09:25)
[2024-04-03] MEDS: Isosorbide Mononitrate 30 MG TAB.ER.24H PO (09:25)
[2024-04-03] MEDS: Aspirin Enteric Coated 81 MG TABLET.DR PO (09:25)
[2024-04-03] MEDS: Amiodarone HCL 200 MG TABLET PO (09:25)
[2024-04-03] MEDS: Folic Acid 1 MG TABLET PO (09:25)
[2024-04-03] MEDS: Furosemide 20 MG TABLET PO ×2 (09:25→16:46)
[2024-04-03] MEDS: carvediloL 6.25 MG TABLET PO ×2 (09:26→22:04)
[2024-04-03] MEDS: Acetaminophen 325 MG TABLET 650 MG PO (11:03)
[2024-04-03] MEDS: vancomycin HCL 750 MG in 0.9 % Sodium Chloride 250 ML 265 MG IV ×2 (11:05→23:06)
[2024-04-03 11:43] LABS: Glucose, Whole Blood 117 mg/dL (60-115)
[2024-04-03] MEDS: Furosemide 40 MG/4 ML VIAL IVPUSH (12:35)
[2024-04-03 16:21] LABS: Glucose, Whole Blood 289 mg/dL (60-115)
[2024-04-03] MEDS: Insulin Lispro 100 UNIT/ML 3 ML VIAL SUBCUT ×2 (16:45→22:05)
[2024-04-03 20:45] LABS: Glucose, Whole Blood 286 mg/dL (60-115)
[2024-04-03 21:55] LABS: Vancomycin Random 15.2 mcg/mL (15-20)
[2024-04-03] MEDS: Ezetimibe 10 MG TABLET PO (22:04)
[2024-04-03] MEDS: Milk of Magnesia 30 ML ORAL.SUSP PO (22:04)
[2024-04-03] MEDS: Atorvastatin Calcium 80 MG TABLET PO (22:04)
[2024-04-03] MEDS: Enoxaparin Sodium 40 MG/0.4 ML SYRINGE SUBCUT (22:04)
[2024-04-03] MEDS: Insulin Glargine,Hum.rec.anlog 100 UNIT/ML 10 ML VIAL 15 UNIT SUBCUT (22:05)
[2024-04-04] VITALS (9 sets, daily range): BP systolic 103–153; BP diastolic 51–72; PULSE 66–76; RESP 16–18; TEMP 36.3–36.6; O2SAT 92–99
[2024-04-04] MEDS: Piperacillin Sodium/Tazobactam 4.5 GM in 0.9 % Sodium Chloride 100 ML IV ×4 (03:12→20:19)
[2024-04-04] MEDS: Levothyroxine Sodium 25 MCG TABLET PO (06:19)
[2024-04-04 06:37] LABS: Creatinine Clr Calc Pharmacy 47.3; Estimated Glomerular Filt Rate > 60
[2024-04-04] MEDS: Albuterol/Iprat 2.5/0.5MG 3 ML AMPUL.NEB INHALE ×4 (07:35→19:25)
[2024-04-04] MEDS: Acetylcysteine 10 % 400 MG/4 ML VIAL INHALE ×2 (07:35→19:25)
[2024-04-04 07:59] LABS: Glucose, Whole Blood 125 mg/dL (60-115)
[2024-04-04] MEDS: 0.9 % Sodium Chloride Flush 3 ML SYRINGE IVFLUSH ×3 (08:48→22:51)
[2024-04-04] MEDS: Furosemide 20 MG TABLET PO ×2 (08:49→16:35)
[2024-04-04] MEDS: Isosorbide Mononitrate 30 MG TAB.ER.24H PO (08:49)
[2024-04-04] MEDS: carvediloL 6.25 MG TABLET PO ×2 (08:49→22:04)
[2024-04-04] MEDS: Clopidogrel Bisulfate 75 MG TABLET PO (08:49)
[2024-04-04] MEDS: guaiFENesin 200 MG/10 ML 10 ML LIQUID PO (08:49)
[2024-04-04] MEDS: predniSONE 20 MG TABLET 40 MG PO (08:49)
[2024-04-04] MEDS: Folic Acid 1 MG TABLET PO (08:49)
[2024-04-04] MEDS: polyethylene glycoL 3350 17 GM POWD.PACK PO (08:49)
[2024-04-04] MEDS: Aspirin Enteric Coated 81 MG TABLET.DR PO (08:49)
[2024-04-04] MEDS: Amiodarone HCL 200 MG TABLET PO (08:50)
[2024-04-04 11:39] LABS: Glucose, Whole Blood 221 mg/dL (60-115)
[2024-04-04] MEDS: Acetaminophen 325 MG TABLET 650 MG PO ×2 (11:53→20:18)
[2024-04-04] MEDS: Insulin Lispro 100 UNIT/ML 3 ML VIAL SUBCUT ×3 (11:53→22:03)
[2024-04-04] MEDS: vancomycin HCL 750 MG in 0.9 % Sodium Chloride 250 ML 265 MG IV (11:54)
--- NOTE | 2024-04-04 12:40 | P.PNIM_ITS ---
Subjective Subjective Date of Service: 04/04/24 Interval History: Notes breathing improved since admission. Review of Systems Denies chest pain Denies shortness of breath Denies nausea vomiting diarrhea Denies fever chills Physical Exam 2 Vital Signs: Vital Signs: Last Vital Signs Temp 97.9 F 04/04/24 07:52 Pulse 70 04/04/24 11:39 Resp 18 04/04/24 11:39 BP 153/72 H 04/04/24 07:52 Pulse Ox 99 04/04/24 07:52 O2 Del Method Nasal Cannula 04/04/24 07:52 O2 Flow Rate 4 04/04/24 07:52 Oxygen Flow Rate 3 03/31/24 18:39 BMI result Body Mass Index 23.5 Const: Other: Awake alert no acute distress Resp: Other: Diminished at bases with scattered rhonchi throughout left greater than right Cardio: Other: No S4; positive S1-S2; no S3 murmurs rubs or gallops GI: Other: Soft nontender nondistended normoactive bowel sounds Extrem: Other: No edema bilaterally Objective Data Active Medications Acetaminophen (Acetaminophen 325 Mg Tablet) 650 mg PO Q6H PRN PRN Reason: Pain, Mild (Pain Scale 1-3), fever or headache Last Admin: 04/04/24 11:53 Dose: 650 mg Documented By: RASHAAD Acetylcysteine (Acetylcysteine 10 % 400 Mg/4 Ml Vial) 400 mg INHALE RBID [facility] Last Admin: 04/04/24 07:35 Dose: 400 mg Documented By: VASU Albuterol/Ipratropium (Albuterol/Iprat 2.5/0.5mg 3 Ml Ampul.Neb) 3 ml INHALE RQ4H WHILE AWAKE [facility] Last Admin: 04/04/24 11:38 Dose: 3 ml Documented By: IFEANYI Albuterol/Ipratropium (Albuterol/Iprat 2.5/0.5mg 3 Ml Ampul.Neb) 3 ml INHALE Q4H PRN PRN Reason: Wheezing Last Admin: 04/03/24 04:10 Dose: 3 ml Documented By: JORGE Amiodarone HCl (Amiodarone Hcl 200 Mg Tablet) 200 mg PO DAILY [facility] Last Admin: 04/04/24 08:50 Dose: 200 mg Documented By: RASHAAD Aspirin (Aspirin Enteric Coated 81 Mg Tablet.) 81 mg PO DAILY [facility] Last Admin: 04/04/24 08:49 Dose: 81 mg Documented By: RASHAAD Atorvastatin Calcium (Atorvastatin Calcium 80 Mg Tablet) 80 mg PO BEDTIME [facility] Last Admin: 04/03/24 22:04 Dose: 80 mg Documented By: CRISTAL Calcium Carbonate (Calcium Carbonate 750 Mg Tab.Chew) 750 mg PO Q4H PRN PRN Reason: Heartburn Carvedilol (Carvedilol 6.25 Mg Tablet) 6.25 mg PO BID [facility]; Protocol Last Admin: 04/04/24 08:49 Dose: 6.25 mg Documented By: RASHAAD Clopidogrel Bisulfate (Clopidogrel Bisulfate 75 Mg Tablet) 75 mg PO DAILY [facility] Last Admin: 04/04/24 08:49 Dose: 75 mg Documented By: RASHAAD Ezetimibe (Ezetimibe 10 Mg Tablet) 10 mg PO BEDTIME [facility] Last Admin: 04/03/24 22:04 Dose: 10 mg Documented By: CRISTAL Enoxaparin Sodium (Enoxaparin Sodium 40 Mg/0.4 Ml Syringe) 40 mg SUBCUT Q24H [facility] Last Admin: 04/03/24 22:04 Dose: 40 mg Documented By: CRISTAL Folic Acid (Folic Acid 1 Mg Tablet) 1 mg PO DAILY [facility] Last Admin: 04/04/24 08:49 Dose: 1 mg Documented By: RASHAAD Furosemide (Furosemide 20 Mg Tablet) 20 mg PO BID@0900,1700 [facility]; Protocol Last Admin: 04/04/24 08:49 Dose: 20 mg Documented By: RASHAAD Glucose (Glucose Gel 15 Gm Gel..Gram.) 15 gm PO Q15M PRN; Protocol PRN Reason: per Hypoglycemia Standing Ord. Guaifenesin (Guaifenesin 200 Mg/10 Ml 10 Ml Liquid) 10 ml PO Q4H PRN PRN Reason: Cough Last Admin: 04/04/24 08:49 Dose: 10 ml Documented By: RASHAAD Piperacillin Sod/Tazobactam (Sod 4.5 gm/ Sodium Chloride) 100 mls @ 200 mls/hr IV Q6H [facility] Last Infusion: 04/04/24 09:18 Dose: Infused Documented By: RASHAAD Dextrose (D10) 250 mls @ 750 mls/hr IV Q15M PRN; Protocol PRN Reason: per Hypoglycemia Standing Ord. Vancomycin HCl 750 mg/ Sodium (Chloride) 265 mls @ 265 mls/hr IV Q12H [facility] Last Admin: 04/04/24 11:54 Dose: 265 mls/hr Documented By: RASHAAD Insulin Glargine (Insulin Glargine,Hum.Rec.Anlog 100 Unit/Ml 10 Ml Vial) 15 unit SUBCUT BEDTIME [facility] Last Admin: 04/03/24 22:05 Dose: 15 unit Documented By: CRISTAL Insulin Human Lispro (Insulin Lispro 100 Unit/Ml 3 Ml Vial) 0 unit SUBCUT QIDACHS [facility]; Protocol Last Admin: 04/04/24 11:53 Dose: 4 unit Documented By: RASHAAD Isosorbide Mononitrate (Isosorbide Mononitrate 30 Mg Tab.Er.24h) 30 mg PO DAILY [facility]; Protocol Last Admin: 04/04/24 08:49 Dose: 30 mg Documented By: RASHAAD Levothyroxine Sodium (Levothyroxine Sodium 25 Mcg Tablet) 25 mcg PO DAILY@0600 [facility] Last Admin: 04/04/24 06:19 Dose: 25 mcg Documented By: CRISTAL Magnesium Hydroxide (Milk Of Magnesia 30 Ml Oral.Susp) 30 ml PO DAILY PRN PRN Reason: Constipation Last Admin: 04/03/24 22:04 Dose: 30 ml Documented By: CRISTAL Melatonin (Melatonin 3 Mg Tablet) 6 mg PO BEDTIME PRN PRN Reason: Insomnia Oxycodone HCl (Oxycodone Hcl Immed Release 5 Mg Tablet) 5 mg PO Q4H PRN PRN Reason: moderate pain Last Admin: 04/02/24 22:27 Dose: 5 mg Documented By: CRISTAL Pharmacy Consult (Consult Rx Vancomycin Dosing) 1 each MISCELLANE DAILY PRN PRN Reason: Consult order Polyethylene Glycol (Polyethylene Glycol 3350 17 Gm Powd.Pack) 17 gm PO DAILY [facility] Last Admin: 04/04/24 08:49 Dose: 17 gm Documented By: RASHAAD Prednisone (Prednisone 20 Mg Tablet) 40 mg PO DAILY [facility] Last Admin: 04/04/24 08:49 Dose: 40 mg Documented By: RASHAAD Sodium Chloride (0.9 % Sodium Chloride Flush 3 Ml Syringe) 3 ml IVFLUSH QSHIFT [facility] Last Admin: 04/04/24 08:48 Dose: 3 ml Documented By: RASHAAD Labs 04/03/24 05:20 04/04/24 05:34 Labs: Laboratory Results - last 24 hr 04/03/24 04/03/24 04/03/24 16:13 20:30 21:06 Hold Purple Top Estim Creat Clear Calc Estimated GFR POC Glucose 289 H 286 H Random Vancomycin 15.2 04/04/24 04/04/24 04/04/24 05:34 07:51 11:19 Hold Purple Top SEE NOTE Estim Creat Clear Calc 47.3 Estimated GFR > 60 POC Glucose 125 H 221 H Random Vancomycin Assessment and Plan (1) Pneumonia: Status: Acute (2) Non-small cell lung cancer (NSCLC): Status: Acute (3) Abdominal pain: Status: Acute Plan 79F PMH Metastatic [id number] lung cancer status post resection and segmentectomy, coronary disease, SVT, chronic diastolic CHF, chronic hypoxic respiratory failure on 3 L O2, hypertension, hyperlipidemia, COPD, diabetes presented with shortness of breath and constipation. 1.Acute on chronic hypoxic respiratory failure secondary to postobstructive pneumonia/sepsis in backdrop of metastatic non-small cell lung cancer -Vancomycin/Zosyn(5).. Switch to Augmentin upon discharge -titrate O2 to keep sats greater than or equal to 90% -metastatic NSCLC as per oncology 2.COPD with acute exacerbation - continue prednisone 40 mg daily -DuoNebs q.4 hours as needed while awake 3.Chronic diastolic CHF/Coronary disease -stable and well compensated -adjust as indicated 4.Diabetes Type II -lispro correctional scale -adjust as indicated Hypothyroid Continue Synthroid Lovenox DNR/DNI Patient requires ongoing hospitalization for IV antibiotics to treat post obstructive pneumonia and fine safe transition to SNF Quality Stroke Does the patient have a stroke diagnosis?: No VTE Prior VTE?: No VTE Risk Level:: Medical - moderate - high VTE Device Contraindication: Treatment Not Indicated VTE Drug Contraindication: N/A - Med Ordered
--- NOTE | 2024-04-04 15:16 | MHC.CM.PN ---
EMR REVIEWED, PER HOSPITALIST PLAN TO HAVE A GOALS OF CARE DISCUSSION W/DTR AND BELIEVES PT MAY NEED TO GO TO A FACILITY HOWEVER CM CONFIRMED W/[facility] THAT PT DOES NOT HAVE MEDICAID AND WOULD NEED TO APPLY FOR MEDICAID, CM RECEIVED SPOKE W/ONCOLOGY NURSE NAVIGATOR WHO REPORT THAT PT'S DTR IS VERY OVERWHELMED AND WONDERING IF THERE WERE ANY UPDATES, HOSPITALIST NOT ON PREMISES AT THIS TIME AND WILL FOLLOW UP W/PT'S DTR ONCE HE RETURNS. CM WILL CONT TO FOLLOW DC NEEDS.
[2024-04-04 16:30] LABS: Glucose, Whole Blood 295 mg/dL (60-115)
--- NOTE | 2024-04-04 16:40 | MHC.HEMONC ---
I met with pt dt and HCP, Stella regarding her mother's hospitalization and anxiety around prognosis and d/c planning. She said everyone is making it sound like this is the end . She understands her mother is very sick but she said mom is a fighter . She wept when describing her mother's strength. 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 She has [facility] so they will need to be aware of new location for visits once she is discharged. She is hoping she could do a little PT to strengthen her body. We went together to see pt in her room. She was having neb. Carol, Youth Program Director was in. She will assist as needed regarding home care orders. I did speak frankly with patient about goals of treatment being to control and provide palliation of symptoms related to cancer. I told her that it is too early to know if new immunotherapy is working on the cancer. I explained that it is possible that the treatment won't control the cancer and that we would offer comfort care if that happens. She said that she understands that hospice might be the only option at some point - but that she will know when she is ready for it . For now she would still like to try the immunotherapy. I will discuss with Dr Berger tomorrow.
[2024-04-04 18:23] LABS: Strep Pneumo Ag urine Not Detected (Not Detected)
[2024-04-04] MEDS: Enoxaparin Sodium 40 MG/0.4 ML SYRINGE SUBCUT (20:20)
[2024-04-04 20:48] LABS: Glucose, Whole Blood 300 mg/dL (60-115)
[2024-04-04] MEDS: Insulin Glargine,Hum.rec.anlog 100 UNIT/ML 10 ML VIAL 15 UNIT SUBCUT (22:03)
[2024-04-04] MEDS: Ezetimibe 10 MG TABLET PO (22:04)
[2024-04-04] MEDS: Atorvastatin Calcium 80 MG TABLET PO (22:04)
[2024-04-04] MEDS: vancomycin HCL 500 MG in 0.9 % Sodium Chloride 100 ML 110 MG IV (22:51)
[2024-04-05] VITALS (23 sets, daily range): BP systolic 109–139; BP diastolic 53–66; PULSE 66–95; RESP 16–26; TEMP 36.1–36.8; O2SAT 83–97
[2024-04-05] MEDS: guaiFENesin 200 MG/10 ML 10 ML LIQUID PO (01:05)
[2024-04-05] MEDS: Albuterol/Iprat 2.5/0.5MG 3 ML AMPUL.NEB INHALE ×5 (01:14→19:34)
[2024-04-05] MEDS: oxyCODONE HCl Immed Release 5 MG TABLET PO (02:20)
[2024-04-05] MEDS: Piperacillin Sodium/Tazobactam 4.5 GM in 0.9 % Sodium Chloride 100 ML IV ×4 (02:49→20:39)
[2024-04-05 05:34] LABS: Legionella Ag Urine Not Detected (Not Detected)
[2024-04-05] MEDS: Levothyroxine Sodium 25 MCG TABLET PO (05:46)
[2024-04-05 07:02] LABS: Creatinine Clr Calc Pharmacy 47.9; Estimated Glomerular Filt Rate > 60
--- NOTE | 2024-04-05 07:12 | MHC.CM.PN ---
LATEENTRY NOTE FOR 04/04/24, CM MET W/PT, DTR SATISH AND ONCOLOGY NURSE NAVIGATOR AT BEDSIDE, PER DISCUSSION PT AND ONCOLOGY NN SPOKE W/HOSPITALIST (SEPARATELY) AND PT DOES NOT WANT HOSPICE, PT WILL DC TO DTRS HOME W/RESUMPTION OF [facility] FOR SN AND CM HAS REQUESTED HOME PT AND MAY NEED F2F FOR ADDED PT, CM AWAITING RESPONSE FROM [facility], CM WILL CONT TO FOLLOW DC NEEDS.
--- NOTE | 2024-04-05 07:38 | PC.RT ---
RT called by nursing, pt noted to desaturate into the 70's at rest, noted inc wob with persistant sob. HFNC was started, physician aware. Pt to be trans to 4th floor. Improvment noted with hfnc per patient.
[2024-04-05 07:51] LABS: Glucose, Whole Blood 180 mg/dL (60-115)
[2024-04-05] MEDS: Morphine Sulfate 2 MG/ML CARTRIDGE IVPUSH ×4 (07:57→23:20)
[2024-04-05] MEDS: Insulin Lispro 100 UNIT/ML 3 ML VIAL SUBCUT ×4 (08:38→20:43)
[2024-04-05] MEDS: Isosorbide Mononitrate 30 MG TAB.ER.24H PO (08:39)
[2024-04-05] MEDS: predniSONE 20 MG TABLET 40 MG PO (08:39)
[2024-04-05] MEDS: Furosemide 20 MG TABLET PO ×2 (08:39→17:32)
[2024-04-05] MEDS: polyethylene glycoL 3350 17 GM POWD.PACK PO (08:39)
[2024-04-05] MEDS: Aspirin Enteric Coated 81 MG TABLET.DR PO (08:39)
[2024-04-05] MEDS: 0.9 % Sodium Chloride Flush 3 ML SYRINGE IVFLUSH ×5 (08:39→20:45)
[2024-04-05] MEDS: Folic Acid 1 MG TABLET PO (08:39)
[2024-04-05] MEDS: Clopidogrel Bisulfate 75 MG TABLET PO (08:40)
[2024-04-05] MEDS: carvediloL 6.25 MG TABLET PO ×2 (08:40→20:44)
[2024-04-05] MEDS: Amiodarone HCL 200 MG TABLET PO (08:40)
[2024-04-05 11:28] LABS: Glucose, Whole Blood 179 mg/dL (60-115)
--- NOTE | 2024-04-05 11:53 | MHC.CM.PN ---
Addendum entered by Sofi Santana 04/05/24 11:59: Elizabeth asked CM to look back at recent dc from [facility] on 03/23/2024. Per dc documentation from that admission, Patient was medically cleared on 03/23/2024 to dc to home on that day with [facility] and O2 through [facility]. CM relayed this message to Elizabeth, via detailed message left for her at [phone]. Original Note: CM met with Patient and her Daughter/Elizabeth ([phone])at bedside; Elizabeth is not the HCP but Patient has given permission for hospital staff to speak with her. At Elizabeth's request, KAREN has asked MD if he could meet with Elizabeth; CM awaits response from MD.
[2024-04-05] MEDS: vancomycin HCL 500 MG in 0.9 % Sodium Chloride 100 ML 110 MG IV (12:16)
--- NOTE | 2024-04-05 14:47 | HO.PM.IMPN ---
Subjective Subjective Date of Service: 04/05/24 Interval History: Episode of shortness of breath this a.m. requiring high-flow oxygen. Transfer to telemetry. Review of Systems Denies chest pain Denies shortness of breath Denies nausea vomiting diarrhea Denies fever chills Physical Exam Vital Signs: Vital Signs: Last Vital Signs Temp 98.3 F 04/05/24 11:20 Pulse 66 04/05/24 11:20 Resp 20 04/05/24 11:20 BP 110/55 L 04/05/24 11:20 Pulse Ox 97 04/05/24 11:20 O2 Del Method High Flow Nasal C annula 04/05/24 11:20 O2 Flow Rate 50 04/05/24 11:20 FiO2 30 04/05/24 11:20 Oxygen Flow Rate 3 03/31/24 18:39 BMI result Body Mass Index 23.5 Const: Other: Awake alert no acute distress Resp: Other: Diminished at bases with scattered rhonchi throughout left greater than right Cardio: Other: No S4; positive S1-S2; no S3 murmurs rubs or gallops GI: Other: Soft nontender nondistended normoactive bowel sounds Extrem: Other: No edema bilaterally Objective Data Active Medications Acetaminophen (Acetaminophen 325 Mg Tablet) 650 mg PO Q6H PRN PRN Reason: Pain, Mild (Pain Scale 1-3), fever or headache Last Admin: 04/04/24 20:18 Dose: 650 mg Documented By: CRISTAL Acetaminophen (Acetaminophen 325 Mg Tablet) 650 mg PO Q6H PRN PRN Reason: Pain, Mild (Pain Scale 1-3), fever or headache Albuterol/Ipratropium (Albuterol/Iprat 2.5/0.5mg 3 Ml Ampul.Neb) 3 ml INHALE RQ4H WHILE AWAKE [facility] Last Admin: 04/05/24 11:11 Dose: 3 ml Documented By: VASU Albuterol/Ipratropium (Albuterol/Iprat 2.5/0.5mg 3 Ml Ampul.Neb) 3 ml INHALE Q4H PRN PRN Reason: Wheezing Last Admin: 04/05/24 01:14 Dose: 3 ml Documented By: KATHRINE Amiodarone HCl (Amiodarone Hcl 200 Mg Tablet) 200 mg PO DAILY [facility] Last Admin: 04/05/24 08:40 Dose: 200 mg Documented By: MAGALYS Aspirin (Aspirin Enteric Coated 81 Mg Tablet.Dr) 81 mg PO DAILY [facility] Last Admin: 04/05/24 08:39 Dose: 81 mg Documented By: MAGALYS Atorvastatin Calcium (Atorvastatin Calcium 80 Mg Tablet) 80 mg PO BEDTIME [facility] Last Admin: 04/04/24 22:04 Dose: 80 mg Documented By: CRISTAL Calcium Carbonate (Calcium Carbonate 750 Mg Tab.Chew) 750 mg PO Q4H PRN PRN Reason: Heartburn Calcium Carbonate (Calcium Carbonate 750 Mg Tab.Chew) 750 mg PO Q4H PRN PRN Reason: Heartburn Carvedilol (Carvedilol 6.25 Mg Tablet) 6.25 mg PO BID [facility]; Protocol Last Admin: 04/05/24 08:40 Dose: 6.25 mg Documented By: MAGALYS Clopidogrel Bisulfate (Clopidogrel Bisulfate 75 Mg Tablet) 75 mg PO DAILY [facility] Last Admin: 04/05/24 08:40 Dose: 75 mg Documented By: MAGALYS Ezetimibe (Ezetimibe 10 Mg Tablet) 10 mg PO BEDTIME [facility] Last Admin: 04/04/24 22:04 Dose: 10 mg Documented By: CRISTAL Enoxaparin Sodium (Enoxaparin Sodium 40 Mg/0.4 Ml Syringe) 40 mg SUBCUT Q24H [facility] Last Admin: 04/04/24 20:20 Dose: 40 mg Documented By: CRISTAL Folic Acid (Folic Acid 1 Mg Tablet) 1 mg PO DAILY [facility] Last Admin: 04/05/24 08:39 Dose: 1 mg Documented By: MAGALYS Furosemide (Furosemide 20 Mg Tablet) 20 mg PO BID@0900,1700 [facility]; Protocol Last Admin: 04/05/24 08:39 Dose: 20 mg Documented By: MAGALYS Glucose (Glucose Gel 15 Gm Gel..Gram.) 15 gm PO Q15M PRN; Protocol PRN Reason: per Hypoglycemia Standing Ord. Guaifenesin (Guaifenesin 200 Mg/10 Ml 10 Ml Liquid) 10 ml PO Q4H PRN PRN Reason: Cough Last Admin: 04/05/24 01:05 Dose: 10 ml Documented By: CRISTAL Piperacillin Sod/Tazobactam (Sod 4.5 gm/ Sodium Chloride) 100 mls @ 200 mls/hr IV Q6H [facility] Last Infusion: 04/05/24 09:22 Dose: Infused Documented By: MAGALYS Dextrose (D10) 250 mls @ 750 mls/hr IV Q15M PRN; Protocol PRN Reason: per Hypoglycemia Standing Ord. Vancomycin HCl 500 mg/ Sodium (Chloride) 110 mls @ 110 mls/hr IV Q12H [facility] Last Infusion: 04/05/24 13:21 Dose: Infused Documented By: MAGALYS Insulin Glargine (Insulin Glargine,Hum.Rec.Anlog 100 Unit/Ml 10 Ml Vial) 15 unit SUBCUT BEDTIME [facility] Last Admin: 04/04/24 22:03 Dose: 15 unit Documented By: CRISTAL Insulin Human Lispro (Insulin Lispro 100 Unit/Ml 3 Ml Vial) 0 unit SUBCUT QIDACHS [facility]; Protocol Last Admin: 04/05/24 12:16 Dose: 2 unit Documented By: MAGALYS Isosorbide Mononitrate (Isosorbide Mononitrate 30 Mg Tab.Er.24h) 30 mg PO DAILY [facility]; Protocol Last Admin: 04/05/24 08:39 Dose: 30 mg Documented By: MAGALYS Levothyroxine Sodium (Levothyroxine Sodium 25 Mcg Tablet) 25 mcg PO DAILY@0600 [facility] Last Admin: 04/05/24 05:46 Dose: 25 mcg Documented By: CRISTAL Magnesium Hydroxide (Milk Of Magnesia 30 Ml Oral.Susp) 30 ml PO DAILY PRN PRN Reason: Constipation Last Admin: 04/03/24 22:04 Dose: 30 ml Documented By: CRISTAL Magnesium Hydroxide (Milk Of Magnesia 30 Ml Oral.Susp) 30 ml PO DAILY PRN PRN Reason: Constipation Melatonin (Melatonin 3 Mg Tablet) 6 mg PO BEDTIME PRN PRN Reason: Insomnia Melatonin (Melatonin 3 Mg Tablet) 6 mg PO BEDTIME PRN PRN Reason: Insomnia Morphine Sulfate (Morphine Sulfate 2 Mg/Ml Cartridge) 2 mg IVPUSH Q2H PRN; Protocol PRN Reason: Restlessness Last Admin: 04/05/24 10:51 Dose: 2 mg Documented By: MAGALYS Oxycodone HCl (Oxycodone Hcl Immed Release 5 Mg Tablet) 5 mg PO Q4H PRN PRN Reason: moderate pain Last Admin: 04/05/24 02:20 Dose: 5 mg Documented By: YANNICK Pharmacy Consult (Consult Rx Vancomycin Dosing) 1 each MISCELLANE DAILY PRN PRN Reason: Consult order Polyethylene Glycol (Polyethylene Glycol 3350 17 Gm Powd.Pack) 17 gm PO DAILY [facility] Last Admin: 04/05/24 08:39 Dose: 17 gm Documented By: MAGALYS Prednisone (Prednisone 20 Mg Tablet) 40 mg PO DAILY [facility] Last Admin: 04/05/24 08:39 Dose: 40 mg Documented By: MAGALYS Sodium Chloride (0.9 % Sodium Chloride Flush 3 Ml Syringe) 3 ml IVFLUSH QSHIFT [facility] Last Admin: 04/05/24 08:39 Dose: 3 ml Documented By: MAGALYS Sodium Chloride (0.9 % Sodium Chloride Flush 3 Ml Syringe) 3 ml IVFLUSH QSHIFT [facility] Last Admin: 04/05/24 08:39 Dose: 3 ml Documented By: MAGALYS Labs 04/03/24 05:20 04/05/24 06:03 Labs: Laboratory Results - last 24 hr 04/01/24 04/04/24 04/04/24 01:31 16:23 20:45 Estim Creat Clear Calc Estimated GFR POC Glucose 295 H 300 H Random Vancomycin Ur L.pneumophila Ag Not Detected Ur Strep pneumoniae Ag Not Detected 04/04/24 04/05/24 04/05/24 21:01 06:03 07:41 Estim Creat Clear Calc 47.9 Estimated GFR > 60 POC Glucose 180 H Random Vancomycin 17.0 Ur L.pneumophila Ag Ur Strep pneumoniae Ag 04/05/24 11:24 Estim Creat Clear Calc Estimated GFR POC Glucose 179 H Random Vancomycin Ur L.pneumophila Ag Ur Strep pneumoniae Ag Assessment and Plan (1) Pneumonia: Status: Acute (2) Non-small cell lung cancer (NSCLC): Status: Acute Plan 79F PMH Metastatic xyj-gfgwk-dbol lung cancer status post resection and segmentectomy, coronary disease, SVT, chronic diastolic CHF, chronic hypoxic respiratory failure on 3 L O2, hypertension, hyperlipidemia, COPD, diabetes presented with shortness of breath and constipation. 1.Acute on chronic hypoxic respiratory failure secondary to postobstructive pneumonia/sepsis in backdrop of metastatic non-small cell lung cancer -Vancomycin/Zosyn(6).. Switch to Augmentin upon discharge -titrate O2 to keep sats greater than or equal to 90%... Now requiring high-flow -metastatic NSCLC as per oncology.. Discussed at length with patient. Not ready to move to comfort care. Daughter updated 2.COPD with acute exacerbation - continue prednisone 40 mg daily -DuoNebs q.4 hours as needed while awake 3.Chronic diastolic CHF/Coronary disease -stable and well compensated -adjust as indicated 4.Diabetes Type II -lispro correctional scale -adjust as indicated Hypothyroid Continue Synthroid Lovenox DNR/DNI Patient requires ongoing hospitalization for IV antibiotics to treat post obstructive pneumonia and fine safe transition to SNF Quality Stroke Does the patient have a stroke diagnosis?: No VTE Prior VTE?: No VTE Risk Level:: Medical - moderate - high VTE Device Contraindication: Treatment Not Indicated VTE Drug Contraindication: N/A - Med Ordered
[2024-04-05 15:57] LABS: Glucose, Whole Blood 330 mg/dL (60-115)
[2024-04-05 19:53] LABS: Glucose, Whole Blood 361 mg/dL (60-115)
[2024-04-05] MEDS: Insulin Glargine,Hum.rec.anlog 100 UNIT/ML 10 ML VIAL 15 UNIT SUBCUT (20:43)
[2024-04-05] MEDS: Atorvastatin Calcium 80 MG TABLET PO (20:44)
[2024-04-05] MEDS: Enoxaparin Sodium 40 MG/0.4 ML SYRINGE SUBCUT (20:44)
[2024-04-05] MEDS: Ezetimibe 10 MG TABLET PO (20:45)
[2024-04-05 21:29] LABS: Vancomycin Random 15.1 mcg/mL (15-20)
--- NOTE | 2024-04-05 21:45 | HE.PHANOTE ---
RE: VANCO DOSING Random came back as 15.1. If continue with dose of 500 mg q12h, level will trend down and predicted AUC is 356 and trough is 11.6. Due to respiratory infection indication and stable renal function, dose is increased to 750 mg q12h, next random is scheduled for 04/06/24 @2100.
[2024-04-05] MEDS: vancomycin HCL 750 MG in 0.9 % Sodium Chloride 250 ML 265 MG IV (23:24)
[2024-04-06] VITALS (14 sets, daily range): BP systolic 124–149; BP diastolic 58–69; PULSE 68–102; RESP 16–28; TEMP 36.1–36.3; O2SAT 72–97
--- NOTE | 2024-04-06 00:01 | PC.NURSE ---
pt c/o 10/ pain, SOB noted. prn morphine 2 mg IV given. Respiratory at bedside due to increased SOB. MD notified with one time order for furosemide 80 mg IV to be given.
[2024-04-06] MEDS: Furosemide 100 MG/10 ML VIAL 80 MG IVPUSH (00:07)
[2024-04-06] MEDS: Piperacillin Sodium/Tazobactam 4.5 GM in 0.9 % Sodium Chloride 100 ML IV ×2 (03:27→08:06)
[2024-04-06] MEDS: Morphine Sulfate 2 MG/ML CARTRIDGE IVPUSH (06:31)
[2024-04-06] MEDS: Levothyroxine Sodium 25 MCG TABLET PO (06:31)
[2024-04-06 07:00] LABS: Creatinine Clr Calc Pharmacy 47.9; Estimated Glomerular Filt Rate > 60
[2024-04-06] MEDS: Albuterol/Iprat 2.5/0.5MG 3 ML AMPUL.NEB INHALE (07:22)
[2024-04-06 07:33] LABS: Glucose, Whole Blood 176 mg/dL (60-115)
[2024-04-06] MEDS: polyethylene glycoL 3350 17 GM POWD.PACK PO (08:06)
[2024-04-06] MEDS: Folic Acid 1 MG TABLET PO (08:07)
[2024-04-06] MEDS: Furosemide 20 MG TABLET PO (08:07)
[2024-04-06] MEDS: carvediloL 6.25 MG TABLET PO (08:07)
[2024-04-06] MEDS: Insulin Lispro 100 UNIT/ML 3 ML VIAL SUBCUT (08:07)
[2024-04-06] MEDS: Clopidogrel Bisulfate 75 MG TABLET PO (08:07)
[2024-04-06] MEDS: Isosorbide Mononitrate 30 MG TAB.ER.24H PO (08:07)
[2024-04-06] MEDS: Aspirin Enteric Coated 81 MG TABLET.DR PO (08:07)
[2024-04-06] MEDS: predniSONE 20 MG TABLET 40 MG PO (08:07)
[2024-04-06] MEDS: Amiodarone HCL 200 MG TABLET PO (08:07)
[2024-04-06] MEDS: 0.9 % Sodium Chloride Flush 3 ML SYRINGE IVFLUSH ×2 (08:08)
--- NOTE | 2024-04-06 09:26 | MHC.CM.PN ---
Patient is not yet medically cleared for dc (High Flow O2); DC plan is pending; Patient has not yet expressed an interest in Hospice. CM will follow.
[2024-04-06] MEDS: Morphine Sulfate 4 MG/ML CARTRIDGE 3 MG IVPUSH (09:35)
[2024-04-06] MEDS: Morphine Sulfate/NS 100 MG/100 ML PLAST..BAG IVCONT (11:00)
--- NOTE | 2024-04-06 12:41 | P.PNIM_ITS ---
Subjective Subjective Date of Service: 04/06/24 Interval History: Patient developed acute shortness of breath despite high-flow overnight. Given Lasix with minimal results. Patient voices that she wished to be comfort measures only. Review of Systems Denies chest pain Denies shortness of breath Denies nausea vomiting diarrhea Denies fever chills Physical Exam 2 Vital Signs: Vital Signs: Last Vital Signs Temp 97.4 F 04/06/24 07:43 Pulse 74 04/06/24 12:01 Resp 24 H 04/06/24 11:58 BP 149/69 H 04/06/24 12:01 Pulse Ox 90 L 04/06/24 07:43 O2 Del Method High Flow Nasal C annula 04/06/24 07:43 O2 Flow Rate 50 04/06/24 07:43 FiO2 30 04/06/24 07:43 Oxygen Flow Rate 3 03/31/24 18:39 BMI result Body Mass Index 23.5 Const: Other: Awake alert no acute distress Resp: Other: Diminished throughout with scattered dense rhonchi and crackles. Cardio: Other: No S4; positive S1-S2; no S3 murmurs rubs or gallops GI: Other: Soft nontender nondistended normoactive bowel sounds Extrem: Other: No edema bilaterally Objective Data Active Medications Acetaminophen (Acetaminophen 325 Mg Tablet) 650 mg PO Q4H PRN PRN Reason: Fever >/= 100, Pain, mild 1-3 Docusate Sodium (Docusate Sodium 100 Mg Capsule) 100 mg PO BEDTIME [facility] Furosemide (Furosemide 20 Mg Tablet) 20 mg PO BID@0900,1700 [facility]; Protocol Last Admin: 04/06/24 08:07 Dose: 20 mg Documented By: MAGALYS Morphine Sulfate (Morphine Sulfate/Ns) 100 mg in 100 mls @ 0 mls/hr IVCONT .Q0M [facility]; Protocol Last Infusion: 04/06/24 11:58 Dose: 3 mg/hr, 3 mls/hr Documented By: MAGALYS Lorazepam (Lorazepam 2 Mg/Ml Vial) 1 mg IVPUSH Q2H PRN PRN Reason: anxiety/restlessness Ondansetron HCl (Ondansetron Odt 4 Mg Tab.Rapdis) 4 mg TRANSLINGU Q8H PRN PRN Reason: Nausea and Vomiting Labs 04/03/24 05:20 04/06/24 06:14 Labs: Laboratory Results - last 24 hr 04/05/24 04/05/24 04/05/24 15:53 19:50 21:00 Hold Purple Top SEE NOTE Estim Creat Clear Calc Estimated GFR POC Glucose 330 H 361 H* Random Vancomycin 15.1 04/06/24 04/06/24 06:14 07:26 Hold Purple Top SEE NOTE Estim Creat Clear Calc 47.9 Estimated GFR > 60 POC Glucose 176 H Random Vancomycin Microbiology Microbiology Results: Microbiology 03/31/24 21:46 Blood Culture - Final Blood - Venous No growth after 5 days. 03/31/24 20:58 Blood Culture - Final Blood - Venous No growth after 5 days. Assessment and Plan (1) Non-small cell lung cancer (NSCLC): Status: Acute Plan 79F PMH Metastatic dej-vbnla-olqb lung cancer status post resection and segmentectomy, coronary disease, SVT, chronic diastolic CHF, chronic hypoxic respiratory failure on 3 L O2, hypertension, hyperlipidemia, COPD, diabetes presented with shortness of breath and constipation. 1. Metastatic non-small cell carcinoma of the lung Discussed with patient at bedside this a.m.. Wishes to be comfort measures only. Called daughter who is in agreement. Given pulse dose IV morphine and started on morphine drip. We will continue high-flow for the next 24 hours and decide going forward after discussion with family. IV Ativan for increased agitation or restlessness Lovenox [employer] Patient requires ongoing hospitalization for IV morphine to treat respiratory distress in the backdrop of metastatic lung cancer requiring high-flow oxygen at this time Quality Stroke Does the patient have a stroke diagnosis?: No VTE Prior VTE?: No VTE Risk Level:: Medical - moderate - high VTE Device Contraindication: Treatment Not Indicated VTE Drug Contraindication: N/A - Med Ordered
[2024-04-06] MEDS: LORazepam 2 MG/ML VIAL 1 MG IVPUSH ×2 (13:44→17:22)
--- NOTE | 2024-04-06 22:29 | P.EN_ITS ---
Event Note Date of Service: 04/06/24 Event Note: Note I was called to the patient's bedside to pronounce the patient has . She was on LAUNDRY PRESSER. No spontaneous movements were present. There was not respond to verbal or tactile stimuli. Pupils were mid dilated and fixed. No breath sounds were appreciated over either lung field. No carotid pulses were palpable. No heart sounds were auscultated over entire pericardium. Patient pronounced at 8:50 PM. Family were at bedside. Time Spent With Patient Time: Total time managing care of this patient today ____ minutes.
--- NOTE | 2024-04-06 23:13 | PC.NURSE ---
[id number]. Nursing Note. Pt presently on Morphine continuous infusion at 6mg/hr. Resting comfortably. RR even and nonlabored at 18-20 breaths per minute. Family at bedside providing emotional support and comfort to one another and for the patient. All questions answered to family's satisfaction. Pt repositioned side to side with personal care provided, lotion applied to skin, hair combed and mouth care provided. 2047 Patient HR on telemtry dropped to 20's momentarily and pt found to be agonal breathing. Pt within seconds found to be without a pulse and RR ceased. Dr. Lundy came to bedside and time of 2049. [employer] notified ([employer] [employer]) and declined. Reference # [id number]. Pastoral Care, Eduar came in to provide prayer support to family at 2149. Postmortum care provided. Dentures with patient. All other belongings take home by family.
--- NOTE | 2024-04-17 14:16 | P.DS_ITS ---
DS: Providers Provider Date of Service: 04/17/24 Date of admission: 04/01/24 01:31 Date of discharge: 04/06/24 Primary care physician: Kenji Mcnally MD Consults: 03/31/24 20:24 Consult to Hematology / Oncology Routine Consulting Provider: [facility] Reason for consultation: pos tobstructive pneumonia, non small cell lung ca Consult to Pulmonology Routine Consulting Provider: [facility] Reason for consultation: post obstructive pneumonia, not improving DS: Diagnosis Discharge Diagnosis (1) Non-small cell lung cancer (NSCLC): Status: Acute DS: Summary Hospital Course Hospital Course: 79-year-old female with a PMH significant for metastatic?ysi-biquk-rimo left lung cancer s/p resection and segmentectomy who follows with Dr. Berger, CAD s/p stenting, SVT, HFpEF, insulin-dependent type 2 diabetes, HTN, HLD, COPD with chronic hypoxemic respiatory failure on 3L O2 at baseline, and hypothyroidism presented to the ED for evaluation of right sided abd pain that has been gradually worsening over the last few days, but was reported as a 10/10 today prompting her to present to the ED for evaluation. No fevers, chills, nausea, vomiting, melena, hematochezia. She reports she has not had a full bowel movement in 8 days despite multiple enemas, miralax, and senna. She was recently admitted 03/15-03/23 for COPD exacerbation and post obstructive pneumonia. Since then continues to have intermittent cough but denies any sputum production or acute worsening of cough. She states her shortness of breath is baseline both at rest and with exertion. No chest pains. On arrival however, was satting 78% on baseline 3L and was transitioned to 6L via oxymask and has now been weaned to 3L via oxymask. No respiratory distress noted. She has a worsening leukocytosis of 17.5 with 92% neutrophilia and toxic vacuolationwith midly elevated HR 91 and tachypnea of 21. No hypotension. Renal function baseline, lytes normal. Total bili 1.8, consistent with baseline, AST/ALT WNL. Trop 3.4, BNP 135. CRP 1.89, PCT pending. Lipase 6. VBG with ph 7.60, pco2 37, hco3 37 Neg for covid, flu, rsv. CXR shows small bilateral pleural effusions, similar to prior and diffuse left lung airspace opacities, slightly increased with stable R airspace opacities. In the ED, received duoneb. Hospital course Hospital course Patient was admitted to telemetry and started on broad-spectrum antibiotics. Over the course of the next several days her O2 requirement continued to escalate. Discussion was had with patient and she wished to be made comfort measures and family was at bedside and agreed. Morphine drip was started and she ultimately succumbed at 20:50 04/06/2024 Time Attestation Discharge Coordination Time (in mins): 35 Quality: Safe Use of Opioids Does Pt have an Active Cancer Diagnosis on the Problem List?: No Quality: Stroke Does the patient have a stroke diagnosis?: No Physical Exam Vital Signs: Vital Signs: Last Vital Signs Temp 97.4 F 04/06/24 07:43 Pulse 74 04/06/24 12:01 Resp 16 04/06/24 16:04 BP 149/69 H 04/06/24 12:01 Pulse Ox 90 L 04/06/24 07:43 O2 Del Method High Flow Nasal C annula 04/06/24 07:43 O2 Flow Rate 50 04/06/24 07:43 FiO2 30 04/06/24 07:43 Oxygen Flow Rate 3 03/31/24 18:39 BMI result Body Mass Index 23.5 Discharge Plan Discharge Date/Time: 04/06/24 20:50 Patient Disposition: Discharge Diagnosis: Respiratory/Cardiac Arrest. Referrals: Kenji Mcnally MD [Primary Care Provider] - 1 Week Discharge Medications: No Action aspirin [Adult Aspirin Regimen] 81 mg tablet,delayed release (DR/EC) 81 mg PO DAILY Qty: 90 0RF clopidogrel 75 mg tablet 75 mg PO DAILY Qty: 90 3RF isosorbide mononitrate 30 mg tablet extended release 24 hr 30 mg PO DAILY Qty: 90 3RF amiodarone 200 mg tablet 200 mg PO DAILY Qty: 30 2RF carvedilol 6.25 mg tablet 6.25 mg PO BID 30 Days Qty: 60 2RF Rx Instructions: NEW DOSE must administer with a meal/food polyethylene glycol 3350 [Miralax] 17 gram powder in packet 17 g PO DAILY 14 Days Qty: 14 0RF folic acid 1 mg Tablet 1 mg PO DAILY Qty: 90 4RF furosemide 20 mg tablet 20 mg PO BID@0900,1700 ezetimibe 10 mg tablet 10 mg PO BEDTIME insulin detemir U-100 100 unit/mL (3 mL) insulin pen 16 unit subcut BEDTIME (DME) walker Misc See Rx Instructions .Route Qty: 1 0RF Rx Instructions: As directed doxycycline monohydrate 100 mg capsule 100 mg PO BID Qty: 28 0RF citalopram 10 mg tablet 10 mg PO DAILY PRN (Reason: Anxiety) guaifenesin 100 mg/5 mL Liquid 200 mg PO Q4H PRN (Reason: Congestion) atorvastatin 80 mg tablet 80 mg PO BEDTIME (DME) blood sugar diagnostic Strip See Rx Instructions Not Applicable .MEDSUPPLY Qty: 10 Rx Instructions: As directed (DME) pen needle, diabetic 31 gauge x 3/16 needle See Rx Instructions subcut QID Qty: 50 Rx Instructions: As directed (DME) blood-glucose meter Misc See Rx Instructions .ROUTE .MEDSUPPLY Qty: 1 Rx Instructions: As directed insulin aspart U-100 [Novolog FlexPen U-100 Insulin] 100 unit/mL (3 mL) insulin pen See Protocol subcut QIDACHS Protocol: Insulin Correction Scale Less than or equal to 110 ---- Give (units): 0 111 to 150 Give (units): 0 151 to 200 Give (units): 2 201 to 250 Give (units): 4 251 to 300 Give (units): 6 301 to 350 Give (units): 8 Greater than 350 Give (units): 10 Call MD if Blood Glucose > : 350 (DME) lancets [OneTouch Delica Plus Lancet] 30 gauge misc See Rx Instructions .ROUTE .MEDSUPPLY Qty: 100 Rx Instructions: As directed (DME) compr.krishnaknee,long,large Misc See Rx Instructions .Route Qty: 12 2RF Rx Instructions: 20-30?mmHg,?As directed, 90 days levothyroxine 25 mcg tablet 25 mcg PO DAILY 30 Days Qty: 30 3RF Print Language: Kosovan Discharge Date/Time: 04/06/24 23:30
== END 2024-04-06 23:30 | disposition expired | DRG 871 ==
LOC: HO.ED 22:01 → HO.EDOVER 04-01 01:42 → HO.S3 04-01 02:30 → HO.IMC 04-05 07:30
PROVIDERS: Internal Medicine; Physician Assistant; Physician Assistant Medical; Admitting Provider Student in an Organized Health Care Education/Training Program; Emergency Provider Emergency Medicine; PCP Family Medicine; Visit Provider Hospitalist
DX: A41.9 Sepsis, unspecified organism (principal); J18.9 Pneumonia, unspecified organism; J96.21 Acute and chronic respiratory failure with hypoxia; I50.32 Chronic diastolic (congestive) heart failure; J44.0 Chronic obstructive pulmonary disease with (acute) lower respiratory infection; J44.1 Chronic obstructive pulmonary disease with (acute) exacerbation; J98.11 Atelectasis; I47.10 Supraventricular tachycardia, unspecified; C34.92 Malignant neoplasm of unspecified part of left bronchus or lung; C77.1 Secondary and unspecified malignant neoplasm of intrathoracic lymph nodes; E78.5 Hyperlipidemia, unspecified; Z66 Do not resuscitate; Z51.5 Encounter for palliative care; I73.9 Peripheral vascular disease, unspecified; D53.9 Nutritional anemia, unspecified; E03.9 Hypothyroidism, unspecified; E11.22 Type 2 diabetes mellitus with diabetic chronic kidney disease; K59.00 Constipation, unspecified; I25.10 Atherosclerotic heart disease of native coronary artery without angina pectoris; Z20.822 Contact with and (suspected) exposure to COVID-19; Z87.891 Personal history of nicotine dependence; Z99.81 Dependence on supplemental oxygen; Z95.5 Presence of coronary angioplasty implant and graft; Z90.2 Acquired absence of lung [part of]; Z79.4 Long term (current) use of insulin; Z79.02 Long term (current) use of antithrombotics/antiplatelets; Z79.82 Long term (current) use of aspirin; Z79.890 Hormone replacement therapy; Z79.899 Other long term (current) drug therapy
CPT/HCPCS: 0241U; 36415; 71045; 71250; 74018; 74176; 80048; 80053; 80202; 81001; 82565; 82803; 82947; 83605; 83690; 83735; 83880; 84145; 84484; 85007; 85027; 85610; 86140; 87040; 87449; 87899; 94640; 94799; 97110; 97162; 97530; 99285; J1650; J1940; J2060; J2270; J2543; J2919; J3370; J3371

== ENCOUNTER → 2024-03-31 19:12 | Outpatient (BNV) | payer MEDICARE, SELFPAY | PROVIDERS: Emergency Provider Emergency Medicine; PCP Family Medicine; Visit Provider Physician Assistant | DX: C34.92 Malignant neoplasm of unspecified part of left bronchus or lung (principal) | CPT/HCPCS: 99223; 99232; 99233; 99239 ==

== ENCOUNTER → 2024-04-01 01:31 | Outpatient (BNV) | payer MEDICARE, SELFPAY | PROVIDERS: Admitting Provider Student in an Organized Health Care Education/Training Program; Emergency Provider Emergency Medicine; PCP Family Medicine; Visit Provider Hospitalist | DX: J96.21 Acute and chronic respiratory failure with hypoxia (principal); C34.90 Malignant neoplasm of unspecified part of unspecified bronchus or lung; J18.9 Pneumonia, unspecified organism | CPT/HCPCS: 99223 ==